=== PATIENT | male | born 1970 | race Caucasian/White ===

== ENCOUNTER 2021-05-12 12:21 | Inpatient (IN) | payer OTHER ==
[2021-05-12] MEDS ORDERED: ALBUTEROL HFA INHALER INHALATION STA (13:08)
[2021-05-12] MEDS ORDERED: ACETAMINOPHEN TAB 500 MG TAB PO STA (13:08)
[2021-05-12] MEDS ORDERED: ACETAMINOPHEN TAB 500 MG TAB PO PRN (13:08)
[2021-05-12] MEDS ORDERED: SODIUM CHLORIDE 0.9% 500 ML 500 ML IV STA (13:09)
[2021-05-12] MEDS ORDERED: DEXAMETHASONE SOD PHOSPHATE 10 MG/ML 1 ML VIAL IVP STA (13:09)
--- NOTE | 2021-05-12 13:34 | ED ---
General Adult HPI - General Chief complaint: Upper Respiratory Infection Stated complaint: Covid+, SOB Time Seen by Provider: 05/12/21 12:56 Source: patient, family, RN notes reviewed Mode of arrival: ambulatory Limitations: no limitations - History of Present Illness Initial comments: 51-year-old male presents to the emergency room for a chief complaint of shortness of breath. Patient developed symptoms of COVID-19 about a week and a half ago. 8 he tested positive and then received antibodies 3 days ago. However he has continued to be short of breath. He has some nausea and diarrhea as well. He is not vaccinated for COVID-19.Patient has no other complaints at this time including chest pain, abdominal pain, vomiting, headache, or visual changes. - Related Data Home Medications Medication Instructions Recorded Confirmed Albuterol Inhaler [Ventolin Hfa 1 puff INHALATION RT-Q4H PRN 05/12/21 05/12/21 Inhaler] Benzonatate [Tessalon Perles] 100 mg PO Q8H PRN 05/12/21 05/12/21 dexAMETHasone 6 mg PO DAILY 05/12/21 05/12/21 Allergies Allergy/AdvReac Type Severity Reaction Status Date / Time No Known Allergies Allergy Verified 05/12/21 13:17 Review of Systems ROS Statement: Those systems with pertinent positive or pertinent negative responses have been documented in the HPI. ROS Other: All systems not noted in ROS Statement are negative. Past Medical History Past Medical History: No Reported History History of Any Multi-Drug Resistant Organisms: None Reported Past Surgical History: No Surgical Hx Reported Past Psychological History: No Psychological Hx Reported Smoking Status: Never smoker Past Alcohol Use History: None Reported Past Drug Use History: None Reported General Exam Limitations: no limitations General appearance: alert, in no apparent distress Head exam: Present: atraumatic Eye exam: Present: normal appearance, PERRL, EOMI. Absent: scleral icterus, conjunctival injection ENT exam: Present: normal exam, mucous membranes moist Neck exam: Present: normal inspection, full ROM. Absent: tenderness Respiratory exam: Present: normal lung sounds bilaterally. Absent: respiratory distress, wheezes Cardiovascular Exam: Present: regular rate, normal rhythm, normal heart sounds Course Vital Signs 05/12/21 05/12/21 05/12/21 12:35 13:30 13:45 Temperature 98.5 F Pulse Rate 83 81 Respiratory 18 20 20 Rate Blood Pressure 114/71 O2 Sat by Pulse 80 L 95 Oximetry 05/12/21 16:33 Temperature 98.2 F Pulse Rate 70 Respiratory 18 Rate Blood Pressure 135/92 O2 Sat by Pulse 93 L Oximetry EKG Findings - EKG Comments: EKG Findings:: Normal sinus rhythm, ventricular rate 79, FL interval 150, QTC 433 Medical Decision Making - Medical Decision Making Patient presents with oxygenation 80% on room air. He is placed on 4 L. He is satting at 93% on 4 L.Chest x-ray and COVID-19 labs and markers obtained. At this time patient will be admitted for pulmonology consultation. We will start him on Decadron, vitamins, and keep him on oxygen at this time. - Lab Data Result diagrams: 05/12/21 13:32 05/12/21 13:32 Lab Results 05/12/21 05/12/21 05/12/21 Range/Units 13:32 13:32 13:32 WBC 5.1 (3.8-10.6) k/uL RBC 4.92 (4.30-5.90) m/uL Hgb 14.3 (13.0-17.5) gm/dL Hct 42.6 (39.0-53.0) % MCV 86.7 (80.0-100.0) fL MCH 29.1 (25.0-35.0) pg MCHC 33.6 (31.0-37.0) g/dL RDW 13.2 (11.5-15.5) % Plt Count 377 (150-450) k/uL MPV 7.4 Neutrophils % 77 % Lymphocytes % 13 % Monocytes % 8 % Eosinophils % 0 % Basophils % 0 % Neutrophils # 3.9 (1.3-7.7) k/uL Lymphocytes # 0.7 L (1.0-4.8) k/uL Monocytes # 0.4 (0-1.0) k/uL Eosinophils # 0.0 (0-0.7) k/uL Basophils # 0.0 (0-0.2) k/uL PT 10.1 (9.0-12.0) sec INR 0.9 (<1.2) APTT 21.8 L (22.0-30.0) sec Sodium 138 (137-145) mmol/L Potassium 5.0 (3.5-5.1) mmol/L Chloride 107 (98-107) mmol/L Carbon Dioxide 27 (22-30) mmol/L Anion Gap 4 mmol/L BUN 18 (9-20) mg/dL Creatinine 0.89 (0.66-1.25) mg/dL Est GFR (CKD-EPI)AfAm >90 (>60 ml/min/1.73 sqM) Est GFR (CKD-EPI)NonAf >90 (>60 ml/min/1.73 sqM) Glucose 115 H (74-99) mg/dL Calcium 8.2 L (8.4-10.2) mg/dL Magnesium 2.9 H (1.6-2.3) mg/dL Total Bilirubin 0.9 (0.2-1.3) mg/dL AST 154 H (17-59) U/L ALT 123 H (4-49) U/L Alkaline Phosphatase 164 H (38-126) U/L Lactate Dehydrogenase 2657 H (313-618) U/L C-Reactive Protein 4.9 H (<1.0) mg/dL Total Protein 6.4 (6.3-8.2) g/dL Albumin 3.3 L (3.5-5.0) g/dL Procalcitonin (0.02-0.09) ng/mL 05/12/21 Range/Units 13:32 WBC (3.8-10.6) k/uL RBC (4.30-5.90) m/uL Hgb (13.0-17.5) gm/dL Hct (39.0-53.0) % MCV (80.0-100.0) fL MCH (25.0-35.0) pg MCHC (31.0-37.0) g/dL RDW (11.5-15.5) % Plt Count (150-450) k/uL MPV Neutrophils % % Lymphocytes % % Monocytes % % Eosinophils % % Basophils % % Neutrophils # (1.3-7.7) k/uL Lymphocytes # (1.0-4.8) k/uL Monocytes # (0-1.0) k/uL Eosinophils # (0-0.7) k/uL Basophils # (0-0.2) k/uL PT (9.0-12.0) sec INR (<1.2) APTT (22.0-30.0) sec Sodium (137-145) mmol/L Potassium (3.5-5.1) mmol/L Chloride (98-107) mmol/L Carbon Dioxide (22-30) mmol/L Anion Gap mmol/L BUN (9-20) mg/dL Creatinine (0.66-1.25) mg/dL Est GFR (CKD-EPI)AfAm (>60 ml/min/1.73 sqM) Est GFR (CKD-EPI)NonAf (>60 ml/min/1.73 sqM) Glucose (74-99) mg/dL Calcium (8.4-10.2) mg/dL Magnesium (1.6-2.3) mg/dL Total Bilirubin (0.2-1.3) mg/dL AST (17-59) U/L ALT (4-49) U/L Alkaline Phosphatase (38-126) U/L Lactate Dehydrogenase (313-618) U/L C-Reactive Protein (<1.0) mg/dL Total Protein (6.3-8.2) g/dL Albumin (3.5-5.0) g/dL Procalcitonin 0.14 H (0.02-0.09) ng/mL Disposition Clinical Impression: COVID-19, Acute respiratory failure with hypoxia Disposition: ADMITTED IP TO THIS HOSP Is patient prescribed a controlled substance at d/c from ED?: No Time of Disposition: 13:34
--- NOTE | 2021-05-12 13:48 | XR ---
EXAMINATION TYPE: XR chest 1V portable DATE OF EXAM: 05/12/2021 COMPARISON: NONE HISTORY: Cough and shortness of breath TECHNIQUE: Single AP portable frontal upright view of the chest is obtained. FINDINGS: There are reticular increased markings in the peripheral left lung base. Increased right m id to basilar opacity. Somewhat low lung volumes. The cardiac silhouette size is within normal limits . The osseous structures are intact. IMPRESSION: Low lung volumes with right greater than left bilateral increased lower lung opacities c onsistent with covid-19 infection.
[2021-05-12 13:50] LABS: Basophils % (A) 0 %; Eosinophils % (A) 0 %; HCT 42.6 % (39.0-53.0); HGB 14.3 gm/dL (13.0-17.5); Lymphocytes # (A) 0.7 k/uL (1.0-4.8); Lymphocytes % (A) 13 %; MCH 29.1 pg (25.0-35.0); MCHC 33.6 g/dL (31.0-37.0); MCV 86.7 fL (80.0-100.0); Mean Platelet Volume 7.4; Monocytes # (A) 0.4 k/uL (0-1.0); Monocytes % (A) 8 %; Neutrophils # (A) 3.9 k/uL (1.3-7.7); Neutrophils % (A) 77 %; Platelet Count 377 k/uL (150-450); RBC 4.92 m/uL (4.30-5.90); RDW 13.2 % (11.5-15.5); WBC 5.1 k/uL (3.8-10.6)
[2021-05-12 14:01] LABS: ALT 123 U/L (4-49); AST 154 U/L (17-59); African American GFR (CKD) >90 (>60 ml/min/1.73 sqM); Albumin 3.3 g/dL (3.5-5.0); Alkaline Phosphatase 164 U/L (38-126); Anion Gap 4 mmol/L; Blood Urea Nitrogen 18 mg/dL (9-20); C Reactive Protein 4.9 mg/dL (<1.0); Calcium 8.2 mg/dL (8.4-10.2); Carbon Dioxide 27 mmol/L (22-30); Chloride 107 mmol/L (98-107); Glucose 115 mg/dL (74-99); Magnesium 2.9 mg/dL (1.6-2.3); Non-African American GFR(CKD) >90 (>60 ml/min/1.73 sqM); Sodium 138 mmol/L (137-145); Total Bilirubin 0.9 mg/dL (0.2-1.3); Total Protein 6.4 g/dL (6.3-8.2)
[2021-05-12] MEDS ORDERED: IBUPROFEN 400 MG TAB PO PRN (14:01)
[2021-05-12] MEDS ORDERED: NALOXONE 0.4 MG/ML 1 ML VIAL IV PRN (14:01)
[2021-05-12 14:10] LABS: LDH 2657 U/L (313-618)
[2021-05-12 14:21] LABS: INR 0.9 (<1.2); Prothrombin Time 10.1 sec (9.0-12.0)
[2021-05-12 14:23] LABS: Partial Thromboplastin Time 21.8 sec (22.0-30.0)
[2021-05-12] MEDS: ALBUTEROL HFA INHALER INHALATION SCH ×2 (14:49→21:00)
--- NOTE | 2021-05-12 14:56 | P.HPIM ---
History of Present Illness H&P Date: 05/12/21 Chief Complaint: Dyspnea 51-year-old man with no medical history, nonvaccinated individual, presented with worsening dyspnea. Patient developed symptoms approximately 10 days ago, was diagnosed with Covid 8 days ago, received monoclonal antibody 3 days ago, however, despite this intervention patient continued to develop worsening shortness of breath. In addition, patient feels generally fatigued, has a chills, cough, diarrhea, loss of appetite, mild abdominal discomfort. Otherwise, review of systems is negative for fevers, nausea, vomiting, chest pain, palpitations, syncope, constipation, dysuria, dyschezia, numbness/weakness of extremities. In the emergency room, patient was hypoxic to 80% on room air and was started on 4 L of nasal cannula which improved his saturation at 95%. CBC was unremarkable except for lymphopenia; chemistries demonstrate elevated liver enzymes, alkaline phosphatase, lactate dehydrogenase, CRP. Chest x-ray demonstrates right greater than left bilateral increased lower lung opacities consistent with Covid 19. Review of Systems All Systems reviewed and pertinent positives and negatives noted in HPI, all other symptoms are negative Past Medical History Past Medical History: No Reported History History of Any Multi-Drug Resistant Organisms: None Reported Past Surgical History: No Surgical Hx Reported Past Psychological History: No Psychological Hx Reported Smoking Status: Never smoker Past Alcohol Use History: None Reported Past Drug Use History: None Reported Medications and Allergies Home Medications Medication Instructions Recorded Confirmed Type Albuterol Inhaler [Ventolin Hfa 1 puff INHALATION RT-Q4H PRN 05/12/21 05/12/21 History Inhaler] Benzonatate [Tessalon Perles] 100 mg PO Q8H PRN 05/12/21 05/12/21 History dexAMETHasone 6 mg PO DAILY 05/12/21 05/12/21 History Allergies Allergy/AdvReac Type Severity Reaction Status Date / Time No Known Allergies Allergy Verified 05/12/21 13:17 Physical Exam Osteopathic Statement: *. No significant issues noted on an osteopathic structural exam other than those noted in the History and Physical/Consult. Vitals: Vital Signs Temp Pulse Resp BP Pulse Ox 05/12/21 13:45 81 20 95 05/12/21 12:35 98.5 F 83 18 114/71 80 L Intake and Output 05/11/21 05/12/21 05/12/21 22:59 06:59 14:59 Other: Weight 102.058 kg Gen: awake, alert HEENT: normocephalic, atraumatic, good hearing acuity, moist mucous membranes Resp: good air exchange, bilateral crackles in the posterior bases CVS: good distal perfusion x 4, regular rate and rhythm without murmurs GI: soft, NTTP, ND : no SPT, no CVAT, hanna catheter not present MSK: no pitting edema, no clubbing Neuro: non-focal, moving all extremities Psych: cooperative, euthymic mood Results CBC & Chem 7: 05/12/21 13:32 05/12/21 13:32 Labs: Abnormal Lab Results - Last 24 Hours (Table) 05/12/21 05/12/21 05/12/21 Range/Units 13:32 13:32 13:32 Lymphocytes # 0.7 L (1.0-4.8) k/uL APTT 21.8 L (22.0-30.0) sec Glucose 115 H (74-99) mg/dL Calcium 8.2 L (8.4-10.2) mg/dL Magnesium 2.9 H (1.6-2.3) mg/dL AST 154 H (17-59) U/L ALT 123 H (4-49) U/L Alkaline Phosphatase 164 H (38-126) U/L Lactate Dehydrogenase 2657 H (313-618) U/L C-Reactive Protein 4.9 H (<1.0) mg/dL Albumin 3.3 L (3.5-5.0) g/dL Assessment and Plan Assessment: Acute hypoxemic respiratory failure ARDS secondary to Covid 19 -Admit inpatient, telemetry -Pulmonary consult -Dexamethasone day 1 -Outside of window for remdesivir -Vitamin C, D, zinc -Oxygen when necessary -Daily inflammatory markers -Not a candidate for IL-6 inhibitor due to monoclonal antibody administration -inhaler PRN Patient is a full code DVT prophylaxis with Lovenox
[2021-05-12] MEDS: ZINC SULFATE 220 MG CAP PO SCH (16:33)
[2021-05-12] MEDS: SODIUM CHLORIDE 0.9% 1,000 ML IV SCH (16:33)
[2021-05-12] MEDS: ASCORBIC ACID 500 MG TAB PO SCH (16:33)
--- NOTE | 2021-05-12 18:28 | P.CNPUL ---
History of Present Illness Consult date: 05/12/21 Requesting physician: Dunia Botello Reason for consult: dyspnea, cough, chest pain, hypoxemia, pneumonia, abnormal CXR/CT Chief complaint: Shortness of breath. History of present illness: Pulmonary consult dated 05/12/2021. 51-year-old male who presents to the emergency department on May 12, with complaints of shortness of breath. The patient has been sick for at least 10-11 days. It started off with cough and shortness of breath, and loss of taste. He's also had fever. He has not been vaccinated. He was tested for coronavirus on May 07, and tested positive. The patient does not have a primary care physician. He has no past medical history. He takes no medications at home. The patient did receive monoclonal antibodies on May 09. Currently, the patient's on 5 L nasal cannula. He's got saline running at 75 mL an hour. He looks relatively stable. His chest x-ray does show diffuse bilateral infiltrates. The home medications that he is on include an albuterol inhaler, Tessalon Perles, and Decadron, given to him by the hospital. White count 5.1, hemoglobin 14.3, hematocrit 42.6, and platelet count 377,000. Sodium, potassium, chloride, CO2, anion gap, BUN, and creatinine are all normal. AST was 154, ALT 123, alkaline phosphatase 164. LDH was 2657. C-reactive protein is 14.9. Pro-calcitonin level is 0.14. Chest x-ray shows low lung volumes, with right greater than left bilateral opacities. Review of Systems REVIEW OF SYSTEMS: CONSTITUTIONAL: Fever, weakness. NEUROLOGIC: [ Negative.] HEENT: Loss of taste. CARDIAC: [Negative.] PULMONARY: Shortness of breath, cough, chest congestion. GI: [Negative.] : [Negative.] RHEUMATOLOGIC: [ Negative.] IMMUNOLOGIC: [ Negative.] ENDOCRINE: [Negative. ] DERMATOLOGIC: [Negative.] Past Medical History Past Medical History: No Reported History History of Any Multi-Drug Resistant Organisms: None Reported Past Surgical History: No Surgical Hx Reported Past Anesthesia/Blood Transfusion Reactions: No Reported Reaction Past Psychological History: No Psychological Hx Reported Smoking Status: Never smoker Past Alcohol Use History: None Reported Past Drug Use History: None Reported Medications and Allergies Home Medications Medication Instructions Recorded Confirmed Type Albuterol Inhaler [Ventolin Hfa 1 puff INHALATION RT-Q4H PRN 05/12/21 05/12/21 History Inhaler] Benzonatate [Tessalon Perles] 100 mg PO Q8H PRN 05/12/21 05/12/21 History dexAMETHasone 6 mg PO DAILY 05/12/21 05/12/21 History Allergies Allergy/AdvReac Type Severity Reaction Status Date / Time No Known Allergies Allergy Verified 05/12/21 13:17 Physical Exam Osteopathic Statement: *. No significant issues noted on an osteopathic struc tural exam other than those noted in the History and Physical/Consult. Vitals: Vital Signs Temp Pulse Resp BP Pulse Ox 05/12/21 16:33 98.2 F 70 18 135/92 93 L 05/12/21 13:45 81 20 95 05/12/21 13:30 20 05/12/21 12:35 98.5 F 83 18 114/71 80 L Intake and Output 05/12/21 05/12/21 05/12/21 06:59 14:59 22:59 Intake Total 125 Balance 125 Intake: Intake, IV Titration 75 Amount Sodium Chloride 0.9% 1, 75 000 ml @ 75 mls/hr IV . [id number] DAMIR Rx#:[id number] Oral 50 Other: # Voids 0 Weight 102.058 kg No acute distress, oriented 3. Currently on 5 L nasal cannula. No respiratory distress, or use of accessory muscles. HEENT examination is grossly unremarkable. Neck supple. Full range of motion. No adenopathy thyromegaly or neck vein distention. Cardiovascular examination reveals regular rhythm rate. S1-S2 normal. No S3 or S4. No discernible murmur noted. Heart rate is 70 bpm. Lungs reveal coarse bilateral rhonchi. Bibasilar crackles are appreciated. No wheezes noted. Breath sounds are equal bilaterally. Abdomen soft bowel sounds are heard. No masses or tenderness. Extremities are intact. No cyanosis clubbing or edema. Skin is without rash or lesion. Neurologic examination is brief but nonfocal. Results - Laboratory Findings CBC and BMP: 05/12/21 13:32 05/12/21 13:32 PT/INR, D-dimer PT 10.1 sec (9.0-12.0) 05/12/21 13:32 INR 0.9 (<1.2) 05/12/21 13:32 Abnormal lab findings: Abnormal Labs 05/12/21 05/12/21 05/12/21 13:32 13:32 13:32 Lymphocytes # 0.7 L APTT 21.8 L Glucose 115 H Calcium 8.2 L Magnesium 2.9 H AST 154 H ALT 123 H Alkaline Phosphatase 164 H Lactate Dehydrogenase 2657 H C-Reactive Protein 4.9 H Albumin 3.3 L - Diagnostic Findings Chest x-ray: image reviewed Assessment and Plan Assessment: Acute hypoxemic respiratory failure secondary to coronavirus associated pneumonia. Elevated inflammatory marker secondary to coronavirus infection. Mild liver function test abnormalities, secondary to coronavirus infection. Plan: Plan dated 05/12/2021. Currently, the patient is resting comfortably in room 44. He's on 5 L nasal cannula. He appears not to be in any respiratory distress. Chest x-ray does show diffuse bilateral right greater than left pulmonary infiltrates. The patient tested positive on May 07, and received monoclonal antibody on May 09. The patient has not been vaccinated. The patient is a candidate only for Lovenox, Decadron, and vitamins. He is not a candidate for REM. He is not sick enough to receive LINH. We will continue to follow and make recommendations where appropriate. Prognosis is guarded. Time with Patient: Greater than 30
[2021-05-12] MEDS: ENOXAPARIN 40 MG/0.4 ML SYRINGE SQ SCH (20:44)
[2021-05-12] MEDS: CHOLECALCIFEROL 125 MCG (5000 IU) TABLET PO SCH (21:11)
[2021-05-13] MEDS: ALBUTEROL HFA INHALER INHALATION SCH ×4 (03:29→19:43)
[2021-05-13] MEDS: SODIUM CHLORIDE 0.9% 1,000 ML IV SCH ×2 (03:44→17:48)
[2021-05-13] MEDS: ASCORBIC ACID 500 MG TAB PO SCH (07:45)
[2021-05-13] MEDS: DEXAMETHASONE SOD PHOSPHATE 10 MG/ML 1 ML VIAL IVP SCH (07:46)
[2021-05-13] MEDS: ZINC SULFATE 220 MG CAP PO SCH (07:46)
[2021-05-13] MEDS: ENOXAPARIN 40 MG/0.4 ML SYRINGE SQ SCH (07:46)
[2021-05-13] MEDS: CHOLECALCIFEROL 125 MCG (5000 IU) TABLET PO SCH (07:46)
[2021-05-13] MEDS ORDERED: guaiFENesin 600 MG TABLET.ER PO PRN (09:56)
[2021-05-13 11:56] LABS: Basophils # (A) 0.01 X 10*3/uL (0.00-0.10); Basophils % (A) 0.1 %; Eosinophils # (A) 0 X 10*3/uL (0.04-0.35); Eosinophils % (A) 0 %; HCT 43.8 % (39.6-50.0); HGB 13.5 g/dL (13.0-17.0); Lymphocytes # (A) 0.85 X 10*3/uL (0.90-5.00); Lymphocytes % (A) 12.4 %; MCH 28.1 pg (27.0-32.0); MCHC 30.8 g/dL (32.0-37.0); MCV 91.1 fL (80.0-97.0); Monocytes # (A) 0.58 X 10*3/uL (0.20-1.00); Monocytes % (A) 8.5 %; Neutrophils # (A) 5.19 X 10*3/uL (1.80-7.70); Neutrophils % (A) 75.8 %; Platelet Count 272 X 10*3/uL (140-440); RBC 4.81 X 10*6/uL (4.40-5.60); RDW 13.5 % (11.5-14.5); WBC 6.85 X 10*3/uL (4.50-10.00)
[2021-05-13 12:02] LABS: C Reactive Protein 3.4 mg/dL (0.00-0.80); Magnesium 2.9 mg/dL (1.5-2.4)
[2021-05-13 12:06] LABS: Albumin 3.5 g/dL (3.8-4.9); Albumin/Globulin Ratio 1.37 (1.60-3.17); Anion Gap 14.8 mmol/L (10.00-18.00); BUN/Creat Ratio 16.6 Ratio (12.00-20.00); Bilirubin, Conjugated 0.37 mg/dL (0.20-0.40); Bilirubin,Unconjugated 0.34 mg/dL (0.20-1.00); Blood Urea Nitrogen 16.6 mg/dL (9.0-27.0); Calcium 8.1 mg/dL (8.7-10.3); Carbon Dioxide 19.1 mmol/L (20.0-27.5); Globulin 2.5 g/dL (1.6-3.3); Potassium 5.4 mmol/L (3.5-5.5); Total Bilirubin 0.7 mg/dL (0.30-1.20)
--- NOTE | 2021-05-13 13:43 | P.PN ---
Subjective Progress Note Date: 05/13/21 Pt has rapidly worsening oxygen requirement. Now on 15L HFNC + NRB, was on 7L this morning. Objective - Vital Signs Vital signs: Vital Signs Temp 97.8 F 05/13/21 10:04 Pulse 76 05/13/21 10:04 Resp 17 05/13/21 10:04 BP 133/87 05/13/21 10:04 Pulse Ox 89 L 05/13/21 10:04 Intake & Output 05/12/21 05/13/21 05/13/21 18:59 06:59 18:59 Intake Total 125 Balance 125 Weight 102.058 kg Intake: Intake, IV Titration 75 Amount Sodium Chloride 0.9% 1, 75 000 ml @ 75 mls/hr IV . [id number] DAMIR Rx#:[id number] Oral 50 Other: # Voids 0 2 # Bowel Movements 1 - Exam Gen: awake, alert HEENT: normocephalic, atraumatic, good hearing acuity, moist mucous membranes Resp: good air exchange, bilateral crackles in the posterior bases CVS: good distal perfusion x 4, regular rate and rhythm without murmurs GI: soft, NTTP, ND : no SPT, no CVAT, hanna catheter not present MSK: no pitting edema, no clubbing Neuro: non-focal, moving all extremities Psych: cooperative, euthymic mood - Labs CBC & Chem 7: 05/13/21 07:13 05/13/21 07:13 Labs: Abnormal Lab Results - Last 24 Hours (Table) 05/12/21 05/12/21 05/12/21 Range/Units 13:32 13:32 13:32 MCHC (32.0-37.0) g/dL Immature Gran # (0.00-0.04) X 10*3/uL Lymphocytes # 0.7 L (1.0-4.8) k/uL Eosinophils # (0.04-0.35) X 10*3/uL APTT 21.8 L (22.0-30.0) sec D-Dimer (<0.60) mg/L FEU Carbon Dioxide (20.0-27.5) mmol/L Glucose 115 H (74-99) mg/dL Calcium 8.2 L (8.4-10.2) mg/dL Magnesium 2.9 H (1.6-2.3) mg/dL Ferritin 2608.0 H (22.0-322.0) ng/mL AST 154 H (17-59) U/L ALT 123 H (4-49) U/L Alkaline Phosphatase 164 H (38-126) U/L Lactate Dehydrogenase 2657 H (313-618) U/L C-Reactive Protein 4.9 H (<1.0) mg/dL Total Protein (6.2-8.2) g/dL Albumin 3.3 L (3.5-5.0) g/dL Albumin/Globulin Ratio (1.60-3.17) g/dL Procalcitonin (0.02-0.09) ng/mL 05/12/21 05/13/21 05/13/21 Range/Units 13:32 07:13 07:13 MCHC 30.8 L (32.0-37.0) g/dL Immature Gran # 0.22 H (0.00-0.04) X 10*3/uL Lymphocytes # 0.85 L (1.0-4.8) k/uL Eosinophils # 0 L (0.04-0.35) X 10*3/uL APTT (22.0-30.0) sec D-Dimer 15.80 H (<0.60) mg/L FEU Carbon Dioxide (20.0-27.5) mmol/L Glucose (74-99) mg/dL Calcium (8.4-10.2) mg/dL Magnesium (1.6-2.3) mg/dL Ferritin (22.0-322.0) ng/mL AST (17-59) U/L ALT (4-49) U/L Alkaline Phosphatase (38-126) U/L Lactate Dehydrogenase (313-618) U/L C-Reactive Protein (<1.0) mg/dL Total Protein (6.2-8.2) g/dL Albumin (3.5-5.0) g/dL Albumin/Globulin Ratio (1.60-3.17) g/dL Procalcitonin 0.14 H (0.02-0.09) ng/mL 05/13/21 Range/Units 07:13 MCHC (32.0-37.0) g/dL Immature Gran # (0.00-0.04) X 10*3/uL Lymphocytes # (1.0-4.8) k/uL Eosinophils # (0.04-0.35) X 10*3/uL APTT (22.0-30.0) sec D-Dimer (<0.60) mg/L FEU Carbon Dioxide 19.1 L (20.0-27.5) mmol/L Glucose 123 H (74-99) mg/dL Calcium 8.1 L (8.4-10.2) mg/dL Magnesium 2.9 H (1.6-2.3) mg/dL Ferritin (22.0-322.0) ng/mL AST 120 H (17-59) U/L ALT 146 H (4-49) U/L Alkaline Phosphatase 187 H (38-126) U/L Lactate Dehydrogenase 971 H (313-618) U/L C-Reactive Protein 3.40 H (<1.0) mg/dL Total Protein 6.0 L (6.2-8.2) g/dL Albumin 3.5 L (3.5-5.0) g/dL Albumin/Globulin Ratio 1.37 L (1.60-3.17) g/dL Procalcitonin (0.02-0.09) ng/mL Assessment and Plan Assessment: Acute hypoxemic respiratory failure ARDS secondary to Covid 19 -Admit inpatient, telemetry -Pulmonary consult -Dexamethasone day 2 -Outside of window for remdesivir -Vitamin C, D, zinc -Oxygen when necessary -Daily inflammatory markers -Would recommend IL-6 inhibitor at this point, I will defer this to pulmonary medicine -inhaler PRN Patient is a full code DVT prophylaxis with Lovenox
[2021-05-13] MEDS ORDERED: HEPARIN SODIUM 1,000 UN/ML (10ML VL) IV ONE (16:42)
--- NOTE | 2021-05-13 16:42 | CT ---
EXAMINATION TYPE: CT angio chest DATE OF EXAM: 05/13/2021 COMPARISON: None HISTORY: SOB, cough, +covid CT DLP: 636.1 mGycm Automated exposure control for dose reduction was used. CONTRAST: Performed with IV Contrast, patient injected with 80cc mL of Isovue 370. There are 3-D post processed images. There is extensive interstitial and airspace infiltrate in both lungs and relative sparing of the lef t upper lobe. Thoracic aorta is intact. There is no aneurysm or dissection. There are multiple filling defects in t he lower lobe pulmonary arteries bilaterally. Heart size is normal. There is no pericardial effusion. There is no pleural effusion. Bony thorax is intact. Sternum is intact. The upper abdominal soft tissues appear intact. New graft impression There is bilateral lower lobe large multiple pulmonary emboli. No sign of right heart strain. Normal heart size. Extensive bilateral pneumonia. This exam was discussed with the patient's nurse on the floor at 4:45 PM.
--- NOTE | 2021-05-13 17:01 | P.PN ---
Subjective Progress Note Date: 05/13/21 Principal diagnosis: COVID-19 pneumonia 51-year-old male who presents to the emergency department on May 12, with complaints of shortness of breath. The patient has been sick for at least 10-11 days. It started off with cough and shortness of breath, and loss of taste. H e's also had fever. He has not been vaccinated. He was tested for coronavirus on May 07, and tested positive. The patient does not have a primary care physician. He has no past medical history. He takes no medications at home. The patient did receive monoclonal antibodies on May 09. Currently, the patient's on 5 L nasal cannula. He's got saline running at 75 mL an hour. He looks relatively stable. His chest x-ray does show diffuse bilateral infiltrates. The home medications that he is on include an albuterol inhaler, Tessalon Perles, and Decadron, given to him by the hospital. White count 5.1, hemoglobin 14.3, hematocrit 42.6, and platelet count 377,000. Sodium, potass ium, chloride, CO2, anion gap, BUN, and creatinine are all normal. AST was 154, ALT 123, alkaline phosphatase 164. LDH was 2657. C-reactive protein is 14.9. Pro-calcitonin level is 0.14. Chest x-ray shows low lung volumes, with right greater than left bilateral opacities. The patient is seen today 05/13/2021 in follow-up on the regular medical floor. He is currently resting in bed. He is somewhat more dyspneic andtachypneic. His oxygen requirements have gone up to knees on 15 L high flow nasal cannula plus a nonrebreather mask. white count 6.8. Hemoglobin 13.5. Leukocytes 0.85. D-dimer up to 15.8. Sodium 143. Potassium 5.4. Creatinine 1.0. Glucose 123. AST 120. ALT 146. LDH 971. C-reactive protein 3.4. CT angiogram was requested after seeing the patient. There is evidence of bilateral lower lobe large multiple pulmonary emboli. No sign of right heart strain. Lovenox will be discontinued and he'll be initiated on a heparin drip. Objective - Vital Signs Vital signs: Vital Signs Temp 97.9 F 05/13/21 14:28 Pulse 81 05/13/21 14:28 Resp 18 05/13/21 14:28 BP 142/66 05/13/21 14:28 Pulse Ox 89 L 05/13/21 14:28 Intake & Output 05/12/21 05/13/21 05/13/21 18:59 06:59 18:59 Intake Total 125 Balance 125 Weight 102.058 kg Intake: Intake, IV Titration 75 Amount Sodium Chloride 0.9% 1, 75 000 ml @ 75 mls/hr IV . [id number] DAMIR Rx#:[id number] Oral 50 Other: # Voids 0 2 # Bowel Movements 1 - Exam GENERAL EXAM: Alert,pleasant 51-year-old gentleman, on 15 L high flow nasal cannula plus a nonrebreather mask, in mild respiratory distress. HEAD: Normocephalic. EYES: Normal reaction of pupils, equal size. NOSE: Clear with pink turbinates. THROAT: No erythema or exudates. NECK: No masses, no JVD. CHEST: No chest wall deformity. LUNGS: Equal air entry with coarse crackles in the bilateral bases. CVS: S1 and S2 normal with no audible murmur, regular rhythm. ABDOMEN: No hepatosplenomegaly, normal bowel sounds, no guarding or rigidity. SPINE: No scoliosis or deformity SKIN: No rashes CENTRAL NERVOUS SYSTEM: No focal deficits, tone is normal in all 4 extremities. EXTREMITIES: There is no peripheral edema. No clubbing, no cyanosis. Peripheral pulses are intact. - Labs CBC & Chem 7: 05/13/21 07:13 05/13/21 07:13 Labs: Abnormal Lab Results - Last 24 Hours (Table) 05/12/21 05/12/21 05/13/21 Range/Units 13:32 13:32 07:13 MCHC 30.8 L (32.0-37.0) g/dL Immature Gran # 0.22 H (0.00-0.04) X 10*3/uL Lymphocytes # 0.85 L (0.90-5.00) X 10*3/uL Eosinophils # 0 L (0.04-0.35) X 10*3/uL D-Dimer (<0.60) mg/L FEU Carbon Dioxide (20.0-27.5) mmol/L Glucose (70-110) mg/dL Calcium (8.7-10.3) mg/dL Magnesium (1.5-2.4) mg/dL Ferritin 2608.0 H (22.0-322.0) ng/mL AST (14-35) U/L ALT (10-49) U/L Alkaline Phosphatase (41-126) U/L Lactate Dehydrogenase (120-246) U/L C-Reactive Protein (0.00-0.80) mg/dL Total Protein (6.2-8.2) g/dL Albumin (3.8-4.9) g/dL Albumin/Globulin Ratio (1.60-3.17) g/dL Procalcitonin 0.14 H (0.02-0.09) ng/mL 05/13/21 05/13/21 Range/Units 07:13 07:13 MCHC (32.0-37.0) g/dL Immature Gran # (0.00-0.04) X 10*3/uL Lymphocytes # (0.90-5.00) X 10*3/uL Eosinophils # (0.04-0.35) X 10*3/uL D-Dimer 15.80 H (<0.60) mg/L FEU Carbon Dioxide 19.1 L (20.0-27.5) mmol/L Glucose 123 H (70-110) mg/dL Calcium 8.1 L (8.7-10.3) mg/dL Magnesium 2.9 H (1.5-2.4) mg/dL Ferritin (22.0-322.0) ng/mL AST 120 H (14-35) U/L ALT 146 H (10-49) U/L Alkaline Phosphatase 187 H (41-126) U/L Lactate Dehydrogenase 971 H (120-246) U/L C-Reactive Protein 3.40 H (0.00-0.80) mg/dL Total Protein 6.0 L (6.2-8.2) g/dL Albumin 3.5 L (3.8-4.9) g/dL Albumin/Globulin Ratio 1.37 L (1.60-3.17) g/dL Procalcitonin (0.02-0.09) ng/mL Assessment and Plan Assessment: 1 Acute hypoxemic respiratory failure secondary to COVID-19 pneumonia. Worsening oxygen requirements today up to 15 L high flow nasal cannula plus a nonrebreather mask. He will be initiated on Baricitinib. CT angiogram was ordered and he does have bilateral large pulmonary emboli in the lower lobes. No evidence of heart strain. Extensive bilateral pneumonia. Heparin drip will be initiated. Discontinue Lovenox. 2 Acute bilateral pulmonary emboli secondary to COVID-19 infection 3 Elevated inflammatory markers secondary to above 4 Elevated LFTs secondary to above Plan: The patient was seen and evaluated by Dr. Chaves CAT scan and labs reviewed Initiate Baricitinib Discontinue Lovenox, initiate heparin drip Obtain echocardiogram Continue Decadron, vitamin supplements May require transfer to the ICU Continue to monitor oxygen saturations closely Prognosis is guarded We will continue to follow and make further recommendations based on his clinical status I, the cosigning physician, performed a history & physical examination of the patient. Lungs sounds coarse crackles in the bilateral bases. Maintaining good O2 saturations in the 90s on 15 L high flow nasal cannula plus a nonrebreather mask. I discussed the assessment and plan of care with my nurse practitioner, Alice Raya. I attest to the above note as dictated by her.
[2021-05-13] MEDS: HEPARIN SOD,PORK IN 0.45% NACL 25,000 UNIT in 0.45% NACL 1 250ML.BAG IV SCH (17:40)
[2021-05-13] MEDS: BARICITINIB 2 MG TABLET PO SCH (17:47)
[2021-05-13] MEDS ORDERED: ALPRAZolam 0.5 MG TAB PO PRN (22:21)
[2021-05-14] MEDS: ALBUTEROL HFA INHALER INHALATION SCH ×4 (03:36→21:47)
[2021-05-14] MEDS: HEPARIN SOD,PORK IN 0.45% NACL 25,000 UNIT in 0.45% NACL 1 250ML.BAG IV SCH ×2 (05:41→20:29)
[2021-05-14] MEDS: SODIUM CHLORIDE 0.9% 1,000 ML IV SCH ×2 (05:46→11:35)
[2021-05-14 06:14] LABS: Basophils # (A) 0.1 k/uL (0-0.2); Basophils % (A) 0 %; Eosinophils % (A) 0 %; HGB 14.5 gm/dL (13.0-17.5); Lymphocytes # (A) 1.4 k/uL (1.0-4.8); Lymphocytes % (A) 12 %; MCH 28.6 pg (25.0-35.0); MCHC 32.3 g/dL (31.0-37.0); MCV 88.5 fL (80.0-100.0); Mean Platelet Volume 7.9; Monocytes # (A) 0.7 k/uL (0-1.0); Monocytes % (A) 6 %; Neutrophils # (A) 9.6 k/uL (1.3-7.7); Neutrophils % (A) 80 %; Platelet Count 290 k/uL (150-450); RBC 5.08 m/uL (4.30-5.90); RDW 13.3 % (11.5-15.5); WBC 11.9 k/uL (3.8-10.6)
[2021-05-14 06:39] LABS: Partial Thromboplastin Time 56.1 sec (22.0-30.0)
[2021-05-14] MEDS ORDERED: LORazepam 2 MG/ML INJ IV STA ×2 (07:12→07:55)
[2021-05-14 07:20] LABS: ALT 150 U/L (4-49); AST 125 U/L (17-59); African American GFR (CKD) >90 (>60 ml/min/1.73 sqM); Albumin 3.2 g/dL (3.5-5.0); Alkaline Phosphatase 226 U/L (38-126); Anion Gap 7 mmol/L; Bilirubin,Unconjugated 0.5 mg/dL (0.0-1.1); Blood Urea Nitrogen 20 mg/dL (9-20); C Reactive Protein 3.4 mg/dL (<1.0); Calcium 8.2 mg/dL (8.4-10.2); Carbon Dioxide 23 mmol/L (22-30); Chloride 111 mmol/L (98-107); Globulin 3.1 g/dL; Glucose 122 mg/dL (74-99); Magnesium 2.7 mg/dL (1.6-2.3); Non-African American GFR(CKD) >90 (>60 ml/min/1.73 sqM); Potassium 5.2 mmol/L (3.5-5.1); Sodium 141 mmol/L (137-145); Total Bilirubin 0.8 mg/dL (0.2-1.3); Total Protein 6.3 g/dL (6.3-8.2)
[2021-05-14 07:31] LABS: LDH 3109 U/L (313-618)
[2021-05-14] MEDS ORDERED: propofoL 100 ML IV ONE (07:47)
[2021-05-14 07:51] LABS: Glucose,Whole Blood 185 mg/dL (75-99)
[2021-05-14] MEDS ORDERED: DEXMEDETOMIDINE/0.9% NACL(PMX) 400 MCG in EMPTY BAG 1 BAG IV SCH (08:00)
[2021-05-14] MEDS ORDERED: CISATRACURIUM 2 MG/ML 5 ML VIAL IV ONE (08:05)
[2021-05-14] MEDS ORDERED: SODIUM BICARB 8.4% 50 ML SYR (1 MEQ/ML) IV STA (08:17)
--- NOTE | 2021-05-14 08:47 | P.PN ---
Subjective Progress Note Date: 05/14/21 Principal diagnosis: COVID-19 ARDS 51-year-old male who presents to the emergency department on May 12, with complaints of shortness of breath. The patient has been sick for at least 10-11 days. It started off with cough and shortness of breath, and loss of taste. He's also had fever. He has not been vaccinated. He was tested for coronavirus on May 07, and tested positive. The patient does not have a primary care physician. He has no past medical history. He takes no medications at home. The patient did receive monoclonal antibodies on May 09. Currently, the patient's on 5 L nasal cannula. He's got saline running at 75 mL an hour. He looks relatively stable. His chest x-ray does show diffuse bilateral infiltrates. The home medications that he is on include an albuterol inhaler, Tessalon Perles, and Decadron, given to him by the hospital. White count 5.1, hemoglobin 14.3, hematocrit 42.6, and platelet count 377,000. Sodium, potassium, chloride, CO2, anion gap, BUN, and creatinine are all normal. AST was 154, ALT 123, alkaline phosphatase 164. LDH was 2657. C-reactive protein is 14.9. Pro-calcitonin level is 0.14. Chest x-ray shows low lung volumes, with right greater than left bilateral opacities. The patient is seen today 05/13/2021 in follow-up on the regular medical floor. He is currently resting in bed. He is somewhat more dyspneic andtachypneic. His oxygen requirements have gone up to knees on 15 L high flow nasal cannula plus a nonrebreather mask. white count 6.8. Hemoglobin 13.5. Leukocytes 0.85. D-dimer up to 15.8. Sodium 143. Potassium 5.4. Creatinine 1.0. Glucose 123. AST 120. ALT 146. LDH 971. C-reactive protein 3.4. CT angiogram was requested after seeing the patient. There is evidence of bilateral lower lobe large multiple pulmonary emboli. No sign of right heart strain. Lovenox will be discontinued and he'll be initiated on a heparin drip On 05/14/2021 patient was emergently transferred to the intensive care unit for a concern of worsening hypoxia and dyspnea. Earlier in the shift he was on 15 L per high flow nasal cannula and 100% nonrebreather mask however his work of reginaldo thing had significantly increased his respiratory rate was ranging between 40-50 breaths per minute. His pulse ox was 87% and subsequently dropped down to 73%%. He was placed on BiPAP support with no improvement in his work of breathing or hypoxia, was intubated per CINDY, currently on assist-control mode of ventilation with a rate of 36 tidal volume is 350, FiO2 100% and PEEP of 24. he was given Nimbex IV pushes and propofol for sedation during intubation, he will be placed on Diprivan drip and Nimbex. Currently his pulse ox is 81% on the above- mentioned vent settings. His blood pressure 121/71, he is in sinus mechanism tachycardic with a rate of 110-120 BPM. Patient was found to have bilateral pulmonary emboli on yesterday's CT angiogram of the chest, he was started on heparin infusion on which she remains per weight-based protocol, his maintenance IV fluids are 0.9 normal saline at a rate of 75 ML per hour, CT angiogram lung windows showed extensive bilateral pneumonia. Chest x-ray post intubation and left subclavian central line placement is pending. This morning's labs have been reviewed, white blood cell count is 11.9, hemoglobin is 14.5, today's d- dimer is 18.26 slightly increased from yesterday's value, sodium is 141, potassium is 5.2, chloride is 111, CO2 is 23, BUN was 20 creatinine 0.96, his LDH today has significantly increased and is up to 3109, from 971 on yesterday's labs, and CRP is stable at 3.4. His pro calcitonin level on 05/12/2021 was at 0.14. Patient was started on Baricitinib yesterday on 05/13/2021, in addition to Decadron 6 mg daily. Patient is on vitamin C, zinc, and vitamin D will be added. Objective - Vital Signs Vital signs: Vital Signs Temp 97.5 F L 05/14/21 06:00 Pulse 82 05/14/21 06:00 Resp 25 H 05/14/21 02:00 BP 144/96 05/14/21 06:00 Pulse Ox 87 L 05/14/21 06:00 Intake & Output 05/13/21 05/14/2105/14/21 18:59 06:59 18:59 Intake Total 1440 210.439 Balance 1440 210.439 Intake: Intake, IV Titration 900 210.439 Amount Heparin Sod,Pork in 0.45% 210.439 NaCl 25,000 unit In 0.45 % NaCl 1 250ml.bag @ 18 UNITS/KG/HR 18.37 mls/hr IV .[id number] DAMIR Rx#: [id number] Sodium Chloride 0.9% 1, 900 000 ml @ 75 mls/hr IV . [id number] [facility]IR Rx#:[id number] Oral 540 Other: # Voids 2 1 - Exam GENERAL EXAM: Today, intubated and paralyzed 51-year-old white male, on assist- control mode of ventilation, with FiO2 of 100% and PEEP of 24, comfortable in no apparent distress. HEAD: Normocephalic/atraumatic. EYES: Normal reaction of pupils, equal size. Conjunctiva pink, sclera white. NOSE: Clear with pink turbinates. THROAT: No erythema or exudates. NECK: No masses, no JVD, no thyroid enlargement, no adenopathy. CHEST: No chest wall deformity. Symmetrical expansion. Left subclavian central line in place covered with a sterile dressing LUNGS: Equal air entry with no crackles, wheeze, rhonchi or dullness. CVS: Regular rate and rhythm, normal S1 and S2, no gallops, no murmurs, no rubs ABDOMEN: Soft, nontender. No hepatosplenomegaly, normal bowel sounds, no guarding or rigidity. EXTREMITIES: No clubbing, no edema, no cyanosis, 2+ pulses and upper and lower extremities. MUSCULOSKELETAL: Muscle strength and tone normal. SPINE: No scoliosis or deformity SKIN: No rashes CENTRAL NERVOUS SYSTEM: Sedated and paralyzed No focal deficits, tone is normal in all 4 extremities. - Labs CBC & Chem 7: 05/14/21 05:42 05/14/21 05:42 Labs: Abnormal Lab Results - Last 24 Hours (Table) 05/12/21 05/13/21 05/13/21 Range/Units 13:32 07:13 07:13 WBC (3.8-10.6) k/uL MCHC 30.8 L (32.0-37.0) g/dL Immature Gran # 0.22 H (0.00-0.04) X 10*3/uL Neutrophils # (1.3-7.7) k/uL Lymphocytes # 0.85 L (0.90-5.00) X 10*3/uL Eosinophils # 0 L (0.04-0.35) X 10*3/uL APTT (22.0-30.0) sec D-Dimer 15.80 H (<0.60) mg/L FEU Potassium (3.5-5.1) mmol/L Chloride (98-107) mmol/L Carbon Dioxide (20.0-27.5) mmol/L Glucose (70-110) mg/dL POC Glucose (mg/dL) (75-99) mg/dL Calcium (8.7-10.3) mg/dL Magnesium (1.5-2.4) mg/dL Ferritin 2608.0 H (22.0-322.0) ng/mL AST (14-35) U/L ALT (10-49) U/L Alkaline Phosphatase (41-126) U/L Lactate Dehydrogenase (120-246) U/L C-Reactive Protein (0.00-0.80) mg/dL Total Protein (6.2-8.2) g/dL Albumin (3.8-4.9) g/dL Albumin/Globulin Ratio (1.60-3.17) g/dL 05/13/21 05/13/21 05/14/21 Range/Units 07:13 23:17 05:42 WBC 11.9 H (3.8-10.6) k/uL MCHC (32.0-37.0) g/dL Immature Gran # (0.00-0.04) X 10*3/uL Neutrophils # 9.6 H (1.3-7.7) k/uL Lymphocytes # (0.90-5.00) X 10*3/uL Eosinophils # (0.04-0.35) X 10*3/uL APTT 79.5 H (22.0-30.0) sec D-Dimer (<0.60) mg/L FEU Potassium (3.5-5.1) mmol/L Chloride (98-107) mmol/L Carbon Dioxide 19.1 L (20.0-27.5) mmol/L Glucose 123 H (70-110) mg/dL POC Glucose (mg/dL) (75-99) mg/dL Calcium 8.1 L (8.7-10.3) mg/dL Magnesium 2.9 H (1.5-2.4) mg/dL Ferritin (22.0-322.0) ng/mL AST 120 H (14-35) U/L ALT 146 H (10-49) U/L Alkaline Phosphatase 187 H (41-126) U/L Lactate Dehydrogenase 971 H (120-246) U/L C-Reactive Protein 3.40 H (0.00-0.80) mg/dL Total Protein 6.0 L (6.2-8.2) g/dL Albumin 3.5 L (3.8-4.9) g/dL Albumin/Globulin Ratio 1.37 L (1.60-3.17) g/dL 05/14/21 05/14/21 05/14/21 Range/Units 05:42 05:42 07:49 WBC (3.8-10.6) k/uL MCHC (32.0-37.0) g/dL Immature Gran # (0.00-0.04) X 10*3/uL Neutrophils # (1.3-7.7) k/uL Lymphocytes # (0.90-5.00) X 10*3/uL Eosinophils # (0.04-0.35) X 10*3/uL APTT 56.1 H (22.0-30.0) sec D-Dimer 18.26 H (<0.60) mg/L FEU Potassium 5.2 H (3.5-5.1) mmol/L Chloride 111 H (98-107) mmol/L Carbon Dioxide (20.0-27.5) mmol/L Glucose 122 H (70-110) mg/dL POC Glucose (mg/dL) 185 H (75-99) mg/dL Calcium 8.2 L (8.7-10.3) mg/dL Magnesium 2.7 H (1.5-2.4) mg/dL Ferritin (22.0-322.0) ng/mL AST 125 H (14-35) U/L ALT 150 H (10-49) U/L Alkaline Phosphatase 226 H (41-126) U/L Lactate Dehydrogenase 3109 H (120-246) U/L C-Reactive Protein 3.4 H (0.00-0.80) mg/dL Total Protein (6.2-8.2) g/dL Albumin 3.2 L (3.8-4.9) g/dL Albumin/Globulin Ratio (1.60-3.17) g/dL Assessment and Plan Plan: Assessment: #1. Severe hypoxic respiratory failure related to COVID-19 pneumonia, admitted to the hospital on 05/12/2021 with 10-11 day history of COVID-19 symptoms. Patient is a non-vaccinated individual, he was outside the window for Remdesivir, was started on Baricitinib on 05/13/2021. Transfer to the intensive care unit on 05/14/2021 and intubated currently on FiO2 of 100% and PEEP of 24, sedated and paralyzed on mechanical ventilator #2. Acute bilateral pulmonary emboli likely related to COVID-19 pneumonia, seen on a CT angiogram of the chest on 05/13/2021, started on heparin infusion. No CT evidence of heart strain, will obtain echocardiogram #3. Elevated inflammatory markers, significantly increased on today's labs on 05/14/2021 #4. Elevated d-dimer related to acute pulmonary emboli #5. Elevated LFTs related to viral pneumonia Plan: Patient has been intubated and placed on mechanical ventilator Current vent settings are assist-control with a rate of 36, tidal volume is 350, FiO2 100% and PEEP of 24 Blood gas postintubation is pending Chest x-ray postintubation and left subclavian line placement was reviewed, and ET tube and left subclavian central line are in appropriate positions Arterial line has been placed, and hemodynamically patient is stable, not requiring any vasopressor support We will use propofol for sedation, and Nimbex for paralysis Continue heparin infusion, and 0.9 at 75 ML per hour Continue Baricitinib Continue Decadron Continue multivitamins Obtain echocardiogram Prone patient for 16 hours if able to tolerate Will update family Prognosis guarded I performed a history & physical examination of the patient and discussed their management with my nurse practitioner, January Drew. I reviewed the nurse practitioner's note and agree with the documented findings and plan of care. Lung sounds are positive for diminished breaths bilaterally throughout the lung [place]. The findings and the impression was discussed with the patient. I attest to the documentation by the nurse practitioner. Time with Patient: Greater than 30
--- NOTE | 2021-05-14 08:57 | P.PCN ---
Date of Procedure: 05/14/21 Preoperative Diagnosis: Acute hypoxic respiratory failure, COVID 19 pneumonia Postoperative Diagnosis: same Procedure(s) Performed: central line, arterial line Anesthesia: local Surgeon: Leticia Swanson Estimated Blood Loss (ml): 0 Pathology: other Condition: critical Disposition: ICU Operative Findings: Indication: Hemodynamic monitoring/Intravenous access. A time-out was completed verifying correct patient, procedure, site, positioning, and implant(s) or special equipment if applicable. The patient was placed in a dependent position appropriate for central line placement based on the vein to be cannulated. The patients left shoulder was prepped and draped in sterile fashion. 1% Lidocaine was used to anesthetize the surrounding skin area. A triple lumen 9F Cordis catheter was introduced into the subclavian vein using Seldinger technique. The catheter was threaded smoothly over the guide wire and appropriate blood return was obtained. Each lumen of the catheter was evacuated of air and flushed with sterile saline. The catheter was then sutured in place to the skin and a sterile dressing applied. Perfusion to the extremity distal to the point of catheter insertion was checked and found to be adequate. The patient tolerated the procedure well and there were no complications. Indication: Hemodynamic monitoring. A time-out was completed verifying correct patient, procedure, site, positioning, and implant(s) or special equipment if applicable. Allens test was performed to ensure adequate perfusion. The patients right wrist was prepped and draped in sterile fashion. 1% Lidocaine was used to anesthetize the area. An 18G Arrow arterial line was introduced into the radial artery. The catheter was threaded over the guide wire and the needle was removed with appropriate pulsatile blood return. Blood loss was minimal. T he catheter was then sutured in place to the skin and a sterile dressing applied. Perfusion to the extremity distal to the point of catheter insertion was checked and found to be adequate. The patient tolerated the procedure well and there were no complications.
--- NOTE | 2021-05-14 08:58 | XR ---
EXAMINATION TYPE: XR chest 1V portable DATE OF EXAM: 05/14/2021 COMPARISON: 05/12/2021 INDICATION: Line placement TECHNIQUE: Single frontal view of the chest is obtained. FINDINGS: The heart size is normal. The pulmonary vasculature is normal. There is diffuse infiltrate through the right lung. Endotracheal tube tip is above the merrill previous gastric tube transverses the thorax. Left central venous catheter is in place tip superior vena cava region. No pneumothorax is evident. IMPRESSION: 1. Worsening diffuse right lung infiltrate. 2. Placement of multiple lines and catheters discussed above.
[2021-05-14] MEDS: CISATRACURIUM 200 MG in SODIUM CHLORIDE 0.9% 180 ML IV SCH (09:05)
[2021-05-14 09:32] LABS: ABG Base Excess -1.1 mmol/L; ABG HCO3 28 mmol/L (21-25); ABG Oxygen Saturation 94.6 % (94-97); ABG PO2 99 mmHg (83-108); ABG TCO2 30 mmol/L (19-24); Allen Test Performed? Yes
[2021-05-14 09:39] LABS: ABG PH 7.15 (7.35-7.45)
[2021-05-14 09:40] LABS: ABG PCO2 79 mmHg (35-45)
[2021-05-14] MEDS: DEXAMETHASONE SOD PHOSPHATE 10 MG/ML 1 ML VIAL IVP SCH (09:54)
[2021-05-14] MEDS: ZINC SULFATE 220 MG CAP PO SCH (09:55)
[2021-05-14] MEDS: CHOLECALCIFEROL 25 MCG (1000 IU) TABLET PO SCH (09:55)
[2021-05-14] MEDS: CHLORHEXIDINE GLUCONATE 15 ML CUP MUCOUS MEM SCH ×2 (09:55→21:21)
[2021-05-14] MEDS: ASCORBIC ACID 500 MG TAB PO SCH (09:55)
--- NOTE | 2021-05-14 10:37 | ECHOF ---
Referral Reason:CoVID, bilateral PE MEASUREMENTS -------- HEIGHT: 180.3 cm WEIGHT: 102.1 kg BP: RVIDd: 3.6 cm (< 3.3) IVSd: 1.4 cm (0.6 - 1.1) LVIDd: 2.6 cm (3.9 - 5.3) LVPWd: 1.5 cm (0.6 - 1.1) IVSs: 1.7 cm LVIDs: 1.2 cm LVPWs: 1.3 cm Ao Diam: 3.3 cm (2.0 - 3.7) AV Cusp: 1.8 cm (1.5 - 2.6) LA Diam: 2.7 cm (2.7 - 3.8) RAP: 15.00 mmHg RVSP: 30.86 mmHg FINDINGS -------- Resting tachycardia (HR>100bpm). The left ventricular size is normal. There is moderate concentric left ventricular hypertrophy. O verall left ventricular systolic function is normal with, an EF between 55 - 60 %. There is paradox ical/dysynergic septal motion consistent with right ventricular volume overload and/or elevated right ventricular end-diastolic pressure. The right ventricle is mild to moderately enlarged. The left atrial size is normal. The right atrial size is normal. The aortic valve is trileaflet and appears structurally normal. The mitral valve is normal. There is trace mitral regurgitation. The tricuspid valve appears structurally normal. Trace tricuspid regurgitation present. Right baldo tricular systolic pressure is normal at < 35 mmHg. There is no pulmonic regurgitation present. The aortic root size is normal. The inferior vena cava is mildly dilated. There is no pericardial effusion. CONCLUSIONS -------- 1. The left ventricular size is normal. 2. There is moderate concentric left ventricular hypertrophy. 3. Overall left ventricular systolic function is normal with, an EF between 55 - 60 %. 4. There is paradoxical/dysynergic septal motion consistent with right ventricular volume overload an d/or elevated right ventricular end-diastolic pressure. 5. The right ventricle is mild to moderately enlarged. 6. There is trace mitral regurgitation. 7. Trace tricuspid regurgitation present. 8. The inferior vena cava is mildly dilated. 9. There is no pericardial effusion. DIESEL ENGINE SPECIALIST: Latisha Gil RDCS
[2021-05-14 11:27] LABS: Glucose,Whole Blood 191 mg/dL (75-99)
--- NOTE | 2021-05-14 11:31 | P.PN ---
Subjective Progress Note Date: 05/14/21 Pt had acutely worsening respiratory status today despite trial of BIPAP. Patient was subsequently transferred to the ICU where he was intubated. Objective - Vital Signs Vital signs: Vital Signs Temp 100.4 F H 05/14/21 09:00 Pulse 123 H 05/14/21 11:00 Resp 39 H 05/14/21 11:00 BP 141/102 05/14/21 09:30 Pulse Ox 96 05/14/21 11:00 Intake & Output 05/13/21 05/14/21 05/14/21 18:59 06:59 18:59 Intake Total 1440 210.439 75 Output Total 350 Balance 1440 210.439 -275 Intake: IV 75 Sodium Chloride 0.9% 1, 75 000 ml @ 75 mls/hr IV . [id number] [facility] Rx#:[id number] Intake, IV Titration 900 210.439 Amount Heparin Sod,Pork in 0.45% 210.439 NaCl 25,000 unit In 0.45 % NaCl 1 250ml.bag @ 18 UNITS/KG/HR 18.37 mls/hr IV .[id number] [facility] Rx#: [id number] Sodium Chloride 0.9% 1, 900 000 ml @ 75 mls/hr IV . [id number] [facility] Rx#:[id number] Oral 540 Output: Urine 350 Other: # Voids 2 1 1 ABP, PAP, CO, CI - Last Documented Arterial Blood Pressure 79/57 - Exam Gen: intubated, sedated HEENT: normocephalic, atraumatic, good hearing acuity, moist mucous membranes Resp: vented: FiO2 100%, PEEP 24 CVS: good distal perfusion x 4, tachycardic GI: soft, NTTP, ND : no SPT, no CVAT, hanna catheter not present MSK: no pitting edema, no clubbing - Labs CBC & Chem 7: 05/14/21 05:42 05/14/21 05:42 Labs: Abnormal Lab Results - Last 24 Hours (Table) 05/13/21 05/13/21 05/13/21 Range/Units 07:13 07:13 23:17 WBC (3.8-10.6) k/uL MCHC 30.8 L (32.0-37.0) g/dL Immature Gran # 0.22 H (0.00-0.04) X 10*3/uL Neutrophils # (1.3-7.7) k/uL Lymphocytes # 0.85 L (0.90-5.00) X 10*3/uL Eosinophils # 0 L (0.04-0.35) X 10*3/uL APTT 79.5 H (22.0-30.0) sec D-Dimer (<0.60) mg/L FEU ABG pH (7.35-7.45) ABG pCO2 (35-45) mmHg ABG HCO3 (21-25) mmol/L ABG Total CO2 (19-24) mmol/L Potassium (3.5-5.1) mmol/L Chloride (98-107) mmol/L Carbon Dioxide 19.1 L (20.0-27.5) mmol/L Glucose 123 H (70-110) mg/dL POC Glucose (mg/dL) (75-99) mg/dL Calcium 8.1 L (8.7-10.3) mg/dL Magnesium 2.9 H (1.5-2.4) mg/dL AST 120 H (14-35) U/L ALT 146 H (10-49) U/L Alkaline Phosphatase 187 H (41-126) U/L Lactate Dehydrogenase 971 H (120-246) U/L C-Reactive Protein 3.40 H (0.00-0.80) mg/dL Total Protein 6.0 L (6.2-8.2) g/dL Albumin 3.5 L (3.8-4.9) g/dL Albumin/Globulin Ratio 1.37 L (1.60-3.17) g/dL Procalcitonin (0.02-0.09) ng/mL 05/14/21 05/14/21 05/14/21 Range/Units 05:42 05:42 05:42 WBC 11.9 H (3.8-10.6) k/uL MCHC (32.0-37.0) g/dL Immature Gran # (0.00-0.04) X 10*3/uL Neutrophils # 9.6 H (1.3-7.7) k/uL Lymphocytes # (0.90-5.00) X 10*3/uL Eosinophils # (0.04-0.35) X 10*3/uL APTT 56.1 H (22.0-30.0) sec D-Dimer 18.26 H (<0.60) mg/L FEU ABG pH (7.35-7.45) ABG pCO2 (35-45) mmHg ABG HCO3 (21-25) mmol/L ABG Total CO2 (19-24) mmol/L Potassium 5.2 H (3.5-5.1) mmol/L Chloride 111 H (98-107) mmol/L Carbon Dioxide (20.0-27.5) mmol/L Glucose 122 H (70-110) mg/dL POC Glucose (mg/dL) (75-99) mg/dL Calcium 8.2 L (8.7-10.3) mg/dL Magnesium 2.7 H (1.5-2.4) mg/dL AST 125 H (14-35) U/L ALT 150 H (10-49) U/L Alkaline Phosphatase 226 H (41-126) U/L Lactate Dehydrogenase 3109 H (120-246) U/L C-Reactive Protein 3.4 H (0.00-0.80) mg/dL Total Protein (6.2-8.2) g/dL Albumin 3.2 L (3.8-4.9) g/dL Albumin/Globulin Ratio (1.60-3.17) g/dL Procalcitonin (0.02-0.09) ng/mL 05/14/21 05/14/21 05/14/21 Range/Units 05:42 07:49 07:53 WBC (3.8-10.6) k/uL MCHC (32.0-37.0) g/dL Immature Gran # (0.00-0.04) X 10*3/uL Neutrophils # (1.3-7.7) k/uL Lymphocytes # (0.90-5.00) X 10*3/uL Eosinophils # (0.04-0.35) X 10*3/uL APTT (22.0-30.0) sec D-Dimer (<0.60) mg/L FEU ABG pH 7.15 L* (7.35-7.45) ABG pCO2 79 H* (35-45) mmHg ABG HCO3 28 H (21-25) mmol/L ABG Total CO2 30 H (19-24) mmol/L Potassium (3.5-5.1) mmol/L Chloride (98-107) mmol/L Carbon Dioxide (20.0-27.5) mmol/L Glucose (70-110) mg/dL POC Glucose (mg/dL) 185 H (75-99) mg/dL Calcium (8.7-10.3) mg/dL Magnesium (1.5-2.4) mg/dL AST (14-35) U/L ALT (10-49) U/L Alkaline Phosphatase (41-126) U/L Lactate Dehydrogenase (120-246) U/L C-Reactive Protein (0.00-0.80) mg/dL Total Protein (6.2-8.2) g/dL Albumin (3.8-4.9) g/dL Albumin/Globulin Ratio (1.60-3.17) g/dL Procalcitonin 0.17 H (0.02-0.09) ng/mL 05/14/21 Range/Units 11:26 WBC (3.8-10.6) k/uL MCHC (32.0-37.0) g/dL Immature Gran # (0.00-0.04) X 10*3/uL Neutrophils # (1.3-7.7) k/uL Lymphocytes # (0.90-5.00) X 10*3/uL Eosinophils # (0.04-0.35) X 10*3/uL APTT (22.0-30.0) sec D-Dimer (<0.60) mg/L FEU ABG pH (7.35-7.45) ABG pCO2 (35-45) mmHg ABG HCO3 (21-25) mmol/L ABG Total CO2 (19-24) mmol/L Potassium (3.5-5.1) mmol/L Chloride (98-107) mmol/L Carbon Dioxide (20.0-27.5) mmol/L Glucose (70-110) mg/dL POC Glucose (mg/dL) 191 H (75-99) mg/dL Calcium (8.7-10.3) mg/dL Magnesium (1.5-2.4) mg/dL AST (14-35) U/L ALT (10-49) U/L Alkaline Phosphatase (41-126) U/L Lactate Dehydrogenase (120-246) U/L C-Reactive Protein (0.00-0.80) mg/dL Total Protein (6.2-8.2) g/dL Albumin (3.8-4.9) g/dL Albumin/Globulin Ratio (1.60-3.17) g/dL Procalcitonin (0.02-0.09) ng/mL Assessment and Plan Assessment: Acute hypoxemic respiratory failure ARDS secondary to Covid 19 Acute Pulmonary Embolism -Admit inpatient, telemetry -Pulmonary consult -Intubated on 05/14 -levophed -propofol -nimbex -Dexamethasone day 3 -Outside of window for remdesivir -Vitamin C, D, zinc -Oxygen when necessary -Daily inflammatory markers -Baricitinib day 2 -inhaler PRN -heparin gtt Patient is a full code
[2021-05-14] MEDS ORDERED: SODIUM CHLORIDE 0.9% 2,000 ML IV ONE (12:34)
[2021-05-14] MEDS: NOREPINEPHRINE 8 MG in SODIUM CHLORIDE 0.9% 250 ML IV SCH ×2 (13:22→22:14)
[2021-05-14] MEDS: INSULIN ASPART (NovoLOG) 100 UNIT/ML VIAL SQ SCH ×3 (13:23→23:41)
[2021-05-14] MEDS ORDERED: FUROSEMIDE 10 MG/ML 4 ML VIAL IV STA (17:11)
[2021-05-14] MEDS: BARICITINIB 2 MG TABLET PO SCH (17:39)
[2021-05-14 18:33] LABS: Glucose,Whole Blood 217 mg/dL (75-99)
[2021-05-14 23:26] LABS: Glucose,Whole Blood 179 mg/dL (75-99)
[2021-05-14] MEDS ORDERED: INSULIN ASPART (NovoLOG) 100 UNIT/ML VIAL SQ SCH (23:30)
[2021-05-15] MEDS ORDERED: INSULIN ASPART (NovoLOG) 100 UNIT/ML VIAL SQ SCH
[2021-05-15] MEDS: ALBUTEROL HFA INHALER INHALATION SCH ×5 (03:18→20:28)
[2021-05-15 04:42] LABS: Basophils # (A) 0.2 k/uL (0-0.2); Basophils % (A) 1 %; Eosinophils % (A) 0 %; HCT 48.2 % (39.0-53.0); HGB 14.8 gm/dL (13.0-17.5); Hypochromasia Marked; Lymphocytes # (A) 1.1 k/uL (1.0-4.8); Lymphocytes % (A) 7 %; MCH 29.6 pg (25.0-35.0); MCHC 30.8 g/dL (31.0-37.0); Mean Platelet Volume 7.8; Monocytes # (A) 1.1 k/uL (0-1.0); Monocytes % (A) 7 %; Neutrophils # (A) 13.6 k/uL (1.3-7.7); Neutrophils % (A) 83 %; Platelet Count 339 k/uL (150-450); RBC 5.01 m/uL (4.30-5.90); RDW 14.1 % (11.5-15.5); WBC 16.3 k/uL (3.8-10.6)
[2021-05-15 04:50] LABS: MCV 96.3 fL (80.0-100.0)
[2021-05-15 05:10] LABS: ABG HCO3 22 mmol/L (21-25); ABG Oxygen Saturation 99.1 % (94-97); ABG PO2 172 mmHg (83-108); ABG TCO2 25 mmol/L (19-24)
[2021-05-15 05:20] LABS: Glucose,Whole Blood 164 mg/dL (75-99)
[2021-05-15 05:27] LABS: ABG PCO2 77 mmHg (35-45); ABG PH 7.07 (7.35-7.45); Allen Test Performed? no
[2021-05-15] MEDS: INSULIN ASPART (NovoLOG) 100 UNIT/ML VIAL SQ SCH ×3 (05:32→18:13)
[2021-05-15] MEDS: ACETAMINOPHEN IV (For NPO) 1,000 MG in EMPTY BAG 1 BAG IVPB PRN ×2 (05:59→13:14)
[2021-05-15 07:36] LABS: C Reactive Protein 8.9 mg/dL (<1.0); Calcium 7.1 mg/dL (8.4-10.2); Magnesium 3.1 mg/dL (1.6-2.3); Total Bilirubin 0.9 mg/dL (0.2-1.3); Total Protein 6.4 g/dL (6.3-8.2)
--- NOTE | 2021-05-15 07:50 | XR ---
"EXAMINATION TYPE: XR chest 1V portable DATE OF EXAM: 05/15/2021 CLINICAL HISTORY: Difficulty breathing progress study. TECHNIQUE: Single AP portable upright view of the chest is obtained. COMPARISON: Chest x-ray from one day earlier and older studies. CTA chest 2 days ago. FINDINGS: Stable endotracheal and orogastric tubes. Stable left-sided subclavian central venous cath eter. Persistent left basilar opacity. New extensive overlying subcutaneous emphysema. No visualized pneumo thorax. Persistent diffuse right lung opacity. Cardiac silhouette size stable and within normal limit s. Pneumomediastinum noted. Osseous structures are intact. IMPRESSION: 1. New pneumomediastinum. New extensive overlying subcutaneous emphysema. Etiology uncertain. No pneu mothorax seen. 2. Multifocal confluent right lung opacities and left basilar opacity redemonstrated. No significant change from one day earlier. A Yellow level critical message alert has been initiated for Zia Chaves DO via the [employer] 36 0 | Critical Results System on 05/15/2021 7:48 AM. This message alert has been sent to Zia Chaves DO via the preferences provided by the clinician for the receipt of Radiology Critical Findings. [id number]."
[2021-05-15 08:15] LABS: Potassium 7.5 mmol/L (3.5-5.1)
[2021-05-15] MEDS ORDERED: DEXTROSE 50% SYRINGE 50 ML IVP STA (08:20)
[2021-05-15] MEDS ORDERED: INSULIN REGULAR 100 UNIT/ML VIAL (IV) IV ONE (08:20)
[2021-05-15] MEDS ORDERED: CALCIUM GLUCONATE 1 GM in SODIUM CHLORIDE 0.9% 100 ML IVPB ONE (08:21)
[2021-05-15] MEDS ORDERED: SODIUM POLYSTYRENE SULFONATE 15 GM/60 ML BOTTLE PO ONE (08:21)
[2021-05-15] MEDS: CHLORHEXIDINE GLUCONATE 15 ML CUP MUCOUS MEM SCH ×2 (08:28→20:25)
[2021-05-15] MEDS: DEXAMETHASONE SOD PHOSPHATE 10 MG/ML 1 ML VIAL IVP SCH (08:29)
[2021-05-15] MEDS: CHOLECALCIFEROL 25 MCG (1000 IU) TABLET PO SCH (08:29)
[2021-05-15] MEDS: ZINC SULFATE 220 MG CAP PO SCH (08:29)
[2021-05-15] MEDS: ASCORBIC ACID 500 MG TAB PO SCH (08:29)
[2021-05-15] MEDS ORDERED: FUROSEMIDE 10 MG/ML 10 ML VIAL IV STA (08:34)
[2021-05-15] MEDS ORDERED: SODIUM BICARB 8.4% 50 ML SYR (1 MEQ/ML) IV STA (08:42)
--- NOTE | 2021-05-15 09:05 | P.PN ---
Subjective Progress Note Date: 05/15/21 (Unable that is available in the) 51-year-old male who presents to the emergency department on May 12, with complaints of shortness of breath. The patient has been sick for at least 10-11 days. It started off with cough and shortness of breath, and loss of taste. He's also had fever. He has not been vaccinated. He was tested for coronavirus on May 07, and tested positive. The patient does not have a primary care physician. He has no past medical history. He takes no medications at home. The patient did receive monoclonal antibodies on May 09. Currently, the patient's on 5 L nasal cannula. He's got saline running at 75 mL an hour. He looks relatively stable. His chest x-ray does show diffuse bilateral infiltrates. The home medications that he is on include an albuterol inhaler, Tessalon Perles, and Decadron, given to him by the hospital. White count 5.1, hemoglobin 14.3, hematocrit 42.6, and platelet count 377,000. Sodium, potassium, chloride, CO2, anion gap, BUN, and creatinine are all normal. AST was 154, ALT 123, alkaline phosphatase 164. LDH was 2657. C-reactive protein is 14.9. Pro-calcitonin level is 0.14. Chest x-ray shows low lung volumes, wit h right greater than left bilateral opacities. The patient is seen today 05/13/2021 in follow-up on the regular medical floor. He is currently resting in bed. He is somewhat more dyspneic andtachypneic. His oxygen requirements have gone up to knees on 15 L high flow nasal cannula plus a nonrebreather mask. white count 6.8. Hemoglobin 13.5. Leukocytes 0.85. D-dimer up to 15.8. Sodium 143. Potassium 5.4. Creatinine 1.0. Glucose 123. AST 120. ALT 146. LDH 971. C-reactive protein 3.4. CT angiogram was requested after seeing the patient. There is evidence of bilateral lower lobe large multiple pulmonary emboli. No sign of right heart strain. Lovenox will be discontinued and he'll be initiated on a heparin drip On 05/14/2021 patient was emergently transferred to the intensive care unit for a concern of worsening hypoxia and dyspnea. Earlier in the shift he was on 15 L per high flow nasal cannula and 100% nonrebreather mask however his work of breathing had significantly increased his respiratory rate was ranging between 40-50 breaths per minute. His pulse ox was 87% and subsequently dropped down to 73%%. He was placed on BiPAP support with no improvement in his work of breathing or hypoxia, was intubated per CINDY, currently on assist-control mode of ventilation with a rate of 36 tidal volume is 350, FiO2 100% and PEEP of 24. he was given Nimbex IV pushes and propofol for sedation during intubation, he will be placed on Diprivan drip and Nimbex. Currently his pulse ox is 81% on the above-mentioned vent settings. His blood pressure 121/71, he is in sinus mechanism tachycardic with a rate of 110-120 BPM. Patient was found to have bilateral pulmonary emboli on yesterday's CT angiogram of the chest, he was started on heparin infusion on which she remains per weight-based protocol, his maintenance IV fluids are 0.9 normal saline at a rate of 75 ML per hour, CT angiogram lung windows showed extensive bilateral pneumonia. Chest x-ray post intubation and left subclavian central line placement is pending. This morning's labs have been reviewed, white blood cell count is 11.9, hemoglobin is 14.5, today's d-dimer is 18.26 slightly increased from yesterday's value, sodium is 141, potassium is 5.2, chloride is 111, CO2 is 23, BUN was 20 creatinine 0.96, his LDH today has significantly increased and is up to 3109, from 971 on yesterday's labs, and CRP is stable at 3.4. His pro calcitonin level on 05/12/2021 was at 0.14. Patient was started on Baricitinib yesterday on 05/13/2021, in addition to Decadron 6 mg daily. Patient is on vitamin C, zinc, and vitamin D will be added. 05/15/2021, the patient is being seen in a follow-up visit intensive care unit. This is a very critically ill male patient status post definitive pneumonia with secondary respiratory failure/ARDS. The patient also had developed pulmonary embolism on 05/13/2021 which confirmed the pulmonary embolism on a CT angiogram. Note that the patient had extensive interstitial and airspace disease and infiltrates bilaterally in addition to that the patient had bilateral lower lobe large pulmonary emboli. Subsequently, echocardiogram was done yesterday post intubation the patient also showed evidence of significant pulmonary hypertension, paradoxic motion of the right ventricle and obvious signs of right ventricular overload with elevation of the right ventricular end- diastolic pressure. The RV was moderately enlarged. The left ventricular ejection fraction has been within normal limits. Based on all this and based on ongoing respiratory failure, the patient had to be intubated and placed on a mechanical ventilator. Post intubation, the patient was placed on accommodation of sedation and paralysis. Currently, the patient is on propofol which is running at 30 mcg/kg per minute. The patient is also on Nimbex running at 1 mcg/kg per minute. The patient is on a mechanical ventilator and currently is on a assist-control mode at the rate of 36 with a tidal volume of 350 and FiO2 of 70% with a PEEP of 24. Peak airway pressure is 38. Static pressures 36. Blood gases from today showed a pH of 7.07 with a pCO2 of 77 and pO2 of 172. This was done and FiO2 of 70%. The chest x-ray from today has shown evidence of pneumomediastinum and the patient has also developed subcutaneous emphysema bilaterally mainly in the supraclavicular area and upper chest area. On clinical examination, this is also confirmed. Meanwhile, the patient also has dropped his blood pressure and currently is on norepinephrine infusion for blood pressure support currently running at 0.14 mcg/kg per minute. At the same time, the patient has also dropped his urine output and recently/over the past few hours, his urine output is dropped down to 10-20 mL an hour. His potassium is currently high in the morning blood labs and his potassium is up to 7.5 and the patient has a developed an acute kidney injury with a BUN of 38 and a creatinine of 3.3. No acute EKG changes based on his underlying hypokalemia and this will be treated as soon as possible. In terms of his COVID 19 related pneumonia, the patient is on a combination of Baricitinib and Decadron. The d-dimer is down to 2.7. The patient has a LDH which is up to 4428 and a CRP level is at 8.9. His liver enzymes are also on the rise. AST is up to 417, ALT is up to 417, Objective - Vital Signs Vital signs: Vital Signs Temp 101.7 F H 05/15/21 05:30 Pulse 103 H 05/15/21 07:00 Resp 36 H 05/15/21 07:00 BP 82/59 05/14/21 13:00 Pulse Ox 100 05/15/21 07:00 Intake & Output 05/14/21 05/15/21 05/15/21 18:59 06:59 18:59 Intake Total 2892.801 1740.927 204.381 Output Total 515 415 20 Balance 2377.801 1325.927 184.381 Weight 102.058 kg 108.2 kg Intake: IV 717 891 81 Sodium Chloride 0.9% 1, 675 825 75 000 ml @ 75 mls/hr IV . [id number] [facility] Rx#:[id number] pressure bag 42 66 6 Intake, IV Titration 2175.801 669.927 93.381 Amount Heparin Sod,Pork in 0.45% 388.630 NaCl 25,000 unit In 0.45 % NaCl 1 250ml.bag @ 18 UNITS/KG/HR 18.37 mls/hr IV .[id number] [facility] Rx#: [id number] Norepinephrine 8 mg In 75.801 201.694 Sodium Chloride 0.9% 250 ml @ 0.05 MCG/KG/MIN 9. 874 mls/hr IV .Q24H [facility] Rx#:[id number] Sodium Chloride 0.9% 2, 2000 000 ml @ 999 mls/hr IV . Q2H1M [facility] Rx#:[id number] propofoL 1,000 mg In 100 79.603 93.381 Empty Bag 1 bag @ Titrate IV .Q0M [facility] Rx#: [id number] Tube Feeding 120 30 Other 60 Output: Urine 515 415 20 Other: Voiding Method Indwelling Catheter Indwelling Catheter # Voids 1 ABP, PAP, CO, CI - Last Documented Arterial Blood Pressure 93/62 - Exam GENERAL EXAM: Today, intubated and paralyzed 51-year-old white male, on assist-control mode of ventilation, with FiO2 of 70% and PEEP of 24, comfortable in no apparent distress. HEAD: Normocephalic/atraumatic. EYES: Normal reaction of pupils, equal size. Conjunctiva pink, sclera white. NOSE: Clear with pink turbinates. THROAT: No erythema or exudates. NECK: No masses, no JVD, no thyroid enlargement, no adenopathy. CHEST: No chest wall deformity. Symmetrical expansion. Left subclavian central line in place covered with a sterile dressing and the patient has evidence of subcutaneous emphysema in the upper chest area. LUNGS: Equal air entry with no crackles, wheeze, rhonchi or dullness. CVS: Regular rate and rhythm, normal S1 and S2, no gallops, no murmurs, no rubs ABDOMEN: Soft, nontender. No hepatosplenomegaly, normal bowel sounds, no guarding or rigidity. EXTREMITIES: No clubbing, no edema, no cyanosis, 2+ pulses and upper and lower extremities. MUSCULOSKELETAL: Muscle strength and tone normal. SPINE: No scoliosis or deformity SKIN: No rashes CENTRAL NERVOUS SYSTEM: Sedated and paralyzed No focal deficits, tone is normal in all 4 extremities. - Labs CBC & Chem 7: 05/15/21 03:56 05/15/21 06:31 Labs: Abnormal Lab Results - Last 24 Hours (Table) 05/14/21 05/14/21 05/14/21 Range/Units 05:42 07:53 11:26 WBC (3.8-10.6) k/uL MCHC (31.0-37.0) g/dL Neutrophils # (1.3-7.7) k/uL Monocytes # (0-1.0) k/uL APTT (22.0-30.0) sec D-Dimer (<0.60) mg/L FEU ABG pH 7.15 L* (7.35-7.45) ABG pCO2 79 H* (35-45) mmHg ABG pO2 (83-108) mmHg ABG HCO3 28 H (21-25) mmol/L ABG Total CO2 30 H (19-24) mmol/L ABG O2 Saturation (94-97) % Potassium (3.5-5.1) mmol/L Chloride (98-107) mmol/L BUN (9-20) mg/dL Creatinine (0.66-1.25) mg/dL Glucose (74-99) mg/dL POC Glucose (mg/dL) 191 H (75-99) mg/dL Calcium (8.4-10.2) mg/dL Magnesium (1.6-2.3) mg/dL AST (17-59) U/L ALT (4-49) U/L Alkaline Phosphatase (38-126) U/L Lactate Dehydrogenase (313-618) U/L C-Reactive Protein (<1.0) mg/dL Albumin (3.5-5.0) g/dL Procalcitonin 0.17 H (0.02-0.09) ng/mL 05/14/21 05/14/21 05/15/21 Range/Units 18:32 23:25 03:56 WBC (3.8-10.6) k/uL MCHC (31.0-37.0) g/dL Neutrophils # (1.3-7.7) k/uL Monocytes # (0-1.0) k/uL APTT 142.0 H* (22.0-30.0) sec D-Dimer 2.79 H (<0.60) mg/L FEU ABG pH (7.35-7.45) ABG pCO2 (35-45) mmHg ABG pO2 (83-108) mmHg ABG HCO3 (21-25) mmol/L ABG Total CO2 (19-24) mmol/L ABG O2 Saturation (94-97) % Potassium (3.5-5.1) mmol/L Chloride (98-107) mmol/L BUN (9-20) mg/dL Creatinine (0.66-1.25) mg/dL Glucose (74-99) mg/dL POC Glucose (mg/dL) 217 H 179 H (75-99) mg/dL Calcium (8.4-10.2) mg/dL Magnesium (1.6-2.3) mg/dL AST (17-59) U/L ALT (4-49) U/L Alkaline Phosphatase (38-126) U/L Lactate Dehydrogenase (313-618) U/L C-Reactive Protein (<1.0) mg/dL Albumin (3.5-5.0) g/dL Procalcitonin (0.02-0.09) ng/mL 05/15/21 05/15/21 05/15/21 Range/Units 03:56 05:07 05:19 WBC 16.3 H (3.8-10.6) k/uL MCHC 30.8 L (31.0-37.0) g/dL Neutrophils # 13.6 H (1.3-7.7) k/uL Monocytes # 1.1 H (0-1.0) k/uL APTT (22.0-30.0) sec D-Dimer (<0.60) mg/L FEU ABG pH 7.07 L* (7.35-7.45) ABG pCO2 77 H* (35-45) mmHg ABG pO2 172 H (83-108) mmHg ABG HCO3 (21-25) mmol/L ABG Total CO2 25 H (19-24) mmol/L ABG O2 Saturation 99.1 H (94-97) % Potassium (3.5-5.1) mmol/L Chloride (98-107) mmol/L BUN (9-20) mg/dL Creatinine (0.66-1.25) mg/dL Glucose (74-99) mg/dL POC Glucose (mg/dL) 164 H (75-99) mg/dL Calcium (8.4-10.2) mg/dL Magnesium (1.6-2.3) mg/dL AST (17-59) U/L ALT (4-49) U/L Alkaline Phosphatase (38-126) U/L Lactate Dehydrogenase (313-618) U/L C-Reactive Protein (<1.0) mg/dL Albumin (3.5-5.0) g/dL Procalcitonin (0.02-0.09) ng/mL 05/15/21 Range/Units 06:31 WBC (3.8-10.6) k/uL MCHC (31.0-37.0) g/dL Neutrophils # (1.3-7.7) k/uL Monocytes # (0-1.0) k/uL APTT (22.0-30.0) sec D-Dimer (<0.60) mg/L FEU ABG pH (7.35-7.45) ABG pCO2 (35-45) mmHg ABG pO2 (83-108) mmHg ABG HCO3 (21-25) mmol/L ABG Total CO2 (19-24) mmol/L ABG O2 Saturation (94-97) % Potassium 7.5 H* (3.5-5.1) mmol/L Chloride 114 H (98-107) mmol/L BUN 38 H (9-20) mg/dL Creatinine 3.31 H (0.66-1.25) mg/dL Glucose 176 H (74-99) mg/dL POC Glucose (mg/dL) (75-99) mg/dL Calcium 7.1 L (8.4-10.2) mg/dL Magnesium 3.1 H (1.6-2.3) mg/dL AST 526 H (17-59) U/L ALT 417 H (4-49) U/L Alkaline Phosphatase 208 H (38-126) U/L Lactate Dehydrogenase 4428 H (313-618) U/L C-Reactive Protein 8.9 H (<1.0) mg/dL Albumin 3.0 L (3.5-5.0) g/dL Procalcitonin (0.02-0.09) ng/mL Assessment and Plan Plan: #1. acute hypoxic respiratory failure related to COVID-19 pneumonia, admitted to the hospital on 05/12/2021 with 10-11 day history of COVID-19 symptoms. Patient is a non-vaccinated individual, he was outside the window for Remdesivir, was started on Baricitinib on 05/13/2021. Transfer to the intensive care unit on 05/14/2021 and intubated . The patient's course was Again by worsening of hypoxemia, ARDS, bilateral pulmonary embolism involving lower lobe pulmonary artery branches and all of those of complication of COVID 19 related pneumonia. COVID 19 related pneumonia. The patient is currently intubated on a mechanical ventilator. The patient sedated and paralyzed. The patient is also on a combination of Remdesivir and Baricitinib. His course was further combination by development of acute kidney injury, oliguria and acute hyperkalemia. He is hemodynamically stable on pressors. #2. Acute bilateral pulmonary emboli likely related to COVID-19 pneumonia, seen on a CT angiogram of the chest on 05/13/2021, started on heparin infusion. No CT evidence of heart strain, will obtain echocardiogram #3. Elevated inflammatory markers, significantly increased on today's labs on 05/14/2021 #4. Elevated d-dimer related to acute pulmonary emboli #5. Elevated LFTs related to viral pneumonia #6 acute kidney injury, likely COVID 19-induced ATN #7 acute hyperkalemia #8 permissive hypercapnia with secondary respiratory acidosis #9 Pneumediastinum and bilateral subcutaneous emphysema, complication of COVID 19 related pneumonia and mechanical ventilation, and expected outcome #10 Hypotension , secondary to above, currently on pressors Plan: Patient has been intubated and placed on mechanical ventilator Current vent settings are assist-control with a rate of 36, tidal volume is 350, FiO2 70% We'll suggested that The PEEP to 22 we'll discuss the case vascular surgery regarding the possibility of a course in regards to his bilateral pulmonary embolism and RV dysfunction in addition to ongoing hypoxemia and for that reason, I currently vascular surgery. At the same time the patient developed an acute kidney injury and its very much likely the patient will need a dialysis access for future hemodialysis. acute hyperkalemia with a combination of bicarb, start the patient on bicarb drip, give calcium gluconate and give insulin D50 and repeat the potassium level Lasix 60 mg IV x1 Continued IV heparin for now Continue Decadron Doppler of the lower extremities pending Echocardiogram was noted Stop the Baricitinib for now Pressors to maintain a mean arterial pressure above 65 feeding for nutritional support Condition is extremely critical and the patient carries a very high mortality. We'll continue to follow. We'll keep the patient sedated and paralyzed for now. critically care evaluation that was done and more than 30 minutes Time with Patient: Greater than 30
[2021-05-15] MEDS: DEXTROSE 5% IN WATER 1,000 ML with SODIUM BICARB (1 MEQ/ML) 150 ML IV SCH ×2 (09:30→20:58)
--- NOTE | 2021-05-15 10:09 | US ---
EXAMINATION TYPE: US venous doppler duplex LE DATE OF EXAM: 05/15/2021 9:52 AM COMPARISON: NONE CLINICAL HISTORY: elevated d-dimer. COVID. Pain. SIDE PERFORMED: Bilateral TECHNIQUE: The lower extremity deep venous system is examined utilizing real time linear array sonog ian with graded compression, doppler sonography and color-flow sonography. VESSELS IMAGED: Common Femoral Vein Deep Femoral Vein Greater Saphenous Vein * Femoral Vein Popliteal Vein Small Saphenous Vein * Proximal Calf Veins (* superficial vessels) Right Leg: Thrombus seen in the POP V Left Leg: Negative for DVT Grayscale, color doppler, spectral doppler imaging performed of the deep veins of the bilateral lower extremities. Expansile acute thrombus in the distal right popliteal vein which is noncompressible w ith reconstitution at level of proximal calf veins. Satisfactory color flow and compressibility in th e left lower extremity. IMPRESSION: Focal acute DVT distal right popliteal vein.
[2021-05-15] MEDS: NOREPINEPHRINE 8 MG in SODIUM CHLORIDE 0.9% 250 ML IV SCH ×2 (11:26→16:36)
[2021-05-15] MEDS: CISATRACURIUM 200 MG in SODIUM CHLORIDE 0.9% 180 ML IV SCH (11:27)
[2021-05-15 11:39] LABS: Glucose,Whole Blood 202 mg/dL (75-99)
--- NOTE | 2021-05-15 12:30 | P.OP ---
Description of Procedure: DATE OF SERVICE: 05/15/2021 SURGEON: Jacques Alves DO PREOPERATIVE DIAGNOSIS: Acute renal failure, COVID pneumonia, shock. POSTOPERATIVE DIAGNOSIS: Same. OPERATION: Ultrasound guided right common femoral vein temporary dialysis catheter placement. ANESTHESIA: Local ESTIMATED BLOOD LOSS: 10 mL COMPLICATIONS: None After written informed consent was obtained and all risks, benefits, competitions were described the procedure was performed at bedside. Utilizing ultrasound the right common femoral vein was visualized and shown to be patent without any thrombus. Utilizing a multipurpose needle the right common femoral vein was accessed. Dark nonpulsatile blood flow was visualized. Guidewire was placed and needle was removed. Serial dilation was then performed and a 20 cm curved Mahurkar dialysis catheter was then guided over the guidewire. Guidewire was then removed and ports were assessed for patency. All ports were easily flushed and hep-locked. The catheter was then sutured in place with nylon suture. The area was then cleansed and dressings were placed. Patient tolerated procedure well.
--- NOTE | 2021-05-15 12:50 | P.GSCN ---
History of Present Illness Consult date: 05/15/21 Reason for Consult: Normal pulmonary embolism, acute renal failure, need for hemodialysis catheter Requesting physician: Leticia Swanson History of present illness: This is a 51-year-old male is admitted to the hospital 2 days ago. He presented to the emergency department on 1126 with complaints of shortness of breath and had been sick for the last 10-12 days. Patient was diagnosed with COVID-19 on 05/07/2021 and received monoclonal antibodies on May 09. Yesterday the patient was transferred to the intensive care unit for concern of worsening hypoxia and dyspnea. He was placed on BiPAP support and ultimately intubated on mechanical ventilation. He had a CT angiogram of the chest that showed bilatera l lower lobe large multiple pulmonary emboli. No sign of right heart strain. Extensive bilateral pneumonia. The patient was started on a IV heparin drip. Had an echocardiogram showed evidence of significant pulmonary hypertension, paradoxic motion of the right ventricle and obvious signs of right ventricular overload with elevation of the right ventricular end-diastolic pressure. The RV was moderately enlarged. The left ventricular ejection fraction has been within normal limits. Based on all this and based on ongoing respiratory failure, the patient had to be intubated and placed on a mechanical ventilator. Post intubation, the patient was placed on accommodation of sedation and paralysis. Currently, the patient is on propofol which is running at 30 mcg/kg per minute. The patient is also on Nimbex running at 1 mcg/kg per minute. The patient is on a mechanical ventilator and currently is on a assist-control mode at the rate of 36 with a tidal volume of 350 and FiO2 of 70% with a PEEP of 24. Peak airway pressure is 38. Static pressures 36. Blood gases from today showed a pH of 7.07 with a pCO2 of 77 and pO2 of 172. This was done and FiO2 of 70%. The chest x-ray from today has shown evidence of pneumomediastinum and the patient has also developed subcutaneous emphysema bilaterally mainly in the supraclavicular area and upper chest area. The patient also has dropped his blood pressure and currently is on norepinephrine infusion for blood pressure support currently running at 0.14 mcg/kg per minute. The patient has had a decrease in his urinary output, with his potassium being elevated at 7.5 and the patient has a developed an acute kidney injury with a BUN of 38 and a creatinine of 3.3. Vascular surgery has been consulted regarding placement of tempoary hemodialysis catheter as well as management of bilateral pulmonary embolism. The patient also underwent lower extremity venous Doppler showing thrombus in the right lower extremity popliteal vein. Review of Systems ROS unobtainable: due to endotracheal tube Past Medical History Past Medical History: No Reported History History of Any Multi-Drug Resistant Organisms: None Reported Past Surgical History: No Surgical Hx Reported Past Anesthesia/Blood Transfusion Reactions: No Reported Reaction Past Psychological History: No Psychological Hx Reported Smoking Status: Never smoker Past Alcohol Use History: None Reported Past Drug Use History: None Reported Medications and Allergies Home Medications Medication Instructions Recorded Confirmed Type Albuterol Inhaler [Ventolin Hfa 1 puff INHALATION RT-Q4H PRN 05/12/21 05/12/21 History Inhaler] Benzonatate [Tessalon Perles] 100 mg PO Q8H PRN 05/12/21 05/12/21 History dexAMETHasone 6 mg PO DAILY 05/12/21 05/12/21 History Allergies Allergy/AdvReac Type Severity Reaction Status Date / Time No Known Allergies Allergy Verified 05/12/21 13:17 Surgical - Exam Vital Signs Temp Pulse Resp BP Pulse Ox 98.5 F 83 18 114/71 80 L 05/12/21 12:35 05/12/21 12:35 05/12/21 12:35 05/12/21 12:35 05/12/21 12:35 General appearance: The patient is sedated, intubated on mechanical ventilation. HET: Head is normocephalic and atraumatic. Neck: Supple without lymphadenopathy. Trachea midline. Heart: S1 S2. Regular rate and rhythm. Lungs: Equal air entry, no crackles wheezes or rhonchi. Abdomen: Soft, nondistended. Extremities: Normal skin color and turgor. No cyanosis, rash, ulceration, clubbing, or edema. Neurological: Sedated on mechanical ventilation. Results - Labs 05/15/21 03:56 05/15/21 06:31 Abnormal Lab Results - Last 24 Hours (Table) 05/14/21 05/14/21 05/14/21 Range/Units 05:42 07:53 11:26 WBC (3.8-10.6) k/uL MCHC (31.0-37.0) g/dL Neutrophils # (1.3-7.7) k/uL Monocytes # (0-1.0) k/uL APTT (22.0-30.0) sec D-Dimer (<0.60) mg/L FEU ABG pH 7.15 L* (7.35-7.45) ABG pCO2 79 H* (35-45) mmHg ABG pO2 (83-108) mmHg ABG HCO3 28 H (21-25) mmol/L ABG Total CO2 30 H (19-24) mmol/L ABG O2 Saturation (94-97) % Potassium (3.5-5.1) mmol/L Chloride (98-107) mmol/L BUN (9-20) mg/dL Creatinine (0.66-1.25) mg/dL Glucose (74-99) mg/dL POC Glucose (mg/dL) 191 H (75-99) mg/dL Calcium (8.4-10.2) mg/dL Magnesium (1.6-2.3) mg/dL AST (17-59) U/L ALT (4-49) U/L Alkaline Phosphatase (38-126) U/L Lactate Dehydrogenase (313-618) U/L C-Reactive Protein (<1.0) mg/dL Albumin (3.5-5.0) g/dL Procalcitonin 0.17 H (0.02-0.09) ng/mL 05/14/21 05/14/21 05/15/21 Range/Units 18:32 23:25 03:56 WBC (3.8-10.6) k/uL MCHC (31.0-37.0) g/dL Neutrophils # (1.3-7.7) k/uL Monocytes # (0-1.0) k/uL APTT 142.0 H* (22.0-30.0) sec D-Dimer 2.79 H (<0.60) mg/L FEU ABG pH (7.35-7.45) ABG pCO2 (35-45) mmHg ABG pO2 (83-108) mmHg ABG HCO3 (21-25) mmol/L ABG Total CO2 (19-24) mmol/L ABG O2 Saturation (94-97) % Potassium (3.5-5.1) mmol/L Chloride (98-107) mmol/L BUN (9-20) mg/dL Creatinine (0.66-1.25) mg/dL Glucose (74-99) mg/dL POC Glucose (mg/dL) 217 H 179 H (75-99) mg/dL Calcium (8.4-10.2) mg/dL Magnesium (1.6-2.3) mg/dL AST (17-59) U/L ALT (4-49) U/L Alkaline Phosphatase (38-126) U/L Lactate Dehydrogenase (313-618) U/L C-Reactive Protein (<1.0) mg/dL Albumin (3.5-5.0) g/dL Procalcitonin (0.02-0.09) ng/mL 05/15/21 05/15/21 05/15/21 Range/Units 03:56 05:07 05:19 WBC 16.3 H (3.8-10.6) k/uL MCHC 30.8 L (31.0-37.0) g/dL Neutrophils # 13.6 H (1.3-7.7) k/uL Monocytes # 1.1 H (0-1.0) k/uL APTT (22.0-30.0) sec D-Dimer (<0.60) mg/L FEU ABG pH 7.07 L* (7.35-7.45) ABG pCO2 77 H* (35-45) mmHg ABG pO2 172 H (83-108) mmHg ABG HCO3 (21-25) mmol/L ABG Total CO2 25 H (19-24) mmol/L ABG O2 Saturation 99.1 H (94-97) % Potassium (3.5-5.1) mmol/L Chloride (98-107) mmol/L BUN (9-20) mg/dL Creatinine (0.66-1.25) mg/dL Glucose (74-99) mg/dL POC Glucose (mg/dL) 164 H (75-99) mg/dL Calcium (8.4-10.2) mg/dL Magnesium (1.6-2.3) mg/dL AST (17-59) U/L ALT (4-49) U/L Alkaline Phosphatase (38-126) U/L Lactate Dehydrogenase (313-618) U/L C-Reactive Protein (<1.0) mg/dL Albumin (3.5-5.0) g/dL Procalcitonin (0.02-0.09) ng/mL 05/15/21 Range/Units 06:31 WBC (3.8-10.6) k/uL MCHC (31.0-37.0) g/dL Neutrophils # (1.3-7.7) k/uL Monocytes # (0-1.0) k/uL APTT (22.0-30.0) sec D-Dimer (<0.60) mg/L FEU ABG pH (7.35-7.45) ABG pCO2 (35-45) mmHg ABG pO2 (83-108) mmHg ABG HCO3 (21-25) mmol/L ABG Total CO2 (19-24) mmol/L ABG O2 Saturation (94-97) % Potassium 7.5 H* (3.5-5.1) mmol/L Chloride 114 H (98-107) mmol/L BUN 38 H (9-20) mg/dL Creatinine 3.31 H (0.66-1.25) mg/dL Glucose 176 H (74-99) mg/dL POC Glucose (mg/dL) (75-99) mg/dL Calcium 7.1 L (8.4-10.2) mg/dL Magnesium 3.1 H (1.6-2.3) mg/dL AST 526 H (17-59) U/L ALT 417 H (4-49) U/L Alkaline Phosphatase 208 H (38-126) U/L Lactate Dehydrogenase 4428 H (313-618) U/L C-Reactive Protein 8.9 H (<1.0) mg/dL Albumin 3.0 L (3.5-5.0) g/dL Procalcitonin (0.02-0.09) ng/mL Diabetes panel 05/15/21 Range/Units 06:31 Sodium 144 (137-145) mmol/L Potassium 7.5 H* (3.5-5.1) mmol/L Chloride 114 H (98-107) mmol/L Carbon Dioxide 22 (22-30) mmol/L BUN 38 H (9-20) mg/dL Creatinine 3.31 H (0.66-1.25) mg/dL Glucose 176 H (74-99) mg/dL Calcium 7.1 L (8.4-10.2) mg/dL AST 526 H (17-59) U/L ALT 417 H (4-49) U/L Alkaline Phosphatase 208 H (38-126) U/L Total Protein 6.4 (6.3-8.2) g/dL Albumin 3.0 L (3.5-5.0) g/dL Calcium panel 05/15/21 Range/Units 06:31 Calcium 7.1 L (8.4-10.2) mg/dL Albumin 3.0 L (3.5-5.0) g/dL Pituitary panel 05/15/21 Range/Units 06:31 Sodium 144 (137-145) mmol/L Potassium 7.5 H* (3.5-5.1) mmol/L Chloride 114 H (98-107) mmol/L Carbon Dioxide 22 (22-30) mmol/L BUN 38 H (9-20) mg/dL Creatinine 3.31 H (0.66-1.25) mg/dL Glucose 176 H (74-99) mg/dL Calcium 7.1 L (8.4-10.2) mg/dL Adrenal panel 05/15/21 Range/Units 06:31 Sodium 144 (137-145) mmol/L Potassium 7.5 H* (3.5-5.1) mmol/L Chloride 114 H (98-107) mmol/L Carbon Dioxide 22 (22-30) mmol/L BUN 38 H (9-20) mg/dL Creatinine 3.31 H (0.66-1.25) mg/dL Glucose 176 H (74-99) mg/dL Calcium 7.1 L (8.4-10.2) mg/dL Total Bilirubin 0.9 (0.2-1.3) mg/dL AST 526 H (17-59) U/L ALT 417 H (4-49) U/L Alkaline Phosphatase 208 H (38-126) U/L Total Protein 6.4 (6.3-8.2) g/dL Albumin 3.0 L (3.5-5.0) g/dL - Imaging Comments: CT angiogram of chest and venous duplex reviewed CT scan - chest: report reviewed Assessment and Plan Assessment: 1. Acute kidney injury requiring hemodialysis 2. Bilateral pulmonary emboli 3. Right lower extremity popliteal DVT 4. Acute hypoxic respiratory failure related to COVID-19 pneumonia 5. Hyperkalemia 6. Hypotension Plan: 1. Continue ICU management 2. Plan for bedside temporary hemodialysis catheter placement 3. Continue IV heparin for pulmonary emboli 4. Further recommendations forthcoming per surgeon Thank you for this kind referral and the opportunity to participate in the care of your patient. This consultation was discussed with Dr. Alves. The impression and plan of care have been directed as dictated. The impression and plan of care has been dictated as directed. I agree with the dictator's note ,documented as a scribe. Any additional findings or plans will be noted.
[2021-05-15] MEDS: HEPARIN SOD,PORK IN 0.45% NACL 25,000 UNIT in 0.45% NACL 1 250ML.BAG IV SCH ×2 (13:14→23:56)
[2021-05-15 13:29] LABS: Potassium 6.1 mmol/L (3.5-5.1)
--- NOTE | 2021-05-15 14:24 | P.PN ---
Subjective Progress Note Date: 05/15/21 Pt developed DENIA and hyperkalemia today; also with pressor requirement; on nimbex and propofol. Saturating well on current vent settings AC, rate 36, FiO2 70%, PEEP 22; ABG with pO2 172. Echo shows mod RVE with evidence of RV overload. Vascular consulted for consideration of EKOS as well as for placement of dialysis catheter. Nephrology consulted for DENIA with need for dialysis. Objective - Vital Signs Vital signs: Vital Signs Temp 101.7 F H 05/15/21 12:00 Pulse 99 05/15/21 14:00 Resp 36 H 05/15/21 14:00 BP 82/59 05/14/21 13:00 Pulse Ox 100 05/15/21 14:00 Intake & Output 05/14/21 05/15/21 05/15/21 18:59 06:59 18:59 Intake Total 2892.801 2380.344 4681.039 Output Total 515 415 355 Balance 2377.801 2707.724 2862.039 Weight 102.058 kg 108.2 kg Intake: IV 717 891 807 0.9 carrier 40 ACETAMINOPHEN IV (For NPO 100 ) 1,000 mg In Empty Bag 1 bag @ 400 mls/hr IVPB Q6HR PRN Rx#:[id number] Dextrose 5% in Water 1, 400 000 ml @ 100 mls/hr IV . [id number] DAMIR with Sodium Bicarb (1 Meq/ml) 150 ml Rx#:[id number] Sodium Chloride 0.9% 1, 675 825 225 000 ml @ 75 mls/hr IV . [id number] [facility] Rx#:[id number] pressure bag 42 66 42 Intake, IV Titration 2175.801 669.927 675.039 Amount Cisatracurium 200 mg In 161.443 Sodium Chloride 0.9% 180 ml @ 1 MCG/KG/MIN 6.123 mls/hr IV .Q24H [facility] Rx#: [id number] Heparin Sod,Pork in 0.45% 388.630 87.790 NaCl 25,000 unit In 0.45 % NaCl 1 250ml.bag @ 18 UNITS/KG/HR 18.37 mls/hr IV .[id number] [facility] Rx#: [id number] Norepinephrine 8 mg In 75.801 201.694 259.251 Sodium Chloride 0.9% 250 ml @ 0.05 MCG/KG/MIN 9. 874 mls/hr IV .Q24H [facility] Rx#:[id number] Sodium Chloride 0.9% 2, 2000 000 ml @ 999 mls/hr IV . Q2H1M [facility] Rx#:[id number] propofoL 1,000 mg In 100 79.603 166.555 Empty Bag 1 bag @ Titrate IV .Q0M [facility] Rx#: [id number] Tube Feeding 120 210 Other 60 60 Output: Urine 515 415 355 Other: Voiding Method Indwelling Catheter Indwelling Catheter # Voids 1 ABP, PAP, CO, CI - Last Documented Arterial Blood Pressure 100/63 - Exam Gen: intubated, sedated HEENT: normocephalic, atraumatic, good hearing acuity, moist mucous membranes Resp: vented: AC, RR 36, FiO2 70% PEEP 22 CVS: good distal perfusion x 4, tachycardic GI: soft, NTTP, ND : no SPT, no CVAT, hanna catheter not present MSK: no pitting edema, no clubbing - Labs CBC & Chem 7: 05/15/21 03:56 05/15/21 12:35 Labs: Abnormal Lab Results - Last 24 Hours (Table) 05/14/21 05/14/21 05/15/21 Range/Units 18:32 23:25 03:56 WBC (3.8-10.6) k/uL MCHC (31.0-37.0) g/dL Neutrophils # (1.3-7.7) k/uL Monocytes # (0-1.0) k/uL APTT 142.0 H* (22.0-30.0) sec D-Dimer 2.79 H (<0.60) mg/L FEU ABG pH (7.35-7.45) ABG pCO2 (35-45) mmHg ABG pO2 (83-108) mmHg ABG Total CO2 (19-24) mmol/L ABG O2 Saturation (94-97) % Potassium (3.5-5.1) mmol/L Chloride (98-107) mmol/L BUN (9-20) mg/dL Creatinine (0.66-1.25) mg/dL Glucose (74-99) mg/dL POC Glucose (mg/dL) 217 H 179 H (75-99) mg/dL Calcium (8.4-10.2) mg/dL Magnesium (1.6-2.3) mg/dL AST (17-59) U/L ALT (4-49) U/L Alkaline Phosphatase (38-126) U/L Lactate Dehydrogenase (313-618) U/L C-Reactive Protein (<1.0) mg/dL Albumin (3.5-5.0) g/dL 05/15/21 05/15/21 05/15/21 Range/Units 03:56 05:07 05:19 WBC 16.3 H (3.8-10.6) k/uL MCHC 30.8 L (31.0-37.0) g/dL Neutrophils # 13.6 H (1.3-7.7) k/uL Monocytes # 1.1 H (0-1.0) k/uL APTT (22.0-30.0) sec D-Dimer (<0.60) mg/L FEU ABG pH 7.07 L* (7.35-7.45) ABG pCO2 77 H* (35-45) mmHg ABG pO2 172 H (83-108) mmHg ABG Total CO2 25 H (19-24) mmol/L ABG O2 Saturation 99.1 H (94-97) % Potassium (3.5-5.1) mmol/L Chloride (98-107) mmol/L BUN (9-20) mg/dL Creatinine (0.66-1.25) mg/dL Glucose (74-99) mg/dL POC Glucose (mg/dL) 164 H (75-99) mg/dL Calcium (8.4-10.2) mg/dL Magnesium (1.6-2.3) mg/dL AST (17-59) U/L ALT (4-49) U/L Alkaline Phosphatase (38-126) U/L Lactate Dehydrogenase (313-618) U/L C-Reactive Protein (<1.0) mg/dL Albumin (3.5-5.0) g/dL 05/15/21 05/15/21 05/15/21 Range/Units 06:31 11:38 12:35 WBC (3.8-10.6) k/uL MCHC (31.0-37.0) g/dL Neutrophils # (1.3-7.7) k/uL Monocytes # (0-1.0) k/uL APTT 120.8 H* (22.0-30.0) sec D-Dimer (<0.60) mg/L FEU ABG pH (7.35-7.45) ABG pCO2 (35-45) mmHg ABG pO2 (83-108) mmHg ABG Total CO2 (19-24) mmol/L ABG O2 Saturation (94-97) % Potassium 7.5 H* (3.5-5.1) mmol/L Chloride 114 H (98-107) mmol/L BUN 38 H (9-20) mg/dL Creatinine 3.31 H (0.66-1.25) mg/dL Glucose 176 H (74-99) mg/dL POC Glucose (mg/dL) 202 H (75-99) mg/dL Calcium 7.1 L (8.4-10.2) mg/dL Magnesium 3.1 H (1.6-2.3) mg/dL AST 526 H (17-59) U/L ALT 417 H (4-49) U/L Alkaline Phosphatase 208 H (38-126) U/L Lactate Dehydrogenase 4428 H (313-618) U/L C-Reactive Protein 8.9 H (<1.0) mg/dL Albumin 3.0 L (3.5-5.0) g/dL 05/15/21 Range/Units 12:35 WBC (3.8-10.6) k/uL MCHC (31.0-37.0) g/dL Neutrophils # (1.3-7.7) k/uL Monocytes # (0-1.0) k/uL APTT (22.0-30.0) sec D-Dimer (<0.60) mg/L FEU ABG pH (7.35-7.45) ABG pCO2 (35-45) mmHg ABG pO2 (83-108) mmHg ABG Total CO2 (19-24) mmol/L ABG O2 Saturation (94-97) % Potassium 6.1 H* (3.5-5.1) mmol/L Chloride (98-107) mmol/L BUN (9-20) mg/dL Creatinine (0.66-1.25) mg/dL Glucose (74-99) mg/dL POC Glucose (mg/dL) (75-99) mg/dL Calcium (8.4-10.2) mg/dL Magnesium (1.6-2.3) mg/dL AST (17-59) U/L ALT (4-49) U/L Alkaline Phosphatase (38-126) U/L Lactate Dehydrogenase (313-618) U/L C-Reactive Protein (<1.0) mg/dL Albumin (3.5-5.0) g/dL Assessment and Plan Assessment: Acute hypoxemic respiratory failure ARDS secondary to Covid 19 Acute Pulmonary Embolism DENIA with hyperkalemia secondary to ATN -Admit inpatient, telemetry -Pulmonary consult -Intubated on 05/14 -levophed, propofol, nimbex -Dexamethasone day 4 -Outside of window for remdesivir -Vitamin C, D, zinc -Oxygen when necessary -Daily inflammatory markers -Baricitinib discontinued after 2 doses -inhaler PRN -heparin gtt -vascular surgery consult for consideration of EKOS and dialysis catheter placement -nephrology consult for ATN secondary to septic shock and COVID -plan for iHD starting 05/15 Patient is a full code I spent 31 minutes this morning coordinating critical care in regard to patient's DENIA and hyperkalemia with potential for decompensation and need for urgent iHD.
--- NOTE | 2021-05-15 15:20 | CONS ---
CONSULTATION REASON FOR CONSULT: Hyperkalemia, acute kidney injury. HISTORY OF PRESENT ILLNESS: Patient is a 51-year-old male who was admitted to the hospital on 05/12 with complaints of shortness of breath. He tested positive for COVID pneumonia. He continued to have significant worsening of his respiratory status and was transferred to the ICU yesterday and was intubated. Patient has been started on Levophed. His blood pressure was low. His urine output is low and his potassium came back at 7.2 mEq/L this morning. He is also acidotic with a pH of 7.0. Patient had a CTA done on 05/13/2021 which showed extensive bilateral pneumonia and PE. Patient remains on the vent. PAST MEDICAL HISTORY: None. PAST SURGICAL HISTORY: None. SOCIAL HISTORY: Negative for smoking, drug abuse or alcohol abuse. MEDICATIONS: Medications prior to admission included albuterol, and dexamethasone was started as patient tested positive prior to admission. ALLERGIES: NONE. PHYSICAL EXAMINATION: Patient is currently sedated. He is on the vent. Blood pressure is 90/60, heart rate 109 per minute. He is afebrile. Examination shows no significant edema in bilateral lower extremities. Abdomen is soft, nontender. Lungs and heart are not examined. Patient is on the vent. FiO2 is at 70%. LABS: Reviewed. Sodium of 144, potassium 7.5, chloride 114, BUN 38, creatinine 3.3, hemoglobin 14.8 g/dL. ASSESSMENT: 1. Acute kidney injury secondary to hypotension, sepsis and COVID infection, currently oliguric. Will start dialysis, given the significant hyperkalemia. 2. Acute hyperkalemia associated with acute kidney injury and oliguria. No active bleeding noted at this time. Patient was on Motrin. This is now discontinued. Expect improvement post dialysis today. 3. Acute hypoxic respiratory failure secondary to COVID pneumonia, bilateral PE. 4. Respiratory acidosis, currently maintained on the vent. PLAN: Hemodialysis today. Will repeat in a.m. Continue off of NSAIDs. Avoid Kayexalate and control blood sugars. Thank you for this consultation. Will continue to follow the patient with you during his hospitalization. MMODL / IJN: [id number] /
[2021-05-15 18:07] LABS: Glucose,Whole Blood 205 mg/dL (75-99)
[2021-05-15 18:52] LABS: ABG Base Excess 0.5 mmol/L; ABG HCO3 28 mmol/L (21-25); ABG PCO2 65 mmHg (35-45); ABG PH 7.24 (7.35-7.45); ABG PO2 256 mmHg (83-108); ABG TCO2 30 mmol/L (19-24)
[2021-05-15 21:08] LABS: Allen Test Performed? no
[2021-05-15 23:19] LABS: Hepatitis B Surface AB- Quant 3.5 mIU/mL; Hepatitis B Surface Antibody Nonreactive (Nonreactive); Hepatitis B Surface Antigen Nonreactive (Nonreactive)
[2021-05-16 00:11] LABS: Glucose,Whole Blood 168 mg/dL (75-99)
[2021-05-16] MEDS: INSULIN ASPART (NovoLOG) 100 UNIT/ML VIAL SQ SCH ×4 (00:17→18:01)
[2021-05-16] MEDS ORDERED: ARTIFICIAL TEARS-HYPROMELLOSE DROPS 15 ML BTL BOTH EYES PRN (03:15)
[2021-05-16 05:26] LABS: Glucose,Whole Blood 165 mg/dL (75-99)
[2021-05-16 05:26] LABS: Basophils % (A) 0 %; Eosinophils % (A) 0 %; Lymphocytes # (A) 0.9 k/uL (1.0-4.8); Lymphocytes % (A) 9 %; MCH 29.7 pg (25.0-35.0); MCHC 32.1 g/dL (31.0-37.0); MCV 92.4 fL (80.0-100.0); Mean Platelet Volume 8.2; Monocytes # (A) 0.5 k/uL (0-1.0); Monocytes % (A) 5 %; Neutrophils # (A) 8.6 k/uL (1.3-7.7); Neutrophils % (A) 85 %; Platelet Count 196 k/uL (150-450); RBC 3.57 m/uL (4.30-5.90); RDW 14.2 % (11.5-15.5); WBC 10.1 k/uL (3.8-10.6)
[2021-05-16 05:29] LABS: HGB 10.6 gm/dL (13.0-17.5)
[2021-05-16 06:03] LABS: Albumin 2.4 g/dL (3.5-5.0); Calcium 6.9 mg/dL (8.4-10.2); Potassium 4.7 mmol/L (3.5-5.1); Total Bilirubin 0.6 mg/dL (0.2-1.3)
[2021-05-16 06:08] LABS: ABG Base Excess 4.8 mmol/L; ABG HCO3 31 mmol/L (21-25); ABG Oxygen Saturation 91.6 % (94-97); ABG PCO2 59 mmHg (35-45); ABG PH 7.33 (7.35-7.45); ABG TCO2 33 mmol/L (19-24)
[2021-05-16 06:17] LABS: ABG PO2 59 mmHg (83-108); Allen Test Performed? no
[2021-05-16] MEDS: HEPARIN SODIUM 1,000 UN/ML (10ML VL) IV PRN (07:08)
[2021-05-16] MEDS ORDERED: IPRATROPIUM-ALBUTEROL 3 ML NEB INHALATION SCH (08:00)
--- NOTE | 2021-05-16 08:01 | XR ---
EXAMINATION TYPE: XR chest 1V portable DATE OF EXAM: 05/16/2021 COMPARISON: 05/15/2021 HISTORY: SOB, Follow Up FINDINGS: Indwelling tubes and catheters are unchanged. No change in bibasilar infiltrates. Subcutaneous emphysema persists. No sizable pneumothorax. Stable appearance of the cardio-mediastinal structures at this time. Pleural effusion unchanged. IMPRESSION: 1. Stable portable chest. Clinical correlation and follow up until resolution is recommended.
[2021-05-16] MEDS: DEXTROSE 5% IN WATER 1,000 ML with SODIUM BICARB (1 MEQ/ML) 150 ML IV SCH (09:05)
[2021-05-16] MEDS: ZINC SULFATE 220 MG CAP PO SCH (09:06)
[2021-05-16] MEDS: CHOLECALCIFEROL 25 MCG (1000 IU) TABLET PO SCH (09:06)
[2021-05-16] MEDS: ASCORBIC ACID 500 MG TAB PO SCH (09:06)
[2021-05-16] MEDS: DEXAMETHASONE SOD PHOSPHATE 10 MG/ML 1 ML VIAL IVP SCH (09:06)
[2021-05-16] MEDS: CHLORHEXIDINE GLUCONATE 15 ML CUP MUCOUS MEM SCH ×2 (09:06→20:34)
--- NOTE | 2021-05-16 09:45 | P.PN ---
Subjective Progress Note Date: 05/16/21 51-year-old male who presents to the emergency department on May 12, with complaints of shortness of breath. The patient has been sick for at least 10-11 days. It started off with cough and shortness of breath, and loss of taste. He's also had fever. He has not been vaccinated. He was tested for coronavirus on May 07, and tested positive. The patient does not have a primary care physician. He has no past medical history. He takes no medications at home. The patient did receive monoclonal antibodies on May 09. Currently, the patient's on 5 L nasal cannula. He's got saline running at 75 mL an hour. He looks relatively stable. His chest x-ray does show diffuse bilateral infiltrates. The home medications that he is on include an albuterol inhaler, Tessalon Perles, and Decadron, given to him by the hospital. White count 5.1, hemoglobin 14.3, hematocrit 42.6, and platelet count 377,000. Sodium, potassium, chloride, CO2, anion gap, BUN, and creatinine are all normal. AST was 154, ALT 123, alkaline phosphatase 164. LDH was 2657. C-reactive protein is 14.9. Pro-calcitonin level is 0.14. Chest x-ray shows low lung volumes, with right greater than left bilateral opacities. The patient is seen today 05/13/2021 in follow-up on the regular medical floor. He is currently resting in bed. He is somewhat more dyspneic andtachypneic. His oxygen requirements have gone up to knees on 15 L high flow nasal cannula plus a nonrebreather mask. white count 6.8. Hemoglobin 13.5. Leukocytes 0.85. D-dimer up to 15.8. Sodium 143. Potassium 5.4. Creatinine 1.0. Glucose 123. AST 120. ALT 146. LDH 971. C-reactive protein 3.4. CT angiogram was requested after seeing the patient. There is evidence of bilateral lower lobe large multiple pulmonary emboli. No sign of right heart strain. Lovenox will be discontinued and he'll be initiated on a heparin drip On 05/14/2021 patient was emergently transferred to the intensive care unit for a concern of worsening hypoxia and dyspnea. Earlier in the shift he was on 15 L per high flow nasal cannula and 100% nonrebreather mask however his work of breathing had significantly increased his respiratory rate was ranging between 40-50 breaths per minute. His pulse ox was 87% and subsequently dropped down to 73%%. He was placed on BiPAP support with no improvement in his work of breathing or hypoxia, was intubated per [employer], currently on assist-control mode of ventilation with a rate of 36 tidal volume is 350, FiO2 100% and PEEP of 24. he was given Nimbex IV pushes and propofol for sedation during intubation, he will be placed on Diprivan drip and Nimbex. Currently his pulse ox is 81% on the above-mentioned vent settings. His blood pressure 121/71, he is in sinus mechanism tachycardic with a rate of 110-120 BPM. Patient was found to have bilateral pulmonary emboli on yesterday's CT angiogram of the chest, he was started on heparin infusion on which she remains per weight-based protocol, his maintenance IV fluids are 0.9 normal saline at a rate of 75 ML per hour, CT angiogram lung windows showed extensive bilateral pneumonia. Chest x-ray post intubation and left subclavian central line placement is pending. This morning's labs have been reviewed, white blood cell count is 11.9, hemoglobin is 14.5, today's d-dimer is 18.26 slightly increased from yesterday's value, sodium is 141, potassium is 5.2, chloride is 111, CO2 is 23, BUN was 20 creatinine 0.96, his LDH today has significantly increased and is up to 3109, from 971 on yesterday's labs, and CRP is stable at 3.4. His pro calcitonin level on 05/12/2021 was at 0.14. Patient was started on Baricitinib yesterday on 05/13/2021, in addition to Decadron 6 mg daily. Patient is on vitamin C, zinc, and vitamin D will be added. 05/15/2021, the patient is being seen in a follow-up visit intensive care unit. This is a very critically ill male patient status post definitive pneumonia with secondary respiratory failure/ARDS. The patient also had developed pulmonary embolism on 05/13/2021 which confirmed the pulmonary embolism on a CT angiogram. Note that the patient had extensive interstitial and airspace disease and infiltrates bilaterally in addition to that the patient had bilateral lower lobe large pulmonary emboli. Subsequently, echocardiogram was done yesterday post intubation the patient also showed evidence of significant pulmonary hypertension, paradoxic motion of the right ventricle and obvious signs of right ventricular overload with elevation of the right ventricular end- diastolic pressure. The RV was moderately enlarged. The left ventricular ejection fraction has been within normal limits. Based on all this and based on ongoing respiratory failure, the patient had to be intubated and placed on a mechanical ventilator. Post intubation, the patient was placed on accommodation of sedation and paralysis. Currently, the patient is on propofol which is running at 30 mcg/kg per minute. The patient is also on Nimbex running at 1 mcg/kg per minute. The patient is on a mechanical ventilator and currently is on a assist-control mode at the rate of 36 with a tidal volume of 350 and FiO2 of 70% with a PEEP of 24. Peak airway pressure is 38. Static pressures 36. Blood gases from today showed a pH of 7.07 with a pCO2 of 77 and pO2 of 172. This was done and FiO2 of 70%. The chest x-ray from today has shown evidence of pneumomediastinum and the patient has also developed subcutaneous emphysema bilaterally mainly in the supraclavicular area and upper chest area. On clinical examination, this is also confirmed. Meanwhile, the patient also has dropped his blood pressure and currently is on norepinephrine infusion for blood pressure support currently running at 0.14 mcg/kg per minute. At the same time, the patient has also dropped his urine output and recently/over the past few hours, his urine output is dropped down to 10-20 mL an hour. His potassium is currently high in the morning blood labs and his potassium is up to 7.5 and the patient has a developed an acute kidney injury with a BUN of 38 and a creatinine of 3.3. No acute EKG changes based on his underlying hypokalemia and this will be treated as soon as possible. In terms of his COVID 19 related pneumonia, the patient is on a combination of Baricitinib and Decadron. The d-dimer is down to 2.7. The patient has a LDH which is up to 4428 and a CRP level is at 8.9. His liver enzymes are also on the rise. AST is up to 417, ALT is up to 417, 05/16/2021, the patient is being seen for a follow-up. The patient remains sedated and paralyzed. The patient is currently on propofol running at 30 mcg/kg per minute and index is running at 1 mcg/kg per minute. He is adequately sedated and paralyzed for now. He remains on a mechanical ventilator. There was considerable improvement in the blood gases yesterday and following that the appropriate ventilator changes was done. For now, the patient is an assist-co ntrol mode at the rate of 36 with a tidal volume of 350 and FiO2 is currently down to 50% and a PEEP was down to the 18. The blood gases from today showed a pH of 7.37 with a pCO2 of 58 and pO2 of 59. Peak airway pressure was 36. Noted as the patient was having hemodialysis this morning, I noted the saturation is up to 98%. I dropped the PEEP down further to 16. His current peak airway pressures around 31. The chest x-ray from today still showing diffuse bilateral pulmonary infiltrates, unchanged compared to yesterday and orotracheal tube is in a good location. The patient remains on Decadron. The patient's d-dimer is at 1.53 and the rest of the prevent markers in terms of his COVID 19 infection shows an elevation of was that was as high as 4428 and the CRP was 8.9. Follow- up levels need to be obtained in terms of his inflammatory markers. Another issue was development of an acute kidney injury. The patient developed severe metabolic acidosis and acute hyperkalemia. He required immediate and urgent dialysis. Dialysis cath was inserted yesterday. Postdialysis, his potassium level improved and her most recent level is currently down to 4.7 from this morning. He is having another session of hemodialysis today with a goal of ultrafiltration of 0 mL. The patient has a serum bicarb level of 30. He is on pressors. He is currently on norepinephrine running at 0.03 mcg/kg per minute. Urine output is adequate, more than 50 mL an hour. His white cell count is at 10.1, improved compared to yesterday with a hemoglobin of 10.6 compared to yesterday. Platelet counts are dropped also down to 196. The patient remains on IV heparin regarding his bilateral pulmonary embolism. Doppler of the lower extremity also showed a DVT in the right popliteal vein. Vascular surgeries on the case. Not found to be a good candidate for EKOS Objective - Vital Signs Vital signs: Vital Signs Temp 99.0 F 05/16/21 04:00 Pulse 92 05/16/21 07:15 Resp 36 H 05/16/21 07:15 BP 92/64 05/15/21 15:28 Pulse Ox 98 05/16/21 07:15 Intake & Output 05/15/21 05/16/21 05/16/21 18:59 06:59 18:59 Intake Total 2663.678 2253.200 225.403 Output Total 450 397 82 Balance 2213.678 1856.200 143.403 Intake: IV 1387 1392 116 0.9 carrier 90 120 10 ACETAMINOPHEN IV (For NPO 100 ) 1,000 mg In Empty Bag 1 bag @ 400 mls/hr IVPB Q6HR PRN Rx#:[id number] Dextrose 5% in Water 1, 900 1200 100 000 ml @ 100 mls/hr IV . [id number] [facility] with Sodium Bicarb (1 Meq/ml) 150 ml Rx#:[id number] Sodium Chloride 0.9% 1, 225 000 ml @ 75 mls/hr IV . [id number] [facility] Rx#:[id number] pressure bag 72 72 6 Intake, IV Titration 876.678 381.200 69.403 Amount Cisatracurium 200 mg In 161.443 Sodium Chloride 0.9% 180 ml @ 1 MCG/KG/MIN 6.123 mls/hr IV .Q24H [facility] Rx#: [id number] Heparin Sod,Pork in 0.45% 87.790 78.246 69.403 NaCl 25,000 unit In 0.45 % NaCl 1 250ml.bag @ 18 UNITS/KG/HR 18.37 mls/hr IV .[id number] [facility] Rx#: [id number] Norepinephrine 8 mg In 360.890 94.330 Sodium Chloride 0.9% 250 ml @ 0.05 MCG/KG/MIN 9. 874 mls/hr IV .Q24H [facility] Rx#:[id number] propofoL 1,000 mg In 266.555 208.624 Empty Bag 1 bag @ Titrate IV .Q0M [facility] Rx#: [id number] Tube Feeding 310 480 40 Other 90 Output: Gastric Drainage 0 Urine 450 397 32 Stool 50 Hemodialysis 0 Other: Voiding Method Indwelling Catheter Indwelling Catheter # Bowel Movements 1 ABP, PAP, CO, CI - Last Documented Arterial Blood Pressure 121/71 - Exam GENERAL EXAM: Today, intubated and paralyzed 51-year-old white male, on assist- control mode of ventilation, with FiO2 of 50% and PEEP of 18, comfortable in no apparent distress. HEAD: Normocephalic/atraumatic. EYES: Normal reaction of pupils, equal size. Conjunctiva pink, sclera white. NOSE: Clear with pink turbinates. THROAT: No erythema or exudates. NECK: No masses, no JVD, no thyroid enlargement, no adenopathy. CHEST: No chest wall deformity. Symmetrical expansion. Left subclavian central line in place covered with a sterile dressing and the patient has evidence of subcutaneous emphysema in the upper chest area. LUNGS: Equal air entry with no crackles, wheeze, rhonchi or dullness. CVS: Regular rate and rhythm, normal S1 and S2, no gallops, no murmurs, no rubs ABDOMEN: Soft, nontender. No hepatosplenomegaly, normal bowel sounds, no guarding or rigidity. EXTREMITIES: No clubbing, no edema, no cyanosis, 2+ pulses and upper and lower extremities. MUSCULOSKELETAL: Muscle strength and tone normal. SPINE: No scoliosis or deformity SKIN: No rashes CENTRAL NERVOUS SYSTEM: Sedated and paralyzed No focal deficits, tone is normal in all 4 extremities. - Labs CBC & Chem 7: 05/16/21 05:00 05/16/21 05:00 Labs: Abnormal Lab Results - Last 24 Hours (Table) 05/15/21 05/15/21 05/15/21 Range/Units 11:38 12:35 12:35 RBC (4.30-5.90) m/uL Hgb (13.0-17.5) gm/dL Hct (39.0-53.0) % Neutrophils # (1.3-7.7) k/uL Lymphocytes # (1.0-4.8) k/uL APTT 120.8 H* (22.0-30.0) sec D-Dimer (<0.60) mg/L FEU ABG pH (7.35-7.45) ABG pCO2 (35-45) mmHg ABG pO2 (83-108) mmHg ABG HCO3 (21-25) mmol/L ABG Total CO2 (19-24) mmol/L ABG O2 Saturation (94-97) % Potassium 6.1 H* (3.5-5.1) mmol/L Chloride (98-107) mmol/L BUN (9-20) mg/dL Creatinine (0.66-1.25) mg/dL Glucose (74-99) mg/dL POC Glucose (mg/dL) 202 H (75-99) mg/dL Calcium (8.4-10.2) mg/dL AST (17-59) U/L ALT (4-49) U/L Alkaline Phosphatase (38-126) U/L Total Protein (6.3-8.2) g/dL Albumin (3.5-5.0) g/dL 05/15/21 05/15/21 05/15/21 Range/Units 18:06 18:46 21:00 RBC (4.30-5.90) m/uL Hgb (13.0-17.5) gm/dL Hct (39.0-53.0) % Neutrophils # (1.3-7.7) k/uL Lymphocytes # (1.0-4.8) k/uL APTT 65.6 H (22.0-30.0) sec D-Dimer (<0.60) mg/L FEU ABG pH 7.24 L (7.35-7.45) ABG pCO2 65 H (35-45) mmHg ABG pO2 256 H (83-108) mmHg ABG HCO3 28 H (21-25) mmol/L ABG Total CO2 30 H (19-24) mmol/L ABG O2 Saturation 100.0 H (94-97) % Potassium (3.5-5.1) mmol/L Chloride (98-107) mmol/L BUN (9-20) mg/dL Creatinine (0.66-1.25) mg/dL Glucose (74-99) mg/dL POC Glucose (mg/dL) 205 H (75-99) mg/dL Calcium (8.4-10.2) mg/dL AST (17-59) U/L ALT (4-49) U/L Alkaline Phosphatase (38-126) U/L Total Protein (6.3-8.2) g/dL Albumin (3.5-5.0) g/dL 05/16/21 05/16/21 05/16/21 Range/Units 00:09 05:00 05:00 RBC 3.57 L (4.30-5.90) m/uL Hgb 10.6 L D (13.0-17.5) gm/dL Hct 33.0 L (39.0-53.0) % Neutrophils # 8.6 H (1.3-7.7) k/uL Lymphocytes # 0.9 L (1.0-4.8) k/uL APTT (22.0-30.0) sec D-Dimer 1.53 H (<0.60) mg/L FEU ABG pH (7.35-7.45) ABG pCO2 (35-45) mmHg ABG pO2 (83-108) mmHg ABG HCO3 (21-25) mmol/L ABG Total CO2 (19-24) mmol/L ABG O2 Saturation (94-97) % Potassium (3.5-5.1) mmol/L Chloride (98-107) mmol/L BUN (9-20) mg/dL Creatinine (0.66-1.25) mg/dL Glucose (74-99) mg/dL POC Glucose (mg/dL) 168 H (75-99) mg/dL Calcium (8.4-10.2) mg/dL AST (17-59) U/L ALT (4-49) U/L Alkaline Phosphatase (38-126) U/L Total Protein (6.3-8.2) g/dL Albumin (3.5-5.0) g/dL 05/16/21 05/16/21 05/16/21 Range/Units 05:00 05:00 05:24 RBC (4.30-5.90) m/uL Hgb (13.0-17.5) gm/dL Hct (39.0-53.0) % Neutrophils # (1.3-7.7) k/uL Lymphocytes # (1.0-4.8) k/uL APTT 40.9 H (22.0-30.0) sec D-Dimer (<0.60) mg/L FEU ABG pH (7.35-7.45) ABG pCO2 (35-45) mmHg ABG pO2 (83-108) mmHg ABG HCO3 (21-25) mmol/L ABG Total CO2 (19-24) mmol/L ABG O2 Saturation (94-97) % Potassium (3.5-5.1) mmol/L Chloride 110 H (98-107) mmol/L BUN 45 H (9-20) mg/dL Creatinine 4.09 H (0.66-1.25) mg/dL Glucose 177 H (74-99) mg/dL POC Glucose (mg/dL) 165 H (75-99) mg/dL Calcium 6.9 L (8.4-10.2) mg/dL AST 170 H (17-59) U/L ALT 284 H (4-49) U/L Alkaline Phosphatase 153 H (38-126) U/L Total Protein 5.0 L (6.3-8.2) g/dL Albumin 2.4 L (3.5-5.0) g/dL 05/16/21 Range/Units 06:06 RBC (4.30-5.90) m/uL Hgb (13.0-17.5) gm/dL Hct (39.0-53.0) % Neutrophils # (1.3-7.7) k/uL Lymphocytes # (1.0-4.8) k/uL APTT (22.0-30.0) sec D-Dimer (<0.60) mg/L FEU ABG pH 7.33 L (7.35-7.45) ABG pCO2 59 H (35-45) mmHg ABG pO2 59 L* (83-108) mmHg ABG HCO3 31 H (21-25) mmol/L ABG Total CO2 33 H (19-24) mmol/L ABG O2 Saturation 91.6 L (94-97) % Potassium (3.5-5.1) mmol/L Chloride (98-107) mmol/L BUN (9-20) mg/dL Creatinine (0.66-1.25) mg/dL Glucose (74-99) mg/dL POC Glucose (mg/dL) (75-99) mg/dL Calcium (8.4-10.2) mg/dL AST (17-59) U/L ALT (4-49) U/L Alkaline Phosphatase (38-126) U/L Total Protein (6.3-8.2) g/dL Albumin (3.5-5.0) g/dL Assessment and Plan Plan: #1. acute hypoxic respiratory failure related to COVID-19 pneumonia, admitted to the hospital on 05/12/2021 with 10-11 day history of COVID-19 symptoms. Patient is a non-vaccinated individual, he was outside the window for Remdesivir, was started on Baricitinib on 05/13/2021. Transfer to the intensive care unit on 05/14/2021 and intubated . The patient's course was Again by worsening of hypoxemia, ARDS, bilateral pulmonary embolism involving lower lobe pulmonary artery branches and all of those of complication of COVID 19 related pneumonia. COVID 19 related pneumonia. The patient is currently intubated on a mechanical ventilator. The patient sedated and paralyzed. The patient is on Decadron. His course was further combination by development of acute kidney injury, oliguria and acute hyperkalemia. For now, there has been some limited improvement in oxygenation. The patient's PEEP has been drop down to 16 and FiO2 is currently at 50%. His tidal volume is currently at 350. The patient is allowing permissive hypercapnia. Ever pressure improved. The patient's acute hypoxic respiratory failure essentially related to COVID 19 related pneumonia. At the same time there is superimposed bilateral pulmonary embolism contributing to his respiratory failure and for that reason the patient is on IV heparin. Inflammatory markers were quite elevated and follow-up levels are still pending for now. Chest x-ray from today shows stable bilateral pulmonary infiltrates, unchanged. #2. Acute bilateral pulmonary emboli likely related to COVID-19 pneumonia, seen on a CT angiogram of the chest on 05/13/2021, started on heparin infusion. No CT evidence of heart strain, will obtain echocardiogram, and the patient will be kept on IV heparin for now. The patient also has a popliteal DVT on the right. #3. Elevated inflammatory markers, significantly increased on today's labs on 05/14/2021 #4. Elevated d-dimer related to acute pulmonary emboli #5. Elevated LFTs related to viral pneumonia #6 acute kidney injury, likely COVID 19-induced ATN, currently dialysis dependent. First session of hemodialysis was yesterday and a second session is being done today without any ultrafiltration #7 acute hyperkalemia, potassium level is normalized #8 permissive hypercapnia with secondary respiratory acidosis #9 Pneumediastinum and bilateral subcutaneous emphysema, complication of COVID 19 related pneumonia and mechanical ventilation, and expected outcome #10 Hypotension , secondary to above, currently on pressors, currently on mini mal doses of pressors Plan: Patient has been intubated and placed on mechanical ventilator, reduce the FiO2 down to 50%, the PEEP down to 16 and obtain a follow-up blood gases postdialysis Continue hemodialysis for now Monitor electrolytes and potassium level Continued IV heparin for now Continue Decadron Doppler of the lower extremities showed a popliteal DVT on the right Echocardiogram was noted Stop the Baricitinib for now and continue with Decadron Pressors to maintain a mean arterial pressure above 65 feeding for nutritional support Condition is extremely critical and the patient carries a very high mortality. We'll continue to follow. We'll keep the patient sedated and paralyzed for now. critically care evaluation that was done and more than 30 minutes Time with Patient: Greater than 30
[2021-05-16 11:38] LABS: ABG Base Excess 4.6 mmol/L; ABG HCO3 30 mmol/L (21-25); ABG Oxygen Saturation 96.7 % (94-97); ABG PCO2 55 mmHg (35-45); ABG PH 7.35 (7.35-7.45); ABG PO2 81 mmHg (83-108); ABG TCO2 32 mmol/L (19-24)
[2021-05-16 11:39] LABS: Allen Test Performed? no
[2021-05-16 12:07] LABS: Glucose,Whole Blood 145 mg/dL (75-99)
[2021-05-16] MEDS: ALBUTEROL HFA INHALER INHALATION SCH ×4 (12:18→20:18)
[2021-05-16] MEDS: HEPARIN SOD,PORK IN 0.45% NACL 25,000 UNIT in 0.45% NACL 1 250ML.BAG IV SCH (13:33)
[2021-05-16] MEDS: PANTOPRAZOLE 40 MG/10 ML VIAL IVP SCH (13:35)
[2021-05-16] MEDS: SODIUM CHLORIDE 0.45% 1,000 ML IV SCH (13:36)
[2021-05-16] MEDS: CISATRACURIUM 200 MG in SODIUM CHLORIDE 0.9% 180 ML IV SCH (15:19)
[2021-05-16] MEDS: ARTIFICIAL TEARS-HYPROMELLOSE DROPS 15 ML BTL BOTH EYES SCH ×2 (15:21→20:35)
--- NOTE | 2021-05-16 15:21 | P.PN ---
Subjective Progress Note Date: 05/16/21 Patient is seen and examined in the ICU he remains sedated and intubated. He is status post temporary dialysis catheter per right femoral vein and underwent successful hemodialysis yesterday. He is scheduled for hemodialysis again today. Objective - Vital Signs Vital signs: Vital Signs Temp 99.0 F 05/16/21 04:00 Pulse 92 05/16/21 07:15 Resp 36 H 05/16/21 07:15 BP 92/64 05/15/21 15:28 Pulse Ox 98 05/16/21 07:15 Intake & Output 05/15/21 05/16/21 05/16/21 18:59 06:59 18:59 Intake Total 2663.678 2253.200 225.403 Output Total 450 397 82 Balance 2213.678 1856.200 143.403 Intake: IV 1387 1392 116 0.9 carrier 90 120 10 ACETAMINOPHEN IV (For NPO 100 ) 1,000 mg In Empty Bag 1 bag @ 400 mls/hr IVPB Q6HR PRN Rx#:[id number] Dextrose 5% in Water 1, 900 1200 100 000 ml @ 100 mls/hr IV . [id number] [facility] with Sodium Bicarb (1 Meq/ml) 150 ml Rx#:[id number] Sodium Chloride 0.9% 1, 225 000 ml @ 75 mls/hr IV . [id number] [facility] Rx#:[id number] pressure bag 72 72 6 Intake, IV Titration 876.678 381.200 69.403 Amount Cisatracurium 200 mg In 161.443 Sodium Chloride 0.9% 180 ml @ 1 MCG/KG/MIN 6.123 mls/hr IV .Q24H [facility] Rx#: [id number] Heparin Sod,Pork in 0.45% 87.790 78.246 69.403 NaCl 25,000 unit In 0.45 % NaCl 1 250ml.bag @ 18 UNITS/KG/HR 18.37 mls/hr IV .[id number] [facility] Rx#: [id number] Norepinephrine 8 mg In 360.890 94.330 Sodium Chloride 0.9% 250 ml @ 0.05 MCG/KG/MIN 9. 874 mls/hr IV .Q24H [facility] Rx#:[id number] propofoL 1,000 mg In 266.555 208.624 Empty Bag 1 bag @ Titrate IV .Q0M [facility] Rx#: [id number] Tube Feeding 310 480 40 Other 90 Output: Gastric Drainage 0 Urine 450 397 32 Stool 50 Hemodialysis 0 Other: Voiding Method Indwelling Catheter Indwelling Catheter # Bowel Movements 1 ABP, PAP, CO, CI - Last Documented Arterial Blood Pressure 121/71 - Exam General appearance: Sedated and intubated on mechanical ventilation. HET: Head is normocephalic and atraumatic. Neck: Supple without lymphadenopathy. Trachea midline. Abdomen: Soft, nontender, nondistended. Extremities: Normal skin color and turgor. Hemodialysis catheter intact and right groin. Neurological: Sedated and intubated on mechanical ventilation. - Labs CBC & Chem 7: 05/16/21 05:00 05/16/21 05:00 Labs: Abnormal Lab Results - Last 24 Hours (Table) 05/15/21 05/15/21 05/15/21 Range/Units 06:31 11:38 12:35 RBC (4.30-5.90) m/uL Hgb (13.0-17.5) gm/dL Hct (39.0-53.0) % Neutrophils # (1.3-7.7) k/uL Lymphocytes # (1.0-4.8) k/uL APTT 120.8 H* (22.0-30.0) sec D-Dimer (<0.60) mg/L FEU ABG pH (7.35-7.45) ABG pCO2 (35-45) mmHg ABG pO2 (83-108) mmHg ABG HCO3 (21-25) mmol/L ABG Total CO2 (19-24) mmol/L ABG O2 Saturation (94-97) % Potassium 7.5 H* (3.5-5.1) mmol/L Chloride 114 H (98-107) mmol/L BUN 38 H (9-20) mg/dL Creatinine 3.31 H (0.66-1.25) mg/dL Glucose 176 H (74-99) mg/dL POC Glucose (mg/dL) 202 H (75-99) mg/dL Calcium 7.1 L (8.4-10.2) mg/dL Magnesium 3.1 H (1.6-2.3) mg/dL AST 526 H (17-59) U/L ALT 417 H (4-49) U/L Alkaline Phosphatase 208 H (38-126) U/L Lactate Dehydrogenase 4428 H (313-618) U/L C-Reactive Protein 8.9 H (<1.0) mg/dL Total Protein (6.3-8.2) g/dL Albumin 3.0 L (3.5-5.0) g/dL 05/15/21 05/15/21 05/15/21 Range/Units 12:35 18:06 18:46 RBC (4.30-5.90) m/uL Hgb (13.0-17.5) gm/dL Hct (39.0-53.0) % Neutrophils # (1.3-7.7) k/uL Lymphocytes # (1.0-4.8) k/uL APTT (22.0-30.0) sec D-Dimer (<0.60) mg/L FEU ABG pH 7.24 L (7.35-7.45) ABG pCO2 65 H (35-45) mmHg ABG pO2 256 H (83-108) mmHg ABG HCO3 28 H (21-25) mmol/L ABG Total CO2 30 H (19-24) mmol/L ABG O2 Saturation 100.0 H (94-97) % Potassium 6.1 H* (3.5-5.1) mmol/L Chloride (98-107) mmol/L BUN (9-20) mg/dL Creatinine (0.66-1.25) mg/dL Glucose (74-99) mg/dL POC Glucose (mg/dL) 205 H (75-99) mg/dL Calcium (8.4-10.2) mg/dL Magnesium (1.6-2.3) mg/dL AST (17-59) U/L ALT (4-49) U/L Alkaline Phosphatase (38-126) U/L Lactate Dehydrogenase (313-618) U/L C-Reactive Protein (<1.0) mg/dL Total Protein (6.3-8.2) g/dL Albumin (3.5-5.0) g/dL 05/15/21 05/16/21 05/16/21 Range/Units 21:00 00:09 05:00 RBC 3.57 L (4.30-5.90) m/uL Hgb 10.6 L D (13.0-17.5) gm/dL Hct 33.0 L (39.0-53.0) % Neutrophils # 8.6 H (1.3-7.7) k/uL Lymphocytes # 0.9 L (1.0-4.8) k/uL APTT 65.6 H (22.0-30.0) sec D-Dimer (<0.60) mg/L FEU ABG pH (7.35-7.45) ABG pCO2 (35-45) mmHg ABG pO2 (83-108) mmHg ABG HCO3 (21-25) mmol/L ABG Total CO2 (19-24) mmol/L ABG O2 Saturation (94-97) % Potassium (3.5-5.1) mmol/L Chloride (98-107) mmol/L BUN (9-20) mg/dL Creatinine (0.66-1.25) mg/dL Glucose (74-99) mg/dL POC Glucose (mg/dL) 168 H (75-99) mg/dL Calcium (8.4-10.2) mg/dL Magnesium (1.6-2.3) mg/dL AST (17-59) U/L ALT (4-49) U/L Alkaline Phosphatase (38-126) U/L Lactate Dehydrogenase (313-618) U/L C-Reactive Protein (<1.0) mg/dL Total Protein (6.3-8.2) g/dL Albumin (3.5-5.0) g/dL 05/16/21 05/16/21 05/16/21 Range/Units 05:00 05:00 05:00 RBC (4.30-5.90) m/uL Hgb (13.0-17.5) gm/dL Hct (39.0-53.0) % Neutrophils # (1.3-7.7) k/uL Lymphocytes # (1.0-4.8) k/uL APTT 40.9 H (22.0-30.0) sec D-Dimer 1.53 H (<0.60) mg/L FEU ABG pH (7.35-7.45) ABG pCO2 (35-45) mmHg ABG pO2 (83-108) mmHg ABG HCO3 (21-25) mmol/L ABG Total CO2 (19-24) mmol/L ABG O2 Saturation (94-97) % Potassium (3.5-5.1) mmol/L Chloride 110 H (98-107) mmol/L BUN 45 H (9-20) mg/dL Creatinine 4.09 H (0.66-1.25) mg/dL Glucose 177 H (74-99) mg/dL POC Glucose (mg/dL) (75-99) mg/dL Calcium 6.9 L (8.4-10.2) mg/dL Magnesium (1.6-2.3) mg/dL AST 170 H (17-59) U/L ALT 284 H (4-49) U/L Alkaline Phosphatase 153 H (38-126) U/L Lactate Dehydrogenase (313-618) U/L C-Reactive Protein (<1.0) mg/dL Total Protein 5.0 L (6.3-8.2) g/dL Albumin 2.4 L (3.5-5.0) g/dL 05/16/21 05/16/21 Range/Units 05:24 06:06 RBC (4.30-5.90) m/uL Hgb (13.0-17.5) gm/dL Hct (39.0-53.0) % Neutrophils # (1.3-7.7) k/uL Lymphocytes # (1.0-4.8) k/uL APTT (22.0-30.0) sec D-Dimer (<0.60) mg/L FEU ABG pH 7.33 L (7.35-7.45) ABG pCO2 59 H (35-45) mmHg ABG pO2 59 L* (83-108) mmHg ABG HCO3 31 H (21-25) mmol/L ABG Total CO2 33 H (19-24) mmol/L ABG O2 Saturation 91.6 L (94-97) % Potassium (3.5-5.1) mmol/L Chloride (98-107) mmol/L BUN (9-20) mg/dL Creatinine (0.66-1.25) mg/dL Glucose (74-99) mg/dL POC Glucose (mg/dL) 165 H (75-99) mg/dL Calcium (8.4-10.2) mg/dL Magnesium (1.6-2.3) mg/dL AST (17-59) U/L ALT (4-49) U/L Alkaline Phosphatase (38-126) U/L Lactate Dehydrogenase (313-618) U/L C-Reactive Protein (<1.0) mg/dL Total Protein (6.3-8.2) g/dL Albumin (3.5-5.0) g/dL Assessment and Plan Assessment: 1. Acute kidney injury requiring hemodialysis is post right common femoral vein temporary dialysis catheter placement 2. Bilateral pulmonary emboli 3. Right lower extremity popliteal DVT 4. Acute hypoxic respiratory failure related to COVID-19 pneumonia 5. Hyperkalemia 6. Hypotension Plan: 1. Continue ICU management 2. Continue hemodialysis as ordered 3. Vascular surgical team will be on standby. Please do not hesitate to call us back with any further needs. The impression and plan of care has been dictated as directed. Dr. Rodriguez I performed a history and examination of this patient, discussed the same with the dictator. I agree with the dictator's note ,documented as a scribe. Any additional findings or plans will be noted.
--- NOTE | 2021-05-16 15:54 | PN ---
PROGRESS NOTE Patient is seen for followup for acute kidney injury. He was started on dialysis yesterday for severe hyperkalemia. Potassium has improved. Serum creatinine, however, remains elevated. It is further increased to 4.0. Patient has borderline urine output currently at about 30-32 cc/hour. He remains on bicarb drip. Levophed is at about 0.04 mics. Case is discussed with nursing staff. The patient is not examined. Blood pressure 127/78, heart rate 82 per minute, he is afebrile. LABS: Reviewed. Sodium of 144, potassium 4.7, BUN 45, creatinine 4.09, hemoglobin 10.6. ASSESSMENT: 1. Acute kidney injury, acute tubular necrosis, currently nonoliguric but with severe acute kidney injury with progressive renal failure and the patient is being dialyzed today, today is his second treatment. His urine output is about 30-50 cc an hour. I will hold off on dialysis tomorrow unless his potassium is further elevated. 2. Metabolic acidosis, currently improved. We will discontinue the bicarb drip. 3. Acute hypoxic respiratory failure secondary to COVID pneumonia. PLAN: Switch IV fluids to half-normal saline. Discontinue bicarb drip. Reassess tomorrow for need for dialysis since patient has fair urine output. Continue to avoid nephrotoxic agents. MMODL / IJN: [id number] /
[2021-05-16 17:52] LABS: Glucose,Whole Blood 171 mg/dL (75-99)
--- NOTE | 2021-05-16 17:54 | P.PN ---
Subjective Progress Note Date: 05/16/21 Patient remains intubated and sedated. Patient is scheduled for dialysis today. Objective - Vital Signs Vital signs: Vital Signs Temp 98.4 F 05/16/21 16:00 Pulse 92 05/16/21 17:15 Resp 36 H 05/16/21 17:15 BP 118/66 05/16/21 17:06 Pulse Ox 96 05/16/21 17:15 Intake & Output 05/15/21 05/16/21 05/16/21 18:59 06:59 18:59 Intake Total 2663.678 2253.200 2153.657 Output Total 450 397 657 Balance 2213.678 2982.511 9727.657 Weight 108.2 kg Intake: IV 1387 1392 1119 0.9 carrier 90 120 110 ACETAMINOPHEN IV (For NPO 100 ) 1,000 mg In Empty Bag 1 bag @ 400 mls/hr IVPB Q6HR PRN Rx#:[id number] Dextrose 5% in Water 1, 900 1200 700 000 ml @ 100 mls/hr IV . [id number] [facility] with Sodium Bicarb (1 Meq/ml) 150 ml Rx#:[id number] Sodium Chloride 0.45% 1, 300 000 ml @ 75 mls/hr IV . [id number] [facility] Rx#:[id number] Sodium Chloride 0.9% 1, 225 000 ml @ 75 mls/hr IV . [id number] [facility] Rx#:[id number] pressure bag 72 72 9 Intake, IV Titration 876.678 381.200 594.657 Amount Cisatracurium 200 mg In 161.443 172.771 Sodium Chloride 0.9% 180 ml @ 1 MCG/KG/MIN 6.123 mls/hr IV .Q24H [facility] Rx#: [id number] Heparin Sod,Pork in 0.45% 87.790 78.246 134.892 NaCl 25,000 unit In 0.45 % NaCl 1 250ml.bag @ 18 UNITS/KG/HR 18.37 mls/hr IV .[id number] [facility] Rx#: [id number] Norepinephrine 8 mg In 360.890 94.330 105.519 Sodium Chloride 0.9% 250 ml @ 0.05 MCG/KG/MIN 9. 874 mls/hr IV .Q24H [facility] Rx#:[id number] propofoL 1,000 mg In 266.555 208.624 181.475 Empty Bag 1 bag @ Titrate IV .Q0M [facility] Rx#: [id number] Tube Feeding 310 480 440 Other 90 Output: Gastric Drainage 0 Urine 450 397 557 Stool 100 Hemodialysis 0 0 Other: Voiding Method Indwelling Catheter Indwelling Catheter Indwelling Catheter # Bowel Movements 1 ABP, PAP, CO, CI - Last Documented Arterial Blood Pressure 142/76 - Exam General examination - intubated and sedated Heart - + S1S2 no murmurs Lungs - diminished breath sounds Abdomen soft NT ND +ve BS Extremities - +2 pitting edema in bilateral lower extremities PT SKILLED - unable to assess Psych - unable to assess - Labs CBC & Chem 7: 05/16/21 05:00 05/16/21 05:00 Labs: Abnormal Lab Results - Last 24 Hours (Table) 05/15/21 05/15/21 05/15/21 Range/Units 12:35 18:06 18:46 RBC (4.30-5.90) m/uL Hgb (13.0-17.5) gm/dL Hct (39.0-53.0) % Neutrophils # (1.3-7.7) k/uL Lymphocytes # (1.0-4.8) k/uL APTT (22.0-30.0) sec D-Dimer (<0.60) mg/L FEU ABG pH 7.24 L (7.35-7.45) ABG pCO2 65 H (35-45) mmHg ABG pO2 256 H (83-108) mmHg ABG HCO3 28 H (21-25) mmol/L ABG Total CO2 30 H (19-24) mmol/L ABG O2 Saturation 100.0 H (94-97) % Potassium 6.1 H* (3.5-5.1) mmol/L Chloride (98-107) mmol/L BUN (9-20) mg/dL Creatinine (0.66-1.25) mg/dL Glucose (74-99) mg/dL POC Glucose (mg/dL) 205 H (75-99) mg/dL Calcium (8.4-10.2) mg/dL AST (17-59) U/L ALT (4-49) U/L Alkaline Phosphatase (38-126) U/L Total Protein (6.3-8.2) g/dL Albumin (3.5-5.0) g/dL 05/15/21 05/16/21 05/16/21 Range/Units 21:00 00:09 05:00 RBC 3.57 L (4.30-5.90) m/uL Hgb 10.6 L D (13.0-17.5) gm/dL Hct 33.0 L (39.0-53.0) % Neutrophils # 8.6 H (1.3-7.7) k/uL Lymphocytes # 0.9 L (1.0-4.8) k/uL APTT 65.6 H (22.0-30.0) sec D-Dimer (<0.60) mg/L FEU ABG pH (7.35-7.45) ABG pCO2 (35-45) mmHg ABG pO2 (83-108) mmHg ABG HCO3 (21-25) mmol/L ABG Total CO2 (19-24) mmol/L ABG O2 Saturation (94-97) % Potassium (3.5-5.1) mmol/L Chloride (98-107) mmol/L BUN (9-20) mg/dL Creatinine (0.66-1.25) mg/dL Glucose (74-99) mg/dL POC Glucose (mg/dL) 168 H (75-99) mg/dL Calcium (8.4-10.2) mg/dL AST (17-59) U/L ALT (4-49) U/L Alkaline Phosphatase (38-126) U/L Total Protein (6.3-8.2) g/dL Albumin (3.5-5.0) g/dL 05/16/21 05/16/21 05/16/21 Range/Units 05:00 05:00 05:00 RBC (4.30-5.90) m/uL Hgb (13.0-17.5) gm/dL Hct (39.0-53.0) % Neutrophils # (1.3-7.7) k/uL Lymphocytes # (1.0-4.8) k/uL APTT 40.9 H (22.0-30.0) sec D-Dimer 1.53 H (<0.60) mg/L FEU ABG pH (7.35-7.45) ABG pCO2 (35-45) mmHg ABG pO2 (83-108) mmHg ABG HCO3 (21-25) mmol/L ABG Total CO2 (19-24) mmol/L ABG O2 Saturation (94-97) % Potassium (3.5-5.1) mmol/L Chloride 110 H (98-107) mmol/L BUN 45 H (9-20) mg/dL Creatinine 4.09 H (0.66-1.25) mg/dL Glucose 177 H (74-99) mg/dL POC Glucose (mg/dL) (75-99) mg/dL Calcium 6.9 L (8.4-10.2) mg/dL AST 170 H (17-59) U/L ALT 284 H (4-49) U/L Alkaline Phosphatase 153 H (38-126) U/L Total Protein 5.0 L (6.3-8.2) g/dL Albumin 2.4 L (3.5-5.0) g/dL 05/16/21 05/16/21 05/16/21 Range/Units 05:24 06:06 11:36 RBC (4.30-5.90) m/uL Hgb (13.0-17.5) gm/dL Hct (39.0-53.0) % Neutrophils # (1.3-7.7) k/uL Lymphocytes # (1.0-4.8) k/uL APTT (22.0-30.0) sec D-Dimer (<0.60) mg/L FEU ABG pH 7.33 L (7.35-7.45) ABG pCO2 59 H 55 H (35-45) mmHg ABG pO2 59 L* 81 L (83-108) mmHg ABG HCO3 31 H 30 H (21-25) mmol/L ABG Total CO2 33 H 32 H (19-24) mmol/L ABG O2 Saturation 91.6 L (94-97) % Potassium (3.5-5.1) mmol/L Chloride (98-107) mmol/L BUN (9-20) mg/dL Creatinine (0.66-1.25) mg/dL Glucose (74-99) mg/dL POC Glucose (mg/dL) 165 H (75-99) mg/dL Calcium (8.4-10.2) mg/dL AST (17-59) U/L ALT (4-49) U/L Alkaline Phosphatase (38-126) U/L Total Protein (6.3-8.2) g/dL Albumin (3.5-5.0) g/dL 05/16/21 05/16/21 05/16/21 Range/Units 12:06 13:10 17:51 RBC (4.30-5.90) m/uL Hgb (13.0-17.5) gm/dL Hct (39.0-53.0) % Neutrophils # (1.3-7.7) k/uL Lymphocytes # (1.0-4.8) k/uL APTT 49.2 H (22.0-30.0) sec D-Dimer (<0.60) mg/L FEU ABG pH (7.35-7.45) ABG pCO2 (35-45) mmHg ABG pO2 (83-108) mmHg ABG HCO3 (21-25) mmol/L ABG Total CO2 (19-24) mmol/L ABG O2 Saturation (94-97) % Potassium (3.5-5.1) mmol/L Chloride (98-107) mmol/L BUN (9-20) mg/dL Creatinine (0.66-1.25) mg/dL Glucose (74-99) mg/dL POC Glucose (mg/dL) 145 H 171 H (75-99) mg/dL Calcium (8.4-10.2) mg/dL AST (17-59) U/L ALT (4-49) U/L Alkaline Phosphatase (38-126) U/L Total Protein (6.3-8.2) g/dL Albumin (3.5-5.0) g/dL Assessment and Plan Assessment: Acute hypoxemic respiratory failure ARDS secondary to Covid 19 Acute Pulmonary Embolism Right lower extremity DVT DENIA with hyperkalemia secondary to ATN -Admit inpatient, telemetry -Pulmonary consult -Intubated on 05/14 -levophed, propofol, nimbex -Dexamethasone day 4 -Outside of window for remdesivir -Vitamin C, D, zinc -Oxygen when necessary -Daily inflammatory markers -Baricitinib discontinued after 2 doses -inhaler PRN -heparin gtt -vascular surgery consult for consideration of EKOS and dialysis catheter placement -nephrology consult for ATN secondary to septic shock and COVID -plan for iHD starting 05/15 Full Code
[2021-05-16 23:35] LABS: HCT 35.7 % (39.0-53.0); HGB 11.5 gm/dL (13.0-17.5); MCH 29.3 pg (25.0-35.0); MCHC 32.3 g/dL (31.0-37.0); MCV 90.6 fL (80.0-100.0); Mean Platelet Volume 9.3; Platelet Count 194 k/uL (150-450); RBC 3.93 m/uL (4.30-5.90)
[2021-05-17 01:27] LABS: Glucose,Whole Blood 148 mg/dL (75-99)
[2021-05-17] MEDS: INSULIN ASPART (NovoLOG) 100 UNIT/ML VIAL SQ SCH ×4 (01:28→17:33)
[2021-05-17] MEDS: ARTIFICIAL TEARS-HYPROMELLOSE DROPS 15 ML BTL BOTH EYES SCH ×6 (01:28→19:55)
[2021-05-17 05:28] LABS: Basophils # (A) 0.1 k/uL (0-0.2); Basophils % (A) 1 %; Eosinophils % (A) 0 %; HGB 11.8 gm/dL (13.0-17.5); Lymphocytes # (A) 0.9 k/uL (1.0-4.8); Lymphocytes % (A) 6 %; MCH 28.7 pg (25.0-35.0); MCV 89.8 fL (80.0-100.0); Mean Platelet Volume 8.8; Monocytes # (A) 0.7 k/uL (0-1.0); Monocytes % (A) 5 %; Neutrophils # (A) 12.7 k/uL (1.3-7.7); Neutrophils % (A) 87 %; Platelet Count 193 k/uL (150-450); RBC 4.12 m/uL (4.30-5.90); RDW 13.6 % (11.5-15.5); WBC 14.6 k/uL (3.8-10.6)
[2021-05-17 05:41] LABS: ABG Base Excess 3.4 mmol/L; ABG HCO3 30 mmol/L (21-25); ABG Oxygen Saturation 97.3 % (94-97); ABG PCO2 60 mmHg (35-45); ABG PH 7.31 (7.35-7.45); ABG PO2 96 mmHg (83-108); ABG TCO2 32 mmol/L (19-24); Allen Test Performed? Yes
[2021-05-17 05:51] LABS: Albumin 2.6 g/dL (3.5-5.0); Potassium 4.7 mmol/L (3.5-5.1); Total Bilirubin 0.6 mg/dL (0.2-1.3); Total Protein 5.3 g/dL (6.3-8.2)
[2021-05-17] MEDS: SODIUM CHLORIDE 0.45% 1,000 ML IV SCH ×2 (06:07→14:46)
[2021-05-17] MEDS: HEPARIN SOD,PORK IN 0.45% NACL 25,000 UNIT in 0.45% NACL 1 250ML.BAG IV SCH ×2 (06:17→12:24)
--- NOTE | 2021-05-17 06:47 | XR ---
EXAMINATION TYPE: XR chest 1V portable DATE OF EXAM: 05/17/2021 CLINICAL HISTORY: Difficulty breathing progress study. TECHNIQUE: Single AP portable semiupright view of the chest is obtained. COMPARISON: Chest x-ray from one day earlier and older studies FINDINGS: Stable endotracheal and orogastric tubes. Stable left-sided subclavian central venous cath eter. Persistent diffuse right lung and left basilar opacities. Persistent overlying subcutaneous emphysema . No visualized pneumothorax. Cardiac silhouette size stable and within normal limits. Pneumomediast inum less well seen but present. Osseous structures are intact. IMPRESSION: 1. Pneumomediastinum and overlying subcutaneous emphysema redemonstrated. No pneumothorax seen. Multi focal confluent right lung opacities and left basilar opacity redemonstrated. No significant change f rom one day earlier.
[2021-05-17] MEDS: ASCORBIC ACID 500 MG TAB PO SCH (08:38)
[2021-05-17] MEDS: ZINC SULFATE 220 MG CAP PO SCH (08:38)
[2021-05-17] MEDS: CHOLECALCIFEROL 25 MCG (1000 IU) TABLET PO SCH (08:38)
[2021-05-17] MEDS: CHLORHEXIDINE GLUCONATE 15 ML CUP MUCOUS MEM SCH ×2 (08:38→19:55)
[2021-05-17] MEDS: PANTOPRAZOLE 40 MG/10 ML VIAL IVP SCH (08:39)
[2021-05-17] MEDS: DEXAMETHASONE SOD PHOSPHATE 10 MG/ML 1 ML VIAL IVP SCH (08:39)
[2021-05-17] MEDS: HEPARIN SODIUM 1,000 UN/ML (10ML VL) IV PRN (08:45)
[2021-05-17] MEDS: CISATRACURIUM 200 MG in SODIUM CHLORIDE 0.9% 180 ML IV SCH (08:50)
[2021-05-17] MEDS: ALBUTEROL HFA INHALER INHALATION SCH ×4 (09:17→19:46)
[2021-05-17 09:25] LABS: C Reactive Protein 5.2 mg/dL (<1.0)
--- NOTE | 2021-05-17 10:11 | P.PN ---
Subjective Progress Note Date: 05/17/21 51-year-old male who presents to the emergency department on May 12, with complaints of shortness of breath. The patient has been sick for at least 10-11 days. It started off with cough and shortness of breath, and loss of taste. He's also had fever. He has not been vaccinated. He was tested for coronavirus on May 07, and tested positive. The patient does not have a primary care physician. He has no past medical history. He takes no medications at home. The patient did receive monoclonal antibodies on May 09. Currently, the patient's on 5 L nasal cannula. He's got saline running at 75 mL an hour. He looks relatively stable. His chest x-ray does show diffuse bilateral infiltrates. The home medications that he is on include an albuterol inhaler, Tessalon Perles, and Decadron, given to him by the hospital. White count 5.1, hemoglobin 14.3, hematocrit 42.6, and platelet count 377,000. Sodium, potassium, chloride, CO2, anion gap, BUN, and creatinine are all normal. AST was 154, ALT 123, alkaline phosphatase 164. LDH was 2657. C-reactive protein is 14.9. Pro-calcitonin level is 0.14. Chest x-ray shows low lung volumes, with right greater than left bilateral opacities. The patient is seen today 05/13/2021 in follow-up on the regular medical floor. He is currently resting in bed. He is somewhat more dyspneic andtachypneic. His oxygen requirements have gone up to knees on 15 L high flow nasal cannula plus a nonrebreather mask. white count 6.8. Hemoglobin 13.5. Leukocytes 0.85. D-dimer up to 15.8. Sodium 143. Potassium 5.4. Creatinine 1.0. Glucose 123. AST 120. ALT 146. LDH 971. C-reactive protein 3.4. CT angiogram was requested after seeing the patient. There is evidence of bilateral lower lobe large multiple pulmonary emboli. No sign of right heart strain. Lovenox will be discontinued and he'll be initiated on a heparin drip On 05/14/2021 patient was emergently transferred to the intensive care unit for a concern of worsening hypoxia and dyspnea. Earlier in the shift he was on 15 L per high flow nasal cannula and 100% nonrebreather mask however his work of breathing had significantly increased his respiratory rate was ranging between 40-50 breaths per minute. His pulse ox was 87% and subsequently dropped down to 73%%. He was placed on BiPAP support with no improvement in his work of breathing or hypoxia, was intubated per [employer], currently on assist-control mode of ventilation with a rate of 36 tidal volume is 350, FiO2 100% and PEEP of 24. he was given Nimbex IV pushes and propofol for sedation during intubation, he will be placed on Diprivan drip and Nimbex. Currently his pulse ox is 81% on the above-mentioned vent settings. His blood pressure 121/71, he is in sinus mechanism tachycardic with a rate of 110-120 BPM. Patient was found to have bilateral pulmonary emboli on yesterday's CT angiogram of the chest, he was started on heparin infusion on which she remains per weight-based protocol, his maintenance IV fluids are 0.9 normal saline at a rate of 75 ML per hour, CT angiogram lung windows showed extensive bilateral pneumonia. Chest x-ray post intubation and left subclavian central line placement is pending. This morning's labs have been reviewed, white blood cell count is 11.9, hemoglobin is 14.5, today's d-dimer is 18.26 slightly increased from yesterday's value, sodium is 141, potassium is 5.2, chloride is 111, CO2 is 23, BUN was 20 creatinine 0.96, his LDH today has significantly increased and is up to 3109, from 971 on yesterday's labs, and CRP is stable at 3.4. His pro calcitonin level on 05/12/2021 was at 0.14. Patient was started on Baricitinib yesterday on 05/13/2021, in addition to Decadron 6 mg daily. Patient is on vitamin C, zinc, and vitamin D will be added. 05/15/2021, the patient is being seen in a follow-up visit intensive care unit. This is a very critically ill male patient status post definitive pneumonia with secondary respiratory failure/ARDS. The patient also had developed pulmonary embolism on 05/13/2021 which confirmed the pulmonary embolism on a CT angiogram. Note that the patient had extensive interstitial and airspace disease and infiltrates bilaterally in addition to that the patient had bilateral lower lobe large pulmonary emboli. Subsequently, echocardiogram was done yesterday post intubation the patient also showed evidence of significant pulmonary hypertension, paradoxic motion of the right ventricle and obvious signs of right ventricular overload with elevation of the right ventricular end- diastolic pressure. The RV was moderately enlarged. The left ventricular ejection fraction has been within normal limits. Based on all this and based on ongoing respiratory failure, the patient had to be intubated and placed on a mechanical ventilator. Post intubation, the patient was placed on accommodation of sedation and paralysis. Currently, the patient is on propofol which is running at 30 mcg/kg per minute. The patient is also on Nimbex running at 1 mcg/kg per minute. The patient is on a mechanical ventilator and currently is on a assist-control mode at the rate of 36 with a tidal volume of 350 and FiO2 of 70% with a PEEP of 24. Peak airway pressure is 38. Static pressures 36. Blood gases from today showed a pH of 7.07 with a pCO2 of 77 and pO2 of 172. This was done and FiO2 of 70%. The chest x-ray from today has shown evidence of pneumomediastinum and the patient has also developed subcutaneous emphysema bilaterally mainly in the supraclavicular area and upper chest area. On clinical examination, this is also confirmed. Meanwhile, the patient also has dropped his blood pressure and currently is on norepinephrine infusion for blood pressure support currently running at 0.14 mcg/kg per minute. At the same time, the patient has also dropped his urine output and recently/over the past few hours, his urine output is dropped down to 10-20 mL an hour. His potassium is currently high in the morning blood labs and his potassium is up to 7.5 and the patient has a developed an acute kidney injury with a BUN of 38 and a creatinine of 3.3. No acute EKG changes based on his underlying hypokalemia and this will be treated as soon as possible. In terms of his COVID 19 related pneumonia, the patient is on a combination of Baricitinib and Decadron. The d-dimer is down to 2.7. The patient has a LDH which is up to 4428 and a CRP level is at 8.9. His liver enzymes are also on the rise. AST is up to 417, ALT is up to 417, 05/16/2021, the patient is being seen for a follow-up. The patient remains sedated and paralyzed. The patient is currently on propofol running at 30 mcg/kg per minute and index is running at 1 mcg/kg per minute. He is adequately sedated and paralyzed for now. He remains on a mechanical ventilator. There was considerable improvement in the blood gases yesterday and following that the appropriate ventilator changes was done. For now, the patient is an assist-co ntrol mode at the rate of 36 with a tidal volume of 350 and FiO2 is currently down to 50% and a PEEP was down to the 18. The blood gases from today showed a pH of 7.37 with a pCO2 of 58 and pO2 of 59. Peak airway pressure was 36. Noted as the patient was having hemodialysis this morning, I noted the saturation is up to 98%. I dropped the PEEP down further to 16. His current peak airway pressures around 31. The chest x-ray from today still showing diffuse bilateral pulmonary infiltrates, unchanged compared to yesterday and orotracheal tube is in a good location. The patient remains on Decadron. The patient's d-dimer is at 1.53 and the rest of the prevent markers in terms of his COVID 19 infection shows an elevation of was that was as high as 4428 and the CRP was 8.9. Follow- up levels need to be obtained in terms of his inflammatory markers. Another issue was development of an acute kidney injury. The patient developed severe metabolic acidosis and acute hyperkalemia. He required immediate and urgent dialysis. Dialysis cath was inserted yesterday. Postdialysis, his potassium level improved and her most recent level is currently down to 4.7 from this morning. He is having another session of hemodialysis today with a goal of ultrafiltration of 0 mL. The patient has a serum bicarb level of 30. He is on pressors. He is currently on norepinephrine running at 0.03 mcg/kg per minute. Urine output is adequate, more than 50 mL an hour. His white cell count is at 10.1, improved compared to yesterday with a hemoglobin of 10.6 compared to yesterday. Platelet counts are dropped also down to 196. The patient remains on IV heparin regarding his bilateral pulmonary embolism. Doppler of the lower extremity also showed a DVT in the right popliteal vein. Vascular surgeries on the case. Not found to be a good candidate for EKOS 2020, patient is being seen for a follow-up. This morning, sedated on propofol at 30 mcg/kg per minute and he is also paralyzed with Nimbex at 1 mcg/kg per minute. While on a mechanical ventilator, he remains an assist-control mode at the rate of 36 with a tidal volume of 350, FiO2 is down to 50% and the PEEP is currently at 16 The pH is at 7.31 with a pCO2 of 60 and pO2 of 96. The chest x-ray from today shows adequate positioning of the ET tube. Patient has lower lobe pulmonary infiltrates more so on the right and is also involving the right upper lobe and right middle lobe. Continues to have evidence of subcutaneous emphysema in the neck area. ET tube is in a good location. His peak airway pressure currently is at 30. Based on all this, I dropped the PEEP down to 14 and his saturations remained around 98%. He is on no pressors for now. He underwent hemodialysis yesterday successfully and his electrolytes have improved. Crohn's creatinine is at 3.9 with a mean of 50 to. Potassium level is at 4.7. The patient is producing urine output in the order of 50 mL an hour. He remains on IV heparin. No plans to undergo dialysis today. Terms of his COVID 19 related pneumonia, the patient remains on Decadron. LDH level is currently down to 1966 and the CRP level is currently at 5.2. LFTs were also elevated and there also improving for now. The patient is receiving enteral feeding for nutritional support. He is afebrile. He continues to be on IV heparin regarding bilateral pulmonary embolism and a right lower extremity popliteal DVT. Nephrology is on the case. Condition remains critical although the patient is doing good progress. He continues to be on enteral feeding for nutritional support. He is currently on vital AF at the rate of 40 mL an hour. He is also on IV fluids with 0.45 normal saline at the rate of 75 mL an hour. Objective - Vital Signs Vital signs: Vital Signs Temp 98.6 F 05/17/21 04:00 Pulse 94 05/17/21 07:00 Resp 36 H 05/17/21 07:00 BP 118/66 05/16/21 17:06 Pulse Ox 98 05/17/21 07:00 Intake & Output 05/16/21 05/17/21 05/17/21 18:59 06:59 18:59 Intake Total 2278.657 1830.869 494.827 Output Total 657 920 75 Balance 1621.657 910.869 419.827 Weight 108.2 kg Intake: IV 1204 1020 85 0.9 carrier 120 120 10 Dextrose 5% in Water 1, 700 000 ml @ 100 mls/hr IV . [id number] DAMIR with Sodium Bicarb (1 Meq/ml) 150 ml Rx#:[id number] Sodium Chloride 0.45% 1, 375 900 75 000 ml @ 75 mls/hr IV . [id number] [facility] Rx#:[id number] pressure bag 9 Intake, IV Titration 594.657 300.869 369.827 Amount Cisatracurium 200 mg In 172.771 197.857 Sodium Chloride 0.9% 180 ml @ 1 MCG/KG/MIN 6.123 mls/hr IV .Q24H [facility] Rx#: [id number] Heparin Sod,Pork in 0.45% 134.892 100.869 97.637 NaCl 25,000 unit In 0.45 % NaCl 1 250ml.bag @ 18 UNITS/KG/HR 18.37 mls/hr IV .[id number] [facility] Rx#: [id number] Norepinephrine 8 mg In 105.519 Sodium Chloride 0.9% 250 ml @ 0.05 MCG/KG/MIN 9. 874 mls/hr IV .Q24H [facility] Rx#:[id number] propofoL 1,000 mg In 181.475 200 74.333 Empty Bag 1 bag @ Titrate IV .Q0M [facility] Rx#: [id number] Tube Feeding 480 480 40 Other 30 Output: Gastric Drainage 0 Urine 557 920 75 Stool 100 Hemodialysis 0 Other: Voiding Method Indwelling Catheter Indwelling Catheter # Bowel Movements 1 ABP, PAP, CO, CI - Last Documented Arterial Blood Pressure 149/85 - Exam GENERAL EXAM: Today, intubated and paralyzed 51-year-old white male, on assist- control mode of ventilation, with FiO2 of 50% and PEEP of 16, comfortable in no apparent distress. HEAD: Normocephalic/atraumatic. EYES: Normal reaction of pupils, equal size. Conjunctiva pink, sclera white. NOSE: Clear with pink turbinates. THROAT: No erythema or exudates. NECK: No masses, no JVD, no thyroid enlargement, no adenopathy. CHEST: No chest wall deformity. Symmetrical expansion. Left subclavian central line in place covered with a sterile dressing and the patient has evidence of subcutaneous emphysema in the upper chest area. LUNGS: Equal air entry with no crackles, wheeze, rhonchi or dullness. CVS: Regular rate and rhythm, normal S1 and S2, no gallops, no murmurs, no rubs ABDOMEN: Soft, nontender. No hepatosplenomegaly, normal bowel sounds, no guarding or rigidity. EXTREMITIES: No clubbing, no edema, no cyanosis, 2+ pulses and upper and lower extremities. MUSCULOSKELETAL: Muscle strength and tone normal. SPINE: No scoliosis or deformity SKIN: No rashes CENTRAL NERVOUS SYSTEM: Sedated and paralyzed No focal deficits, tone is normal in all 4 extremities. - Labs CBC & Chem 7: 05/17/21 05:05 05/17/21 05:05 Labs: Abnormal Lab Results - Last 24 Hours (Table) 05/16/21 05/16/21 05/16/21 Range/Units 11:36 12:06 13:10 WBC (3.8-10.6) k/uL RBC (4.30-5.90) m/uL Hgb (13.0-17.5) gm/dL Hct (39.0-53.0) % Neutrophils # (1.3-7.7) k/uL Lymphocytes # (1.0-4.8) k/uL APTT 49.2 H (22.0-30.0) sec D-Dimer (<0.60) mg/L FEU ABG pH (7.35-7.45) ABG pCO2 55 H (35-45) mmHg ABG pO2 81 L (83-108) mmHg ABG HCO3 30 H (21-25) mmol/L ABG Total CO2 32 H (19-24) mmol/L ABG O2 Saturation (94-97) % BUN (9-20) mg/dL Creatinine (0.66-1.25) mg/dL Glucose (74-99) mg/dL POC Glucose (mg/dL) 145 H (75-99) mg/dL Calcium (8.4-10.2) mg/dL AST (17-59) U/L ALT (4-49) U/L Alkaline Phosphatase (38-126) U/L Lactate Dehydrogenase (313-618) U/L C-Reactive Protein (<1.0) mg/dL Total Protein (6.3-8.2) g/dL Albumin (3.5-5.0) g/dL 05/16/21 05/16/21 05/17/21 Range/Units 17:51 23:15 01:26 WBC 12.0 H (3.8-10.6) k/uL RBC 3.93 L (4.30-5.90) m/uL Hgb 11.5 L (13.0-17.5) gm/dL Hct 35.7 L (39.0-53.0) % Neutrophils # (1.3-7.7) k/uL Lymphocytes # (1.0-4.8) k/uL APTT (22.0-30.0) sec D-Dimer (<0.60) mg/L FEU ABG pH (7.35-7.45) ABG pCO2 (35-45) mmHg ABG pO2 (83-108) mmHg ABG HCO3 (21-25) mmol/L ABG Total CO2 (19-24) mmol/L ABG O2 Saturation (94-97) % BUN (9-20) mg/dL Creatinine (0.66-1.25) mg/dL Glucose (74-99) mg/dL POC Glucose (mg/dL) 171 H 148 H (75-99) mg/dL Calcium (8.4-10.2) mg/dL AST (17-59) U/L ALT (4-49) U/L Alkaline Phosphatase (38-126) U/L Lactate Dehydrogenase (313-618) U/L C-Reactive Protein (<1.0) mg/dL Total Protein (6.3-8.2) g/dL Albumin (3.5-5.0) g/dL 05/17/21 05/17/21 05/17/21 Range/Units 05:05 05:05 05:05 WBC 14.6 H (3.8-10.6) k/uL RBC 4.12 L (4.30-5.90) m/uL Hgb 11.8 L (13.0-17.5) gm/dL Hct 37.0 L (39.0-53.0) % Neutrophils # 12.7 H (1.3-7.7) k/uL Lymphocytes # 0.9 L (1.0-4.8) k/uL APTT 33.2 H (22.0-30.0) sec D-Dimer (<0.60) mg/L FEU ABG pH (7.35-7.45) ABG pCO2 (35-45) mmHg ABG pO2 (83-108) mmHg ABG HCO3 (21-25) mmol/L ABG Total CO2 (19-24) mmol/L ABG O2 Saturation (94-97) % BUN 52 H (9-20) mg/dL Creatinine 3.99 H (0.66-1.25) mg/dL Glucose 156 H (74-99) mg/dL POC Glucose (mg/dL) (75-99) mg/dL Calcium 7.0 L (8.4-10.2) mg/dL AST 68 H (17-59) U/L ALT 224 H (4-49) U/L Alkaline Phosphatase 152 H (38-126) U/L Lactate Dehydrogenase 1966 H (313-618) U/L C-Reactive Protein 5.2 H (<1.0) mg/dL Total Protein 5.3 L (6.3-8.2) g/dL Albumin 2.6 L (3.5-5.0) g/dL 05/17/21 05/17/21 Range/Units 05:05 05:30 WBC (3.8-10.6) k/uL RBC (4.30-5.90) m/uL Hgb (13.0-17.5) gm/dL Hct (39.0-53.0) % Neutrophils # (1.3-7.7) k/uL Lymphocytes # (1.0-4.8) k/uL APTT (22.0-30.0) sec D-Dimer 1.22 H (<0.60) mg/L FEU ABG pH 7.31 L (7.35-7.45) ABG pCO2 60 H (35-45) mmHg ABG pO2 (83-108) mmHg ABG HCO3 30 H (21-25) mmol/L ABG Total CO2 32 H (19-24) mmol/L ABG O2 Saturation 97.3 H (94-97) % BUN (9-20) mg/dL Creatinine (0.66-1.25) mg/dL Glucose (74-99) mg/dL POC Glucose (mg/dL) (75-99) mg/dL Calcium (8.4-10.2) mg/dL AST (17-59) U/L ALT (4-49) U/L Alkaline Phosphatase (38-126) U/L Lactate Dehydrogenase (313-618) U/L C-Reactive Protein (<1.0) mg/dL Total Protein (6.3-8.2) g/dL Albumin (3.5-5.0) g/dL Microbiology - Last 24 Hours (Table) 05/16/21 23:15 Sputum Culture - Preliminary Sputum Assessment and Plan Plan: #1. acute hypoxic respiratory failure related to COVID-19 pneumonia, admitted to the hospital on 05/12/2021 with 10-11 day history of COVID-19 symptoms. Patient is a non-vaccinated individual, he was outside the window for Remdesivir, was started on Baricitinib on 05/13/2021. Transfer to the intensive care unit on 05/14/2021 and intubated . The patient's course was Again by worsening of hypoxemia, ARDS, bilateral pulmonary embolism involving lower lobe pulmonary artery branches and all of those of complication of COVID 19 related pneumonia. COVID 19 related pneumonia. The patient is currently intubated on a mechanical ventilator. The patient sedated and paralyzed. The patient is on Decadron. His course was further combination by development of acute kidney injury, oliguria and acute hyperkalemia. For now, there has been some limited improvement in oxygenation. The patient's PEEP has been drop down to 16 and FiO2 is currently at 50%. His tidal volume is currently at 350. The patient is allowing permissive hypercapnia. Inflammatory markers continue to improve. Oxygenation is also stable. Chest x-ray findings are stable and the patient has bilateral subcutaneous emphysema in the neck area. Nevertheless, hemodynamically stable and the patient is gradually improving remains on IV hep filomena. Remains on Decadron. #2. Acute bilateral pulmonary emboli likely related to COVID-19 pneumonia, seen on a CT angiogram of the chest on 05/13/2021, started on heparin infusion. No CT evidence of heart strain, will obtain echocardiogram, and the patient will be kept on IV heparin for now. The patient also has a popliteal DVT on the right. #3. Elevated inflammatory markers, significantly increased on today's labs on 05/14/2021 #4. Elevated d-dimer related to acute pulmonary emboli #5. Elevated LFTs related to viral pneumonia #6 acute kidney injury, likely COVID 19-induced ATN, currently dialysis dependent. First session of hemodialysis was yesterday and a second session is being done today without any ultrafiltration, no plans for hemodialysis today #7 acute hyperkalemia, potassium level is normalized #8 permissive hypercapnia with secondary respiratory acidosis #9 Pneumediastinum and bilateral subcutaneous emphysema, complication of COVID 19 related pneumonia and mechanical ventilation, and expected outcome #10 Hypotension , secondary to above, currently on pressors, currently on minimal doses of pressors, currently off pressors. Plan: Patient has been intubated and placed on mechanical ventilator, reduce the FiO2 down to 50%, the PEEP down to 14 Hold hemodialysis for now IVF to KVO Monitor electrolytes and potassium level Continued IV heparin for now Continue Decadron Doppler of the lower extremities showed a popliteal DVT on the right Echocardiogram was noted Stop the Baricitinib for now and continue with Decadron off Pressors Enteral feeding for nutritional support Condition is extremely critical and the patient carries a very high mortality. We'll continue to follow. We'll keep the patient sedated and the patient and paralytic holiday critically care evaluation that was done and more than 30 minutes Time with Patient: Greater than 30
--- NOTE | 2021-05-17 11:04 | P.PN ---
Subjective Progress Note Date: 05/17/21 Patient is having good urine output. There is no plan for dialysis today. Patient remains intubated sedated and paralyzed. He is not on any pressors. Objective - Vital Signs Vital signs: Vital Signs Temp 98.6 F 05/17/21 04:00 Pulse 90 05/17/21 10:00 Resp 21 05/17/21 10:00 BP 118/66 05/16/21 17:06 Pulse Ox 98 05/17/21 10:00 Intake & Output 05/16/21 05/17/21 05/17/21 18:59 06:59 18:59 Intake Total 2278.657 1830.869 939.827 Output Total 657 920 215 Balance 1621.657 910.869 724.827 Weight 108.2 kg Intake: IV 1204 1020 340 0.9 carrier 120 120 40 Dextrose 5% in Water 1, 700 000 ml @ 100 mls/hr IV . [id number] [facility] with Sodium Bicarb (1 Meq/ml) 150 ml Rx#:[id number] Sodium Chloride 0.45% 1, 375 900 300 000 ml @ 10 mls/hr IV . Q24H [facility] Rx#:[id number] pressure bag 9 Intake, IV Titration 594.657 300.869 369.827 Amount Cisatracurium 200 mg In 172.771 197.857 Sodium Chloride 0.9% 180 ml @ 1 MCG/KG/MIN 6.123 mls/hr IV .Q24H [facility] Rx#: [id number] Heparin Sod,Pork in 0.45% 134.892 100.869 97.637 NaCl 25,000 unit In 0.45 % NaCl 1 250ml.bag @ 18 UNITS/KG/HR 18.37 mls/hr IV .[id number] [facility] Rx#: [id number] Norepinephrine 8 mg In 105.519 Sodium Chloride 0.9% 250 ml @ 0.05 MCG/KG/MIN 9. 874 mls/hr IV .Q24H [facility] Rx#:[id number] propofoL 1,000 mg In 181.475 200 74.333 Empty Bag 1 bag @ Titrate IV .Q0M [facility] Rx#: [id number] Tube Feeding 480 480 200 Other 30 30 Output: Gastric Drainage 0 Urine 557 920 215 Stool 100 Hemodialysis 0 Other: Voiding Method Indwelling Catheter Indwelling Catheter Indwelling Catheter # Bowel Movements 1 ABP, PAP, CO, CI - Last Documented Arterial Blood Pressure 134/79 - Exam General examination - intubated and sedated Heart - + S1S2 no murmurs Lungs - diminished breath sounds Abdomen soft NT ND +ve BS Extremities - +2 pitting edema in bilateral lower extremities 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 Psych - unable to assess - Labs CBC & Chem 7: 05/17/21 05:05 05/17/21 05:05 Labs: Abnormal Lab Results - Last 24 Hours (Table) 05/16/21 05/16/21 05/16/21 Range/Units 11:36 12:06 13:10 WBC (3.8-10.6) k/uL RBC (4.30-5.90) m/uL Hgb (13.0-17.5) gm/dL Hct (39.0-53.0) % Neutrophils # (1.3-7.7) k/uL Lymphocytes # (1.0-4.8) k/uL APTT 49.2 H (22.0-30.0) sec D-Dimer (<0.60) mg/L FEU ABG pH (7.35-7.45) ABG pCO2 55 H (35-45) mmHg ABG pO2 81 L (83-108) mmHg ABG HCO3 30 H (21-25) mmol/L ABG Total CO2 32 H (19-24) mmol/L ABG O2 Saturation (94-97) % BUN (9-20) mg/dL Creatinine (0.66-1.25) mg/dL Glucose (74-99) mg/dL POC Glucose (mg/dL) 145 H (75-99) mg/dL Calcium (8.4-10.2) mg/dL AST (17-59) U/L ALT (4-49) U/L Alkaline Phosphatase (38-126) U/L Lactate Dehydrogenase (313-618) U/L C-Reactive Protein (<1.0) mg/dL Total Protein (6.3-8.2) g/dL Albumin (3.5-5.0) g/dL 05/16/21 05/16/21 05/17/21 Range/Units 17:51 23:15 01:26 WBC 12.0 H (3.8-10.6) k/uL RBC 3.93 L (4.30-5.90) m/uL Hgb 11.5 L (13.0-17.5) gm/dL Hct 35.7 L (39.0-53.0) % Neutrophils # (1.3-7.7) k/uL Lymphocytes # (1.0-4.8) k/uL APTT (22.0-30.0) sec D-Dimer (<0.60) mg/L FEU ABG pH (7.35-7.45) ABG pCO2 (35-45) mmHg ABG pO2 (83-108) mmHg ABG HCO3 (21-25) mmol/L ABG Total CO2 (19-24) mmol/L ABG O2 Saturation (94-97) % BUN (9-20) mg/dL Creatinine (0.66-1.25) mg/dL Glucose (74-99) mg/dL POC Glucose (mg/dL) 171 H 148 H (75-99) mg/dL Calcium (8.4-10.2) mg/dL AST (17-59) U/L ALT (4-49) U/L Alkaline Phosphatase (38-126) U/L Lactate Dehydrogenase (313-618) U/L C-Reactive Protein (<1.0) mg/dL Total Protein (6.3-8.2) g/dL Albumin (3.5-5.0) g/dL 05/17/21 05/17/21 05/17/21 Range/Units 05:05 05:05 05:05 WBC 14.6 H (3.8-10.6) k/uL RBC 4.12 L (4.30-5.90) m/uL Hgb 11.8 L (13.0-17.5) gm/dL Hct 37.0 L (39.0-53.0) % Neutrophils # 12.7 H (1.3-7.7) k/uL Lymphocytes # 0.9 L (1.0-4.8) k/uL APTT 33.2 H (22.0-30.0) sec D-Dimer (<0.60) mg/L FEU ABG pH (7.35-7.45) ABG pCO2 (35-45) mmHg ABG pO2 (83-108) mmHg ABG HCO3 (21-25) mmol/L ABG Total CO2 (19-24) mmol/L ABG O2 Saturation (94-97) % BUN 52 H (9-20) mg/dL Creatinine 3.99 H (0.66-1.25) mg/dL Glucose 156 H (74-99) mg/dL POC Glucose (mg/dL) (75-99) mg/dL Calcium 7.0 L (8.4-10.2) mg/dL AST 68 H (17-59) U/L ALT 224 H (4-49) U/L Alkaline Phosphatase 152 H (38-126) U/L Lactate Dehydrogenase 1966 H (313-618) U/L C-Reactive Protein 5.2 H (<1.0) mg/dL Total Protein 5.3 L (6.3-8.2) g/dL Albumin 2.6 L (3.5-5.0) g/dL 05/17/21 05/17/21 Range/Units 05:05 05:30 WBC (3.8-10.6) k/uL RBC (4.30-5.90) m/uL Hgb (13.0-17.5) gm/dL Hct (39.0-53.0) % Neutrophils # (1.3-7.7) k/uL Lymphocytes # (1.0-4.8) k/uL APTT (22.0-30.0) sec D-Dimer 1.22 H (<0.60) mg/L FEU ABG pH 7.31 L (7.35-7.45) ABG pCO2 60 H (35-45) mmHg ABG pO2 (83-108) mmHg ABG HCO3 30 H (21-25) mmol/L ABG Total CO2 32 H (19-24) mmol/L ABG O2 Saturation 97.3 H (94-97) % BUN (9-20) mg/dL Creatinine (0.66-1.25) mg/dL Glucose (74-99) mg/dL POC Glucose (mg/dL) (75-99) mg/dL Calcium (8.4-10.2) mg/dL AST (17-59) U/L ALT (4-49) U/L Alkaline Phosphatase (38-126) U/L Lactate Dehydrogenase (313-618) U/L C-Reactive Protein (<1.0) mg/dL Total Protein (6.3-8.2) g/dL Albumin (3.5-5.0) g/dL Microbiology - Last 24 Hours (Table) 05/16/21 23:15 Sputum Culture - Preliminary Sputum Assessment and Plan Assessment: Acute hypoxemic respiratory failure ARDS secondary to Covid 19 Acute Pulmonary Embolism Right lower extremity DVT DENIA with hyperkalemia secondary to ATN -Admit inpatient, telemetry -Pulmonary consult -Intubated on 05/14 -levophed, propofol, nimbex -resume dexamethasone -Outside of window for remdesivir -Vitamin C, D, zinc -Oxygen when necessary -Daily inflammatory markers -Baricitinib discontinued after 2 doses -inhaler PRN -heparin gtt -Nephrology on board for dialysis. -nephrology consult for ATN secondary to septic shock and COVID Full Code
[2021-05-17 12:37] LABS: Glucose,Whole Blood 161 mg/dL (75-99)
--- NOTE | 2021-05-17 14:42 | PN ---
PROGRESS NOTE Patient is seen for followup for acute kidney injury. The patient has been dialyzed for severe hyperkalemia when potassium was at 7.5. He has had some urine output currently at 50-70 cc an hour and potassium today it is at 4.7. Therefore dialysis is on hold. On exam, the patient is discussed with nursing staff. Blood pressure is 134/79, heart rate 90 per minute, he is afebrile. Patient is not examined. LAB: Show sodium 137, potassium 4.7, chloride 104, BUN 52, creatinine 3.9, hemoglobin 11.8 gm/dL. ASSESSMENT: 1. Acute kidney injury, acute tubular necrosis, currently nonoliguric, status post two treatments of hemodialysis. We will hold off on dialysis today and continue to monitor for possible recovery of kidney function. Avoid any further nephrotoxic agents. The patient also received IV contrast on May 13 for chest CTA. 2. COVID pneumonia. 3. Acute hypoxic respiratory failure. PLAN: Hold dialysis today. Repeat labs in a.m. and we will continue to assess on a daily basis for need for renal replacement therapy. Avoid nephrotoxic agents. MMODL / IJN: [id number] /
[2021-05-17 15:36] LABS: HCT 30.4 % (39.0-53.0); HGB 10.2 gm/dL (13.0-17.5); MCH 29.7 pg (25.0-35.0); MCHC 33.4 g/dL (31.0-37.0); Mean Platelet Volume 9.3; Platelet Count 187 k/uL (150-450); RBC 3.42 m/uL (4.30-5.90); RDW 13.7 % (11.5-15.5); WBC 11.9 k/uL (3.8-10.6)
[2021-05-17 17:35] LABS: Glucose,Whole Blood 186 mg/dL (75-99)
[2021-05-17 21:02] LABS: HCT 29.3 % (39.0-53.0); HGB 9.9 gm/dL (13.0-17.5); MCHC 33.8 g/dL (31.0-37.0); MCV 88.9 fL (80.0-100.0); Mean Platelet Volume 10.1; Platelet Count 178 k/uL (150-450); RDW 13.8 % (11.5-15.5); WBC 12.2 k/uL (3.8-10.6)
[2021-05-17 23:40] LABS: Glucose,Whole Blood 122 mg/dL (75-99)
[2021-05-18] MEDS: ARTIFICIAL TEARS-HYPROMELLOSE DROPS 15 ML BTL BOTH EYES SCH ×2 (00:07→03:35)
[2021-05-18] MEDS: INSULIN ASPART (NovoLOG) 100 UNIT/ML VIAL SQ SCH ×4 (00:07→18:32)
[2021-05-18 04:11] LABS: Albumin 2.4 g/dL (3.5-5.0); C Reactive Protein 6.7 mg/dL (<1.0); Calcium 7.4 mg/dL (8.4-10.2); Potassium 4.6 mmol/L (3.5-5.1); Total Bilirubin 0.5 mg/dL (0.2-1.3); Total Protein 4.9 g/dL (6.3-8.2)
[2021-05-18 04:28] LABS: Basophils % (A) 0 %; Eosinophils # (A) 0.1 k/uL (0-0.7); Eosinophils % (A) 1 %; HCT 30.7 % (39.0-53.0); HGB 10.4 gm/dL (13.0-17.5); Lymphocytes # (A) 0.9 k/uL (1.0-4.8); Lymphocytes % (A) 6 %; MCH 30.2 pg (25.0-35.0); MCV 88.8 fL (80.0-100.0); Mean Platelet Volume 9.2; Monocytes # (A) 0.5 k/uL (0-1.0); Monocytes % (A) 4 %; Neutrophils # (A) 12.7 k/uL (1.3-7.7); Neutrophils % (A) 89 %; Platelet Count 221 k/uL (150-450); RBC 3.45 m/uL (4.30-5.90); RDW 14.2 % (11.5-15.5); WBC 14.3 k/uL (3.8-10.6)
[2021-05-18] MEDS: HEPARIN SOD,PORK IN 0.45% NACL 25,000 UNIT in 0.45% NACL 1 250ML.BAG IV SCH ×2 (04:58→19:59)
[2021-05-18] MEDS: NOREPINEPHRINE 8 MG in SODIUM CHLORIDE 0.9% 250 ML IV SCH (05:00)
[2021-05-18 05:24] LABS: Glucose,Whole Blood 131 mg/dL (75-99)
[2021-05-18 05:45] LABS: ABG Base Excess 3.3 mmol/L; ABG HCO3 28 mmol/L (21-25); ABG Oxygen Saturation 98.7 % (94-97); ABG PCO2 43 mmHg (35-45); ABG PH 7.42 (7.35-7.45); ABG PO2 113 mmHg (83-108); ABG TCO2 29 mmol/L (19-24); Allen Test Performed? Yes
--- NOTE | 2021-05-18 07:49 | XR ---
EXAMINATION TYPE: XR chest 1V portable DATE OF EXAM: 05/18/2021 COMPARISON: 05/17/2021 INDICATION: Tube placement TECHNIQUE: Single frontal view of the chest is obtained. FINDINGS: The heart size is normal. The pulmonary vasculature is normal. Patchy infiltrates are present greater in the right lower lobe. Findings appear stable. Subcutaneous emphysema is present, similar to prior exam. No pneumothorax is evident. Endotracheal tube tip is above the merrill. A central venous catheter tip is in superior vena cava reg ion. Nasogastric tube transverses the thorax. IMPRESSION: 1. Stable patchy infiltrates can be compatible with atypical pneumonia. 2. Lines and catheters discussed above.
[2021-05-18] MEDS: ALBUTEROL HFA INHALER INHALATION SCH ×4 (08:29→19:51)
--- NOTE | 2021-05-18 09:39 | P.PN ---
Subjective Progress Note Date: 05/18/21 Patient is having good urine output. Patient remains intubated sedated and paralyzed. He is not on any pressors. Objective - Vital Signs Vital signs: Vital Signs Temp 97.7 F 05/18/21 04:00 Pulse 72 05/18/21 08:00 Resp 28 H 05/18/21 08:00 BP 93/64 05/18/21 04:00 Pulse Ox 99 05/18/21 08:00 Intake & Output 05/17/21 05/18/21 05/18/21 18:59 06:59 18:59 Intake Total 0938.587 4854.300 56 Output Total 665 635 70 Balance 1272.185 911.300 -14 Weight 118.932 kg Intake: IV 556 226 16 0.9 carrier 130 50 Sodium Chloride 0.45% 1, 390 110 10 000 ml @ 10 mls/hr IV . Q24H [facility] Rx#:[id number] pressure bag 36 66 6 Intake, IV Titration 691.185 790.300 Amount Cisatracurium 200 mg In 215.207 Sodium Chloride 0.9% 180 ml @ 1 MCG/KG/MIN 6.123 mls/hr IV .Q24H [facility] Rx#: [id number] Heparin Sod,Pork in 0.45% 141.454 236.705 NaCl 25,000 unit In 0.45 % NaCl 1 250ml.bag @ 18 UNITS/KG/HR 18.37 mls/hr IV .[id number] [facility] Rx#: [id number] Norepinephrine 8 mg In 19.125 Sodium Chloride 0.9% 250 ml @ 0.05 MCG/KG/MIN 9. 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 Psych - unable to assess - Labs CBC & Chem 7: 05/18/21 03:15 05/18/21 03:15 Labs: Abnormal Lab Results - Last 24 Hours (Table) 05/16/21 05/17/21 05/17/21 Range/Units 05:00 12:36 15:30 WBC (3.8-10.6) k/uL RBC (4.30-5.90) m/uL Hgb (13.0-17.5) gm/dL Hct (39.0-53.0) % Neutrophils # (1.3-7.7) k/uL Lymphocytes # (1.0-4.8) k/uL APTT 60.6 H (22.0-30.0) sec D-Dimer (<0.60) mg/L FEU ABG pO2 (83-108) mmHg ABG HCO3 (21-25) mmol/L ABG Total CO2 (19-24) mmol/L ABG O2 Saturation (94-97) % BUN (9-20) mg/dL Creatinine (0.66-1.25) mg/dL Glucose (74-99) mg/dL POC Glucose (mg/dL) 161 H (75-99) mg/dL Calcium (8.4-10.2) mg/dL ALT (4-49) U/L Alkaline Phosphatase (38-126) U/L Lactate Dehydrogenase 2171 H (313-618) U/L C-Reactive Protein 6.0 H (<1.0) mg/dL Total Protein (6.3-8.2) g/dL Albumin (3.5-5.0) g/dL 05/17/21 05/17/21 05/17/21 Range/Units 15:30 17:33 20:53 WBC 11.9 H 12.2 H (3.8-10.6) k/uL RBC 3.42 L 3.30 L (4.30-5.90) m/uL Hgb 10.2 L 9.9 L (13.0-17.5) gm/dL Hct 30.4 L 29.3 L (39.0-53.0) % Neutrophils # (1.3-7.7) k/uL Lymphocytes # (1.0-4.8) k/uL APTT (22.0-30.0) sec D-Dimer (<0.60) mg/L FEU ABG pO2 (83-108) mmHg ABG HCO3 (21-25) mmol/L ABG Total CO2 (19-24) mmol/L ABG O2 Saturation (94-97) % BUN (9-20) mg/dL Creatinine (0.66-1.25) mg/dL Glucose (74-99) mg/dL POC Glucose (mg/dL) 186 H (75-99) mg/dL Calcium (8.4-10.2) mg/dL ALT (4-49) U/L Alkaline Phosphatase (38-126) U/L Lactate Dehydrogenase (313-618) U/L C-Reactive Protein (<1.0) mg/dL Total Protein (6.3-8.2) g/dL Albumin (3.5-5.0) g/dL 05/17/21 05/18/21 05/18/21 Range/Units 23:39 03:05 03:15 WBC 14.3 H (3.8-10.6) k/uL RBC 3.45 L (4.30-5.90) m/uL Hgb 10.4 L (13.0-17.5) gm/dL Hct 30.7 L (39.0-53.0) % Neutrophils # 12.7 H (1.3-7.7) k/uL Lymphocytes # 0.9 L (1.0-4.8) k/uL APTT 51.8 H (22.0-30.0) sec D-Dimer (<0.60) mg/L FEU ABG pO2 (83-108) mmHg ABG HCO3 (21-25) mmol/L ABG Total CO2 (19-24) mmol/L ABG O2 Saturation (94-97) % BUN (9-20) mg/dL Creatinine (0.66-1.25) mg/dL Glucose (74-99) mg/dL POC Glucose (mg/dL) 122 H (75-99) mg/dL Calcium (8.4-10.2) mg/dL ALT (4-49) U/L Alkaline Phosphatase (38-126) U/L Lactate Dehydrogenase (313-618) U/L C-Reactive Protein (<1.0) mg/dL Total Protein (6.3-8.2) g/dL Albumin (3.5-5.0) g/dL 05/18/21 05/18/21 05/18/21 Range/Units 03:15 03:15 05:23 WBC (3.8-10.6) k/uL RBC (4.30-5.90) m/uL Hgb (13.0-17.5) gm/dL Hct (39.0-53.0) % Neutrophils # (1.3-7.7) k/uL Lymphocytes # (1.0-4.8) k/uL APTT (22.0-30.0) sec D-Dimer 0.97 H (<0.60) mg/L FEU ABG pO2 (83-108) mmHg ABG HCO3 (21-25) mmol/L ABG Total CO2 (19-24) mmol/L ABG O2 Saturation (94-97) % BUN 75 H (9-20) mg/dL Creatinine 4.73 H (0.66-1.25) mg/dL Glucose 150 H (74-99) mg/dL POC Glucose (mg/dL) 131 H (75-99) mg/dL Calcium 7.4 L (8.4-10.2) mg/dL ALT 141 H (4-49) U/L Alkaline Phosphatase 129 H (38-126) U/L Lactate Dehydrogenase 1449 H (313-618) U/L C-Reactive Protein 6.7 H (<1.0) mg/dL Total Protein 4.9 L (6.3-8.2) g/dL Albumin 2.4 L (3.5-5.0) g/dL 05/18/21 Range/Units 05:40 WBC (3.8-10.6) k/uL RBC (4.30-5.90) m/uL Hgb (13.0-17.5) gm/dL Hct (39.0-53.0) % Neutrophils # (1.3-7.7) k/uL Lymphocytes # (1.0-4.8) k/uL APTT (22.0-30.0) sec D-Dimer (<0.60) mg/L FEU ABG pO2 113 H (83-108) mmHg ABG HCO3 28 H (21-25) mmol/L ABG Total CO2 29 H (19-24) mmol/L ABG O2 Saturation 98.7 H (94-97) % BUN (9-20) mg/dL Creatinine (0.66-1.25) mg/dL Glucose (74-99) mg/dL POC Glucose (mg/dL) (75-99) mg/dL Calcium (8.4-10.2) mg/dL ALT (4-49) U/L Alkaline Phosphatase (38-126) U/L Lactate Dehydrogenase (313-618) U/L C-Reactive Protein (<1.0) mg/dL Total Protein (6.3-8.2) g/dL Albumin (3.5-5.0) g/dL Microbiology - Last 24 Hours (Table) 05/16/21 23:15 Gram Stain - Preliminary Sputum Sputum Culture - Preliminary Assessment and Plan Assessment: Acute hypoxemic respiratory failure ARDS secondary to Covid 19 Acute Pulmonary Embolism Right lower extremity DVT DENIA with hyperkalemia secondary to ATN -Admit inpatient, telemetry -Customer Support Representative following -Intubated on 05/14 -levophed, propofol, nimbex -resume dexamethasone -Outside of window for remdesivir -Vitamin C, D, zinc -Oxygen when necessary -Daily inflammatory markers -Baricitinib discontinued after 2 doses -inhaler PRN -heparin gtt -Deferred dialysis to nephrology Hematuria Hemoglobin is stable Resume anticoagulation Full Code
--- NOTE | 2021-05-18 09:44 | P.PN ---
Subjective Progress Note Date: 05/18/21 51-year-old male who presents to the emergency department on May 12, with complaints of shortness of breath. The patient has been sick for at least 10-11 days. It started off with cough and shortness of breath, and loss of taste. He's also had fever. He has not been vaccinated. He was tested for coronavirus on May 07, and tested positive. The patient does not have a primary care physician. He has no past medical history. He takes no medications at home. The patient did receive monoclonal antibodies on May 09. Currently, the patient's on 5 L nasal cannula. He's got saline running at 75 mL an hour. He looks relatively stable. His chest x-ray does show diffuse bilateral infiltrates. The home medications that he is on include an albuterol inhaler, Tessalon Perles, and Decadron, given to him by the hospital. White count 5.1, hemoglobin 14.3, hematocrit 42.6, and platelet count 377,000. Sodium, potassium, chloride, CO2, anion gap, BUN, and creatinine are all normal. AST was 154, ALT 123, alkaline phosphatase 164. LDH was 2657. C-reactive protein is 14.9. Pro-calcitonin level is 0.14. Chest x-ray shows low lung volumes, with right greater than left bilateral opacities. The patient is seen today 05/13/2021 in follow-up on the regular medical floor. He is currently resting in bed. He is somewhat more dyspneic andtachypneic. His oxygen requirements have gone up to knees on 15 L high flow nasal cannula plus a nonrebreather mask. white count 6.8. Hemoglobin 13.5. Leukocytes 0.85. D-dimer up to 15.8. Sodium 143. Potassium 5.4. Creatinine 1.0. Glucose 123. AST 120. ALT 146. LDH 971. C-reactive protein 3.4. CT angiogram was requested after seeing the patient. There is evidence of bilateral lower lobe large multiple pulmonary emboli. No sign of right heart strain. Lovenox will be discontinued and he'll be initiated on a heparin drip On 05/14/2021 patient was emergently transferred to the intensive care unit for a concern of worsening hypoxia and dyspnea. Earlier in the shift he was on 15 L per high flow nasal cannula and 100% nonrebreather mask however his work of breathing had significantly increased his respiratory rate was ranging between 40-50 breaths per minute. His pulse ox was 87% and subsequently dropped down to 73%%. He was placed on BiPAP support with no improvement in his work of breathing or hypoxia, was intubated per [facility], currently on assist-control mode of ventilation with a rate of 36 tidal volume is 350, FiO2 100% and PEEP of 24. he was given Nimbex IV pushes and propofol for sedation during intubation, he will be placed on Diprivan drip and Nimbex. Currently his pulse ox is 81% on the above-mentioned vent settings. His blood pressure 121/71, he is in sinus mechanism tachycardic with a rate of 110-120 BPM. Patient was found to have bilateral pulmonary emboli on yesterday's CT angiogram of the chest, he was started on heparin infusion on which she remains per weight-based protocol, his maintenance IV fluids are 0.9 normal saline at a rate of 75 ML per hour, CT angiogram lung windows showed extensive bilateral pneumonia. Chest x-ray post intubation and left subclavian central line placement is pending. This morning's labs have been reviewed, white blood cell count is 11.9, hemoglobin is 14.5, today's d-dimer is 18.26 slightly increased from yesterday's value, sodium is 141, potassium is 5.2, chloride is 111, CO2 is 23, BUN was 20 creatinine 0.96, his LDH today has significantly increased and is up to 3109, from 971 on yesterday's labs, and CRP is stable at 3.4. His pro calcitonin level on 05/12/2021 was at 0.14. Patient was started on Baricitinib yesterday on 05/13/2021, in addition to Decadron 6 mg daily. Patient is on vitamin C, zinc, and vitamin D will be added. 05/15/2021, the patient is being seen in a follow-up visit intensive care unit. This is a very critically ill male patient status post definitive pneumonia with secondary respiratory failure/ARDS. The patient also had developed pulmonary embolism on 05/13/2021 which confirmed the pulmonary embolism on a CT angiogram. Note that the patient had extensive interstitial and airspace disease and infiltrates bilaterally in addition to that the patient had bilateral lower lobe large pulmonary emboli. Subsequently, echocardiogram was done yesterday post intubation the patient also showed evidence of significant pulmonary hypertension, paradoxic motion of the right ventricle and obvious signs of right ventricular overload with elevation of the right ventricular end- diastolic pressure. The RV was moderately enlarged. The left ventricular ejection fraction has been within normal limits. Based on all this and based on ongoing respiratory failure, the patient had to be intubated and placed on a mechanical ventilator. Post intubation, the patient was placed on accommodation of sedation and paralysis. Currently, the patient is on propofol which is running at 30 mcg/kg per minute. The patient is also on Nimbex running at 1 mcg/kg per minute. The patient is on a mechanical ventilator and currently is on a assist-control mode at the rate of 36 with a tidal volume of 350 and FiO2 of 70% with a PEEP of 24. Peak airway pressure is 38. Static pressures 36. Blood gases from today showed a pH of 7.07 with a pCO2 of 77 and pO2 of 172. This was done and FiO2 of 70%. The chest x-ray from today has shown evidence of pneumomediastinum and the patient has also developed subcutaneous emphysema bilaterally mainly in the supraclavicular area and upper chest area. On clinical examination, this is also confirmed. Meanwhile, the patient also has dropped his blood pressure and currently is on norepinephrine infusion for blood pressure support currently running at 0.14 mcg/kg per minute. At the same time, the patient has also dropped his urine output and recently/over the past few hours, his urine output is dropped down to 10-20 mL an hour. His potassium is currently high in the morning blood labs and his potassium is up to 7.5 and the patient has a developed an acute kidney injury with a BUN of 38 and a creatinine of 3.3. No acute EKG changes based on his underlying hypokalemia and this will be treated as soon as possible. In terms of his COVID 19 related pneumonia, the patient is on a combination of Baricitinib and Decadron. The d-dimer is down to 2.7. The patient has a LDH which is up to 4428 and a CRP level is at 8.9. His liver enzymes are also on the rise. AST is up to 417, ALT is up to 417, 05/16/2021, the patient is being seen for a follow-up. The patient remains sedated and paralyzed. The patient is currently on propofol running at 30 mcg/kg per minute and index is running at 1 mcg/kg per minute. He is adequately sedated and paralyzed for now. He remains on a mechanical ventilator. There was considerable improvement in the blood gases yesterday and following that the appropriate ventilator changes was done. For now, the patient is an assist-co ntrol mode at the rate of 36 with a tidal volume of 350 and FiO2 is currently down to 50% and a PEEP was down to the 18. The blood gases from today showed a pH of 7.37 with a pCO2 of 58 and pO2 of 59. Peak airway pressure was 36. Noted as the patient was having hemodialysis this morning, I noted the saturation is up to 98%. I dropped the PEEP down further to 16. His current peak airway pressures around 31. The chest x-ray from today still showing diffuse bilateral pulmonary infiltrates, unchanged compared to yesterday and orotracheal tube is in a good location. The patient remains on Decadron. The patient's d-dimer is at 1.53 and the rest of the prevent markers in terms of his COVID 19 infection shows an elevation of was that was as high as 4428 and the CRP was 8.9. Follow- up levels need to be obtained in terms of his inflammatory markers. Another issue was development of an acute kidney injury. The patient developed severe metabolic acidosis and acute hyperkalemia. He required immediate and urgent dialysis. Dialysis cath was inserted yesterday. Postdialysis, his potassium level improved and her most recent level is currently down to 4.7 from this morning. He is having another session of hemodialysis today with a goal of ultrafiltration of 0 mL. The patient has a serum bicarb level of 30. He is on pressors. He is currently on norepinephrine running at 0.03 mcg/kg per minute. Urine output is adequate, more than 50 mL an hour. His white cell count is at 10.1, improved compared to yesterday with a hemoglobin of 10.6 compared to yesterday. Platelet counts are dropped also down to 196. The patient remains on IV heparin regarding his bilateral pulmonary embolism. Doppler of the lower extremity also showed a DVT in the right popliteal vein. Vascular surgeries on the case. Not found to be a good candidate for EKOS 2020, patient is being seen for a follow-up. This morning, sedated on propofol at 30 mcg/kg per minute and he is also paralyzed with Nimbex at 1 mcg/kg per minute. While on a mechanical ventilator, he remains an assist-control mode at the rate of 36 with a tidal volume of 350, FiO2 is down to 50% and the PEEP is currently at 16 The pH is at 7.31 with a pCO2 of 60 and pO2 of 96. The chest x-ray from today shows adequate positioning of the ET tube. Patient has lower lobe pulmonary infiltrates more so on the right and is also involving the right upper lobe and right middle lobe. Continues to have evidence of subcutaneous emphysema in the neck area. ET tube is in a good location. His peak airway pressure currently is at 30. Based on all this, I dropped the PEEP down to 14 and his saturations remained around 98%. He is on no pressors for now. He underwent hemodialysis yesterday successfully and his electrolytes have improved. Crohn's creatinine is at 3.9 with a mean of 50 to. Potassium level is at 4.7. The patient is producing urine output in the order of 50 mL an hour. He remains on IV heparin. No plans to undergo dialysis today. Terms of his COVID 19 related pneumonia, the patient remains on Decadron. LDH level is currently down to 1966 and the CRP level is currently at 5.2. LFTs were also elevated and there also improving for now. The patient is receiving enteral feeding for nutritional support. He is afebrile. He continues to be on IV heparin regarding bilateral pulmonary embolism and a right lower extremity popliteal DVT. Nephrology is on the case. Condition remains critical although the patient is doing good progress. He continues to be on enteral feeding for nutritional support. He is currently on vital AF at the rate of 40 mL an hour. He is also on IV fluids with 0.45 normal saline at the rate of 75 mL an hour. 05/18/2021, the patient is being seen for a follow-up. He remains on a mechanical ventilator. Is a young 51-year-old male patient with COVID 19 related pneumonia bilateral pulmonary embolism went up on a mechanical ventilator. The patient currently is on propofol which is running at 75 g and the patient is currently off Nimbex. The paralytic was discontinued yesterday successfully. He is on a low tidal volume ventilation. The patient is double stacking and the blood gases from today showed improvement in her oxygenation. Earlier this morning, the patient was an assist-control mode at the rate of 36 with a tidal volume of 350 and FiO2 of 50% with a PEEP of 10. The blood pressure with a pH of 7.42 with a pCO2 of 43 and pO2 of 113. Based on this, drop the FiO2 down to 40%, I dropped down the PEEP down to 8. I also dropped a respiratory rate down to 28. His current peak airway pressure is around 19 PA chest x-ray still showing diffuse bilateral pulmonary infiltrates most on the right. The patient has subcutaneous emphysema. The patient has adequate positioning of the ET tube. Hemodynamically stable on no pressors. White cell cause of 14.3. He remains on IV heparin. He has developed some limited hematuria that's being monitored. Hemoglobin is stable at 10.4. The patient is undergoing hemodialysis today less session of hemodialysis was 2 days ago. He did not receive hemodialysis yesterday. His urine output is in order of 50. An hour and the creatinine today is at 4.7 which is higher compared to yesterday and the potassium level is at 4.6. I am considering another session of hemodialysis that this will be further discussed with nephrology. Meanwhile, his LDH continues to improve and it's down to 1449 and the CRP level is down to 6.7. He does have mild transaminitis was also improving. His d-dimer is at 0.9. He is on IV fluids and the patient is currently on KVO half-normal saline. The patient is receiving enteral feeding for nutritional support and the patient is on vital AF at the rate of 40 mL an hour. He is able to tolerate his enteral feeding for nutritional support. Patient is afebrile. A sedation holiday will be given to him today. Objective - Vital Signs Vital signs: Vital Signs Temp 97.7 F 05/18/21 04:00 Pulse 72 05/18/21 08:00 Resp 28 H 05/18/21 08:00 BP 93/64 05/18/21 04:00 Pulse Ox 99 05/18/21 08:00 Intake & Output 05/17/21 05/18/21 05/18/21 18:59 06:59 18:59 Intake Total 7463.562 6456.300 56 Output Total 665 635 70 Balance 1272.185 911.300 -14 Weight 118.932 kg Intake: IV 556 226 16 0.9 carrier 130 50 Sodium Chloride 0.45% 1, 390 110 10 000 ml @ 10 mls/hr IV . Q24H [facility] Rx#:[id number] pressure bag 36 66 6 Intake, IV Titration 691.185 790.300 Amount Cisatracurium 200 mg In 215.207 Sodium Chloride 0.9% 180 ml @ 1 MCG/KG/MIN 6.123 mls/hr IV .Q24H DAMIR Rx#: [id number] Heparin Sod,Pork in 0.45% 141.454 236.705 NaCl 25,000 unit In 0.45 % NaCl 1 250ml.bag @ 18 UNITS/KG/HR 18.37 mls/hr IV .[id number] [facility] Rx#: [id number] Norepinephrine 8 mg In 19.125 Sodium Chloride 0.9% 250 ml @ 0.05 MCG/KG/MIN 9. 874 mls/hr IV .Q24H [facility]IR Rx#:[id number] propofoL 1,000 mg In 334.524 534.470 Empty Bag 1 bag @ Titrate IV .Q0M [facility]IR Rx#: [id number] Tube Feeding 600 440 40 Other 90 90 Output: Urine 665 635 70 Other: Voiding Method Indwelling Catheter Indwelling Catheter ABP, PAP, CO, CI - Last Documented Arterial Blood Pressure 117/68 - Exam GENERAL EXAM: Today, intubated and paralyzed 51-year-old white male, on assist- control mode of ventilation, with FiO2 of 50% and PEEP of 10, comfortable in no apparent distress. HEAD: Normocephalic/atraumatic. EYES: Normal reaction of pupils, equal size. Conjunctiva pink, sclera white. NOSE: Clear with pink turbinates. THROAT: No erythema or exudates. NECK: No masses, no JVD, no thyroid enlargement, no adenopathy. CHEST: No chest wall deformity. Symmetrical expansion. Left subclavian central line in place covered with a sterile dressing and the patient has evidence of subcutaneous emphysema in the upper chest area. LUNGS: Equal air entry with no crackles, wheeze, rhonchi or dullness. CVS: Regular rate and rhythm, normal S1 and S2, no gallops, no murmurs, no rubs ABDOMEN: Soft, nontender. No hepatosplenomegaly, normal bowel sounds, no guarding or rigidity. EXTREMITIES: No clubbing, no edema, no cyanosis, 2+ pulses and upper and lower extremities. MUSCULOSKELETAL: Muscle strength and tone normal. SPINE: No scoliosis or deformity SKIN: No rashes CENTRAL NERVOUS SYSTEM: Sedated and paralyzed No focal deficits, tone is normal in all 4 extremities. - Labs CBC & Chem 7: 05/18/21 03:15 05/18/21 03:15 Labs: Abnormal Lab Results - Last 24 Hours (Table) 05/16/21 05/17/21 05/17/21 Range/Units 05:00 12:36 15:30 WBC (3.8-10.6) k/uL RBC (4.30-5.90) m/uL Hgb (13.0-17.5) gm/dL Hct (39.0-53.0) % Neutrophils # (1.3-7.7) k/uL Lymphocytes # (1.0-4.8) k/uL APTT 60.6 H (22.0-30.0) sec D-Dimer (<0.60) mg/L FEU ABG pO2 (83-108) mmHg ABG HCO3 (21-25) mmol/L ABG Total CO2 (19-24) mmol/L ABG O2 Saturation (94-97) % BUN (9-20) mg/dL Creatinine (0.66-1.25) mg/dL Glucose (74-99) mg/dL POC Glucose (mg/dL) 161 H (75-99) mg/dL Calcium (8.4-10.2) mg/dL ALT (4-49) U/L Alkaline Phosphatase (38-126) U/L Lactate Dehydrogenase 2171 H (313-618) U/L C-Reactive Protein 6.0 H (<1.0) mg/dL Total Protein (6.3-8.2) g/dL Albumin (3.5-5.0) g/dL 05/17/21 05/17/21 05/17/21 Range/Units 15:30 17:33 20:53 WBC 11.9 H 12.2 H (3.8-10.6) k/uL RBC 3.42 L 3.30 L (4.30-5.90) m/uL Hgb 10.2 L 9.9 L (13.0-17.5) gm/dL Hct 30.4 L 29.3 L (39.0-53.0) % Neutrophils # (1.3-7.7) k/uL Lymphocytes # (1.0-4.8) k/uL APTT (22.0-30.0) sec D-Dimer (<0.60) mg/L FEU ABG pO2 (83-108) mmHg ABG HCO3 (21-25) mmol/L ABG Total CO2 (19-24) mmol/L ABG O2 Saturation (94-97) % BUN (9-20) mg/dL Creatinine (0.66-1.25) mg/dL Glucose (74-99) mg/dL POC Glucose (mg/dL) 186 H (75-99) mg/dL Calcium (8.4-10.2) mg/dL ALT (4-49) U/L Alkaline Phosphatase (38-126) U/L Lactate Dehydrogenase (313-618) U/L C-Reactive Protein (<1.0) mg/dL Total Protein (6.3-8.2) g/dL Albumin (3.5-5.0) g/dL 05/17/21 05/18/21 05/18/21 Range/Units 23:39 03:05 03:15 WBC 14.3 H (3.8-10.6) k/uL RBC 3.45 L (4.30-5.90) m/uL Hgb 10.4 L (13.0-17.5) gm/dL Hct 30.7 L (39.0-53.0) % Neutrophils # 12.7 H (1.3-7.7) k/uL Lymphocytes # 0.9 L (1.0-4.8) k/uL APTT 51.8 H (22.0-30.0) sec D-Dimer (<0.60) mg/L FEU ABG pO2 (83-108) mmHg ABG HCO3 (21-25) mmol/L ABG Total CO2 (19-24) mmol/L ABG O2 Saturation (94-97) % BUN (9-20) mg/dL Creatinine (0.66-1.25) mg/dL Glucose (74-99) mg/dL POC Glucose (mg/dL) 122 H (75-99) mg/dL Calcium (8.4-10.2) mg/dL ALT (4-49) U/L Alkaline Phosphatase (38-126) U/L Lactate Dehydrogenase (313-618) U/L C-Reactive Protein (<1.0) mg/dL Total Protein (6.3-8.2) g/dL Albumin (3.5-5.0) g/dL 05/18/21 05/18/21 05/18/21 Range/Units 03:15 03:15 05:23 WBC (3.8-10.6) k/uL RBC (4.30-5.90) m/uL Hgb (13.0-17.5) gm/dL Hct (39.0-53.0) % Neutrophils # (1.3-7.7) k/uL Lymphocytes # (1.0-4.8) k/uL APTT (22.0-30.0) sec D-Dimer 0.97 H (<0.60) mg/L FEU ABG pO2 (83-108) mmHg ABG HCO3 (21-25) mmol/L ABG Total CO2 (19-24) mmol/L ABG O2 Saturation (94-97) % BUN 75 H (9-20) mg/dL Creatinine 4.73 H (0.66-1.25) mg/dL Glucose 150 H (74-99) mg/dL POC Glucose (mg/dL) 131 H (75-99) mg/dL Calcium 7.4 L (8.4-10.2) mg/dL ALT 141 H (4-49) U/L Alkaline Phosphatase 129 H (38-126) U/L Lactate Dehydrogenase 1449 H (313-618) U/L C-Reactive Protein 6.7 H (<1.0) mg/dL Total Protein 4.9 L (6.3-8.2) g/dL Albumin 2.4 L (3.5-5.0) g/dL 05/18/21 Range/Units 05:40 WBC (3.8-10.6) k/uL RBC (4.30-5.90) m/uL Hgb (13.0-17.5) gm/dL Hct (39.0-53.0) % Neutrophils # (1.3-7.7) k/uL Lymphocytes # (1.0-4.8) k/uL APTT (22.0-30.0) sec D-Dimer (<0.60) mg/L FEU ABG pO2 113 H (83-108) mmHg ABG HCO3 28 H (21-25) mmol/L ABG Total CO2 29 H (19-24) mmol/L ABG O2 Saturation 98.7 H (94-97) % BUN (9-20) mg/dL Creatinine (0.66-1.25) mg/dL Glucose (74-99) mg/dL POC Glucose (mg/dL) (75-99) mg/dL Calcium (8.4-10.2) mg/dL ALT (4-49) U/L Alkaline Phosphatase (38-126) U/L Lactate Dehydrogenase (313-618) U/L C-Reactive Protein (<1.0) mg/dL Total Protein (6.3-8.2) g/dL Albumin (3.5-5.0) g/dL Microbiology - Last 24 Hours (Table) 05/16/21 23:15 Gram Stain - Preliminary Sputum Sputum Culture - Preliminary Assessment and Plan Plan: #1. acute hypoxic respiratory failure related to COVID-19 pneumonia, admitted to the hospital on 05/12/2021 with 10-11 day history of COVID-19 symptoms. Patient is a non-vaccinated individual, he was outside the window for Remdesivir, was started on Baricitinib on 05/13/2021. Transfered to the intensive care unit on 05/14/2021 and intubated . The patient's course was Again by worsening of hypoxemia, ARDS, bilateral pulmonary embolism involving lower lobe pulmonary artery branches and all of those of complication of COVID 19 related pneumonia. COVID 19 related pneumonia. The patient is currently intubated on a mechanical ventilator. The patient is doing adequate progress here in the intensive care unit. Initially, he was quite stiff and the lungs are extremely noncompliant due to COVID 19 related pneumonia and the patient also had pulmonary embolism. He was treated accordingly. He remains on Decadron. He remains on IV heparin. There is improvement in his blood gases. There is improvement also in his oxygenation. Airway pressures are on the decline. Chest x-ray showing subcutaneous emphysema the patient has a lateral pulmonary infiltrates most on the right. No evidence of any pneumothorax. Inflammatory markers are also improving. #2. Acute bilateral pulmonary emboli likely related to COVID-19 pneumonia, seen on a CT angiogram of the chest on 05/13/2021, started on heparin infusion. No CT evidence of heart strain, will obtain echocardiogram, and the patient will be kept on IV heparin for now. The patient also has a popliteal DVT on the right. #3. Elevated inflammatory markers, levels are improving for now #4. Elevated d-dimer related to acute pulmonary emboli, level is improving #5. Elevated LFTs related to viral pneumonia #6 acute kidney injury, likely COVID 19-induced ATN, nephrology on the case and last dialysis was on 05/16/2021, did not have dialysis yesterday, making urine output in the creatinine is higher. #7 acute hyperkalemia, potassium level is normalized #8 permissive hypercapnia with secondary respiratory acidosis, improved #9 Pneumediastinum and bilateral subcutaneous emphysema, complication of COVID 19 related pneumonia and mechanical ventilation, and expected outcome, stable #10 Hypotension , secondary to above, currently on pressors, currently on minimal doses of pressors, currently off pressors. Plan: Patient has been intubated and placed on mechanical ventilator, reduce the FiO2 down to 40% and a PEEP down to 8 Off paralytics Sedation holiday today to assess his mental status Contemplated dialysis and this will be discussed with nephrology IVF to KVO Monitor electrolytes and potassium level Continued IV heparin for now, monitor the hematuria which is limited this point in time in hemoglobin is stable Continue Decadron Doppler of the lower extremities showed a popliteal DVT on the right Echocardiogram was noted Stop the Baricitinib for now and continue with Decadron off Pressors Enteral feeding for nutritional support Condition is extremely critical and the patient carries a very high mortality. We'll continue to follow. We'll keep the patient sedated and the patient and paralytic holiday critically care evaluation that was done and more than 30 minutes Time with Patient: Greater than 30
[2021-05-18 11:51] LABS: Glucose,Whole Blood 110 mg/dL (75-99)
[2021-05-18] MEDS: CISATRACURIUM 200 MG in SODIUM CHLORIDE 0.9% 180 ML IV SCH (12:07)
[2021-05-18] MEDS: CHOLECALCIFEROL 25 MCG (1000 IU) TABLET PO SCH (12:39)
[2021-05-18] MEDS: CHLORHEXIDINE GLUCONATE 15 ML CUP MUCOUS MEM SCH ×2 (12:39→19:38)
[2021-05-18] MEDS: ZINC SULFATE 220 MG CAP PO SCH (12:40)
[2021-05-18] MEDS: DEXAMETHASONE SOD PHOSPHATE 10 MG/ML 1 ML VIAL IVP SCH (12:40)
[2021-05-18] MEDS: PANTOPRAZOLE 40 MG/10 ML VIAL IVP SCH (12:40)
[2021-05-18] MEDS: ASCORBIC ACID 500 MG TAB PO SCH (12:40)
--- NOTE | 2021-05-18 14:12 | XR ---
EXAMINATION TYPE: XR chest 1V portable DATE OF EXAM: 05/18/2021 COMPARISON: 05/18/2021 earlier exam INDICATION: Increasing shortness of breath TECHNIQUE: Single frontal view of the chest is obtained. FINDINGS: The heart size is upper limits of normal. The pulmonary vasculature is normal. There is patchy infiltrate in the right lung left lung base. Subcutaneous emphysema is present. No pn eumothorax is identified Endotracheal tube tip is above the merrill. Nasogastric tube tip has been pulled back and could be adv anced approximately 23 cm back into the stomach . A central venous catheter tips in the superior vena cava region. IMPRESSION: 1. Diffuse infiltrate right lung and left lung base, stable. 2. Nasogastric pullback and should be readvanced 3. Pneumothorax not identified.
[2021-05-18 16:13] LABS: Calcium 7.6 mg/dL (8.4-10.2); Potassium 4.3 mmol/L (3.5-5.1)
[2021-05-18 16:20] LABS: Basophils # (A) 0.1 k/uL (0-0.2); Basophils % (A) 0 %; Eosinophils # (A) 0.1 k/uL (0-0.7); Eosinophils % (A) 1 %; HCT 32.1 % (39.0-53.0); HGB 10.5 gm/dL (13.0-17.5); Lymphocytes # (A) 1.2 k/uL (1.0-4.8); Lymphocytes % (A) 8 %; MCHC 32.8 g/dL (31.0-37.0); MCV 88.4 fL (80.0-100.0); Mean Platelet Volume 8.9; Monocytes # (A) 0.5 k/uL (0-1.0); Monocytes % (A) 3 %; Neutrophils # (A) 13.3 k/uL (1.3-7.7); Neutrophils % (A) 86 %; Platelet Count 238 k/uL (150-450); RBC 3.64 m/uL (4.30-5.90); RDW 14.1 % (11.5-15.5); WBC 15.4 k/uL (3.8-10.6)
[2021-05-18 17:34] LABS: Glucose,Whole Blood 96 mg/dL (75-99)
--- NOTE | 2021-05-18 18:15 | PN ---
PROGRESS NOTE Patient is seen for followup for acute kidney injury and hyperkalemia. Potassium is within range, however, serum creatinine has increased today to 4.7 from 3.9. Patient did not get dialyzed yesterday. He has had fair urine output, roughly about 60 to 50 mL/hour an hour. PHYSICAL EXAMINATION: On examination today, the patient is not examined. Case is discussed with nursing staff. Blood pressure 101/57, heart rate 78 per minute. He is afebrile. LABS: Reviewed. Sodium 138, potassium 4.3, chloride 104, BUN 87, creatinine 4.7, hemoglobin 10.5 g/dL. ASSESSMENT: 1. Acute kidney injury, ATN, associated with hypotension, underlying COVID pneumonia, currently nonoliguric, maintained on dialysis. We will plan for a treatment today and then again in a.m. and continue to monitor without dialysis on Friday. No significant ultrafiltration. 2. Acute hyperkalemia associated with acute kidney injury, oliguria, currently improved. Had two treatments of hemodialysis thus far. 3. Acute hypoxic respiratory failure secondary to COVID pneumonia and bilateral PE. 4. Respiratory acidosis, currently maintained on the vent. PLAN: Hemodialysis in a.m. and today no significant ultrafiltration. Continue to avoid nephrotoxic agents. Discontinue IV fluids. MMODL / IJN: [id number] /
[2021-05-18] MEDS: SODIUM CHLORIDE 0.45% 1,000 ML IV SCH (18:32)
[2021-05-18] MEDS: PIPERACILLIN-TAZOBACTAM 3.375 GM in SODIUM CHLORIDE 0.9% 100 ML IVPB SCH (19:38)
[2021-05-19 00:04] LABS: Glucose,Whole Blood 102 mg/dL (75-99)
[2021-05-19] MEDS: INSULIN ASPART (NovoLOG) 100 UNIT/ML VIAL SQ SCH ×4 (00:04→18:25)
[2021-05-19 04:29] LABS: Basophils % (A) 0 %; Eosinophils # (A) 0.2 k/uL (0-0.7); Eosinophils % (A) 1 %; HCT 31.2 % (39.0-53.0); HGB 10.4 gm/dL (13.0-17.5); Lymphocytes # (A) 1.3 k/uL (1.0-4.8); Lymphocytes % (A) 9 %; MCH 29.1 pg (25.0-35.0); MCHC 33.2 g/dL (31.0-37.0); MCV 87.6 fL (80.0-100.0); Mean Platelet Volume 9.2; Monocytes # (A) 0.5 k/uL (0-1.0); Monocytes % (A) 3 %; Neutrophils # (A) 13.1 k/uL (1.3-7.7); Neutrophils % (A) 86 %; Platelet Count 204 k/uL (150-450); RBC 3.56 m/uL (4.30-5.90); RDW 14.2 % (11.5-15.5); WBC 15.2 k/uL (3.8-10.6)
[2021-05-19 04:50] LABS: Albumin 2.3 g/dL (3.5-5.0); Calcium 7.3 mg/dL (8.4-10.2); Total Bilirubin 0.7 mg/dL (0.2-1.3); Total Protein 4.9 g/dL (6.3-8.2)
[2021-05-19 05:01] LABS: C Reactive Protein 20.8 mg/dL (<1.0)
[2021-05-19 05:23] LABS: ABG Base Excess 3.1 mmol/L; ABG HCO3 26 mmol/L (21-25); ABG Oxygen Saturation 90.7 % (94-97); ABG PCO2 31 mmHg (35-45); ABG PH 7.53 (7.35-7.45); ABG TCO2 27 mmol/L (19-24); Allen Test Performed? Yes
[2021-05-19 05:28] LABS: ABG PO2 54 mmHg (83-108)
[2021-05-19] MEDS: HEPARIN SODIUM 1,000 UN/ML (10ML VL) IV PRN (05:36)
[2021-05-19] MEDS: ALBUTEROL HFA INHALER INHALATION SCH ×4 (07:24→19:50)
--- NOTE | 2021-05-19 07:27 | XR ---
EXAMINATION TYPE: XR chest 1V portable DATE OF EXAM: 05/19/2021 COMPARISON: 05/18/2021 tube placement there is an ET tube 2.9 cm above the merrill. There is an NG tube within the stomach. There is a left arm PICC line terminating in the SVC/R junction. There are scattered bilateral partially consolidative airspace opacities unchanged compared to previo us. There is no pneumothorax or large pleural effusion. Heart size is normal the osseous structures a re intact HISTORY: ET tube 2.9 cm of the merrill and an NG tube within the stomach. No change in the bilateral i nfiltrates. TECHNIQUE: Single frontal view of the chest is obtained. FINDINGS: There is no focal air space opacity, pleural effusion, or pneumothorax seen. The cardiac silhouette size is within normal limits. The osseous structures are intact. IMPRESSION: No acute process.
--- NOTE | 2021-05-19 10:04 | P.PN ---
Subjective Progress Note Date: 05/19/21 51-year-old male who presents to the emergency department on May 12, with complaints of shortness of breath. The patient has been sick for at least 10-11 days. It started off with cough and shortness of breath, and loss of taste. He's also had fever. He has not been vaccinated. He was tested for coronavirus on May 07, and tested positive. The patient does not have a primary care physician. He has no past medical history. He takes no medications at home. The patient did receive monoclonal antibodies on May 09. Currently, the patient's on 5 L nasal cannula. He's got saline running at 75 mL an hour. He looks relatively stable. His chest x-ray does show diffuse bilateral infiltrates. The home medications that he is on include an albuterol inhaler, Tessalon Perles, and Decadron, given to him by the hospital. White count 5.1, hemoglobin 14.3, hematocrit 42.6, and platelet count 377,000. Sodium, potassium, chloride, CO2, anion gap, BUN, and creatinine are all normal. AST was 154, ALT 123, alkaline phosphatase 164. LDH was 2657. C-reactive protein is 14.9. Pro-calcitonin level is 0.14. Chest x-ray shows low lung volumes, with right greater than left bilateral opacities. The patient is seen today 05/13/2021 in follow-up on the regular medical floor. He is currently resting in bed. He is somewhat more dyspneic andtachypneic. His oxygen requirements have gone up to knees on 15 L high flow nasal cannula plus a nonrebreather mask. white count 6.8. Hemoglobin 13.5. Leukocytes 0.85. D-dimer up to 15.8. Sodium 143. Potassium 5.4. Creatinine 1.0. Glucose 123. AST 120. ALT 146. LDH 971. C-reactive protein 3.4. CT angiogram was requested after seeing the patient. There is evidence of bilateral lower lobe large multiple pulmonary emboli. No sign of right heart strain. Lovenox will be discontinued and he'll be initiated on a heparin drip On 05/14/2021 patient was emergently transferred to the intensive care unit for a concern of worsening hypoxia and dyspnea. Earlier in the shift he was on 15 L per high flow nasal cannula and 100% nonrebreather mask however his work of breathing had significantly increased his respiratory rate was ranging between 40-50 breaths per minute. His pulse ox was 87% and subsequently dropped down to 73%%. He was placed on BiPAP support with no improvement in his work of breathing or hypoxia, was intubated per [employer], currently on assist-control mode of ventilation with a rate of 36 tidal volume is 350, FiO2 100% and PEEP of 24. he was given Nimbex IV pushes and propofol for sedation during intubation, he will be placed on Diprivan drip and Nimbex. Currently his pulse ox is 81% on the above-mentioned vent settings. His blood pressure 121/71, he is in sinus mechanism tachycardic with a rate of 110-120 BPM. Patient was found to have bilateral pulmonary emboli on yesterday's CT angiogram of the chest, he was started on heparin infusion on which she remains per weight-based protocol, his maintenance IV fluids are 0.9 normal saline at a rate of 75 ML per hour, CT angiogram lung windows showed extensive bilateral pneumonia. Chest x-ray post intubation and left subclavian central line placement is pending. This morning's labs have been reviewed, white blood cell count is 11.9, hemoglobin is 14.5, today's d-dimer is 18.26 slightly increased from yesterday's value, sodium is 141, potassium is 5.2, chloride is 111, CO2 is 23, BUN was 20 creatinine 0.96, his LDH today has significantly increased and is up to 3109, from 971 on yesterday's labs, and CRP is stable at 3.4. His pro calcitonin level on 05/12/2021 was at 0.14. Patient was started on Baricitinib yesterday on 05/13/2021, in addition to Decadron 6 mg daily. Patient is on vitamin C, zinc, and vitamin D will be added. 05/15/2021, the patient is being seen in a follow-up visit intensive care unit. This is a very critically ill male patient status post definitive pneumonia with secondary respiratory failure/ARDS. The patient also had developed pulmonary embolism on 05/13/2021 which confirmed the pulmonary embolism on a CT angiogram. Note that the patient had extensive interstitial and airspace disease and infiltrates bilaterally in addition to that the patient had bilateral lower lobe large pulmonary emboli. Subsequently, echocardiogram was done yesterday post intubation the patient also showed evidence of significant pulmonary hypertension, paradoxic motion of the right ventricle and obvious signs of right ventricular overload with elevation of the right ventricular end- diastolic pressure. The RV was moderately enlarged. The left ventricular ejection fraction has been within normal limits. Based on all this and based on ongoing respiratory failure, the patient had to be intubated and placed on a mechanical ventilator. Post intubation, the patient was placed on accommodation of sedation and paralysis. Currently, the patient is on propofol which is running at 30 mcg/kg per minute. The patient is also on Nimbex running at 1 mcg/kg per minute. The patient is on a mechanical ventilator and currently is on a assist-control mode at the rate of 36 with a tidal volume of 350 and FiO2 of 70% with a PEEP of 24. Peak airway pressure is 38. Static pressures 36. Blood gases from today showed a pH of 7.07 with a pCO2 of 77 and pO2 of 172. This was done and FiO2 of 70%. The chest x-ray from today has shown evidence of pneumomediastinum and the patient has also developed subcutaneous emphysema bilaterally mainly in the supraclavicular area and upper chest area. On clinical examination, this is also confirmed. Meanwhile, the patient also has dropped his blood pressure and currently is on norepinephrine infusion for blood pressure support currently running at 0.14 mcg/kg per minute. At the same time, the patient has also dropped his urine output and recently/over the past few hours, his urine output is dropped down to 10-20 mL an hour. His potassium is currently high in the morning blood labs and his potassium is up to 7.5 and the patient has a developed an acute kidney injury with a BUN of 38 and a creatinine of 3.3. No acute EKG changes based on his underlying hypokalemia and this will be treated as soon as possible. In terms of his COVID 19 related pneumonia, the patient is on a combination of Baricitinib and Decadron. The d-dimer is down to 2.7. The patient has a LDH which is up to 4428 and a CRP level is at 8.9. His liver enzymes are also on the rise. AST is up to 417, ALT is up to 417, 05/16/2021, the patient is being seen for a follow-up. The patient remains sedated and paralyzed. The patient is currently on propofol running at 30 mcg/kg per minute and index is running at 1 mcg/kg per minute. He is adequately sedated and paralyzed for now. He remains on a mechanical ventilator. There was considerable improvement in the blood gases yesterday and following that the appropriate ventilator changes was done. For now, the patient is an assist-co ntrol mode at the rate of 36 with a tidal volume of 350 and FiO2 is currently down to 50% and a PEEP was down to the 18. The blood gases from today showed a pH of 7.37 with a pCO2 of 58 and pO2 of 59. Peak airway pressure was 36. Noted as the patient was having hemodialysis this morning, I noted the saturation is up to 98%. I dropped the PEEP down further to 16. His current peak airway pressures around 31. The chest x-ray from today still showing diffuse bilateral pulmonary infiltrates, unchanged compared to yesterday and orotracheal tube is in a good location. The patient remains on Decadron. The patient's d-dimer is at 1.53 and the rest of the prevent markers in terms of his COVID 19 infection shows an elevation of was that was as high as 4428 and the CRP was 8.9. Follow- up levels need to be obtained in terms of his inflammatory markers. Another issue was development of an acute kidney injury. The patient developed severe metabolic acidosis and acute hyperkalemia. He required immediate and urgent dialysis. Dialysis cath was inserted yesterday. Postdialysis, his potassium level improved and her most recent level is currently down to 4.7 from this morning. He is having another session of hemodialysis today with a goal of ultrafiltration of 0 mL. The patient has a serum bicarb level of 30. He is on pressors. He is currently on norepinephrine running at 0.03 mcg/kg per minute. Urine output is adequate, more than 50 mL an hour. His white cell count is at 10.1, improved compared to yesterday with a hemoglobin of 10.6 compared to yesterday. Platelet counts are dropped also down to 196. The patient remains on IV heparin regarding his bilateral pulmonary embolism. Doppler of the lower extremity also showed a DVT in the right popliteal vein. Vascular surgeries on the case. Not found to be a good candidate for EKOS 2020, patient is being seen for a follow-up. This morning, sedated on propofol at 30 mcg/kg per minute and he is also paralyzed with Nimbex at 1 mcg/kg per minute. While on a mechanical ventilator, he remains an assist-control mode at the rate of 36 with a tidal volume of 350, FiO2 is down to 50% and the PEEP is currently at 16 The pH is at 7.31 with a pCO2 of 60 and pO2 of 96. The chest x-ray from today shows adequate positioning of the ET tube. Patient has lower lobe pulmonary infiltrates more so on the right and is also involving the right upper lobe and right middle lobe. Continues to have evidence of subcutaneous emphysema in the neck area. ET tube is in a good location. His peak airway pressure currently is at 30. Based on all this, I dropped the PEEP down to 14 and his saturations remained around 98%. He is on no pressors for now. He underwent hemodialysis yesterday successfully and his electrolytes have improved. Crohn's creatinine is at 3.9 with a mean of 50 to. Potassium level is at 4.7. The patient is producing urine output in the order of 50 mL an hour. He remains on IV heparin. No plans to undergo dialysis today. Terms of his COVID 19 related pneumonia, the patient remains on Decadron. LDH level is currently down to 1966 and the CRP level is currently at 5.2. LFTs were also elevated and there also improving for now. The patient is receiving enteral feeding for nutritional support. He is afebrile. He continues to be on IV heparin regarding bilateral pulmonary embolism and a right lower extremity popliteal DVT. Nephrology is on the case. Condition remains critical although the patient is doing good progress. He continues to be on enteral feeding for nutritional support. He is currently on vital AF at the rate of 40 mL an hour. He is also on IV fluids with 0.45 normal saline at the rate of 75 mL an hour. 05/18/2021, the patient is being seen for a follow-up. He remains on a mechanical ventilator. Is a young 51-year-old male patient with COVID 19 related pneumonia bilateral pulmonary embolism went up on a mechanical ventilator. The patient currently is on propofol which is running at 75 g and the patient is currently off Nimbex. The paralytic was discontinued yesterday successfully. He is on a low tidal volume ventilation. The patient is double stacking and the blood gases from today showed improvement in her oxygenation. Earlier this morning, the patient was an assist-control mode at the rate of 36 with a tidal volume of 350 and FiO2 of 50% with a PEEP of 10. The blood pressure with a pH of 7.42 with a pCO2 of 43 and pO2 of 113. Based on this, drop the FiO2 down to 40%, I dropped down the PEEP down to 8. I also dropped a respiratory rate down to 28. His current peak airway pressure is around 19 PA chest x-ray still showing diffuse bilateral pulmonary infiltrates most on the right. The patient has subcutaneous emphysema. The patient has adequate positioning of the ET tube. Hemodynamically stable on no pressors. White cell cause of 14.3. He remains on IV heparin. He has developed some limited hematuria that's being monitored. Hemoglobin is stable at 10.4. The patient is undergoing hemodialysis today less session of hemodialysis was 2 days ago. He did not receive hemodialysis yesterday. His urine output is in order of 50. An hour and the creatinine today is at 4.7 which is higher compared to yesterday and the potassium level is at 4.6. I am considering another session of hemodialysis that this will be further discussed with nephrology. Meanwhile, his LDH continues to improve and it's down to 1449 and the CRP level is down to 6.7. He does have mild transaminitis was also improving. His d-dimer is at 0.9. He is on IV fluids and the patient is currently on KVO half-normal saline. The patient is receiving enteral feeding for nutritional support and the patient is on vital AF at the rate of 40 mL an hour. He is able to tolerate his enteral feeding for nutritional support. Patient is afebrile. A sedation holiday will be given to him today. 05/19/2021, the patient remains on a mechanical ventilator and today's being seen for a follow-up. He is currently on propofol running at 75 mg/kg per minute and the patient is currently off paralytics. Has been off paralytics for the past 48 hours. He remains on a mechanical ventilator. On today's evaluation, he is on assist-control pressure control mode of mechanical ventilation. I switched him to a pressure control yesterday as the patient was quite asynchronous a mechanical ventilator and he was double stacking. While a pressure control, he is on a pressure control of 15, PEEP of 8, FiO2 of 50% with a rate of 28. His blood gases from today showing a pH of 7.53 with a pCO2 of 31 and a pO2 of 54. The chest x-ray from today is showing no significant interval change in the patient's ET tube is in a good location. The patient is producing urine output in the order of 30 to 40s's an hour. His urine output is bloody and the patient remains on IV heparin. He is having some mild hematuria. Nevertheless, I have opted to continued IV heparin based on his history of DVT and pulmonary embolism related to COVID 19 infection. As such, the patient remains on IV heparin. He is PTT is subtherapeutic and PTT is being adjusted. He remains on norepinephrine infusion running at 0.02 mcg/kg per minute. He is on half-normal saline at KVO. His d-dimer today's is 1.36, LDH level is 2000 and CRP is 20.8. His white cell cause of 15.2 with a hemoglobin of 10.4 and platelet count of 204. His sodium is 134, BUN is at 64 with a creatinine of 3 .2. The patient is currently undergoing hemodialysis. His last hemodialysis session was yesterday. He is also receiving enteral feeding for nutritional support and the patient is on vital AF. Objective - Vital Signs Vital signs: Vital Signs Temp 98.6 F 05/19/21 04:00 Pulse 89 05/19/21 07:00 Resp 32 H 05/19/21 07:00 BP 93/64 05/18/21 21:00 Pulse Ox 97 05/19/21 07:00 Intake & Output 05/18/21 05/19/21 05/19/21 18:59 06:59 18:59 Intake Total 411.050 8389.863 Output Total 785 1885 Balance -13.898 -527.137 Weight 118.932 kg 118.1 kg Intake: IV 192 208 Sodium Chloride 0.45% 1, 120 130 000 ml @ 10 mls/hr IV . Q24H [facility] Rx#:[id number] pressure bag 72 78 Intake, IV Titration 105.102 851.863 Amount Heparin Sod,Pork in 0.45% 351.961 NaCl 25,000 unit In 0.45 % NaCl 1 250ml.bag @ 18 UNITS/KG/HR 18.37 mls/hr IV .[id number] [facility] Rx#: [id number] Norepinephrine 8 mg In 5.102 0 Sodium Chloride 0.9% 250 ml @ 0.05 MCG/KG/MIN 9. 874 mls/hr IV .Q24H [facility] Rx#:[id number] propofoL 1,000 mg In 100.000 499.902 Empty Bag 1 bag @ Titrate IV .Q0M [facility] Rx#: [id number] Tube Feeding 384 208 Other 90 90 Output: Urine 785 885 Hemodialysis 1000 Other: Voiding Method Indwelling Catheter Indwelling Catheter ABP, PAP, CO, CI - Last Documented Arterial Blood Pressure 100/59 - Exam GENERAL EXAM: Today, intubated and paralyzed 51-year-old white male, on assist- control mode of ventilation, with FiO2 of 50% and PEEP of 8, comfortable in no apparent distress. HEAD: Normocephalic/atraumatic. EYES: Normal reaction of pupils, equal size. Conjunctiva pink, sclera white. NOSE: Clear with pink turbinates. THROAT: No erythema or exudates. NECK: No masses, no JVD, no thyroid enlargement, no adenopathy. CHEST: No chest wall deformity. Symmetrical expansion. Left subclavian central line in place covered with a sterile dressing and the patient has evidence of subcutaneous emphysema in the upper chest area. LUNGS: Equal air entry with no crackles, wheeze, rhonchi or dullness. CVS: Regular rate and rhythm, normal S1 and S2, no gallops, no murmurs, no rubs ABDOMEN: Soft, nontender. No hepatosplenomegaly, normal bowel sounds, no guarding or rigidity. EXTREMITIES: No clubbing, no edema, no cyanosis, 2+ pulses and upper and lower extremities. MUSCULOSKELETAL: Muscle strength and tone normal. SPINE: No scoliosis or deformity SKIN: No rashes CENTRAL NERVOUS SYSTEM: Sedated and paralyzed No focal deficits, tone is normal in all 4 extremities. - Labs CBC & Chem 7: 05/19/21 03:57 05/19/21 03:57 Labs: Abnormal Lab Results - Last 24 Hours (Table) 05/18/21 05/18/21 05/18/21 Range/Units 11:49 16:05 16:05 WBC 15.4 H (3.8-10.6) k/uL RBC 3.64 L (4.30-5.90) m/uL Hgb 10.5 L (13.0-17.5) gm/dL Hct 32.1 L (39.0-53.0) % Neutrophils # 13.3 H (1.3-7.7) k/uL APTT 39.8 H (22.0-30.0) sec D-Dimer (<0.60) mg/L FEU ABG pH (7.35-7.45) ABG pCO2 (35-45) mmHg ABG pO2 (83-108) mmHg ABG HCO3 (21-25) mmol/L ABG Total CO2 (19-24) mmol/L ABG O2 Saturation (94-97) % Sodium (137-145) mmol/L BUN (9-20) mg/dL Creatinine (0.66-1.25) mg/dL Glucose (74-99) mg/dL POC Glucose (mg/dL) 110 H (75-99) mg/dL Calcium (8.4-10.2) mg/dL ALT (4-49) U/L Alkaline Phosphatase (38-126) U/L Lactate Dehydrogenase (313-618) U/L C-Reactive Protein (<1.0) mg/dL Total Protein (6.3-8.2) g/dL Albumin (3.5-5.0) g/dL 05/18/21 05/19/21 05/19/21 Range/Units 16:05 00:03 03:57 WBC 15.2 H (3.8-10.6) k/uL RBC 3.56 L (4.30-5.90) m/uL Hgb 10.4 L (13.0-17.5) gm/dL Hct 31.2 L (39.0-53.0) % Neutrophils # 13.1 H (1.3-7.7) k/uL APTT (22.0-30.0) sec D-Dimer (<0.60) mg/L FEU ABG pH (7.35-7.45) ABG pCO2 (35-45) mmHg ABG pO2 (83-108) mmHg ABG HCO3 (21-25) mmol/L ABG Total CO2 (19-24) mmol/L ABG O2 Saturation (94-97) % Sodium (137-145) mmol/L BUN 87 H (9-20) mg/dL Creatinine 4.77 H (0.66-1.25) mg/dL Glucose 122 H (74-99) mg/dL POC Glucose (mg/dL) 102 H (75-99) mg/dL Calcium 7.6 L (8.4-10.2) mg/dL ALT (4-49) U/L Alkaline Phosphatase (38-126) U/L Lactate Dehydrogenase (313-618) U/L C-Reactive Protein (<1.0) mg/dL Total Protein (6.3-8.2) g/dL Albumin (3.5-5.0) g/dL 05/19/21 05/19/21 05/19/21 Range/Units 03:57 03:57 05:17 WBC (3.8-10.6) k/uL RBC (4.30-5.90) m/uL Hgb (13.0-17.5) gm/dL Hct (39.0-53.0) % Neutrophils # (1.3-7.7) k/uL APTT 38.0 H (22.0-30.0) sec D-Dimer 1.36 H (<0.60) mg/L FEU ABG pH 7.53 H (7.35-7.45) ABG pCO2 31 L (35-45) mmHg ABG pO2 54 L* (83-108) mmHg ABG HCO3 26 H (21-25) mmol/L ABG Total CO2 27 H (19-24) mmol/L ABG O2 Saturation 90.7 L (94-97) % Sodium 134 L (137-145) mmol/L BUN 64 H (9-20) mg/dL Creatinine 3.25 H (0.66-1.25) mg/dL Glucose 112 H (74-99) mg/dL POC Glucose (mg/dL) (75-99) mg/dL Calcium 7.3 L (8.4-10.2) mg/dL ALT 94 H (4-49) U/L Alkaline Phosphatase 150 H (38-126) U/L Lactate Dehydrogenase 2005 H (313-618) U/L C-Reactive Protein 20.8 H (<1.0) mg/dL Total Protein 4.9 L (6.3-8.2) g/dL Albumin 2.3 L (3.5-5.0) g/dL Microbiology - Last 24 Hours (Table) 05/18/21 17:19 Sputum Culture - Preliminary Sputum 05/16/21 23:15 Gram Stain - Preliminary Sputum Sputum Culture - Preliminary Assessment and Plan Plan: #1. acute hypoxic respiratory failure related to COVID-19 pneumonia, admitted to the hospital on 05/12/2021 with 10-11 day history of COVID-19 symptoms. Jerome vogel is a non-vaccinated individual, he was outside the window for Remdesivir, was started on Baricitinib on 05/13/2021. Transfered to the intensive care unit on 05/14/2021 and intubated . The patient's course was Again by worsening of hypoxemia, ARDS, bilateral pulmonary embolism involving lower lobe pulmonary artery branches and all of those of complication of COVID 19 related pneumonia. COVID 19 related pneumonia. The patient is currently intubated on a mechanical ventilator. He remains on IV heparin. The patient's is currently on pressure control mode of mechanical ventilation is quite synchronous a mechanical ventilator. Chest x-ray still showing diffuse bilateral pulmonary infiltrates consistent with COVID 19 related pneumonia. The patient has developed some mild hematuria and we have elected to continue with the IV heparin. His PPD is subtherapeutic and these to be adjusted. Monitor the hematuria. Hemoglobin stable. Chest x-ray findings are stable. Oxidation is stable. #2. Acute bilateral pulmonary emboli likely related to COVID-19 pneumonia, seen on a CT angiogram of the chest on 05/13/2021, started on heparin infusion. No CT evidence of heart strain, will obtain echocardiogram, and the patient will be kept on IV heparin for now. The patient also has a popliteal DVT on the right. #3. Elevated inflammatory markers, levels are improving for now #4. Elevated d-dimer related to acute pulmonary emboli, level is improving #5. Elevated LFTs related to viral pneumonia #6 acute kidney injury, likely COVID 19-induced ATN, the patient is currently undergoing hemodialysis on a daily basis #7 acute hyperkalemia, potassium level is normalized #8 permissive hypercapnia with secondary respiratory acidosis, improved #9 Pneumediastinum and bilateral subcutaneous emphysema, complication of COVID 19 related pneumonia and mechanical ventilation, and expected outcome, stable #10 Hypotension , secondary to above, currently on pressors, currently on mi nimal doses of pressors, currently off pressors. Plan: Patient is currently on a pressure control mode of mechanical ventilation. Drop the PEEP down to 6 and the Doppler respiratory rate down to 22. Keep the FiO2 at 50%. Keep the pressure control at 15 cm of water Off paralytics Continue sedation with propofol Contemplated dialysis and this will be discussed with nephrology, the patient is currently undergoing hemodialysis Patient is currently off pressors IVF to KVO Monitor electrolytes and potassium level Continued IV heparin for now, monitor the hematuria which is limited this point in time in hemoglobin is stable Continue Decadron Doppler of the lower extremities showed a popliteal DVT on the right Echocardiogram was noted Stop the Baricitinib for now and continue with Decadron Enteral feeding for nutritional support Condition is extremely critical and the patient carries a very high mortality. We'll continue to follow. We'll keep the patient sedated and the patient and paralytic holiday critically care evaluation that was done and more than 30 minutes Time with Patient: Greater than 30
[2021-05-19] MEDS: PANTOPRAZOLE 40 MG/10 ML VIAL IVP SCH (10:12)
[2021-05-19] MEDS: CHLORHEXIDINE GLUCONATE 15 ML CUP MUCOUS MEM SCH ×2 (10:12→21:12)
[2021-05-19] MEDS: ZINC SULFATE 220 MG CAP PO SCH (10:13)
[2021-05-19] MEDS: ASCORBIC ACID 500 MG TAB PO SCH (10:13)
[2021-05-19] MEDS: CHOLECALCIFEROL 25 MCG (1000 IU) TABLET PO SCH (10:13)
[2021-05-19] MEDS: DEXAMETHASONE SOD PHOSPHATE 10 MG/ML 1 ML VIAL IVP SCH (10:13)
[2021-05-19] MEDS: CISATRACURIUM 200 MG in SODIUM CHLORIDE 0.9% 180 ML IV SCH (10:46)
[2021-05-19] MEDS: PIPERACILLIN-TAZOBACTAM 3.375 GM in SODIUM CHLORIDE 0.9% 100 ML IVPB SCH ×3 (10:47→20:08)
[2021-05-19 11:55] LABS: Glucose,Whole Blood 113 mg/dL (75-99)
--- NOTE | 2021-05-19 12:14 | P.PN ---
Subjective Progress Note Date: 05/19/21 Patient currently on FiO2 of 50% and PEEP of 6.0. He has some hematuria and is on heparin drip. His hemoglobin is stable. Patient is off pressors. He was started on IV Zosyn by pulmonology. Objective - Vital Signs Vital signs: Vital Signs Temp 99.1 F 05/19/21 12:00 Pulse 84 05/19/21 12:00 Resp 38 H 05/19/21 12:00 BP 93/64 05/18/21 21:00 Pulse Ox 88 L 05/19/21 12:00 Intake & Output 05/18/21 05/19/21 05/19/21 18:59 06:59 18:59 Intake Total 176.096 2245.863 444.424 Output Total 785 1885 400 Balance -13.898 -527.137 44.424 Weight 118.932 kg 118.1 kg Intake: IV 192 208 80 Sodium Chloride 0.45% 1, 120 130 50 000 ml @ 10 mls/hr IV . Q24H [facility]IR Rx#:[id number] pressure bag 72 78 30 Intake, IV Titration 105.102 851.863 224.424 Amount Heparin Sod,Pork in 0.45% 351.961 NaCl 25,000 unit In 0.45 % NaCl 1 250ml.bag @ 18 UNITS/KG/HR 18.37 mls/hr IV .[id number] [facility]IR Rx#: [id number] Norepinephrine 8 mg In 5.102 0 24.424 Sodium Chloride 0.9% 250 ml @ 0.05 MCG/KG/MIN 9. 874 mls/hr IV .Q24H [facility]IR Rx#:[id number] Piperacillin-Tazobactam 3 100 .375 gm In Sodium Chloride 0.9% 100 ml @ 25 mls/hr IVPB Q12HR [facility] Rx #:[id number] propofoL 1,000 mg In 100.000 499.902 100 Empty Bag 1 bag @ Titrate IV .Q0M DAMIR Rx#: [id number] Tube Feeding 384 208 80 Other 90 90 60 Output: Urine 785 885 400 Hemodialysis 1000 Other: Voiding Method Indwelling Catheter Indwelling Catheter ABP, PAP, CO, CI - Last Documented Arterial Blood Pressure 149/71 - Exam General examination - intubated and sedated Heart - + S1S2 no murmurs Lungs - diminished breath sounds Abdomen soft NT ND +ve BS Extremities - +2 pitting edema in bilateral lower extremities [employer] - unable to assess Psych - unable to assess - Labs CBC & Chem 7: 05/19/21 03:57 12 03:57 Labs: Abnormal Lab Results - Last 24 Hours (Table) 05/18/21 1205/18/21 Range/Units 16:05 16:05 16:05 WBC 15.4 H (3.8-10.6) k/uL RBC 3.64 L (4.30-5.90) m/uL Hgb 10.5 L (13.0-17.5) gm/dL Hct 32.1 L (39.0-53.0) % Neutrophils # 13.3 H (1.3-7.7) k/uL APTT 39.8 H (22.0-30.0) sec D-Dimer (<0.60) mg/L FEU ABG pH (7.35-7.45) ABG pCO2 (35-45) mmHg ABG pO2 (83-108) mmHg ABG HCO3 (21-25) mmol/L ABG Total CO2 (19-24) mmol/L ABG O2 Saturation (94-97) % Sodium (137-145) mmol/L BUN 87 H (9-20) mg/dL Creatinine 4.77 H (0.66-1.25) mg/dL Glucose 122 H (74-99) mg/dL POC Glucose (mg/dL) (75-99) mg/dL Calcium 7.6 L (8.4-10.2) mg/dL ALT (4-49) U/L Alkaline Phosphatase (38-126) U/L Lactate Dehydrogenase (313-618) U/L C-Reactive Protein (<1.0) mg/dL Total Protein (6.3-8.2) g/dL Albumin (3.5-5.0) g/dL 05/19/21 05/19/21 05/19/21 Range/Units 00:03 03:57 03:57 WBC 15.2 H (3.8-10.6) k/uL RBC 3.56 L (4.30-5.90) m/uL Hgb 10.4 L (13.0-17.5) gm/dL Hct 31.2 L (39.0-53.0) % Neutrophils # 13.1 H (1.3-7.7) k/uL APTT 38.0 H (22.0-30.0) sec D-Dimer 1.36 H (<0.60) mg/L FEU ABG pH (7.35-7.45) ABG pCO2 (35-45) mmHg ABG pO2 (83-108) mmHg ABG HCO3 (21-25) mmol/L ABG Total CO2 (19-24) mmol/L ABG O2 Saturation (94-97) % Sodium (137-145) mmol/L BUN (9-20) mg/dL Creatinine (0.66-1.25) mg/dL Glucose (74-99) mg/dL POC Glucose (mg/dL) 102 H (75-99) mg/dL Calcium (8.4-10.2) mg/dL ALT (4-49) U/L Alkaline Phosphatase (38-126) U/L Lactate Dehydrogenase (313-618) U/L C-Reactive Protein (<1.0) mg/dL Total Protein (6.3-8.2) g/dL Albumin (3.5-5.0) g/dL 05/19/21 05/19/21 05/19/21 Range/Units 03:57 05:17 11:54 WBC (3.8-10.6) k/uL RBC (4.30-5.90) m/uL Hgb (13.0-17.5) gm/dL Hct (39.0-53.0) % Neutrophils # (1.3-7.7) k/uL APTT (22.0-30.0) sec D-Dimer (<0.60) mg/L FEU ABG pH 7.53 H (7.35-7.45) ABG pCO2 31 L (35-45) mmHg ABG pO2 54 L* (83-108) mmHg ABG HCO3 26 H (21-25) mmol/L ABG Total CO2 27 H (19-24) mmol/L ABG O2 Saturation 90.7 L (94-97) % Sodium 134 L (137-145) mmol/L BUN 64 H (9-20) mg/dL Creatinine 3.25 H (0.66-1.25) mg/dL Glucose 112 H (74-99) mg/dL POC Glucose (mg/dL) 113 H (75-99) mg/dL Calcium 7.3 L (8.4-10.2) mg/dL ALT 94 H (4-49) U/L Alkaline Phosphatase 150 H (38-126) U/L Lactate Dehydrogenase 2005 H (313-618) U/L C-Reactive Protein 20.8 H (<1.0) mg/dL Total Protein 4.9 L (6.3-8.2) g/dL Albumin 2.3 L (3.5-5.0) g/dL Microbiology - Last 24 Hours (Table) 05/18/21 17:19 Sputum Culture - Preliminary Sputum 05/16/21 23:15 Gram Stain - Preliminary Sputum Sputum Culture - Preliminary Assessment and Plan Assessment: Acute hypoxemic respiratory failure ARDS secondary to Covid 19 Acute Pulmonary Embolism Right lower extremity DVT DENIA with hyperkalemia secondary to ATN -Admit inpatient, telemetry -[employer] following -Intubated on 05/14 -levophed, propofol, nimbex -resume dexamethasone -Outside of window for remdesivir -Vitamin C, D, zinc -Oxygen when necessary -Daily inflammatory markers -Baricitinib discontinued after 2 doses -inhaler PRN -heparin gtt -Deferred dialysis to nephrology -Patient empirically started on IV Zosyn by pulmonology Hematuria Hemoglobin is stable Resume anticoagulation Full Code
--- NOTE | 2021-05-19 12:20 | PN ---
PROGRESS NOTE Patient is seen for followup for acute kidney injury and hyperkalemia. He is currently on the vent. FiO2 is at 50%. Blood pressure 105/61, heart rate 90 per minute. Patient is maintained on small dose of pressors, which is actually currently off now. Case is discussed with nursing staff. The patient is not examined. LABS: Reviewed sodium 134, potassium 4.0, BUN 64, serum creatinine 3.25, hemoglobin 10.4 g/dL. ASSESSMENT: 1. Acute kidney injury, acute tubular necrosis, currently nonoliguric with fair urine output, currently maintained on dialysis. We will run him for a shorter period of time today and give him a break tomorrow since patient has had fair urine output. Repeat labs in a.m. and we will evaluate on a daily basis for need for renal replacement therapy. 2. Covid pneumonia, currently on the vent. 3. Acute hypoxic respiratory failure. FiO2 is at 50% on the vent. Patient is sedated. 4. Acute bilateral pulmonary embolism related to Covid pneumonia. 5. Pneumomediastinum and subcutaneous emphysema. PLAN: Decrease time on dialysis today. Repeat labs in a.m. We will monitor on a daily basis for need for renal replacement therapy. Continue to avoid nephrotoxic agents and monitor for recovery of renal function. MMODL / IJN: [id number] /
[2021-05-19] MEDS: HEPARIN SOD,PORK IN 0.45% NACL 25,000 UNIT in 0.45% NACL 1 250ML.BAG IV SCH (13:35)
[2021-05-19] MEDS: SODIUM CHLORIDE 0.45% 1,000 ML IV SCH (17:40)
[2021-05-19 18:07] LABS: Glucose,Whole Blood 126 mg/dL (75-99)
[2021-05-19] MEDS: NOREPINEPHRINE 8 MG in SODIUM CHLORIDE 0.9% 250 ML IV SCH (19:50)
[2021-05-19 23:45] LABS: Glucose,Whole Blood 117 mg/dL (75-99)
[2021-05-20] MEDS: HEPARIN SOD,PORK IN 0.45% NACL 25,000 UNIT in 0.45% NACL 1 250ML.BAG IV SCH ×2 (00:56→15:11)
[2021-05-20] MEDS: INSULIN ASPART (NovoLOG) 100 UNIT/ML VIAL SQ SCH ×4 (01:48→18:41)
[2021-05-20 05:56] LABS: Basophils % (A) 0 %; Eosinophils # (A) 0.2 k/uL (0-0.7); Eosinophils % (A) 1 %; HCT 26.9 % (39.0-53.0); HGB 9.2 gm/dL (13.0-17.5); Lymphocytes # (A) 0.7 k/uL (1.0-4.8); Lymphocytes % (A) 5 %; MCH 29.8 pg (25.0-35.0); MCHC 34.2 g/dL (31.0-37.0); MCV 87.3 fL (80.0-100.0); Mean Platelet Volume 9.7; Monocytes # (A) 0.5 k/uL (0-1.0); Monocytes % (A) 4 %; Neutrophils # (A) 12.1 k/uL (1.3-7.7); Neutrophils % (A) 89 %; Platelet Count 166 k/uL (150-450); RBC 3.09 m/uL (4.30-5.90); WBC 13.6 k/uL (3.8-10.6)
[2021-05-20 05:59] LABS: ABG Base Excess 2.5 mmol/L; ABG HCO3 27 mmol/L (21-25); ABG Oxygen Saturation 91.2 % (94-97); ABG PCO2 45 mmHg (35-45); ABG PO2 63 mmHg (83-108); ABG TCO2 29 mmol/L (19-24); Allen Test Performed? Yes
[2021-05-20 06:19] LABS: Glucose,Whole Blood 117 mg/dL (75-99)
--- NOTE | 2021-05-20 06:43 | XR ---
EXAMINATION TYPE: XR chest 1V portable DATE OF EXAM: 05/20/2021 COMPARISON: 05/19/2021 HISTORY: Shortness of breath TECHNIQUE: Single frontal view of the chest is obtained. FINDINGS: ET tube is 2.2 cm above the merrill. The NG tube within the stomach. The left sided PICC li ne is at the SVC/RA junction. There is diffuse dense opacification of the lung parenchyma bilaterally. There has been worsening in the degree of opacification within the right lung. The left lung is essentially unchanged. There is subcutaneous emphysema in the base of the neck bilaterally. There is no pneumothorax. The heart size is normal. IMPRESSION: Interval worsening in the diffuse airspace opacification particularly on the right.
[2021-05-20] MEDS: CHOLECALCIFEROL 25 MCG (1000 IU) TABLET PO SCH (08:11)
[2021-05-20] MEDS: PANTOPRAZOLE 40 MG/10 ML VIAL IVP SCH (08:11)
[2021-05-20] MEDS: CHLORHEXIDINE GLUCONATE 15 ML CUP MUCOUS MEM SCH ×2 (08:11→19:53)
[2021-05-20] MEDS: ASCORBIC ACID 500 MG TAB PO SCH (08:11)
[2021-05-20] MEDS: ZINC SULFATE 220 MG CAP PO SCH (08:11)
[2021-05-20] MEDS: DEXAMETHASONE SOD PHOSPHATE 10 MG/ML 1 ML VIAL IVP SCH (08:12)
[2021-05-20 08:20] LABS: C Reactive Protein 40.3 mg/dL (<1.0)
[2021-05-20 08:28] LABS: Potassium 5.4 mmol/L (3.5-5.1)
[2021-05-20 08:29] LABS: Albumin 2.3 g/dL (3.5-5.0); Calcium 8.3 mg/dL (8.4-10.2); Total Protein 5.1 g/dL (6.3-8.2)
[2021-05-20] MEDS: ALBUTEROL HFA INHALER INHALATION SCH ×4 (08:45→19:47)
[2021-05-20] MEDS ORDERED: FUROSEMIDE 10 MG/ML 10 ML VIAL IV STA (08:49)
--- NOTE | 2021-05-20 10:10 | P.PN ---
Subjective Progress Note Date: 05/20/21 51-year-old male who presents to the emergency department on May 12, with complaints of shortness of breath. The patient has been sick for at least 10-11 days. It started off with cough and shortness of breath, and loss of taste. He's also had fever. He has not been vaccinated. He was tested for coronavirus on May 07, and tested positive. The patient does not have a primary care physician. He has no past medical history. He takes no medications at home. The patient did receive monoclonal antibodies on May 09. Currently, the patient's on 5 L nasal cannula. He's got saline running at 75 mL an hour. He looks relatively stable. His chest x-ray does show diffuse bilateral infiltrates. The home medications that he is on include an albuterol inhaler, Tessalon Perles, and Decadron, given to him by the hospital. White count 5.1, hemoglobin 14.3, hematocrit 42.6, and platelet count 377,000. Sodium, potassium, chloride, CO2, anion gap, BUN, and creatinine are all normal. AST was 154, ALT 123, alkaline phosphatase 164. LDH was 2657. C-reactive protein is 14.9. Pro-calcitonin level is 0.14. Chest x-ray shows low lung volumes, with right greater than left bilateral opacities. The patient is seen today 05/13/2021 in follow-up on the regular medical floor. He is currently resting in bed. He is somewhat more dyspneic andtachypneic. His oxygen requirements have gone up to knees on 15 L high flow nasal cannula plus a nonrebreather mask. white count 6.8. Hemoglobin 13.5. Leukocytes 0.85. D-dimer up to 15.8. Sodium 143. Potassium 5.4. Creatinine 1.0. Glucose 123. AST 120. ALT 146. LDH 971. C-reactive protein 3.4. CT angiogram was requested after seeing the patient. There is evidence of bilateral lower lobe large multiple pulmonary emboli. No sign of right heart strain. Lovenox will be discontinued and he'll be initiated on a heparin drip On 05/14/2021 patient was emergently transferred to the intensive care unit for a concern of worsening hypoxia and dyspnea. Earlier in the shift he was on 15 L per high flow nasal cannula and 100% nonrebreather mask however his work of breathing had significantly increased his respiratory rate was ranging between 40-50 breaths per minute. His pulse ox was 87% and subsequently dropped down to 73%%. He was placed on BiPAP support with no improvement in his work of breathing or hypoxia, was intubated per [employer], currently on assist-control mode of ventilation with a rate of 36 tidal volume is 350, FiO2 100% and PEEP of 24. he was given Nimbex IV pushes and propofol for sedation during intubation, he will be placed on Diprivan drip and Nimbex. Currently his pulse ox is 81% on the above-mentioned vent settings. His blood pressure 121/71, he is in sinus mechanism tachycardic with a rate of 110-120 BPM. Patient was found to have bilateral pulmonary emboli on yesterday's CT angiogram of the chest, he was started on heparin infusion on which she remains per weight-based protocol, his maintenance IV fluids are 0.9 normal saline at a rate of 75 ML per hour, CT angiogram lung windows showed extensive bilateral pneumonia. Chest x-ray post intubation and left subclavian central line placement is pending. This morning's labs have been reviewed, white blood cell count is 11.9, hemoglobin is 14.5, today's d-dimer is 18.26 slightly increased from yesterday's value, sodium is 141, potassium is 5.2, chloride is 111, CO2 is 23, BUN was 20 creatinine 0.96, his LDH today has significantly increased and is up to 3109, from 971 on yesterday's labs, and CRP is stable at 3.4. His pro calcitonin level on 05/12/2021 was at 0.14. Patient was started on Baricitinib yesterday on 05/13/2021, in addition to Decadron 6 mg daily. Patient is on vitamin C, zinc, and vitamin D will be added. 05/15/2021, the patient is being seen in a follow-up visit intensive care unit. This is a very critically ill male patient status post definitive pneumonia with secondary respiratory failure/ARDS. The patient also had developed pulmonary embolism on 05/13/2021 which confirmed the pulmonary embolism on a CT angiogram. Note that the patient had extensive interstitial and airspace disease and infiltrates bilaterally in addition to that the patient had bilateral lower lobe large pulmonary emboli. Subsequently, echocardiogram was done yesterday post intubation the patient also showed evidence of significant pulmonary hypertension, paradoxic motion of the right ventricle and obvious signs of right ventricular overload with elevation of the right ventricular end- diastolic pressure. The RV was moderately enlarged. The left ventricular ejection fraction has been within normal limits. Based on all this and based on ongoing respiratory failure, the patient had to be intubated and placed on a mechanical ventilator. Post intubation, the patient was placed on accommodation of sedation and paralysis. Currently, the patient is on propofol which is running at 30 mcg/kg per minute. The patient is also on Nimbex running at 1 mcg/kg per minute. The patient is on a mechanical ventilator and currently is on a assist-control mode at the rate of 36 with a tidal volume of 350 and FiO2 of 70% with a PEEP of 24. Peak airway pressure is 38. Static pressures 36. Blood gases from today showed a pH of 7.07 with a pCO2 of 77 and pO2 of 172. This was done and FiO2 of 70%. The chest x-ray from today has shown evidence of pneumomediastinum and the patient has also developed subcutaneous emphysema bilaterally mainly in the supraclavicular area and upper chest area. On clinical examination, this is also confirmed. Meanwhile, the patient also has dropped his blood pressure and currently is on norepinephrine infusion for blood pressure support currently running at 0.14 mcg/kg per minute. At the same time, the patient has also dropped his urine output and recently/over the past few hours, his urine output is dropped down to 10-20 mL an hour. His potassium is currently high in the morning blood labs and his potassium is up to 7.5 and the patient has a developed an acute kidney injury with a BUN of 38 and a creatinine of 3.3. No acute EKG changes based on his underlying hypokalemia and this will be treated as soon as possible. In terms of his COVID 19 related pneumonia, the patient is on a combination of Baricitinib and Decadron. The d-dimer is down to 2.7. The patient has a LDH which is up to 4428 and a CRP level is at 8.9. His liver enzymes are also on the rise. AST is up to 417, ALT is up to 417, 05/16/2021, the patient is being seen for a follow-up. The patient remains sedated and paralyzed. The patient is currently on propofol running at 30 mcg/kg per minute and index is running at 1 mcg/kg per minute. He is adequately sedated and paralyzed for now. He remains on a mechanical ventilator. There was considerable improvement in the blood gases yesterday and following that the appropriate ventilator changes was done. For now, the patient is an assist-co ntrol mode at the rate of 36 with a tidal volume of 350 and FiO2 is currently down to 50% and a PEEP was down to the 18. The blood gases from today showed a pH of 7.37 with a pCO2 of 58 and pO2 of 59. Peak airway pressure was 36. Noted as the patient was having hemodialysis this morning, I noted the saturation is up to 98%. I dropped the PEEP down further to 16. His current peak airway pressures around 31. The chest x-ray from today still showing diffuse bilateral pulmonary infiltrates, unchanged compared to yesterday and orotracheal tube is in a good location. The patient remains on Decadron. The patient's d-dimer is at 1.53 and the rest of the prevent markers in terms of his COVID 19 infection shows an elevation of was that was as high as 4428 and the CRP was 8.9. Follow- up levels need to be obtained in terms of his inflammatory markers. Another issue was development of an acute kidney injury. The patient developed severe metabolic acidosis and acute hyperkalemia. He required immediate and urgent dialysis. Dialysis cath was inserted yesterday. Postdialysis, his potassium level improved and her most recent level is currently down to 4.7 from this morning. He is having another session of hemodialysis today with a goal of ultrafiltration of 0 mL. The patient has a serum bicarb level of 30. He is on pressors. He is currently on norepinephrine running at 0.03 mcg/kg per minute. Urine output is adequate, more than 50 mL an hour. His white cell count is at 10.1, improved compared to yesterday with a hemoglobin of 10.6 compared to yesterday. Platelet counts are dropped also down to 196. The patient remains on IV heparin regarding his bilateral pulmonary embolism. Doppler of the lower extremity also showed a DVT in the right popliteal vein. Vascular surgeries on the case. Not found to be a good candidate for EKOS 2020, patient is being seen for a follow-up. This morning, sedated on propofol at 30 mcg/kg per minute and he is also paralyzed with Nimbex at 1 mcg/kg per minute. While on a mechanical ventilator, he remains an assist-control mode at the rate of 36 with a tidal volume of 350, FiO2 is down to 50% and the PEEP is currently at 16 The pH is at 7.31 with a pCO2 of 60 and pO2 of 96. The chest x-ray from today shows adequate positioning of the ET tube. Patient has lower lobe pulmonary infiltrates more so on the right and is also involving the right upper lobe and right middle lobe. Continues to have evidence of subcutaneous emphysema in the neck area. ET tube is in a good location. His peak airway pressure currently is at 30. Based on all this, I dropped the PEEP down to 14 and his saturations remained around 98%. He is on no pressors for now. He underwent hemodialysis yesterday successfully and his electrolytes have improved. Crohn's creatinine is at 3.9 with a mean of 50 to. Potassium level is at 4.7. The patient is producing urine output in the order of 50 mL an hour. He remains on IV heparin. No plans to undergo dialysis today. Terms of his COVID 19 related pneumonia, the patient remains on Decadron. LDH level is currently down to 1966 and the CRP level is currently at 5.2. LFTs were also elevated and there also improving for now. The patient is receiving enteral feeding for nutritional support. He is afebrile. He continues to be on IV heparin regarding bilateral pulmonary embolism and a right lower extremity popliteal DVT. Nephrology is on the case. Condition remains critical although the patient is doing good progress. He continues to be on enteral feeding for nutritional support. He is currently on vital AF at the rate of 40 mL an hour. He is also on IV fluids with 0.45 normal saline at the rate of 75 mL an hour. 05/18/2021, the patient is being seen for a follow-up. He remains on a mechanical ventilator. Is a young 51-year-old male patient with COVID 19 related pneumonia bilateral pulmonary embolism went up on a mechanical ventilator. The patient currently is on propofol which is running at 75 g and the patient is currently off Nimbex. The paralytic was discontinued yesterday successfully. He is on a low tidal volume ventilation. The patient is double stacking and the blood gases from today showed improvement in her oxygenation. Earlier this morning, the patient was an assist-control mode at the rate of 36 with a tidal volume of 350 and FiO2 of 50% with a PEEP of 10. The blood pressure with a pH of 7.42 with a pCO2 of 43 and pO2 of 113. Based on this, drop the FiO2 down to 40%, I dropped down the PEEP down to 8. I also dropped a respiratory rate down to 28. His current peak airway pressure is around 19 PA chest x-ray still showing diffuse bilateral pulmonary infiltrates most on the right. The patient has subcutaneous emphysema. The patient has adequate positioning of the ET tube. Hemodynamically stable on no pressors. White cell cause of 14.3. He remains on IV heparin. He has developed some limited hematuria that's being monitored. Hemoglobin is stable at 10.4. The patient is undergoing hemodialysis today less session of hemodialysis was 2 days ago. He did not receive hemodialysis yesterday. His urine output is in order of 50. An hour and the creatinine today is at 4.7 which is higher compared to yesterday and the potassium level is at 4.6. I am considering another session of hemodialysis that this will be further discussed with nephrology. Meanwhile, his LDH continues to improve and it's down to 1449 and the CRP level is down to 6.7. He does have mild transaminitis was also improving. His d-dimer is at 0.9. He is on IV fluids and the patient is currently on KVO half-normal saline. The patient is receiving enteral feeding for nutritional support and the patient is on vital AF at the rate of 40 mL an hour. He is able to tolerate his enteral feeding for nutritional support. Patient is afebrile. A sedation holiday will be given to him today. 05/19/2021, the patient remains on a mechanical ventilator and today's being seen for a follow-up. He is currently on propofol running at 75 mg/kg per minute and the patient is currently off paralytics. Has been off paralytics for the past 48 hours. He remains on a mechanical ventilator. On today's evaluation, he is on assist-control pressure control mode of mechanical ventilation. I switched him to a pressure control yesterday as the patient was quite asynchronous a mechanical ventilator and he was double stacking. While a pressure control, he is on a pressure control of 15, PEEP of 8, FiO2 of 50% with a rate of 28. His blood gases from today showing a pH of 7.53 with a pCO2 of 31 and a pO2 of 54. The chest x-ray from today is showing no significant interval change in the patient's ET tube is in a good location. The patient is producing urine output in the order of 30 to 40s's an hour. His urine output is bloody and the patient remains on IV heparin. He is having some mild hematuria. Nevertheless, I have opted to continued IV heparin based on his history of DVT and pulmonary embolism related to COVID 19 infection. As such, the patient remains on IV heparin. He is PTT is subtherapeutic and PTT is being adjusted. He remains on norepinephrine infusion running at 0.02 mcg/kg per minute. He is on half-normal saline at KVO. His d-dimer today's is 1.36, LDH level is 2000 and CRP is 20.8. His white cell cause of 15.2 with a hemoglobin of 10.4 and platelet count of 204. His sodium is 134, BUN is at 64 with a creatinine of 3 .2. The patient is currently undergoing hemodialysis. His last hemodialysis session was yesterday. He is also receiving enteral feeding for nutritional support and the patient is on vital AF. 05/20/2021, the patient continues to be intubated on a mechanical ventilator. The patient is off paralytics and the patient is still sedated with propofol at the rate of 75 mcg/kg per minute. Note that this patient did not require dialysis for the past 72 hours. He remains on a mechanical ventilator. Chest x-ray from today showing worsening in the bilateral pulmonary infiltrates most on the right. ET tube is about 2 cm above the merrill. Currently is on pressure control of 15 with a PEEP of 7, FiO2 is currently at 50% with a rate of 22. The blood gases showing a pH of 7.4 with a pCO2 of 45 and a pO2 of 63 and the respiratory secretions are scant. In terms of his COVID 19 pneumonia, infla mmatory markers continue to be quite elevated. His LDH level is currently at 2393 and a CRP level is at 40.3. The patient is known to have bilateral pulmonary embolism. D-dimer was elevated and was progressively improving. The patient remains on IV heparin and PTT is therapeutic at 51. No bleeding complications. His hemoglobin has remained stable at 9.2. The patient has been off pressors. He was requiring a low dose norepinephrine infusion yesterday during dialysis and this was discontinued. His last bout of dialysis was yesterday and the urine output is currently in the order of 50-60 mL an hour. In terms of his renal function, the patient's creatinine is at 67 with a creatinine of 4 and his sodium is at 140. Potassium level is at 5.4. The plan for today is no dialysis. The fundus on the case. He continues to receive enteral feeding for nutritional support. Currently is on vitamin AF running at the rate of 16 mL an hour. Otherwise, no other significant issues overnight. He is still maintained on Decadron 6 mg IV every 24 hours. He is also on multivitamins. He is covered empirically with IV Zosyn. Objective - Vital Signs Vital signs: Vital Signs Temp 98.3 F 05/20/21 08:00 Pulse 80 05/20/21 09:00 Resp 31 H 05/20/21 09:00 BP 93/64 05/20/21 07:00 Pulse Ox 94 L 05/20/21 09:00 Intake & Output 05/19/21 05/20/21 05/20/21 18:59 06:59 18:59 Intake Total 039.091 3688.334 362.63 Output Total 1750 510 275 Balance -770.979 785.334 87.63 Weight 118.569 kg Intake: IV 176 228 99 Sodium Chloride 0.45% 1, 110 180 90 000 ml @ 10 mls/hr IV . Q24H [facility] Rx#:[id number] pressure bag 66 48 9 Intake, IV Titration 537.021 785.334 185.63 Amount Heparin Sod,Pork in 0.45% 112.597 185.334 NaCl 25,000 unit In 0.45 % NaCl 1 250ml.bag @ 18 UNITS/KG/HR 18.37 mls/hr IV .[id number] [facility]IR Rx#: [id number] Norepinephrine 8 mg In 24.424 Sodium Chloride 0.9% 250 ml @ 0.05 MCG/KG/MIN 9. 874 mls/hr IV .Q24H [facility]IR Rx#:[id number] Piperacillin-Tazobactam 3 100 .375 gm In Sodium Chloride 0.9% 100 ml @ 25 mls/hr IVPB Q12HR [facility] Rx #:[id number] propofoL 1,000 mg In 300 600 185.63 Empty Bag 1 bag @ Titrate IV .Q0M [facility] Rx#: [id number] Tube Feeding 176 192 48 Other 90 90 30 Output: Urine 750 510 275 Hemodialysis 1000 Other: Voiding Method Indwelling Catheter Indwelling Catheter ABP, PAP, CO, CI - Last Documented Arterial Blood Pressure 115/73 - Exam GENERAL EXAM: Today, intubated and paralyzed 51-year-old white male, on assist- control mode of ventilation, PC mode with FiO2 of 50% and PEEP of 8, comfortable in no apparent distress. HEAD: Normocephalic/atraumatic. EYES: Normal reaction of pupils, equal size. Conjunctiva pink, sclera white. NOSE: Clear with pink turbinates. THROAT: No erythema or exudates. NECK: No masses, no JVD, no thyroid enlargement, no adenopathy. CHEST: No chest wall deformity. Symmetrical expansion. Left subclavian central line in place covered with a sterile dressing and the patient has evidence of subcutaneous emphysema in the upper chest area. LUNGS: Equal air entry with no crackles, wheeze, rhonchi or dullness. CVS: Regular rate and rhythm, normal S1 and S2, no gallops, no murmurs, no rubs ABDOMEN: Soft, nontender. No hepatosplenomegaly, normal bowel sounds, no guarding or rigidity. EXTREMITIES: No clubbing, no edema, no cyanosis, 2+ pulses and upper and lower extremities. MUSCULOSKELETAL: Muscle strength and tone normal. SPINE: No scoliosis or deformity SKIN: No rashes CENTRAL NERVOUS SYSTEM: Sedated and paralyzed No focal deficits, tone is normal in all 4 extremities. - Labs CBC & Chem 7: 05/20/21 05:25 05/20/21 05:25 Labs: Abnormal Lab Results - Last 24 Hours (Table) 05/19/21 05/19/21 05/19/21 Range/Units 11:54 12:07 18:06 WBC (3.8-10.6) k/uL RBC (4.30-5.90) m/uL Hgb (13.0-17.5) gm/dL Hct (39.0-53.0) % Neutrophils # (1.3-7.7) k/uL Lymphocytes # (1.0-4.8) k/uL APTT 46.4 H (22.0-30.0) sec D-Dimer (<0.60) mg/L FEU ABG pO2 (83-108) mmHg ABG HCO3 (21-25) mmol/L ABG Total CO2 (19-24) mmol/L ABG O2 Saturation (94-97) % Potassium (3.5-5.1) mmol/L BUN (9-20) mg/dL Creatinine (0.66-1.25) mg/dL Glucose (74-99) mg/dL POC Glucose (mg/dL) 113 H 126 H (75-99) mg/dL Calcium (8.4-10.2) mg/dL ALT (4-49) U/L Alkaline Phosphatase (38-126) U/L Lactate Dehydrogenase (313-618) U/L C-Reactive Protein (<1.0) mg/dL Total Protein (6.3-8.2) g/dL Albumin (3.5-5.0) g/dL 05/19/21 05/20/21 05/20/21 Range/Units 23:41 05:25 05:25 WBC 13.6 H (3.8-10.6) k/uL RBC 3.09 L (4.30-5.90) m/uL Hgb 9.2 L (13.0-17.5) gm/dL Hct 26.9 L (39.0-53.0) % Neutrophils # 12.1 H (1.3-7.7) k/uL Lymphocytes # 0.7 L (1.0-4.8) k/uL APTT (22.0-30.0) sec D-Dimer 1.73 H (<0.60) mg/L FEU ABG pO2 (83-108) mmHg ABG HCO3 (21-25) mmol/L ABG Total CO2 (19-24) mmol/L ABG O2 Saturation (94-97) % Potassium (3.5-5.1) mmol/L BUN (9-20) mg/dL Creatinine (0.66-1.25) mg/dL Glucose (74-99) mg/dL POC Glucose (mg/dL) 117 H (75-99) mg/dL Calcium (8.4-10.2) mg/dL ALT (4-49) U/L Alkaline Phosphatase (38-126) U/L Lactate Dehydrogenase (313-618) U/L C-Reactive Protein (<1.0) mg/dL Total Protein (6.3-8.2) g/dL Albumin (3.5-5.0) g/dL 05/20/21 05/20/21 05/20/21 Range/Units 05:25 05:25 05:55 WBC (3.8-10.6) k/uL RBC (4.30-5.90) m/uL Hgb (13.0-17.5) gm/dL Hct (39.0-53.0) % Neutrophils # (1.3-7.7) k/uL Lymphocytes # (1.0-4.8) k/uL APTT 51.2 H (22.0-30.0) sec D-Dimer (<0.60) mg/L FEU ABG pO2 63 L (83-108) mmHg ABG HCO3 27 H (21-25) mmol/L ABG Total CO2 29 H (19-24) mmol/L ABG O2 Saturation 91.2 L (94-97) % Potassium 5.4 H (3.5-5.1) mmol/L BUN 67 H (9-20) mg/dL Creatinine 4.00 H (0.66-1.25) mg/dL Glucose 130 H (74-99) mg/dL POC Glucose (mg/dL) (75-99) mg/dL Calcium 8.3 L (8.4-10.2) mg/dL ALT 81 H (4-49) U/L Alkaline Phosphatase 146 H (38-126) U/L Lactate Dehydrogenase 2393 H (313-618) U/L C-Reactive Protein 40.3 H (<1.0) mg/dL Total Protein 5.1 L (6.3-8.2) g/dL Albumin 2.3 L (3.5-5.0) g/dL 05/20/21 Range/Units 06:18 WBC (3.8-10.6) k/uL RBC (4.30-5.90) m/uL Hgb (13.0-17.5) gm/dL Hct (39.0-53.0) % Neutrophils # (1.3-7.7) k/uL Lymphocytes # (1.0-4.8) k/uL APTT (22.0-30.0) sec D-Dimer (<0.60) mg/L FEU ABG pO2 (83-108) mmHg ABG HCO3 (21-25) mmol/L ABG Total CO2 (19-24) mmol/L ABG O2 Saturation (94-97) % Potassium (3.5-5.1) mmol/L BUN (9-20) mg/dL Creatinine (0.66-1.25) mg/dL Glucose (74-99) mg/dL POC Glucose (mg/dL) 117 H (75-99) mg/dL Calcium (8.4-10.2) mg/dL ALT (4-49) U/L Alkaline Phosphatase (38-126) U/L Lactate Dehydrogenase (313-618) U/L C-Reactive Protein (<1.0) mg/dL Total Protein (6.3-8.2) g/dL Albumin (3.5-5.0) g/dL Microbiology - Last 24 Hours (Table) 05/18/21 17:19 Gram Stain - Preliminary Sputum Sputum Culture - Preliminary Assessment and Plan Plan: #1. acute hypoxic respiratory failure related to COVID-19 pneumonia, admitted to the hospital on 05/12/2021 with 10-11 day history of COVID-19 symptoms. Patient is a non-vaccinated individual, he was outside the window for Remdesivir, was started on Baricitinib on 05/13/2021. Transfered to the intensive care unit on 05/14/2021 and intubated . The patient's course was Again by worsening of hypoxemia, ARDS, bilateral pulmonary embolism involving lower lobe pulmonary artery branches and all of those of complication of COVID 19 related pneumonia. COVID 19 related pneumonia. The patient is currently intubated on a mechanical ventilator. He remains on IV heparin. The patient's is currently on pressure control mode of mechanical ventilation is quite synchronous a mechanical ventilator. Chest x-ray still showing diffuse bilateral pulmonary infiltrates consistent with COVID 19 related pneumonia. The patient has developed some mild hematuria and we have elected to continue with the IV heparin. Reviewed the chest x-ray and realized the patient's infiltrates of getting slightly worse. Nevertheless, this is not reflected on his oxygenation. For now, we are continuing the same ventilator setting with a pr essure control mode of mechanical ventilation. The patient is on sedation with propofol. No paralytics for now. #2. Acute bilateral pulmonary emboli likely related to COVID-19 pneumonia, seen on a CT angiogram of the chest on 05/13/2021, started on heparin infusion. No CT evidence of heart strain, will obtain echocardiogram, and the patient will be kept on IV heparin for now. The patient also has a popliteal DVT on the right. #3. Elevated inflammatory markers, levels are still elevated #4. Elevated d-dimer related to acute pulmonary emboli, level is improving #5. Elevated LFTs related to viral pneumonia #6 acute kidney injury, likely COVID 19-induced ATN, the patient is currently undergoing hemodialysis on a daily basis #7 acute hyperkalemia, potassium level is normalized #8 permissive hypercapnia with secondary respiratory acidosis, improved #9 Pneumediastinum and bilateral subcutaneous emphysema, complication of COVID 19 related pneumonia and mechanical ventilation, and expected outcome, stable #10 Hypotension , secondary to above, currently off pressors. Sepsis was contemplated. The patient was covered with IV Zosyn. Cultures are all negative for now. Plan: Patient is currently on a pressure control mode of mechanical ventilation. The PEEP down to 6 and the Doppler respiratory rate down to 22. Keep the FiO2 at 50%. Keep the pressure control at 15 cm of water Off paralytics Continue sedation with propofol NO dialysis today Patient is currently off pressors IVF to KVO Monitor electrolytes and potassium level Continued IV heparin for now, monitor the hematuria which is limited this point in time in hemoglobin is stable Continue Decadron Doppler of the lower extremities showed a popliteal DVT on the right Echocardiogram was noted Stop the Baricitinib for now and continue with Decadron Enteral feeding for nutritional support Give the patient is sedation holiday and sepsis his mentation and if possible check his weaning parameters. Note that his oxygenation is stable and the patient is only on a PEEP of 6 with an FiO2 of 50%. Condition is extremely critical and the patient carries a very high mortality. We'll continue to follow. We'll keep the patient sedated and the patient and paralytic holiday critically care evaluation that was done and more than 30 minutes Time with Patient: Greater than 30
--- NOTE | 2021-05-20 10:47 | P.PN ---
Subjective Progress Note Date: 05/20/21 Patient currently on FiO2 of 50% and PEEP of 6. He is on heparin drip. His WBC is trending down. I discussed with inspector crystal. Plan is for sedation holiday today. Objective - Vital Signs Vital signs: Vital Signs Temp 98.3 F 05/20/21 08:00 Pulse 81 05/20/21 10:00 Resp 27 H 05/20/21 10:00 BP 93/64 05/20/21 07:00 Pulse Ox 96 05/20/21 10:00 Intake & Output 05/19/21 05/20/21 05/20/21 18:59 06:59 18:59 Intake Total 397.008 7131.334 391.63 Output Total 1750 510 350 Balance -770.979 785.334 41.63 Weight 118.569 kg Intake: IV 176 228 112 Sodium Chloride 0.45% 1, 110 180 100 000 ml @ 10 mls/hr IV . Q24H [facility] Rx#:[id number] pressure bag 66 48 12 Intake, IV Titration 537.021 785.334 185.63 Amount Heparin Sod,Pork in 0.45% 112.597 185.334 NaCl 25,000 unit In 0.45 % NaCl 1 250ml.bag @ 18 UNITS/KG/HR 18.37 mls/hr IV .[id number] [facility] Rx#: [id number] Norepinephrine 8 mg In 24.424 Sodium Chloride 0.9% 250 ml @ 0.05 MCG/KG/MIN 9. 874 mls/hr IV .Q24H [facility] Rx#:[id number] Piperacillin-Tazobactam 3 100 .375 gm In Sodium Chloride 0.9% 100 ml @ 25 mls/hr IVPB Q12HR [facility] Rx #:[id number] propofoL 1,000 mg In 300 600 185.63 Empty Bag 1 bag @ Titrate IV .Q0M [facility] Rx#: [id number] Tube Feeding 176 192 64 Other 90 90 30 Output: Urine 750 510 350 Hemodialysis 1000 Other: Voiding Method Indwelling Catheter Indwelling Catheter ABP, PAP, CO, CI - Last Documented Arterial Blood Pressure 111/70 - Exam General examination - intubated and sedated Heart - + S1S2 no murmurs Lungs - diminished breath sounds Abdomen soft NT ND +ve BS Extremities - +2 pitting edema in bilateral lower extremities COOK PIE - unable to assess Psych - unable to assess - Labs CBC & Chem 7: 05/20/21 05:25 05/20/21 05:25 Labs: Abnormal Lab Results - Last 24 Hours (Table) 05/19/21 05/19/21 05/19/21 Range/Units 11:54 12:07 18:06 WBC (3.8-10.6) k/uL RBC (4.30-5.90) m/uL Hgb (13.0-17.5) gm/dL Hct (39.0-53.0) % Neutrophils # (1.3-7.7) k/uL Lymphocytes # (1.0-4.8) k/uL APTT 46.4 H (22.0-30.0) sec D-Dimer (<0.60) mg/L FEU ABG pO2 (83-108) mmHg ABG HCO3 (21-25) mmol/L ABG Total CO2 (19-24) mmol/L ABG O2 Saturation (94-97) % Potassium (3.5-5.1) mmol/L BUN (9-20) mg/dL Creatinine (0.66-1.25) mg/dL Glucose (74-99) mg/dL POC Glucose (mg/dL) 113 H 126 H (75-99) mg/dL Calcium (8.4-10.2) mg/dL ALT (4-49) U/L Alkaline Phosphatase (38-126) U/L Lactate Dehydrogenase (313-618) U/L C-Reactive Protein (<1.0) mg/dL Total Protein (6.3-8.2) g/dL Albumin (3.5-5.0) g/dL 05/19/21 05/20/21 05/20/21 Range/Units 23:41 05:25 05:25 WBC 13.6 H (3.8-10.6) k/uL RBC 3.09 L (4.30-5.90) m/uL Hgb 9.2 L (13.0-17.5) gm/dL Hct 26.9 L (39.0-53.0) % Neutrophils # 12.1 H (1.3-7.7) k/uL Lymphocytes # 0.7 L (1.0-4.8) k/uL APTT (22.0-30.0) sec D-Dimer 1.73 H (<0.60) mg/L FEU ABG pO2 (83-108) mmHg ABG HCO3 (21-25) mmol/L ABG Total CO2 (19-24) mmol/L ABG O2 Saturation (94-97) % Potassium (3.5-5.1) mmol/L BUN (9-20) mg/dL Creatinine (0.66-1.25) mg/dL Glucose (74-99) mg/dL POC Glucose (mg/dL) 117 H (75-99) mg/dL Calcium (8.4-10.2) mg/dL ALT (4-49) U/L Alkaline Phosphatase (38-126) U/L Lactate Dehydrogenase (313-618) U/L C-Reactive Protein (<1.0) mg/dL Total Protein (6.3-8.2) g/dL Albumin (3.5-5.0) g/dL 05/20/21 05/20/21 05/20/21 Range/Units 05:25 05:25 05:55 WBC (3.8-10.6) k/uL RBC (4.30-5.90) m/uL Hgb (13.0-17.5) gm/dL Hct (39.0-53.0) % Neutrophils # (1.3-7.7) k/uL Lymphocytes # (1.0-4.8) k/uL APTT 51.2 H (22.0-30.0) sec D-Dimer (<0.60) mg/L FEU ABG pO2 63 L (83-108) mmHg ABG HCO3 27 H (21-25) mmol/L ABG Total CO2 29 H (19-24) mmol/L ABG O2 Saturation 91.2 L (94-97) % Potassium 5.4 H (3.5-5.1) mmol/L BUN 67 H (9-20) mg/dL Creatinine 4.00 H (0.66-1.25) mg/dL Glucose 130 H (74-99) mg/dL POC Glucose (mg/dL) (75-99) mg/dL Calcium 8.3 L (8.4-10.2) mg/dL ALT 81 H (4-49) U/L Alkaline Phosphatase 146 H (38-126) U/L Lactate Dehydrogenase 2393 H (313-618) U/L C-Reactive Protein 40.3 H (<1.0) mg/dL Total Protein 5.1 L (6.3-8.2) g/dL Albumin 2.3 L (3.5-5.0) g/dL 05/20/21 Range/Units 06:18 WBC (3.8-10.6) k/uL RBC (4.30-5.90) m/uL Hgb (13.0-17.5) gm/dL Hct (39.0-53.0) % Neutrophils # (1.3-7.7) k/uL Lymphocytes # (1.0-4.8) k/uL APTT (22.0-30.0) sec D-Dimer (<0.60) mg/L FEU ABG pO2 (83-108) mmHg ABG HCO3 (21-25) mmol/L ABG Total CO2 (19-24) mmol/L ABG O2 Saturation (94-97) % Potassium (3.5-5.1) mmol/L BUN (9-20) mg/dL Creatinine (0.66-1.25) mg/dL Glucose (74-99) mg/dL POC Glucose (mg/dL) 117 H (75-99) mg/dL Calcium (8.4-10.2) mg/dL ALT (4-49) U/L Alkaline Phosphatase (38-126) U/L Lactate Dehydrogenase (313-618) U/L C-Reactive Protein (<1.0) mg/dL Total Protein (6.3-8.2) g/dL Albumin (3.5-5.0) g/dL Microbiology - Last 24 Hours (Table) 05/18/21 17:19 Gram Stain - Preliminary Sputum Sputum Culture - Preliminary Assessment and Plan Assessment: Acute hypoxemic respiratory failure ARDS secondary to Covid 19 Acute Pulmonary Embolism Right lower extremity DVT DENIA with hyperkalemia secondary to ATN -Admit inpatient, telemetry -Adult Educator following -Intubated on 05/14 -levophed, propofol, nimbex -resume dexamethasone -Outside of window for remdesivir -Vitamin C, D, zinc -Oxygen when necessary -Daily inflammatory markers -Baricitinib discontinued after 2 doses -inhaler PRN -heparin gtt -Deferred dialysis to nephrology -Patient empirically started on IV Zosyn by pulmonology Hematuria Hemoglobin is stable Resume anticoagulation Full Code
--- NOTE | 2021-05-20 11:41 | PN ---
PROGRESS NOTE Patient is seen for followup for acute kidney injury. He has underlying COVID pneumonia and acute kidney injury. Patient is actually nonoliguric. He had severe hyperkalemia. That was the main reason for initiation of dialysis, and the serum creatinine had rapidly increased from 0.9 to 3 and then 4.0 mg/dL. Patient was started on dialysis on 05/15, which was his first treatment. He did not have a treatment after that until 05/18, since his urine output had picked up. However, serum creatinine started to climb again along with potassium, and therefore patient had a treatment yesterday. So far he has had four treatments with UF of about one liter yesterday. Patient remains on the vent. FiO2 is at 50%. He has significant volume overload and has been in positive balance. He is currently off of Levophed and maintaining good blood pressures. IV fluids have been discontinued. On examination today, vital signs are reviewed. Blood pressure 115/73, heart rate 80 per minute. Patient is afebrile. Case is discussed with nursing staff. Patient has significant edema. He remains on the vent. FiO2 is at 50%. Labs are reviewed. Sodium 140, potassium 5.4, chloride 107, BUN 67, serum creatinine 4.0, hemoglobin 9. . ASSESSMENT: 1. Acute kidney injury, acute tubular necrosis, associated with hypotension, underlying COVID pneumonia, status post four treatments of dialysis, currently with volume overload as well. Patient will be dialyzed again tomorrow. In the meantime, I will add IV Lasix, since he has decent urine output and his potassium is mildly elevated at 5.4 today. 2. Volume overload. Start Lasix and increase UF as tolerated with hemodialysis tomorrow. 3. Acute hypoxic respiratory failure, currently on the vent. 4. COVID pneumonia, maintained on treatment. 5. Acute bilateral pulmonary embolism related to COVID pneumonia. 6. Pneumomediastinum and subcutaneous emphysema. PLAN: Hemodialysis in a.m. Start IV Lasix. MMODL / IJN: [id number] /
[2021-05-20 13:44] LABS: Glucose,Whole Blood 150 mg/dL (75-99)
[2021-05-20] MEDS: NOREPINEPHRINE 8 MG in SODIUM CHLORIDE 0.9% 250 ML IV SCH (13:45)
[2021-05-20] MEDS: SODIUM CHLORIDE 0.45% 1,000 ML IV SCH (16:53)
[2021-05-20 18:37] LABS: Glucose,Whole Blood 132 mg/dL (75-99)
[2021-05-20] MEDS: PIPERACILLIN-TAZOBACTAM 3.375 GM in SODIUM CHLORIDE 0.9% 100 ML IVPB SCH (19:54)
[2021-05-20] MEDS: FUROSEMIDE 10 MG/ML 10 ML VIAL IV SCH (19:54)
[2021-05-20 23:54] LABS: Glucose,Whole Blood 121 mg/dL (75-99)
[2021-05-21] MEDS: INSULIN ASPART (NovoLOG) 100 UNIT/ML VIAL SQ SCH ×5 (02:34→23:04)
[2021-05-21 04:15] LABS: Basophils % (A) 0 %; Eosinophils # (A) 0.2 k/uL (0-0.7); Eosinophils % (A) 1 %; HCT 27.1 % (39.0-53.0); HGB 9.3 gm/dL (13.0-17.5); Lymphocytes # (A) 0.6 k/uL (1.0-4.8); Lymphocytes % (A) 4 %; MCH 29.5 pg (25.0-35.0); MCHC 34.3 g/dL (31.0-37.0); MCV 86.1 fL (80.0-100.0); Mean Platelet Volume 10.6; Monocytes # (A) 0.8 k/uL (0-1.0); Monocytes % (A) 5 %; Neutrophils % (A) 89 %; Platelet Count 201 k/uL (150-450); RBC 3.15 m/uL (4.30-5.90); RDW 14.1 % (11.5-15.5); WBC 15.7 k/uL (3.8-10.6)
[2021-05-21 04:38] LABS: Partial Thromboplastin Time 31.8 sec (22.0-30.0)
[2021-05-21] MEDS: HEPARIN SOD,PORK IN 0.45% NACL 25,000 UNIT in 0.45% NACL 1 250ML.BAG IV SCH ×2 (04:52→16:21)
[2021-05-21] MEDS: HEPARIN SODIUM 1,000 UN/ML (10ML VL) IV PRN ×2 (04:54→17:51)
[2021-05-21 05:06] LABS: Albumin 2.5 g/dL (3.5-5.0); Calcium 7.5 mg/dL (8.4-10.2); Potassium 4.8 mmol/L (3.5-5.1); Total Bilirubin 0.8 mg/dL (0.2-1.3); Total Protein 5.4 g/dL (6.3-8.2)
[2021-05-21 05:28] LABS: ABG HCO3 25 mmol/L (21-25); ABG Oxygen Saturation 91.8 % (94-97); ABG PCO2 39 mmHg (35-45); ABG PH 7.43 (7.35-7.45); ABG PO2 64 mmHg (83-108); ABG TCO2 27 mmol/L (19-24)
[2021-05-21 05:32] LABS: Allen Test Performed? no
[2021-05-21 05:50] LABS: C Reactive Protein 40.1 mg/dL (<1.0)
--- NOTE | 2021-05-21 06:34 | XR ---
EXAMINATION TYPE: XR chest 1V portable DATE OF EXAM: 05/21/2021 CLINICAL HISTORY: Difficulty breathing and covid progress study. TECHNIQUE: Single AP portable semiupright view of the chest is obtained. COMPARISON: Chest x-ray from one day earlier and older studies. FINDINGS: Stable endotracheal and orogastric tubes. Stable left-sided subclavian central venous cath eter. Persistent multifocal and diffuse right greater than left opacities. Persistent fluid and improving o verlying subcutaneous emphysema. No visualized pneumothorax. Cardiac silhouette size stable and with in normal limits. Pneumomediastinum remains present. Osseous structures are intact. IMPRESSION: 1. Continued improving subcutaneous emphysema. Persistent pneumomediastinum. No pneumothorax seen. Mu ltifocal and confluent right greater than left opacities redemonstrated. Some overall improvement fro m one day earlier noted.
[2021-05-21] MEDS: ALBUTEROL HFA INHALER INHALATION SCH ×4 (07:57→20:08)
[2021-05-21] MEDS: FUROSEMIDE 10 MG/ML 10 ML VIAL IV SCH ×2 (08:33→20:14)
[2021-05-21] MEDS: PIPERACILLIN-TAZOBACTAM 3.375 GM in SODIUM CHLORIDE 0.9% 100 ML IVPB SCH ×2 (08:33→20:14)
[2021-05-21] MEDS: ZINC SULFATE 220 MG CAP PO SCH (08:33)
[2021-05-21] MEDS: DEXAMETHASONE SOD PHOSPHATE 10 MG/ML 1 ML VIAL IVP SCH (08:33)
[2021-05-21] MEDS: CHLORHEXIDINE GLUCONATE 15 ML CUP MUCOUS MEM SCH ×2 (08:33→20:14)
[2021-05-21] MEDS: CHOLECALCIFEROL 25 MCG (1000 IU) TABLET PO SCH (08:33)
[2021-05-21] MEDS: ASCORBIC ACID 500 MG TAB PO SCH (08:33)
[2021-05-21] MEDS: PANTOPRAZOLE 40 MG/10 ML VIAL IVP SCH (08:58)
--- NOTE | 2021-05-21 10:13 | P.PN ---
Subjective Progress Note Date: 05/21/21 Patient is currently intubated and sedated. He continues to have hematuria but hemoglobin is stable. Patient is on heparin drip for PE. I discussed the case with the ICU nurse who said that he failed sedation vacation yesterday where he became unstable when sedation was titrated down. Patient is not on any pressors or nimbex drip. He is on FiO2 of 50%. His PEEP is 6. Objective - Vital Signs Vital signs: Vital Signs Temp 99.1 F 05/21/21 08:00 Pulse 89 05/21/21 10:00 Resp 32 H 05/21/21 10:00 BP 93/64 05/21/21 04:00 Pulse Ox 95 05/21/21 10:00 Intake & Output 05/20/21 05/21/21 05/21/21 18:59 06:59 18:59 Intake Total 0206.954 9797.144 217 Output Total 1250 1075 350 Balance 72.241 -14.856 -133 Weight 115.575 kg Intake: IV 246 156 39 Normal Saline Pressure 66 36 9 Bag Sodium Chloride 0.45% 1, 180 120 30 000 ml @ 10 mls/hr IV . Q24H [facility] Rx#:[id number] Intake, IV Titration 794.241 622.144 100 Amount Heparin Sod,Pork in 0.45% 232.688 223.435 NaCl 25,000 unit In 0.45 % NaCl 1 250ml.bag @ 18 UNITS/KG/HR 18.37 mls/hr IV .[id number] [facility] Rx#: [id number] propofoL 1,000 mg In 561.553 398.709 100 Empty Bag 1 bag @ Titrate IV .Q0M [facility] Rx#: [id number] Tube Feeding 192 192 48 Other 90 90 30 Output: Urine 1250 1075 350 Other: Voiding Method Indwelling Catheter Indwelling Catheter ABP, PAP, CO, CI - Last Documented Arterial Blood Pressure 108/66 - Exam General examination - intubated and sedated Heart - + S1S2 no murmurs Lungs - diminished breath sounds Abdomen soft NT ND +ve BS Extremities - +2 pitting edema in bilateral lower extremities 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 - 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 to assess Psych - unable to assess - Labs CBC & Chem 7: 05/21/21 03:58 05/21/21 03:58 Labs: Abnormal Lab Results - Last 24 Hours (Table) 05/20/21 05/20/21 05/20/21 Range/Units 13:43 18:36 23:53 WBC (3.8-10.6) k/uL RBC (4.30-5.90) m/uL Hgb (13.0-17.5) gm/dL Hct (39.0-53.0) % Neutrophils # (1.3-7.7) k/uL Lymphocytes # (1.0-4.8) k/uL APTT (22.0-30.0) sec D-Dimer (<0.60) mg/L FEU ABG pO2 (83-108) mmHg ABG Total CO2 (19-24) mmol/L ABG O2 Saturation (94-97) % BUN (9-20) mg/dL Creatinine (0.66-1.25) mg/dL Glucose (74-99) mg/dL POC Glucose (mg/dL) 150 H 132 H 121 H (75-99) mg/dL Calcium (8.4-10.2) mg/dL ALT (4-49) U/L Alkaline Phosphatase (38-126) U/L Lactate Dehydrogenase (313-618) U/L C-Reactive Protein (<1.0) mg/dL Total Protein (6.3-8.2) g/dL Albumin (3.5-5.0) g/dL 05/21/21 05/21/21 05/21/21 Range/Units 03:58 03:58 03:58 WBC 15.7 H (3.8-10.6) k/uL RBC 3.15 L (4.30-5.90) m/uL Hgb 9.3 L (13.0-17.5) gm/dL Hct 27.1 L (39.0-53.0) % Neutrophils # 14.0 H (1.3-7.7) k/uL Lymphocytes # 0.6 L (1.0-4.8) k/uL APTT 31.8 H (22.0-30.0) sec D-Dimer 1.93 H (<0.60) mg/L FEU ABG pO2 (83-108) mmHg ABG Total CO2 (19-24) mmol/L ABG O2 Saturation (94-97) % BUN 88 H (9-20) mg/dL Creatinine 4.08 H (0.66-1.25) mg/dL Glucose 104 H (74-99) mg/dL POC Glucose (mg/dL) (75-99) mg/dL Calcium 7.5 L (8.4-10.2) mg/dL ALT 60 H (4-49) U/L Alkaline Phosphatase 198 H (38-126) U/L Lactate Dehydrogenase 2127 H (313-618) U/L C-Reactive Protein 40.1 H (<1.0) mg/dL Total Protein 5.4 L (6.3-8.2) g/dL Albumin 2.5 L (3.5-5.0) g/dL 05/21/21 Range/Units 05:25 WBC (3.8-10.6) k/uL RBC (4.30-5.90) m/uL Hgb (13.0-17.5) gm/dL Hct (39.0-53.0) % Neutrophils # (1.3-7.7) k/uL Lymphocytes # (1.0-4.8) k/uL APTT (22.0-30.0) sec D-Dimer (<0.60) mg/L FEU ABG pO2 64 L (83-108) mmHg ABG Total CO2 27 H (19-24) mmol/L ABG O2 Saturation 91.8 L (94-97) % BUN (9-20) mg/dL Creatinine (0.66-1.25) mg/dL Glucose (74-99) mg/dL POC Glucose (mg/dL) (75-99) mg/dL Calcium (8.4-10.2) mg/dL ALT (4-49) U/L Alkaline Phosphatase (38-126) U/L Lactate Dehydrogenase (313-618) U/L C-Reactive Protein (<1.0) mg/dL Total Protein (6.3-8.2) g/dL Albumin (3.5-5.0) g/dL Microbiology - Last 24 Hours (Table) 05/18/21 17:19 Gram Stain - Final Sputum Sputum Culture - Final Staphylococcus aureus 05/16/21 23:15 Gram Stain - Final Sputum Sputum Culture - Final Staphylococcus aureus Assessment and Plan Assessment: Acute hypoxemic respiratory failure ARDS secondary to Covid 19 Acute Pulmonary Embolism Right lower extremity DVT DENIA with hyperkalemia secondary to ATN -Admit inpatient, telemetry -Post Doctoral Fellow following -Intubated on 05/14 -Patient is off pressors. He is also off paralytics -resume dexamethasone -Outside of window for remdesivir -Vitamin C, D, zinc -Baricitinib discontinued after 2 doses -inhaler PRN -heparin gtt -Deferred dialysis to nephrology -Patient empirically started on IV Zosyn by pulmonology Hematuria Hemoglobin is stable Resume anticoagulation Full Code CODE STATUS:full code DVT prophylaxis: Heparin drip Anticipated length of stay : Pending clinical course Anticipated discharge place: Pending clinical course
--- NOTE | 2021-05-21 10:15 | P.PN ---
Subjective Patient is seen in follow-up for acute kidney injury. Currently hemodialysis dependent. Tolerating dialysis well. Maintain on IV Lasix. Nonoliguric. Intubated. Receiving tube feeds. Vital signs are stable. General: The patient appeared well nourished and normally developed. HEENT: Intubated. LUNGS: Breath sounds decreased. HEART: Rate and Rhythm are regular. ABDOMEN: Soft, no distention. EXTREMITITES: 1+ edema. Objective - Vital Signs Vital signs: Vital Signs Temp 99.1 F 05/21/21 08:00 Pulse 89 05/21/21 10:00 Resp 32 H 05/21/21 10:00 BP 93/64 05/21/21 04:00 Pulse Ox 95 05/21/21 10:00 Intake & Output 05/20/21 05/21/21 05/21/21 18:59 06:59 18:59 Intake Total 2809.047 0379.144 217 Output Total 1250 1075 350 Balance 72.241 -14.856 -133 Weight 115.575 kg Intake: IV 246 156 39 Normal Saline Pressure 66 36 9 Bag Sodium Chloride 0.45% 1, 180 120 30 000 ml @ 10 mls/hr IV . Q24H [facility] Rx#:[id number] Intake, IV Titration 794.241 622.144 100 Amount Heparin Sod,Pork in 0.45% 232.688 223.435 NaCl 25,000 unit In 0.45 % NaCl 1 250ml.bag @ 18 UNITS/KG/HR 18.37 mls/hr IV .[id number] [facility] Rx#: [id number] propofoL 1,000 mg In 561.553 398.709 100 Empty Bag 1 bag @ Titrate IV .Q0M [facility] Rx#: [id number] Tube Feeding 192 192 48 Other 90 90 30 Output: Urine 1250 1075 350 Other: Voiding Method Indwelling Catheter Indwelling Catheter ABP, PAP, CO, CI - Last Documented Arterial Blood Pressure 108/66 - Labs CBC & Chem 7: 05/21/21 03:58 05/21/21 03:58 Labs: Abnormal Lab Results - Last 24 Hours (Table) 05/20/21 05/20/21 05/20/21 Range/Units 13:43 18:36 23:53 WBC (3.8-10.6) k/uL RBC (4.30-5.90) m/uL Hgb (13.0-17.5) gm/dL Hct (39.0-53.0) % Neutrophils # (1.3-7.7) k/uL Lymphocytes # (1.0-4.8) k/uL APTT (22.0-30.0) sec D-Dimer (<0.60) mg/L FEU ABG pO2 (83-108) mmHg ABG Total CO2 (19-24) mmol/L ABG O2 Saturation (94-97) % BUN (9-20) mg/dL Creatinine (0.66-1.25) mg/dL Glucose (74-99) mg/dL POC Glucose (mg/dL) 150 H 132 H 121 H (75-99) mg/dL Calcium (8.4-10.2) mg/dL ALT (4-49) U/L Alkaline Phosphatase (38-126) U/L Lactate Dehydrogenase (313-618) U/L C-Reactive Protein (<1.0) mg/dL Total Protein (6.3-8.2) g/dL Albumin (3.5-5.0) g/dL 05/21/21 05/21/21 05/21/21 Range/Units 03:58 03:58 03:58 WBC 15.7 H (3.8-10.6) k/uL RBC 3.15 L (4.30-5.90) m/uL Hgb 9.3 L (13.0-17.5) gm/dL Hct 27.1 L (39.0-53.0) % Neutrophils # 14.0 H (1.3-7.7) k/uL Lymphocytes # 0.6 L (1.0-4.8) k/uL APTT 31.8 H (22.0-30.0) sec D-Dimer 1.93 H (<0.60) mg/L FEU ABG pO2 (83-108) mmHg ABG Total CO2 (19-24) mmol/L ABG O2 Saturation (94-97) % BUN 88 H (9-20) mg/dL Creatinine 4.08 H (0.66-1.25) mg/dL Glucose 104 H (74-99) mg/dL POC Glucose (mg/dL) (75-99) mg/dL Calcium 7.5 L (8.4-10.2) mg/dL ALT 60 H (4-49) U/L Alkaline Phosphatase 198 H (38-126) U/L Lactate Dehydrogenase 2127 H (313-618) U/L C-Reactive Protein 40.1 H (<1.0) mg/dL Total Protein 5.4 L (6.3-8.2) g/dL Albumin 2.5 L (3.5-5.0) g/dL 05/21/21 Range/Units 05:25 WBC (3.8-10.6) k/uL RBC (4.30-5.90) m/uL Hgb (13.0-17.5) gm/dL Hct (39.0-53.0) % Neutrophils # (1.3-7.7) k/uL Lymphocytes # (1.0-4.8) k/uL APTT (22.0-30.0) sec D-Dimer (<0.60) mg/L FEU ABG pO2 64 L (83-108) mmHg ABG Total CO2 27 H (19-24) mmol/L ABG O2 Saturation 91.8 L (94-97) % BUN (9-20) mg/dL Creatinine (0.66-1.25) mg/dL Glucose (74-99) mg/dL POC Glucose (mg/dL) (75-99) mg/dL Calcium (8.4-10.2) mg/dL ALT (4-49) U/L Alkaline Phosphatase (38-126) U/L Lactate Dehydrogenase (313-618) U/L C-Reactive Protein (<1.0) mg/dL Total Protein (6.3-8.2) g/dL Albumin (3.5-5.0) g/dL Microbiology - Last 24 Hours (Table) 05/18/21 17:19 Gram Stain - Final Sputum Sputum Culture - Final Staphylococcus aureus 05/16/21 23:15 Gram Stain - Final Sputum Sputum Culture - Final Staphylococcus aureus Assessment and Plan Plan: Assessment: 1. Acute kidney injury secondary to ATN secondary to sepsis/COVID-19 pneumonia. Currently hemodialysis dependent. Nonoliguric. 2. Volume overload. 3. Hyperkalemia secondary to acute kidney injury. Improved. 4. Bilateral PE maintained on heparin drip. 5. COVID-19 pneumonia. 6. Acute a possible restrictive failure. 7. Sputum culture positive for staph aureus. On antibiotics. Plan: Currently seen while undergoing hemodialysis. Maintain IV Lasix. Wean FiO2. Maintain tube feeds. Continue to assess daily for need for renal replacement therapy.
--- NOTE | 2021-05-21 13:04 | P.PN ---
Subjective Progress Note Date: 05/21/21 Principal diagnosis: COVID-19 ARDS 51-year-old male who presents to the emergency department on May 12, with complaints of shortness of breath. The patient has been sick for at least 10-11 days. It started off with cough and shortness of breath, and loss of taste. He's also had fever. He has not been vaccinated. He was tested for coronavirus on May 07, and tested positive. The patient does not have a primary care physician. He has no past medical history. He takes no medications at home. The patient did receive monoclonal antibodies on May 09. Currently, the patient's on 5 L nasal cannula. He's got saline running at 75 mL an hour. He looks relatively stable. His chest x-ray does show diffuse bilateral infiltrates. The home medications that he is on include an albuterol inhaler, Tessalon Perles, and Decadron, given to him by the hospital. White count 5.1, hemoglobin 14.3, hematocrit 42.6, and platelet count 377,000. Sodium, potassium, chloride, CO2, anion gap, BUN, and creatinine are all normal. AST was 154, ALT 123, alkaline phosphatase 164. LDH was 2657. C-reactive protein is 14.9. Pro-calcitonin level is 0.14. Chest x-ray shows low lung volumes, with right greater than left bilateral opacities. The patient is seen today 05/13/2021 in follow-up on the regular medical floor. He is currently resting in bed. He is somewhat more dyspneic andtachypneic. His oxygen requirements have gone up to knees on 15 L high flow nasal cannula plus a nonrebreather mask. white count 6.8. Hemoglobin 13.5. Leukocytes 0.85. D-dimer up to 15.8. Sodium 143. Potassium 5.4. Creatinine 1.0. Glucose 123. AST 120. ALT 146. LDH 971. C-reactive protein 3.4. CT angiogram was requested after seeing the patient. There is evidence of bilateral lower lobe large multiple pulmonary emboli. No sign of right heart strain. Lovenox will be discontinued and he'll be initiated on a heparin drip On 05/14/2021 patient was emergently transferred to the intensive care unit for a concern of worsening hypoxia and dyspnea. Earlier in the shift he was on 15 L per high flow nasal cannula and 100% nonrebreather mask however his work of reginaldo thing had significantly increased his respiratory rate was ranging between 40-50 breaths per minute. His pulse ox was 87% and subsequently dropped down to 73%%. He was placed on BiPAP support with no improvement in his work of breathing or hypoxia, was intubated per CINDY, currently on assist-control mode of ventilation with a rate of 36 tidal volume is 350, FiO2 100% and PEEP of 24. he was given Nimbex IV pushes and propofol for sedation during intubation, he will be placed on Diprivan drip and Nimbex. Currently his pulse ox is 81% on the above- mentioned vent settings. His blood pressure 121/71, he is in sinus mechanism tachycardic with a rate of 110-120 BPM. Patient was found to have bilateral pulmonary emboli on yesterday's CT angiogram of the chest, he was started on heparin infusion on which she remains per weight-based protocol, his maintenance IV fluids are 0.9 normal saline at a rate of 75 ML per hour, CT angiogram lung windows showed extensive bilateral pneumonia. Chest x-ray post intubation and left subclavian central line placement is pending. This morning's labs have been reviewed, white blood cell count is 11.9, hemoglobin is 14.5, today's d- dimer is 18.26 slightly increased from yesterday's value, sodium is 141, potassium is 5.2, chloride is 111, CO2 is 23, BUN was 20 creatinine 0.96, his LDH today has significantly increased and is up to 3109, from 971 on yesterday's labs, and CRP is stable at 3.4. His pro calcitonin level on 05/12/2021 was at 0.14. Patient was started on Baricitinib yesterday on 05/13/2021, in addition to Decadron 6 mg daily. Patient is on vitamin C, zinc, and vitamin D will be added. On 05/21/2021 patient seen in follow-up in intensive care unit, he remains intubated, and sedated, currently on pressure control mode of ventilation, with a pressure of 15, inspiratory time of 0.9, FiO2 of 50% and PEEP of 6. Respiratory rate is 22. His peak airway pressure is 24, this morning's blood gas shows pO2 of 64, pCO2 of 39, and pH is 7.43. He is on 0.9 normal saline at a rate of 20 ML per hour, heparin infusion at weight-based protocol, and improving and is at 75 mics per kilo per minute. He is on tube feedings with Vital AF 16 with standard water flushes, hemodynamically stable, not requiring any vasopressor support, today's chest x-ray has been reviewed, showing continued improving subcutaneous emphysema, persistent pneumomediastinum, no pneumothorax, multifocal and confluent right greater than left opacities redemonstrated, there is some overall improvement from one day earlier noted. Patient remains on Decadron 6 mg daily, he was started on Lasix 60 mg every 12 hours, she remains on heparin infusion per weight-based protocol, he remains on empiric antibiotics in the form of Zosyn. His sputum culture showed evidence of MSSA. Today's labs have been reviewed, white blood cell count is relatively stable at 15.7, hemoglobin is 9.3, his d-dimer today is 1.93, increased from 1.73 on yesterday's labs, blood gas was as mentioned above, electrolytes are unremarkable, BUN was 88, creatinine is 4.08, his liver enzymes are improving, his LDH is improved and is down to 2127, CRP is 40.1. Objective - Vital Signs Vital signs: Vital Signs Temp 99.1 F 05/21/21 08:00 Pulse 87 05/21/21 11:00 Resp 32 H 05/21/21 11:00 BP 93/64 05/21/21 04:00 Pulse Ox 95 05/21/21 11:00 Intake & Output 05/20/21 05/21/21 05/21/21 18:59 06:59 18:59 Intake Total 5638.017 1697.144 387 Output Total 1250 1075 780 Balance 72.241 -14.856 -393 Weight 115.575 kg 115.575 kg Intake: IV 246 156 77 Normal Saline Pressure 66 36 27 Bag Sodium Chloride 0.45% 1, 180 120 50 000 ml @ 10 mls/hr IV . Q24H [facility] Rx#:[id number] Intake, IV Titration 794.241 622.144 200 Amount Heparin Sod,Pork in 0.45% 232.688 223.435 NaCl 25,000 unit In 0.45 % NaCl 1 250ml.bag @ 18 UNITS/KG/HR 18.37 mls/hr IV .[id number] [facility] Rx#: [id number] propofoL 1,000 mg In 561.553 398.709 200 Empty Bag 1 bag @ Titrate IV .Q0M [facility] Rx#: [id number] Tube Feeding 192 192 80 Other 90 90 30 Output: Urine 1250 1075 780 Other: Voiding Method Indwelling Catheter Indwelling Catheter Indwelling Catheter ABP, PAP, CO, CI - Last Documented Arterial Blood Pressure 108/67 - Exam GENERAL EXAM: Today, intubated and paralyzed 51-year-old white male, on pressure-control mode of ventilation, with FiO2 of 50% and PEEP of 6, comfortable in no apparent distress. HEAD: Normocephalic/atraumatic. EYES: Normal reaction of pupils, equal size. Conjunctiva pink, sclera white. NOSE: Clear with pink turbinates. THROAT: No erythema or exudates. NECK: No masses, no JVD, no thyroid enlargement, no adenopathy. CHEST: No chest wall deformity. Symmetrical expansion. Left subclavian central line in place covered with a sterile dressing LUNGS: Equal air entry with no crackles, wheeze, rhonchi or dullness. CVS: Regular rate and rhythm, normal S1 and S2, no gallops, no murmurs, no rubs ABDOMEN: Soft, nontender. No hepatosplenomegaly, normal bowel sounds, no guarding or rigidity. EXTREMITIES: No clubbing, no edema, no cyanosis, 2+ pulses and upper and lower extremities. MUSCULOSKELETAL: Muscle strength and tone normal. SPINE: No scoliosis or deformity SKIN: No rashes CENTRAL NERVOUS SYSTEM: Sedated, withdraws from painful stimuli No focal deficits, tone is normal in all 4 extremities. - Labs CBC & Chem 7: 05/21/21 03:58 05/21/21 03:58 Labs: Abnormal Lab Results - Last 24 Hours (Table) 05/20/21 05/20/21 05/20/21 Range/Units 13:43 18:36 23:53 WBC (3.8-10.6) k/uL RBC (4.30-5.90) m/uL Hgb (13.0-17.5) gm/dL Hct (39.0-53.0) % Neutrophils # (1.3-7.7) k/uL Lymphocytes # (1.0-4.8) k/uL APTT (22.0-30.0) sec D-Dimer (<0.60) mg/L FEU ABG pO2 (83-108) mmHg ABG Total CO2 (19-24) mmol/L ABG O2 Saturation (94-97) % BUN (9-20) mg/dL Creatinine (0.66-1.25) mg/dL Glucose (74-99) mg/dL POC Glucose (mg/dL) 150 H 132 H 121 H (75-99) mg/dL Calcium (8.4-10.2) mg/dL ALT (4-49) U/L Alkaline Phosphatase (38-126) U/L Lactate Dehydrogenase (313-618) U/L C-Reactive Protein (<1.0) mg/dL Total Protein (6.3-8.2) g/dL Albumin (3.5-5.0) g/dL 05/21/21 05/21/21 05/21/21 Range/Units 03:58 03:58 03:58 WBC 15.7 H (3.8-10.6) k/uL RBC 3.15 L (4.30-5.90) m/uL Hgb 9.3 L (13.0-17.5) gm/dL Hct 27.1 L (39.0-53.0) % Neutrophils # 14.0 H (1.3-7.7) k/uL Lymphocytes # 0.6 L (1.0-4.8) k/uL APTT 31.8 H (22.0-30.0) sec D-Dimer 1.93 H (<0.60) mg/L FEU ABG pO2 (83-108) mmHg ABG Total CO2 (19-24) mmol/L ABG O2 Saturation (94-97) % BUN 88 H (9-20) mg/dL Creatinine 4.08 H (0.66-1.25) mg/dL Glucose 104 H (74-99) mg/dL POC Glucose (mg/dL) (75-99) mg/dL Calcium 7.5 L (8.4-10.2) mg/dL ALT 60 H (4-49) U/L Alkaline Phosphatase 198 H (38-126) U/L Lactate Dehydrogenase 2127 H (313-618) U/L C-Reactive Protein 40.1 H (<1.0) mg/dL Total Protein 5.4 L (6.3-8.2) g/dL Albumin 2.5 L (3.5-5.0) g/dL 05/21/21 Range/Units 05:25 WBC (3.8-10.6) k/uL RBC (4.30-5.90) m/uL Hgb (13.0-17.5) gm/dL Hct (39.0-53.0) % Neutrophils # (1.3-7.7) k/uL Lymphocytes # (1.0-4.8) k/uL APTT (22.0-30.0) sec D-Dimer (<0.60) mg/L FEU ABG pO2 64 L (83-108) mmHg ABG Total CO2 27 H (19-24) mmol/L ABG O2 Saturation 91.8 L (94-97) % BUN (9-20) mg/dL Creatinine (0.66-1.25) mg/dL Glucose (74-99) mg/dL POC Glucose (mg/dL) (75-99) mg/dL Calcium (8.4-10.2) mg/dL ALT (4-49) U/L Alkaline Phosphatase (38-126) U/L Lactate Dehydrogenase (313-618) U/L C-Reactive Protein (<1.0) mg/dL Total Protein (6.3-8.2) g/dL Albumin (3.5-5.0) g/dL Microbiology - Last 24 Hours (Table) 05/18/21 17:19 Gram Stain - Final Sputum Sputum Culture - Final Staphylococcus aureus 05/16/21 23:15 Gram Stain - Final Sputum Sputum Culture - Final Staphylococcus aureus Assessment and Plan Plan: Assessment: #1. Severe hypoxic respiratory failure related to COVID-19 pneumonia, admitted to the hospital on 05/12/2021 with 10-11 day history of COVID-19 symptoms. Patient is a non-vaccinated individual, he was outside the window for Remdesivir, was started on Baricitinib on 05/13/2021. Transfer to the intensive care unit on 05/14/2021 and intubated currently on FiO2 of 100% and PEEP of 24, sedated and paralyzed on mechanical ventilator. On 05/21/2021 patient remains intubated, patient is off the paralytics, currently on pressure-control mode of ventilation with a pressure of 15, inspiratory time of 0.9, FiO2 of 50% and PEEP of 6. Patient has improved in terms of oxygenation, and we were able to significantly cut back on FiO2 and PEEP requirement. #2. MSSA pneumonia, patient is currently covered with Zosyn, Baricitinib discontinued #3. Acute kidney injury, is on hemodialysis, patient is producing urine, and continues on IV Lasix as well #4. Acute bilateral pulmonary emboli likely related to COVID-19 pneumonia, seen on a CT angiogram of the chest on 05/13/2021, started on heparin infusion. No CT evidence of heart strain #5. Right popliteal DVT, remains on heparin infusion #6. Elevated LFTs related to viral pneumonia #7. Permissive hypercapnia with secondary respiratory acidosis, improved #8. Pneumomediastinum and bilateral subcutaneous emphysema, complication of COVID-19 related pneumonia and mechanical ventilation, expected outcome, stable #9. Hypotension, secondary to the above, recovered, a component of sepsis was also considered, patient is covered with Zosyn, sputum cultures showed MSSA, hemodynamically patient has recovered and is off norepinephrine infusion Plan: Continue current ventilator settings Chest chest x-ray has been reviewed Blood gases reviewed and patient has shown improvement in terms of oxygenation and ventilation Has not required paralytics He is off norepinephrine Vital signs are stable Cultures have been noted showing MSSA in the sputum Continue with current antibiotics Hemodialysis per nephrology Continue diuretics After hemodialysis will proceed with sedation holiday to assess mentation We will consider weaning trial Continue to closely monitor his condition I performed a history & physical examination of the patient and discussed their management with my nurse practitioner, January Drew. I reviewed the nurse practitioner's note and agree with the documented findings and plan of care. Lung sounds are positive for diminished breaths bilaterally throughout the lung [place]. The findings and the impression was discussed with the patient. I attest to the documentation by the nurse practitioner. Time with Patient: Greater than 30
[2021-05-21 13:12] LABS: Glucose,Whole Blood 118 mg/dL (75-99)
[2021-05-21] MEDS: NOREPINEPHRINE 8 MG in SODIUM CHLORIDE 0.9% 250 ML IV SCH (13:18)
--- NOTE | 2021-05-21 13:36 | P.PN ---
Subjective Progress Note Date: 05/21/21 Patient seen and examined as a follow-up chest checking into temporary dialysis placement. Patient still getting good access through the temporary femoral access site. He remains sedated and intubated in the ICU with Covid-19 pneumonia. Objective - Vital Signs Vital signs: Vital Signs Temp 98.6 F 05/21/21 12:00 Pulse 82 05/21/21 13:03 Resp 30 H 05/21/21 13:03 BP 105/65 05/21/21 13:03 Pulse Ox 97 05/21/21 13:00 Intake & Output 05/20/21 05/21/21 05/21/21 18:59 06:59 18:59 Intake Total 4727.553 9911.144 583.893 Output Total 1250 1075 3430 Balance 72.241 -14.856 -2846.107 Weight 115.575 kg 115.575 kg Intake: IV 246 156 109 Normal Saline Pressure 66 36 39 Bag Sodium Chloride 0.45% 1, 180 120 70 000 ml @ 10 mls/hr IV . Q24H [facility] Rx#:[id number] Intake, IV Titration 794.241 622.144 308.893 Amount Heparin Sod,Pork in 0.45% 232.688 223.435 NaCl 25,000 unit In 0.45 % NaCl 1 250ml.bag @ 18 UNITS/KG/HR 18.37 mls/hr IV .[id number] [facility] Rx#: [id number] propofoL 1,000 mg In 561.553 398.709 308.893 Empty Bag 1 bag @ Titrate IV .Q0M [facility] Rx#: [id number] Tube Feeding 192 192 106 Other 90 90 60 Output: Urine 1250 1075 930 Hemodialysis 2500 Other: Voiding Method Indwelling Catheter Indwelling Catheter Indwelling Catheter ABP, PAP, CO, CI - Last Documented Arterial Blood Pressure 91/61 - Exam General appearance: Sedated and intubated on mechanical ventilation. HET: Head is normocephalic and atraumatic. Neck: Supple without lymphadenopathy. Trachea midline. Abdomen: Soft, nontender, nondistended. Extremities: Normal skin color and turgor. Hemodialysis catheter intact in right groin. Neurological: Sedated and intubated on mechanical ventilation. - Labs CBC & Chem 7: 05/21/21 03:58 05/21/21 03:58 Labs: Abnormal Lab Results - Last 24 Hours (Table) 05/20/21 05/20/21 05/20/21 Range/Units 13:43 18:36 23:53 WBC (3.8-10.6) k/uL RBC (4.30-5.90) m/uL Hgb (13.0-17.5) gm/dL Hct (39.0-53.0) % Neutrophils # (1.3-7.7) k/uL Lymphocytes # (1.0-4.8) k/uL APTT (22.0-30.0) sec D-Dimer (<0.60) mg/L FEU ABG pO2 (83-108) mmHg ABG Total CO2 (19-24) mmol/L ABG O2 Saturation (94-97) % BUN (9-20) mg/dL Creatinine (0.66-1.25) mg/dL Glucose (74-99) mg/dL POC Glucose (mg/dL) 150 H 132 H 121 H (75-99) mg/dL Calcium (8.4-10.2) mg/dL ALT (4-49) U/L Alkaline Phosphatase (38-126) U/L Lactate Dehydrogenase (313-618) U/L C-Reactive Protein (<1.0) mg/dL Total Protein (6.3-8.2) g/dL Albumin (3.5-5.0) g/dL 05/21/21 05/21/21 05/21/21 Range/Units 03:58 03:58 03:58 WBC 15.7 H (3.8-10.6) k/uL RBC 3.15 L (4.30-5.90) m/uL Hgb 9.3 L (13.0-17.5) gm/dL Hct 27.1 L (39.0-53.0) % Neutrophils # 14.0 H (1.3-7.7) k/uL Lymphocytes # 0.6 L (1.0-4.8) k/uL APTT 31.8 H (22.0-30.0) sec D-Dimer 1.93 H (<0.60) mg/L FEU ABG pO2 (83-108) mmHg ABG Total CO2 (19-24) mmol/L ABG O2 Saturation (94-97) % BUN 88 H (9-20) mg/dL Creatinine 4.08 H (0.66-1.25) mg/dL Glucose 104 H (74-99) mg/dL POC Glucose (mg/dL) (75-99) mg/dL Calcium 7.5 L (8.4-10.2) mg/dL ALT 60 H (4-49) U/L Alkaline Phosphatase 198 H (38-126) U/L Lactate Dehydrogenase 2127 H (313-618) U/L C-Reactive Protein 40.1 H (<1.0) mg/dL Total Protein 5.4 L (6.3-8.2) g/dL Albumin 2.5 L (3.5-5.0) g/dL 05/21/21 05/21/21 Range/Units 05:25 13:11 WBC (3.8-10.6) k/uL RBC (4.30-5.90) m/uL Hgb (13.0-17.5) gm/dL Hct (39.0-53.0) % Neutrophils # (1.3-7.7) k/uL Lymphocytes # (1.0-4.8) k/uL APTT (22.0-30.0) sec D-Dimer (<0.60) mg/L FEU ABG pO2 64 L (83-108) mmHg ABG Total CO2 27 H (19-24) mmol/L ABG O2 Saturation 91.8 L (94-97) % BUN (9-20) mg/dL Creatinine (0.66-1.25) mg/dL Glucose (74-99) mg/dL POC Glucose (mg/dL) 118 H (75-99) mg/dL Calcium (8.4-10.2) mg/dL ALT (4-49) U/L Alkaline Phosphatase (38-126) U/L Lactate Dehydrogenase (313-618) U/L C-Reactive Protein (<1.0) mg/dL Total Protein (6.3-8.2) g/dL Albumin (3.5-5.0) g/dL Microbiology - Last 24 Hours (Table) 05/18/21 17:19 Gram Stain - Final Sputum Sputum Culture - Final Staphylococcus aureus 05/16/21 23:15 Gram Stain - Final Sputum Sputum Culture - Final Staphylococcus aureus Assessment and Plan Assessment: 1. Acute kidney injury requiring hemodialysis status post right common femoral vein temporary dialysis catheter placement 2. Bilateral pulmonary emboli 3. Right lower extremity popliteal DVT 4. Acute hypoxic respiratory failure related to COVID-19 pneumonia 5. Hyperkalemia 6. Hypotension Plan: 1. Continue ICU management 2. Continue hemodialysis as ordered 3. Vascular surgical team will be on standby. Please do not hesitate to call us back if patient will require tunneled catheter placement. The impression and plan of care has been dictated as directed. Dr. Alves I performed a history and examination of this patient, discussed the same with the dictator. I agree with the dictator's note ,documented as a scribe. Any additional findings or plans will be noted.
[2021-05-21] MEDS: SODIUM CHLORIDE 0.45% 1,000 ML IV SCH (16:28)
[2021-05-21 17:37] LABS: Glucose,Whole Blood 113 mg/dL (75-99)
[2021-05-21 22:55] LABS: Glucose,Whole Blood 100 mg/dL (75-99)
[2021-05-22] MEDS: HEPARIN SOD,PORK IN 0.45% NACL 25,000 UNIT in 0.45% NACL 1 250ML.BAG IV SCH ×2 (03:24→14:45)
[2021-05-22 05:09] LABS: Glucose,Whole Blood 102 mg/dL (75-99)
[2021-05-22] MEDS: INSULIN ASPART (NovoLOG) 100 UNIT/ML VIAL SQ SCH ×3 (05:19→18:01)
[2021-05-22 05:39] LABS: Basophils % (A) 0 %; Eosinophils # (A) 0.3 k/uL (0-0.7); Eosinophils % (A) 2 %; HCT 28.4 % (39.0-53.0); HGB 9.4 gm/dL (13.0-17.5); Lymphocytes % (A) 8 %; MCV 87.7 fL (80.0-100.0); Mean Platelet Volume 9.7; Monocytes # (A) 0.9 k/uL (0-1.0); Monocytes % (A) 7 %; Neutrophils # (A) 10.4 k/uL (1.3-7.7); Neutrophils % (A) 81 %; Platelet Count 254 k/uL (150-450); RBC 3.24 m/uL (4.30-5.90); RDW 14.2 % (11.5-15.5); WBC 12.9 k/uL (3.8-10.6)
[2021-05-22 06:05] LABS: ABG Base Excess -0.8 mmol/L; ABG HCO3 25 mmol/L (21-25); ABG Oxygen Saturation 99.3 % (94-97); ABG PCO2 42 mmHg (35-45); ABG PH 7.37 (7.35-7.45); ABG PO2 156 mmHg (83-108); ABG TCO2 26 mmol/L (19-24)
[2021-05-22 06:23] LABS: Allen Test Performed? No
--- NOTE | 2021-05-22 07:50 | XR ---
EXAMINATION TYPE: XR chest 1V portable DATE OF EXAM: 05/22/2021 COMPARISON: 05/21/2021 INDICATION: Pneumonia TECHNIQUE: Single frontal view of the chest is obtained. FINDINGS: The heart size is normal. The pulmonary vasculature is normal. Patchy diffuse infiltrate is present bilaterally. Endotracheal tube tip is above the merrill. Nasogastric tube transverses the thorax. Left central veno us catheter tip is in the superior vena cava region IMPRESSION: 1. Diffuse patchy infiltrates can't be compatible with atypical pneumonia
[2021-05-22 08:02] LABS: Anisocytosis (M) Present; Poikilocytosis (M) Present
[2021-05-22 08:11] LABS: C Reactive Protein 33.5 mg/dL (<1.0)
[2021-05-22 08:20] LABS: Albumin 2.7 g/dL (3.5-5.0); Calcium 9.1 mg/dL (8.4-10.2); Potassium 5.4 mmol/L (3.5-5.1); Total Protein 5.8 g/dL (6.3-8.2)
[2021-05-22 08:28] LABS: Phosphorus 9.6 mg/dL (2.5-4.5)
[2021-05-22] MEDS: CHLORHEXIDINE GLUCONATE 15 ML CUP MUCOUS MEM SCH ×2 (09:08→20:00)
[2021-05-22] MEDS: PIPERACILLIN-TAZOBACTAM 3.375 GM in SODIUM CHLORIDE 0.9% 100 ML IVPB SCH ×2 (09:08→20:00)
[2021-05-22] MEDS: ALBUTEROL HFA INHALER INHALATION SCH ×4 (09:08→20:29)
[2021-05-22] MEDS: PANTOPRAZOLE 40 MG/10 ML VIAL IVP SCH (09:09)
[2021-05-22] MEDS: FUROSEMIDE 10 MG/ML 10 ML VIAL IV SCH ×2 (09:09→20:00)
[2021-05-22] MEDS: DEXAMETHASONE SOD PHOSPHATE 10 MG/ML 1 ML VIAL IVP SCH (09:09)
[2021-05-22] MEDS: CHOLECALCIFEROL 25 MCG (1000 IU) TABLET PO SCH (09:10)
[2021-05-22] MEDS: ZINC SULFATE 220 MG CAP PO SCH (09:10)
[2021-05-22] MEDS: ASCORBIC ACID 500 MG TAB PO SCH (09:10)
--- NOTE | 2021-05-22 09:11 | P.PN ---
Subjective Patient is seen in follow-up for acute kidney injury. Currently hemodialysis dependent. Tolerated 2.5 L ultrafiltration yesterday. Maintained on IV Lasix. Nonoliguric. Intubated. Receiving tube feeds. Vital signs are stable. HEENT: Intubated. EXTREMITITES: 1+ edema. Exam discussed with the nurse. Objective - Vital Signs Vital signs: Vital Signs Temp 97.5 F L 05/22/21 04:00 Pulse 78 05/22/21 08:00 Resp 26 H 05/22/21 08:00 BP 93/64 05/21/21 17:30 Pulse Ox 91 L 05/22/21 08:00 Intake & Output 05/21/21 05/22/21 05/22/21 18:59 06:59 18:59 Intake Total 8643.874 7390.834 Output Total 3730 1265 Balance -2523.472 115.834 Weight 115.575 kg 114 kg Intake: IV 189 278 Normal Saline Pressure 69 78 Bag Piperacillin-Tazobactam 3 100 .375 gm In Sodium Chloride 0.9% 100 ml @ 25 mls/hr IVPB Q12HR [facility] Rx #:[id number] Sodium Chloride 0.45% 1, 120 100 000 ml @ 10 mls/hr IV . Q24H [facility] Rx#:[id number] Intake, IV Titration 771.528 792.834 Amount Heparin Sod,Pork in 0.45% 262.635 217.046 NaCl 25,000 unit In 0.45 % NaCl 1 250ml.bag @ 18 UNITS/KG/HR 18.37 mls/hr IV .[id number] [facility] Rx#: [id number] propofoL 1,000 mg In 508.893 575.788 Empty Bag 1 bag @ Titrate IV .Q0M [facility] Rx#: [id number] Tube Feeding 156 130 Other 90 180 Output: Urine 1230 1265 Hemodialysis 2500 Other: Voiding Method Indwelling Catheter Indwelling Catheter Indwelling Catheter # Bowel Movements 1 ABP, PAP, CO, CI - Last Documented Arterial Blood Pressure 95/63 - Labs CBC & Chem 7: 05/22/21 05:00 05/22/21 05:00 Labs: Abnormal Lab Results - Last 24 Hours (Table) 05/21/21 05/21/21 05/21/21 Range/Units 13:11 16:18 17:35 WBC (3.8-10.6) k/uL RBC (4.30-5.90) m/uL Hgb (13.0-17.5) gm/dL Hct (39.0-53.0) % Neutrophils # (1.3-7.7) k/uL APTT 42.7 H (22.0-30.0) sec D-Dimer (<0.60) mg/L FEU ABG pO2 (83-108) mmHg ABG Total CO2 (19-24) mmol/L ABG O2 Saturation (94-97) % Potassium (3.5-5.1) mmol/L Chloride (98-107) mmol/L Carbon Dioxide (22-30) mmol/L BUN (9-20) mg/dL Creatinine (0.66-1.25) mg/dL Glucose (74-99) mg/dL POC Glucose (mg/dL) 118 H 113 H (75-99) mg/dL Phosphorus (2.5-4.5) mg/dL ALT (4-49) U/L Alkaline Phosphatase (38-126) U/L Lactate Dehydrogenase (313-618) U/L C-Reactive Protein (<1.0) mg/dL Total Protein (6.3-8.2) g/dL Albumin (3.5-5.0) g/dL 05/21/21 05/21/21 05/22/21 Range/Units 22:54 23:50 05:00 WBC 12.9 H (3.8-10.6) k/uL RBC 3.24 L (4.30-5.90) m/uL Hgb 9.4 L (13.0-17.5) gm/dL Hct 28.4 L (39.0-53.0) % Neutrophils # 10.4 H (1.3-7.7) k/uL APTT 56.8 H (22.0-30.0) sec D-Dimer (<0.60) mg/L FEU ABG pO2 (83-108) mmHg ABG Total CO2 (19-24) mmol/L ABG O2 Saturation (94-97) % Potassium (3.5-5.1) mmol/L Chloride (98-107) mmol/L Carbon Dioxide (22-30) mmol/L BUN (9-20) mg/dL Creatinine (0.66-1.25) mg/dL Glucose (74-99) mg/dL POC Glucose (mg/dL) 100 H (75-99) mg/dL Phosphorus (2.5-4.5) mg/dL ALT (4-49) U/L Alkaline Phosphatase (38-126) U/L Lactate Dehydrogenase (313-618) U/L C-Reactive Protein (<1.0) mg/dL Total Protein (6.3-8.2) g/dL Albumin (3.5-5.0) g/dL 05/22/21 05/22/21 05/22/21 Range/Units 05:00 05:00 05:00 WBC (3.8-10.6) k/uL RBC (4.30-5.90) m/uL Hgb (13.0-17.5) gm/dL Hct (39.0-53.0) % Neutrophils # (1.3-7.7) k/uL APTT 49.3 H (22.0-30.0) sec D-Dimer 2.12 H (<0.60) mg/L FEU ABG pO2 (83-108) mmHg ABG Total CO2 (19-24) mmol/L ABG O2 Saturation (94-97) % Potassium 5.4 H (3.5-5.1) mmol/L Chloride 109 H (98-107) mmol/L Carbon Dioxide 16 L (22-30) mmol/L BUN 73 H (9-20) mg/dL Creatinine 4.26 H (0.66-1.25) mg/dL Glucose 113 H (74-99) mg/dL POC Glucose (mg/dL) (75-99) mg/dL Phosphorus 9.6 H* (2.5-4.5) mg/dL ALT 52 H (4-49) U/L Alkaline Phosphatase 193 H (38-126) U/L Lactate Dehydrogenase 1962 H (313-618) U/L C-Reactive Protein 33.5 H (<1.0) mg/dL Total Protein 5.8 L (6.3-8.2) g/dL Albumin 2.7 L (3.5-5.0) g/dL 05/22/21 05/22/21 Range/Units 05:08 05:23 WBC (3.8-10.6) k/uL RBC (4.30-5.90) m/uL Hgb (13.0-17.5) gm/dL Hct (39.0-53.0) % Neutrophils # (1.3-7.7) k/uL APTT (22.0-30.0) sec D-Dimer (<0.60) mg/L FEU ABG pO2 156 H (83-108) mmHg ABG Total CO2 26 H (19-24) mmol/L ABG O2 Saturation 99.3 H (94-97) % Potassium (3.5-5.1) mmol/L Chloride (98-107) mmol/L Carbon Dioxide (22-30) mmol/L BUN (9-20) mg/dL Creatinine (0.66-1.25) mg/dL Glucose (74-99) mg/dL POC Glucose (mg/dL) 102 H (75-99) mg/dL Phosphorus (2.5-4.5) mg/dL ALT (4-49) U/L Alkaline Phosphatase (38-126) U/L Lactate Dehydrogenase (313-618) U/L C-Reactive Protein (<1.0) mg/dL Total Protein (6.3-8.2) g/dL Albumin (3.5-5.0) g/dL Microbiology - Last 24 Hours (Table) 05/18/21 17:19 Gram Stain - Final Sputum Sputum Culture - Final Staphylococcus aureus Assessment and Plan Plan: Assessment: 1. Acute kidney injury secondary to ATN secondary to sepsis/COVID-19 pneumonia. Currently hemodialysis dependent. Nonoliguric. 2. Volume overload. 3. Hyperkalemia secondary to acute kidney injury and metabolic acidosis. 4. Bilateral PE maintained on heparin drip. 5. COVID-19 pneumonia. 6. Acute hypoxic respiratory failure. 7. Sputum culture positive for staph aureus. On antibiotics. 8. Hyperphosphatemia secondary to acute kidney injury. Plan: Hemodialysis today. Maintain IV Lasix. Wean FiO2. Maintain tube feeds. Add Renvela. Add oral bicarbonate. Continue to assess daily for need for renal replacement therapy.
--- NOTE | 2021-05-22 14:11 | P.PN ---
Subjective Principal diagnosis: COVID-19 pneumonitis, respiratory failure and later dependent, renal failure and hemodialysis Chart was reviewed patient was seen and examined. Patient is currently intubated sedated and receiving hemodialysis. Patient is 51-year-old male no significant past medical history who was admitted with COVID-19 pneumonitis on 05/12/21. Prior to this patient had symptoms for about 10 days. Tested positive for COVID-19 on 05/07/21. Patient did receive monoclonal antibodies on 05/09/21 prior to this admission however his respiratory status continued to worsen and he came to emergency department. Initially he was very hypoxic and was on 4 L nasal cannula. Chest x-ray showed diffuse bilateral pulmonary infiltrates. He was treated with steroids, bronchodilators. He was found to be out of the window for Remdesevir. On 05/13/21 he respiratory status was somewhat worsened his d-dimer was significantly elevated and he underwent CT angiogram of the chest showed bilateral pulmonary emboli and extensive bilateral pneumonia. Doppler lower extremities: Right lower extremity popliteal DVT. He was started on heparin drip. Diagnosed with normal mediastinotomy on 05/15/21. Transferred to intensive care unit. Subsequently intubated on 05/18/21. Started on hemodialysis 05/15/21 due to acute kidney failure, oliguria and hyperkalemia. Objective - Vital Signs Vital signs: Vital Signs Temp 97.5 F L 05/22/21 04:00 Pulse 77 05/22/21 13:00 Resp 31 H 05/22/21 13:00 BP 93/64 05/21/21 17:30 Pulse Ox 90 L 05/22/21 13:00 Intake & Output 05/21/21 05/22/21 05/22/21 18:59 06:59 18:59 Intake Total 7760.284 1367.834 376 Output Total 3730 1265 575 Balance -2523.472 115.834 -199 Weight 115.575 kg 114 kg Intake: IV 189 278 196 Normal Saline Pressure 69 78 36 Bag Piperacillin-Tazobactam 3 100 100 .375 gm In Sodium Chloride 0.9% 100 ml @ 25 mls/hr IVPB Q12HR [facility] Rx #:[id number] Sodium Chloride 0.45% 1, 120 100 60 000 ml @ 10 mls/hr IV . Q24H [facility] Rx#:[id number] Intake, IV Titration 771.528 792.834 Amount Heparin Sod,Pork in 0.45% 262.635 217.046 NaCl 25,000 unit In 0.45 % NaCl 1 250ml.bag @ 18 UNITS/KG/HR 18.37 mls/hr IV .[id number] [facility] Rx#: [id number] propofoL 1,000 mg In 508.893 575.788 Empty Bag 1 bag @ Titrate IV .Q0M [facility] Rx#: [id number] Tube Feeding 156 130 60 Other 90 180 120 Output: Urine 1230 1265 575 Hemodialysis 2500 Other: Voiding Method Indwelling Catheter Indwelling Catheter Indwelling Catheter # Bowel Movements 1 ABP, PAP, CO, CI - Last Documented Arterial Blood Pressure 119/74 - Exam Intubated sedated and receiving hemodialysis On the ventilator FiO2 50% PEEP of 6 Lungs coarse breath sounds no wheezing no rhonchi Cardiovascular regular rhythm and rate Abdomen bowel sounds present soft nontender nondistended Extremities pitting edema warm well perfused no cyanosis Pupils are round and reactive to light symmetrical eyes in the midline - Labs CBC & Chem 7: 05/22/21 05:00 05/22/21 05:00 Labs: Abnormal Lab Results - Last 24 Hours (Table) 05/21/21 05/21/21 05/21/21 Range/Units 16:18 17:35 22:54 WBC (3.8-10.6) k/uL RBC (4.30-5.90) m/uL Hgb (13.0-17.5) gm/dL Hct (39.0-53.0) % Neutrophils # (1.3-7.7) k/uL APTT 42.7 H (22.0-30.0) sec D-Dimer (<0.60) mg/L FEU ABG pO2 (83-108) mmHg ABG Total CO2 (19-24) mmol/L ABG O2 Saturation (94-97) % Potassium (3.5-5.1) mmol/L Chloride (98-107) mmol/L Carbon Dioxide (22-30) mmol/L BUN (9-20) mg/dL Creatinine (0.66-1.25) mg/dL Glucose (74-99) mg/dL POC Glucose (mg/dL) 113 H 100 H (75-99) mg/dL Phosphorus (2.5-4.5) mg/dL ALT (4-49) U/L Alkaline Phosphatase (38-126) U/L Lactate Dehydrogenase (313-618) U/L C-Reactive Protein (<1.0) mg/dL Total Protein (6.3-8.2) g/dL Albumin (3.5-5.0) g/dL 05/21/21 05/22/21 05/22/21 Range/Units 23:50 05:00 05:00 WBC 12.9 H (3.8-10.6) k/uL RBC 3.24 L (4.30-5.90) m/uL Hgb 9.4 L (13.0-17.5) gm/dL Hct 28.4 L (39.0-53.0) % Neutrophils # 10.4 H (1.3-7.7) k/uL APTT 56.8 H (22.0-30.0) sec D-Dimer 2.12 H (<0.60) mg/L FEU ABG pO2 (83-108) mmHg ABG Total CO2 (19-24) mmol/L ABG O2 Saturation (94-97) % Potassium (3.5-5.1) mmol/L Chloride (98-107) mmol/L Carbon Dioxide (22-30) mmol/L BUN (9-20) mg/dL Creatinine (0.66-1.25) mg/dL Glucose (74-99) mg/dL POC Glucose (mg/dL) (75-99) mg/dL Phosphorus (2.5-4.5) mg/dL ALT (4-49) U/L Alkaline Phosphatase (38-126) U/L Lactate Dehydrogenase (313-618) U/L C-Reactive Protein (<1.0) mg/dL Total Protein (6.3-8.2) g/dL Albumin (3.5-5.0) g/dL 05/22/21 05/22/21 05/22/21 Range/Units 05:00 05:00 05:08 WBC (3.8-10.6) k/uL RBC (4.30-5.90) m/uL Hgb (13.0-17.5) gm/dL Hct (39.0-53.0) % Neutrophils # (1.3-7.7) k/uL APTT 49.3 H (22.0-30.0) sec D-Dimer (<0.60) mg/L FEU ABG pO2 (83-108) mmHg ABG Total CO2 (19-24) mmol/L ABG O2 Saturation (94-97) % Potassium 5.4 H (3.5-5.1) mmol/L Chloride 109 H (98-107) mmol/L Carbon Dioxide 16 L (22-30) mmol/L BUN 73 H (9-20) mg/dL Creatinine 4.26 H (0.66-1.25) mg/dL Glucose 113 H (74-99) mg/dL POC Glucose (mg/dL) 102 H (75-99) mg/dL Phosphorus 9.6 H* (2.5-4.5) mg/dL ALT 52 H (4-49) U/L Alkaline Phosphatase 193 H (38-126) U/L Lactate Dehydrogenase 1962 H (313-618) U/L C-Reactive Protein 33.5 H (<1.0) mg/dL Total Protein 5.8 L (6.3-8.2) g/dL Albumin 2.7 L (3.5-5.0) g/dL 05/22/21 Range/Units 05:23 WBC (3.8-10.6) k/uL RBC (4.30-5.90) m/uL Hgb (13.0-17.5) gm/dL Hct (39.0-53.0) % Neutrophils # (1.3-7.7) k/uL APTT (22.0-30.0) sec D-Dimer (<0.60) mg/L FEU ABG pO2 156 H (83-108) mmHg ABG Total CO2 26 H (19-24) mmol/L ABG O2 Saturation 99.3 H (94-97) % Potassium (3.5-5.1) mmol/L Chloride (98-107) mmol/L Carbon Dioxide (22-30) mmol/L BUN (9-20) mg/dL Creatinine (0.66-1.25) mg/dL Glucose (74-99) mg/dL POC Glucose (mg/dL) (75-99) mg/dL Phosphorus (2.5-4.5) mg/dL ALT (4-49) U/L Alkaline Phosphatase (38-126) U/L Lactate Dehydrogenase (313-618) U/L C-Reactive Protein (<1.0) mg/dL Total Protein (6.3-8.2) g/dL Albumin (3.5-5.0) g/dL Microbiology - Last 24 Hours (Table) 05/18/21 17:19 Gram Stain - Final Sputum Sputum Culture - Final Staphylococcus aureus Assessment and Plan Plan: #COVID-19 pneumonitis with acute hypoxic respiratory failure requiring mechanical ventilation Onset of symptoms: About 10 days prior to admission Date of diagnosis 05/07/21 monoclonal antibodies 05/09/21 Date of admission 05/12/21 Imaging consistent with significant bilateral pneumonia CRP 33.5 on 05/22/21 Pulmonary service following Treatment: dexamethasone, bronchodilators, antibiotics Remdesevir was not used as it was felt the patient was out of window for treatment Baricitinb started but was eventually discontinued due to bacterial pneumonia Remains on ventilatory settings FiO2 50% PEEP 6 with permissive hypercarbia #Bilateral pulmonary embolism Remains on heparin drip D-dimer trending down #MSSA pneumonia Started on Zosyn #Acute kidney injury Due to ATN Nonoliguric Remains on hemodialysis and Lasix Nephrology following #Pneumomediastinum Due to extensive COVID-19 pneumonitis and mechanical exhalation Follow this serial imaging, improved #Shock [place] to be due to combination of sepsis and possibly pulmonary embolism Improved, off of pressors Tolerating hemodialysis #
[2021-05-22] MEDS: SEVELAMER 800 MG TAB PO SCH ×2 (14:19→18:01)
[2021-05-22] MEDS: NOREPINEPHRINE 8 MG in SODIUM CHLORIDE 0.9% 250 ML IV SCH (14:45)
[2021-05-22] MEDS: SODIUM BICARBONATE TAB 650 MG TAB PO SCH ×2 (14:46→19:58)
--- NOTE | 2021-05-22 14:56 | P.PN ---
Subjective Progress Note Date: 05/22/21 Principal diagnosis: Acute hypoxic respiratory failure secondary to COVID-19 pneumonia 51-year-old male who presents to the emergency department on May 12, with complaints of shortness of breath. The patient has been sick for at least 10-11 days. It started off with cough and shortness of breath, and loss of taste. He's also had fever. He has not been vaccinated. He was tested for coronavirus on May 07, and tested positive. The patient does not have a primary care physician. He has no past medical history. He takes no medications at home. The patient did receive monoclonal antibodies on May 09. Currently, the patient's on 5 L nasal cannula. He's got saline running at 75 mL an hour. He looks relatively stable. His chest x-ray does show diffuse bilateral infiltrates. The home medications that he is on include an albuterol inhaler, Tessalon Perles, and Decadron, given to him by the hospital. White count 5.1, hemoglobin 14.3, hematocrit 42.6, and platelet count 377,000. Sodium, potassium, chloride, CO2, anion gap, BUN, and creatinine are all normal. AST was 154, ALT 123, alkaline phosphatase 164. LDH was 2657. C-reactive protein is 14.9. Pro-calcitonin level is 0.14. Chest x-ray shows low lung volumes, with right greater than left bilateral opacities. The patient is seen today 05/13/2021 in follow-up on the regular medical floor. He is currently resting in bed. He is somewhat more dyspneic andtachypneic. His oxygen requirements have gone up to knees on 15 L high flow nasal cannula plus a nonrebreather mask. white count 6.8. Hemoglobin 13.5. Leukocytes 0.85. D-dimer up to 15.8. Sodium 143. Potassium 5.4. Creatinine 1.0. Glucose 123. AST 120. ALT 146. LDH 971. C-reactive protein 3.4. CT angiogram was requested after seeing the patient. There is evidence of bilateral lower lobe large multiple pulmonary emboli. No sign of right heart strain. Lovenox will be discontinued and he'll be initiated on a heparin drip On 05/14/2021 patient was emergently transferred to the intensive care unit for a concern of worsening hypoxia and dyspnea. Earlier in the shift he was on 15 L per high flow nasal cannula and 100% nonrebreather mask however his work of breathing had significantly increased his respiratory rate was ranging between 40-50 breaths per minute. His pulse ox was 87% and subsequently dropped down to 73%%. He was placed on BiPAP support with no improvement in his work of breathing or hypoxia, was intubated per CINDY, currently on assist-control mode of ventilation with a rate of 36 tidal volume is 350, FiO2 100% and PEEP of 24. he was given Nimbex IV pushes and propofol for sedation during intubation, he will be placed on Diprivan drip and Nimbex. Currently his pulse ox is 81% on the above-mentioned vent settings. His blood pressure 121/71, he is in sinus mechanism tachycardic with a rate of 110-120 BPM. Patient was found to have bilateral pulmonary emboli on yesterday's CT angiogram of the chest, he was started on heparin infusion on which she remains per weight-based protocol, his maintenance IV fluids are 0.9 normal saline at a rate of 75 ML per hour, CT angiogram lung windows showed extensive bilateral pneumonia. Chest x-ray post intubation and left subclavian central line placement is pending. This morning's labs have been reviewed, white blood cell count is 11.9, hemoglobin is 14.5, today's d-dimer is 18.26 slightly increased from yesterday's value, sodium is 141, potassium is 5.2, chloride is 111, CO2 is 23, BUN was 20 creatinine 0.96, his LDH today has significantly increased and is up to 3109, from 971 on yesterday's labs, and CRP is stable at 3.4. His pro calcitonin level on 05/12/2021 was at 0.14. Patient was started on Baricitinib yesterday on , in addition to Decadron 6 mg daily. Patient is on vitamin C, zinc, and vitamin D will be added. On 05/21/2021 patient seen in follow-up in intensive care unit, he remains intubated, and sedated, currently on pressure control mode of ventilation, with a pressure of 15, inspiratory time of 0.9, FiO2 of 50% and PEEP of 6. Respiratory rate is 22. His peak airway pressure is 24, this morning's blood gas shows pO2 of 64, pCO2 of 39, and pH is 7.43. He is on 0.9 normal saline at a rate of 20 ML per hour, heparin infusion at weight-based protocol, and improving and is at 75 mics per kilo per minute. He is on tube feedings with Vital AF 16 with standard water flushes, hemodynamically stable, not requiring any vasopressor support, today's chest x-ray has been reviewed, showing continu ed improving subcutaneous emphysema, persistent pneumomediastinum, no pneumothorax, multifocal and confluent right greater than left opacities redemonstrated, there is some overall improvement from one day earlier noted. Patient remains on Decadron 6 mg daily, he was started on Lasix 60 mg every 12 hours, she remains on heparin infusion per weight-based protocol, he remains on empiric antibiotics in the form of Zosyn. His sputum culture showed evidence of MSSA. Today's labs have been reviewed, white blood cell count is relatively stable at 15.7, hemoglobin is 9.3, Patient was reevaluated today on 05/22/2022, remains intubated and mechanically ventilated, patient is on a pressure control mode of mechanical ventilation. He is on FiO2 of 35%, pressure control of 15, rate 22, PEEP is 6. Remains on propofol and I went ahead and recommended that we change propofol to Precedex. I would like to assess the patient for potential weaning trials. X-ray continues to show bilateral infiltrates, right more so than left. Otherwise no major changes noted. WBC count is 12.9 hemoglobin is 9.4 d-dimer is 2.12, ABG is excellent with a pO2 of 156 pCO2 42 pH of 7.37. BUN is 73 creatinine 4.26, patient is on hemodialysis. Patient was being hemodialyzed during my evaluation LDH is 196 C-reactive protein is 33.5, both are improving Objective - Vital Signs Vital signs: Vital Signs Temp 97.9 F 05/22/21 14:35 Pulse 77 05/22/21 13:00 Resp 31 H 05/22/21 13:00 BP 114/68 05/22/21 14:35 Pulse Ox 90 L 05/22/21 13:00 Intake & Output 05/21/21 05/22/21 05/22/21 18:59 06:59 18:59 Intake Total 7243.603 4972.834 926 Output Total 3730 1265 2875 Balance -2523.472 115.834 -1949 Weight 115.575 kg 114 kg Intake: IV 189 278 196 Normal Saline Pressure 69 78 36 Bag Piperacillin-Tazobactam 3 100 100 .375 gm In Sodium Chloride 0.9% 100 ml @ 25 mls/hr IVPB Q12HR [facility] Rx #:[id number] Sodium Chloride 0.45% 1, 120 100 60 000 ml @ 10 mls/hr IV . Q24H [facility] Rx#:[id number] Intake, IV Titration 771.528 792.834 250 Amount Heparin Sod,Pork in 0.45% 262.635 217.046 250 NaCl 25,000 unit In 0.45 % NaCl 1 250ml.bag @ 18 UNITS/KG/HR 18.37 mls/hr IV .[id number] [facility] Rx#: [id number] propofoL 1,000 mg In 508.893 575.788 Empty Bag 1 bag @ Titrate IV .Q0M [facility] Rx#: [id number] Tube Feeding 156 130 60 Hemodialysis 300 Other 90 180 120 Output: Urine 1230 1265 575 Hemodialysis 2500 2300 Other: Voiding Method Indwelling Catheter Indwelling Catheter Indwelling Catheter # Bowel Movements 1 ABP, PAP, CO, CI - Last Documented Arterial Blood Pressure 119/74 - Exam GENERAL EXAM: Revealed 51-year-old white male, intubated, mechanically ventilated, sedated. or exudates. NECK: No masses, no JVD, no thyroid enlargement, no adenopathy. CHEST: No chest wall deformity. Symmetrical expansion. Left subclavian central line in place covered with a sterile dressing Lfine crackles at the bases. CVS: Regular rate and rhythm, normal S1 and S2, no gallops, no murmurs, no rubs ABDOMEN: Soft, nontender. No hepatosplenomegaly, normal bowel sounds, no guarding or rigidity. EXTREMITIES: No clubbing, no edema, no cyanosis, 2+ pulses and upper and lower extremities. MUSCULOSKELETAL: Muscle strength and tone normal. SKIN: No rashes CENTRAL NERVOUS SYSTEM: Sedated,not assessed. - Labs CBC & Chem 7: 05/22/21 05:00 05/22/21 05:00 Labs: Abnormal Lab Results - Last 24 Hours (Table) 05/21/21 05/21/21 05/21/21 Range/Units 16:18 17:35 22:54 WBC (3.8-10.6) k/uL RBC (4.30-5.90) m/uL Hgb (13.0-17.5) gm/dL Hct (39.0-53.0) % Neutrophils # (1.3-7.7) k/uL APTT 42.7 H (22.0-30.0) sec D-Dimer (<0.60) mg/L FEU ABG pO2 (83-108) mmHg ABG Total CO2 (19-24) mmol/L ABG O2 Saturation (94-97) % Potassium (3.5-5.1) mmol/L Chloride (98-107) mmol/L Carbon Dioxide (22-30) mmol/L BUN (9-20) mg/dL Creatinine (0.66-1.25) mg/dL Glucose (74-99) mg/dL POC Glucose (mg/dL) 113 H 100 H (75-99) mg/dL Phosphorus (2.5-4.5) mg/dL ALT (4-49) U/L Alkaline Phosphatase (38-126) U/L Lactate Dehydrogenase (313-618) U/L C-Reactive Protein (<1.0) mg/dL Total Protein (6.3-8.2) g/dL Albumin (3.5-5.0) g/dL 05/21/21 05/22/21 05/22/21 Range/Units 23:50 05:00 05:00 WBC 12.9 H (3.8-10.6) k/uL RBC 3.24 L (4.30-5.90) m/uL Hgb 9.4 L (13.0-17.5) gm/dL Hct 28.4 L (39.0-53.0) % Neutrophils # 10.4 H (1.3-7.7) k/uL APTT 56.8 H (22.0-30.0) sec D-Dimer 2.12 H (<0.60) mg/L FEU ABG pO2 (83-108) mmHg ABG Total CO2 (19-24) mmol/L ABG O2 Saturation (94-97) % Potassium (3.5-5.1) mmol/L Chloride (98-107) mmol/L Carbon Dioxide (22-30) mmol/L BUN (9-20) mg/dL Creatinine (0.66-1.25) mg/dL Glucose (74-99) mg/dL POC Glucose (mg/dL) (75-99) mg/dL Phosphorus (2.5-4.5) mg/dL ALT (4-49) U/L Alkaline Phosphatase (38-126) U/L Lactate Dehydrogenase (313-618) U/L C-Reactive Protein (<1.0) mg/dL Total Protein (6.3-8.2) g/dL Albumin (3.5-5.0) g/dL 05/22/21 05/22/21 05/22/21 Range/Units 05:00 05:00 05:08 WBC (3.8-10.6) k/uL RBC (4.30-5.90) m/uL Hgb (13.0-17.5) gm/dL Hct (39.0-53.0) % Neutrophils # (1.3-7.7) k/uL APTT 49.3 H (22.0-30.0) sec D-Dimer (<0.60) mg/L FEU ABG pO2 (83-108) mmHg ABG Total CO2 (19-24) mmol/L ABG O2 Saturation (94-97) % Potassium 5.4 H (3.5-5.1) mmol/L Chloride 109 H (98-107) mmol/L Carbon Dioxide 16 L (22-30) mmol/L BUN 73 H (9-20) mg/dL Creatinine 4.26 H (0.66-1.25) mg/dL Glucose 113 H (74-99) mg/dL POC Glucose (mg/dL) 102 H (75-99) mg/dL Phosphorus 9.6 H* (2.5-4.5) mg/dL ALT 52 H (4-49) U/L Alkaline Phosphatase 193 H (38-126) U/L Lactate Dehydrogenase 1962 H (313-618) U/L C-Reactive Protein 33.5 H (<1.0) mg/dL Total Protein 5.8 L (6.3-8.2) g/dL Albumin 2.7 L (3.5-5.0) g/dL 05/22/21 Range/Units 05:23 WBC (3.8-10.6) k/uL RBC (4.30-5.90) m/uL Hgb (13.0-17.5) gm/dL Hct (39.0-53.0) % Neutrophils # (1.3-7.7) k/uL APTT (22.0-30.0) sec D-Dimer (<0.60) mg/L FEU ABG pO2 156 H (83-108) mmHg ABG Total CO2 26 H (19-24) mmol/L ABG O2 Saturation 99.3 H (94-97) % Potassium (3.5-5.1) mmol/L Chloride (98-107) mmol/L Carbon Dioxide (22-30) mmol/L BUN (9-20) mg/dL Creatinine (0.66-1.25) mg/dL Glucose (74-99) mg/dL POC Glucose (mg/dL) (75-99) mg/dL Phosphorus (2.5-4.5) mg/dL ALT (4-49) U/L Alkaline Phosphatase (38-126) U/L Lactate Dehydrogenase (313-618) U/L C-Reactive Protein (<1.0) mg/dL Total Protein (6.3-8.2) g/dL Albumin (3.5-5.0) g/dL Assessment and Plan Assessment: Impression: Acute hypoxic respiratory failure secondary to COVID-19 pneumonia admitted on 05/12, had symptoms about 10 days prior, patient is not vaccinated, he was outside the window for rem , started on baricitinib on 05/13. Had to be transferred to the ICU on 05/14, remains intubated. And sedated. Clinically this seems to be some improvement in his oxygenation, hence I will try to give the patient sedation holidays, and possibly daily assessment for potential bleeding. Underlying MSSA pneumonia covered with antibiotics and his baricitinib is discontinued, patient is on Zosyn. Acute kidney injury requiring hemodialysis. Right popliteal deep vein thrombosis, on heparin Elevated liver enzymes. Pneumomediastinum with subcutaneous emphysema as a complication of COVID-19 infection/pneumonia Recommendation: Continue ventilatory support. Continue sedation but daily assessment off sedation and possibly weaning trials. Avoid paralytics if possible. Continue hemodialysis. Continue antibiotics for MSSA infection in the sputum Continue diuretics. Prognosis remains guarded and critically ill patient Critical care time is over 30 minutes. We will continue to follow Time with Patient: Greater than 30
[2021-05-22] MEDS: DEXMEDETOMIDINE/0.9% NACL(PMX) 400 MCG in EMPTY BAG 1 BAG IV SCH ×3 (16:09→22:56)
[2021-05-22] MEDS: SODIUM CHLORIDE 0.45% 1,000 ML IV SCH (16:12)
[2021-05-22] MEDS: CLEVIDIPINE BUTYRATE 25 MG in EMPTY BAG 1 BAG IV SCH (20:32)
[2021-05-23] MEDS: HEPARIN SOD,PORK IN 0.45% NACL 25,000 UNIT in 0.45% NACL 1 250ML.BAG IV SCH (01:30)
[2021-05-23] MEDS: INSULIN ASPART (NovoLOG) 100 UNIT/ML VIAL SQ SCH ×4 (02:54→18:56)
[2021-05-23] MEDS: DEXMEDETOMIDINE/0.9% NACL(PMX) 400 MCG in EMPTY BAG 1 BAG IV SCH ×2 (03:52→21:38)
[2021-05-23 05:40] LABS: ABG Base Excess -1.8 mmol/L; ABG HCO3 22 mmol/L (21-25); ABG Oxygen Saturation 92.6 % (94-97); ABG PCO2 32 mmHg (35-45); ABG PH 7.45 (7.35-7.45); ABG PO2 63 mmHg (83-108); ABG TCO2 23 mmol/L (19-24); Allen Test Performed? Yes
[2021-05-23 05:54] LABS: Basophils # (A) 0.1 k/uL (0-0.2); Basophils % (A) 1 %; Eosinophils # (A) 0.2 k/uL (0-0.7); Eosinophils % (A) 2 %; HCT 34.2 % (39.0-53.0); Lymphocytes # (A) 1.1 k/uL (1.0-4.8); Lymphocytes % (A) 8 %; MCH 29.1 pg (25.0-35.0); MCHC 32.2 g/dL (31.0-37.0); MCV 90.2 fL (80.0-100.0); Mean Platelet Volume 9.3; Monocytes # (A) 1.1 k/uL (0-1.0); Monocytes % (A) 8 %; Neutrophils # (A) 10.1 k/uL (1.3-7.7); Neutrophils % (A) 79 %; Platelet Count 341 k/uL (150-450); RBC 3.79 m/uL (4.30-5.90); RDW 14.2 % (11.5-15.5); WBC 12.9 k/uL (3.8-10.6)
[2021-05-23 06:19] LABS: Albumin 2.8 g/dL (3.5-5.0); Calcium 8.5 mg/dL (8.4-10.2); Potassium 4.7 mmol/L (3.5-5.1); Total Protein 6.3 g/dL (6.3-8.2)
[2021-05-23] MEDS: SEVELAMER 800 MG TAB PO SCH ×3 (07:03→17:35)
[2021-05-23] MEDS: ALBUTEROL HFA INHALER INHALATION SCH ×4 (08:11→19:31)
--- NOTE | 2021-05-23 08:13 | XR ---
EXAMINATION TYPE: XR chest 1V portable DATE OF EXAM: 05/23/2021 COMPARISON: Chest x-ray 05/22/2021 HISTORY: Covid pneumonia, intubated TECHNIQUE: Single frontal view of the chest is obtained. FINDINGS: Endotracheal tube and NG tube, left subclavian central venous catheter are overlying appro priate positions. Bilateral airspace disease is again seen, there are overlying artifacts. Exam is ex piratory and rotated. Cardiac mediastinal silhouette not significantly changed. No pneumothorax or pl eural effusion. Subcutaneous emphysema and pneumomediastinum changes are present. IMPRESSION: Consistent with patient's history of pneumonia, correlate for ARDS, congestive heart june lure. Pneumomediastinum and subcutaneous emphysema.
[2021-05-23] MEDS: ASCORBIC ACID 500 MG TAB PO SCH (08:48)
[2021-05-23] MEDS: PIPERACILLIN-TAZOBACTAM 3.375 GM in SODIUM CHLORIDE 0.9% 100 ML IVPB SCH ×2 (08:48→20:37)
[2021-05-23] MEDS: CHLORHEXIDINE GLUCONATE 15 ML CUP MUCOUS MEM SCH ×2 (08:49→20:41)
[2021-05-23] MEDS: ZINC SULFATE 220 MG CAP PO SCH (08:49)
[2021-05-23] MEDS: FUROSEMIDE 10 MG/ML 10 ML VIAL IV SCH ×2 (08:49→20:41)
[2021-05-23] MEDS: SODIUM BICARBONATE TAB 650 MG TAB PO SCH ×2 (08:49→20:41)
[2021-05-23] MEDS: DEXAMETHASONE SOD PHOSPHATE 10 MG/ML 1 ML VIAL IVP SCH (08:49)
[2021-05-23] MEDS: PANTOPRAZOLE 40 MG/10 ML VIAL IVP SCH (08:49)
[2021-05-23] MEDS: CHOLECALCIFEROL 25 MCG (1000 IU) TABLET PO SCH (08:50)
[2021-05-23 09:31] LABS: C Reactive Protein 31.5 mg/dL (<1.0)
--- NOTE | 2021-05-23 10:32 | P.PN ---
Subjective Principal diagnosis: COVID-19 pneumonitis, respiratory failure and later dependent, renal failure and hemodialysis Chart was reviewed patient was seen and examined. Patient is currently intubated sedated and receiving hemodialysis. Patient is 51-year-old male no significant past medical history who was admitted with COVID-19 pneumonitis on 05/12/21. Prior to this patient had symptoms for about 10 days. Tested positive for COVID-19 on 05/07/21. Patient did receive monoclonal antibodies on 05/09/21 prior to this admission however his respiratory status continued to worsen and he came to emergency department. Initially he was very hypoxic and was on 4 L nasal cannula. Chest x-ray showed diffuse bilateral pulmonary infiltrates. He was treated with steroids, bronchodilators. He was found to be out of the window for Remdesevir. On 05/13/21 he respiratory status was somewhat worsened his d-dimer was significantly elevated and he underwent CT angiogram of the chest showed bilateral pulmonary emboli and extensive bilateral pneumonia. Doppler lower extremities: Right lower extremity popliteal DVT. He was started on heparin drip. Diagnosed with normal mediastinotomy on 05/15/21. Transferred to intensive care unit. Subsequently intubated on 05/18/21. Started on hemodialysis 05/15/21 due to acute kidney failure, oliguria and hyperkalemia. Objective - Vital Signs Vital signs: Vital Signs Temp 100.0 F H 05/23/21 08:00 Pulse 72 05/23/21 10:00 Resp 22 05/23/21 10:00 BP 114/68 05/22/21 14:35 Pulse Ox 98 05/23/21 10:00 Intake & Output 05/22/21 05/23/21 05/23/21 18:59 06:59 18:59 Intake Total 1645.668 8956.545 354 Output Total 3285 1400 250 Balance -2049.905 -372.455 104 Weight 110.5 kg Intake: IV 276 252 154 Normal Saline Pressure 66 72 24 Bag Piperacillin-Tazobactam 3 100 100 100 .375 gm In Sodium Chloride 0.9% 100 ml @ 25 mls/hr IVPB Q12HR [facility] Rx #:[id number] Sodium Chloride 0.45% 1, 110 80 30 000 ml @ 10 mls/hr IV . Q24H [facility] Rx#:[id number] Intake, IV Titration 369.095 475.545 100 Amount Clevidipine Butyrate 25 0.7 mg In Empty Bag 1 bag @ 1 MG/HR 2 mls/hr IV .Q24H [facility] Rx#:[id number] Dexmedetomidine/0.9% NaCl 19.095 233.475 100 (Pmx) 400 mcg In Empty Bag 1 bag @ 0.2 MCG/KG/HR 5.7 mls/hr IV .[id number] [facility] Rx#:[id number] Heparin Sod,Pork in 0.45% 250 241.37 NaCl 25,000 unit In 0.45 % NaCl 1 250ml.bag @ 18 UNITS/KG/HR 18.37 mls/hr IV .[id number] [facility] Rx#: [id number] propofoL 1,000 mg In 100 Empty Bag 1 bag @ Titrate IV .Q0M [facility] Rx#: [id number] Tube Feeding 110 120 40 Hemodialysis 300 Other 180 180 60 Output: Urine 985 1400 250 Hemodialysis 2300 Other: Voiding Method Indwelling Catheter Indwelling Catheter Indwelling Catheter ABP, PAP, CO, CI - Last Documented Arterial Blood Pressure 95/64 - Exam Intubated sedated and receiving hemodialysis On the ventilator FiO2 50% PEEP of 6 Lungs coarse breath sounds no wheezing no rhonchi Cardiovascular regular rhythm and rate Abdomen bowel sounds present soft nontender nondistended Extremities pitting edema warm well perfused no cyanosis Pupils are round and reactive to light symmetrical eyes in the midline - Labs CBC & Chem 7: 05/23/21 05:00 05/23/21 05:00 Labs: Abnormal Lab Results - Last 24 Hours (Table) 05/22/21 05/23/21 05/23/21 Range/Units 05:00 05:00 05:00 WBC 12.9 H (3.8-10.6) k/uL RBC 3.79 L (4.30-5.90) m/uL Hgb 11.0 L (13.0-17.5) gm/dL Hct 34.2 L (39.0-53.0) % Neutrophils # 10.1 H (1.3-7.7) k/uL Monocytes # 1.1 H (0-1.0) k/uL APTT 49.3 H (22.0-30.0) sec ABG pCO2 (35-45) mmHg ABG pO2 (83-108) mmHg ABG O2 Saturation (94-97) % Carbon Dioxide 19 L (22-30) mmol/L BUN 67 H (9-20) mg/dL Creatinine 3.85 H (0.66-1.25) mg/dL Glucose 103 H (74-99) mg/dL ALT 51 H (4-49) U/L Alkaline Phosphatase 228 H (38-126) U/L Lactate Dehydrogenase 1910 H (313-618) U/L C-Reactive Protein 31.5 H (<1.0) mg/dL Albumin 2.8 L (3.5-5.0) g/dL 05/23/21 05/23/21 Range/Units 05:00 05:30 WBC (3.8-10.6) k/uL RBC (4.30-5.90) m/uL Hgb (13.0-17.5) gm/dL Hct (39.0-53.0) % Neutrophils # (1.3-7.7) k/uL Monocytes # (0-1.0) k/uL APTT 49.2 H (22.0-30.0) sec ABG pCO2 32 L (35-45) mmHg ABG pO2 63 L (83-108) mmHg ABG O2 Saturation 92.6 L (94-97) % Carbon Dioxide (22-30) mmol/L BUN (9-20) mg/dL Creatinine (0.66-1.25) mg/dL Glucose (74-99) mg/dL ALT (4-49) U/L Alkaline Phosphatase (38-126) U/L Lactate Dehydrogenase (313-618) U/L C-Reactive Protein (<1.0) mg/dL Albumin (3.5-5.0) g/dL Assessment and Plan Plan: #COVID-19 pneumonitis with acute hypoxic respiratory failure requiring mechan ical ventilation Onset of symptoms: About 10 days prior to admission Date of diagnosis 05/07/21 monoclonal antibodies 05/09/21 Date of admission 05/12/21 Imaging consistent with significant bilateral pneumonia CRP 33.5 on 05/22/21 Pulmonary service following Treatment: dexamethasone, bronchodilators, antibiotics Remdesevir was not used as it was felt the patient was out of window for treatment Baricitinb started but was eventually discontinued due to bacterial pneumonia Remains on ventilatory settings FiO2 50% PEEP 6 with permissive hypercarbia #Bilateral pulmonary embolism Remains on heparin drip D-dimer trending down #MSSA pneumonia Started on Zosyn #Acute kidney injury Due to ATN Nonoliguric Remains on hemodialysis and Lasix Nephrology following #Pneumomediastinum Due to extensive COVID-19 pneumonitis and mechanical exhalation Follow this serial imaging, improved #[place] to be due to combination of sepsis and possibly pulmonary embolism Improved, off of pressors Tolerating hemodialysis #
--- NOTE | 2021-05-23 11:16 | P.PN ---
Subjective Patient is seen in follow-up for acute kidney injury. Currently hemodialysis dependent. Tolerating dialysis well. Maintained on IV Lasix. Nonoliguric. Intubated. Receiving tube feeds. Vital signs are stable. HEENT: Intubated. EXTREMITITES: 1+ edema. Exam discussed with the nurse. Objective - Vital Signs Vital signs: Vital Signs Temp 100.0 F H 05/23/21 08:00 Pulse 79 05/23/21 11:00 Resp 27 H 05/23/21 11:00 BP 114/68 05/22/21 14:35 Pulse Ox 97 05/23/21 11:00 Intake & Output 05/22/21 05/23/21 05/23/21 18:59 06:59 18:59 Intake Total 9697.134 1239.545 354 Output Total 3285 1400 250 Balance -2049.905 -372.455 104 Weight 110.5 kg 110.5 kg Intake: IV 276 252 154 Normal Saline Pressure 66 72 24 Bag Piperacillin-Tazobactam 3 100 100 100 .375 gm In Sodium Chloride 0.9% 100 ml @ 25 mls/hr IVPB Q12HR [facility] Rx #:[id number] Sodium Chloride 0.45% 1, 110 80 30 000 ml @ 10 mls/hr IV . Q24H [facility] Rx#:[id number] Intake, IV Titration 369.095 475.545 100 Amount Clevidipine Butyrate 25 0.7 mg In Empty Bag 1 bag @ 1 MG/HR 2 mls/hr IV .Q24H [facility] Rx#:[id number] Dexmedetomidine/0.9% NaCl 19.095 233.475 100 (Pmx) 400 mcg In Empty Bag 1 bag @ 0.2 MCG/KG/HR 5.7 mls/hr IV .[id number] [facility] Rx#:[id number] Heparin Sod,Pork in 0.45% 250 241.37 NaCl 25,000 unit In 0.45 % NaCl 1 250ml.bag @ 18 UNITS/KG/HR 18.37 mls/hr IV .[id number] [facility] Rx#: [id number] propofoL 1,000 mg In 100 Empty Bag 1 bag @ Titrate IV .Q0M [facility] Rx#: [id number] Tube Feeding 110 120 40 Hemodialysis 300 Other 180 180 60 Output: Urine 985 1400 250 Hemodialysis 2300 Other: Voiding Method Indwelling Catheter Indwelling Catheter Indwelling Catheter ABP, PAP, CO, CI - Last Documented Arterial Blood Pressure 106/68 - Labs CBC & Chem 7: 05/23/21 05:00 05/23/21 05:00 Labs: Abnormal Lab Results - Last 24 Hours (Table) 05/22/21 05/23/21 05/23/21 Range/Units 05:00 05:00 05:00 WBC 12.9 H (3.8-10.6) k/uL RBC 3.79 L (4.30-5.90) m/uL Hgb 11.0 L (13.0-17.5) gm/dL Hct 34.2 L (39.0-53.0) % Neutrophils # 10.1 H (1.3-7.7) k/uL Monocytes # 1.1 H (0-1.0) k/uL APTT 49.3 H (22.0-30.0) sec ABG pCO2 (35-45) mmHg ABG pO2 (83-108) mmHg ABG O2 Saturation (94-97) % Carbon Dioxide 19 L (22-30) mmol/L BUN 67 H (9-20) mg/dL Creatinine 3.85 H (0.66-1.25) mg/dL Glucose 103 H (74-99) mg/dL ALT 51 H (4-49) U/L Alkaline Phosphatase 228 H (38-126) U/L Lactate Dehydrogenase 1910 H (313-618) U/L C-Reactive Protein 31.5 H (<1.0) mg/dL Albumin 2.8 L (3.5-5.0) g/dL 05/23/21 05/23/21 Range/Units 05:00 05:30 WBC (3.8-10.6) k/uL RBC (4.30-5.90) m/uL Hgb (13.0-17.5) gm/dL Hct (39.0-53.0) % Neutrophils # (1.3-7.7) k/uL Monocytes # (0-1.0) k/uL APTT 49.2 H (22.0-30.0) sec ABG pCO2 32 L (35-45) mmHg ABG pO2 63 L (83-108) mmHg ABG O2 Saturation 92.6 L (94-97) % Carbon Dioxide (22-30) mmol/L BUN (9-20) mg/dL Creatinine (0.66-1.25) mg/dL Glucose (74-99) mg/dL ALT (4-49) U/L Alkaline Phosphatase (38-126) U/L Lactate Dehydrogenase (313-618) U/L C-Reactive Protein (<1.0) mg/dL Albumin (3.5-5.0) g/dL Assessment and Plan Plan: Assessment: 1. Acute kidney injury secondary to ATN secondary to sepsis/COVID-19 pneumonia. Currently hemodialysis dependent. Nonoliguric. 2. Volume overload. Improving with diuresis and ultrafiltration. 3. Hyperkalemia secondary to acute kidney injury and metabolic acidosis. 4. Bilateral PE maintained on heparin drip. 5. COVID-19 pneumonia. 6. Acute hypoxic respiratory failure. 7. Sputum culture positive for staph aureus. On antibiotics. 8. Hyperphosphatemia secondary to acute kidney injury. On Renvela. Plan: Currently seen while undergoing hemodialysis. Maintain IV Lasix. Wean FiO2. Maintain tube feeds. Continue to assess daily for need for renal replacement therapy.
[2021-05-23] MEDS: NOREPINEPHRINE 8 MG in SODIUM CHLORIDE 0.9% 250 ML IV SCH (13:13)
--- NOTE | 2021-05-23 13:38 | P.PN ---
Subjective Progress Note Date: 05/23/21 Principal diagnosis: Acute hypoxic respiratory failure secondary to COVID-19 pneumonia 51-year-old male who presents to the emergency department on May 12, with complaints of shortness of breath. The patient has been sick for at least 10-11 days. It started off with cough and shortness of breath, and loss of taste. He's also had fever. He has not been vaccinated. He was tested for coronavirus on May 07, and tested positive. The patient does not have a primary care physician. He has no past medical history. He takes no medications at home. The patient did receive monoclonal antibodies on May 09. Currently, the patient's on 5 L nasal cannula. He's got saline running at 75 mL an hour. He looks relatively stable. His chest x-ray does show diffuse bilateral infiltrates. The home medications that he is on include an albuterol inhaler, Tessalon Perles, and Decadron, given to him by the hospital. White count 5.1, hemoglobin 14.3, hematocrit 42.6, and platelet count 377,000. Sodium, potassium, chloride, CO2, anion gap, BUN, and creatinine are all normal. AST was 154, ALT 123, alkaline phosphatase 164. LDH was 2657. C-reactive protein is 14.9. Pro-calcitonin level is 0.14. Chest x-ray shows low lung volumes, with right greater than left bilateral opacities. The patient is seen today 05/13/2021 in follow-up on the regular medical floor. He is currently resting in bed. He is somewhat more dyspneic andtachypneic. His oxygen requirements have gone up to knees on 15 L high flow nasal cannula plus a nonrebreather mask. white count 6.8. Hemoglobin 13.5. Leukocytes 0.85. D-dimer up to 15.8. Sodium 143. Potassium 5.4. Creatinine 1.0. Glucose 123. AST 120. ALT 146. LDH 971. C-reactive protein 3.4. CT angiogram was requested after seeing the patient. There is evidence of bilateral lower lobe large multiple pulmonary emboli. No sign of right heart strain. Lovenox will be discontinued and he'll be initiated on a heparin drip On 05/14/2021 patient was emergently transferred to the intensive care unit for a concern of worsening hypoxia and dyspnea. Earlier in the shift he was on 15 L per high flow nasal cannula and 100% nonrebreather mask however his work of breathing had significantly increased his respiratory rate was ranging between 40-50 breaths per minute. His pulse ox was 87% and subsequently dropped down to 73%%. He was placed on BiPAP support with no improvement in his work of breathing or hypoxia, was intubated per CINDY, currently on assist-control mode of ventilation with a rate of 36 tidal volume is 350, FiO2 100% and PEEP of 24. he was given Nimbex IV pushes and propofol for sedation during intubation, he will be placed on Diprivan drip and Nimbex. Currently his pulse ox is 81% on the above-mentioned vent settings. His blood pressure 121/71, he is in sinus mechanism tachycardic with a rate of 110-120 BPM. Patient was found to have bilateral pulmonary emboli on yesterday's CT angiogram of the chest, he was started on heparin infusion on which she remains per weight-based protocol, his maintenance IV fluids are 0.9 normal saline at a rate of 75 ML per hour, CT angiogram lung windows showed extensive bilateral pneumonia. Chest x-ray post intubation and left subclavian central line placement is pending. This morning's labs have been reviewed, white blood cell count is 11.9, hemoglobin is 14.5, today's d-dimer is 18.26 slightly increased from yesterday's value, sodium is 141, potassium is 5.2, chloride is 111, CO2 is 23, BUN was 20 creatinine 0.96, his LDH today has significantly increased and is up to 3109, from 971 on yesterday's labs, and CRP is stable at 3.4. His pro calcitonin level on 05/12/2021 was at 0.14. Patient was started on Baricitinib yesterday on , in addition to Decadron 6 mg daily. Patient is on vitamin C, zinc, and vitamin D will be added. On 05/21/2021 patient seen in follow-up in intensive care unit, he remains intubated, and sedated, currently on pressure control mode of ventilation, with a pressure of 15, inspiratory time of 0.9, FiO2 of 50% and PEEP of 6. Respiratory rate is 22. His peak airway pressure is 24, this morning's blood gas shows pO2 of 64, pCO2 of 39, and pH is 7.43. He is on 0.9 normal saline at a rate of 20 ML per hour, heparin infusion at weight-based protocol, and improving and is at 75 mics per kilo per minute. He is on tube feedings with Vital AF 16 with standard water flushes, hemodynamically stable, not requiring any vasopressor support, today's chest x-ray has been reviewed, showing continu ed improving subcutaneous emphysema, persistent pneumomediastinum, no pneumothorax, multifocal and confluent right greater than left opacities redemonstrated, there is some overall improvement from one day earlier noted. Patient remains on Decadron 6 mg daily, he was started on Lasix 60 mg every 12 hours, she remains on heparin infusion per weight-based protocol, he remains on empiric antibiotics in the form of Zosyn. His sputum culture showed evidence of MSSA. Today's labs have been reviewed, white blood cell count is relatively stable at 15.7, hemoglobin is 9.3, Patient was reevaluated today on 05/22/2021, remains intubated and mechanically ventilated, patient is on a pressure control mode of mechanical ventilation. He is on FiO2 of 35%, pressure control of 15, rate 22, PEEP is 6. Remains on propofol and I went ahead and recommended that we change propofol to Precedex. I would like to assess the patient for potential weaning trials. X-ray continues to show bilateral infiltrates, right more so than left. Otherwise no major changes noted. WBC count is 12.9 hemoglobin is 9.4 d-dimer is 2.12, ABG is excellent with a pO2 of 156 pCO2 42 pH of 7.37. BUN is 73 creatinine 4.26, patient is on hemodialysis. Patient was being hemodialyzed during my evaluation LDH is 1961 C-reactive protein is 33.5, both are improving Evaluated today on 05/23/2021, and remains in the ICU, intubated and mechanically ventilated. Patient is actually only on Precedex at this point, off sedation, off narcotics, he is awake but does not seem to follow any instructions and he doesn't comprehend. He is on pressure control mode of mechanical ventilation, rate is set at 22, pressure control at 15, PEEP at 6. He is on 40% FiO2. Seems to be arousable, but again does not follow any instructions. Chest x-ray continues show bilateral infiltrates, pneumomediastinum and subcutaneous emphysema. ABG today showed a pO2 of 63 pCO2 of 32 pH of 7.45. PTT is 49 WBC count 12.9 hemoglobin 11. Asymmetric metabolic profile is normal renal profile showed a BUN of 67 creatinine 3.85, patient is on hemodialysis. LDH continues to remain high at 1910 C-reactiveProtein remains high at 31.5 Objective - Vital Signs Vital signs: Vital Signs Temp 100.0 F H 05/23/21 08:00 Pulse 75 05/23/21 12:00 Resp 31 H 05/23/21 12:00 BP 114/68 05/22/21 14:35 Pulse Ox 97 05/23/21 12:00 Intake & Output 05/22/21 05/23/21 05/23/21 18:59 06:59 18:59 Intake Total 5661.512 7215.545 354 Output Total 3285 1400 250 Balance -2049.905 -372.455 104 Weight 110.5 kg 110.5 kg Intake: IV 276 252 154 Normal Saline Pressure 66 72 24 Bag Piperacillin-Tazobactam 3 100 100 100 .375 gm In Sodium Chloride 0.9% 100 ml @ 25 mls/hr IVPB Q12HR [facility] Rx #:[id number] Sodium Chloride 0.45% 1, 110 80 30 000 ml @ 10 mls/hr IV . Q24H [facility] Rx#:[id number] Intake, IV Titration 369.095 475.545 100 Amount Clevidipine Butyrate 25 0.7 mg In Empty Bag 1 bag @ 1 MG/HR 2 mls/hr IV .Q24H [facility] Rx#:[id number] Dexmedetomidine/0.9% NaCl 19.095 233.475 100 (Pmx) 400 mcg In Empty Bag 1 bag @ 0.2 MCG/KG/HR 5.7 mls/hr IV .[id number] [facility] Rx#:[id number] Heparin Sod,Pork in 0.45% 250 241.37 NaCl 25,000 unit In 0.45 % NaCl 1 250ml.bag @ 18 UNITS/KG/HR 18.37 mls/hr IV .[id number] [facility] Rx#: [id number] propofoL 1,000 mg In 100 Empty Bag 1 bag @ Titrate IV .Q0M [facility] Rx#: [id number] Tube Feeding 110 120 40 Hemodialysis 300 Other 180 180 60 Output: Urine 985 1400 250 Hemodialysis 2300 Other: Voiding Method Indwelling Catheter Indwelling Catheter Indwelling Catheter ABP, PAP, CO, CI - Last Documented Arterial Blood Pressure 99/66 - Exam GENERAL EXAM: Revealed 51-year-old white male, intubated, mechanically ventilated, arousable but does not follow instructions. On Precedex. NECK: No masses, no JVD, no thyroid enlargement, no adenopathy. CHEST: No chest wall deformity. Symmetrical expansion. Left subclavian central line in place covered with a sterile dressing Lfine crackles at the bases. CVS: Regular rate and rhythm, normal S1 and S2, no gallops, no murmurs, no rubs ABDOMEN: Soft, nontender. No hepatosplenomegaly, normal bowel sounds, no guarding or rigidity. EXTREMITIES: No clubbing, no edema, no cyanosis, 2+ pulses and upper and lower extremities. SKIN: No rashes CENTRAL NERVOUS SYSTEM: All normal, weak, does not follow instructions. - Labs CBC & Chem 7: 05/23/21 05:00 05/23/21 05:00 Labs: Abnormal Lab Results - Last 24 Hours (Table) 05/22/21 05/23/21 05/23/21 Range/Units 05:00 05:00 05:00 WBC 12.9 H (3.8-10.6) k/uL RBC 3.79 L (4.30-5.90) m/uL Hgb 11.0 L (13.0-17.5) gm/dL Hct 34.2 L (39.0-53.0) % Neutrophils # 10.1 H (1.3-7.7) k/uL Monocytes # 1.1 H (0-1.0) k/uL APTT 49.3 H (22.0-30.0) sec ABG pCO2 (35-45) mmHg ABG pO2 (83-108) mmHg ABG O2 Saturation (94-97) % Carbon Dioxide 19 L (22-30) mmol/L BUN 67 H (9-20) mg/dL Creatinine 3.85 H (0.66-1.25) mg/dL Glucose 103 H (74-99) mg/dL ALT 51 H (4-49) U/L Alkaline Phosphatase 228 H (38-126) U/L Lactate Dehydrogenase 1910 H (313-618) U/L C-Reactive Protein 31.5 H (<1.0) mg/dL Albumin 2.8 L (3.5-5.0) g/dL 05/23/21 05/23/21 Range/Units 05:00 05:30 WBC (3.8-10.6) k/uL RBC (4.30-5.90) m/uL Hgb (13.0-17.5) gm/dL Hct (39.0-53.0) % Neutrophils # (1.3-7.7) k/uL Monocytes # (0-1.0) k/uL APTT 49.2 H (22.0-30.0) sec ABG pCO2 32 L (35-45) mmHg ABG pO2 63 L (83-108) mmHg ABG O2 Saturation 92.6 L (94-97) % Carbon Dioxide (22-30) mmol/L BUN (9-20) mg/dL Creatinine (0.66-1.25) mg/dL Glucose (74-99) mg/dL ALT (4-49) U/L Alkaline Phosphatase (38-126) U/L Lactate Dehydrogenase (313-618) U/L C-Reactive Protein (<1.0) mg/dL Albumin (3.5-5.0) g/dL Assessment and Plan Assessment: Impression: Acute hypoxic respiratory failure secondary to COVID-19 pneumonia admitted on 05/12, had symptoms about 10 days prior, patient is not vaccinated, he was outside the window for rem , started on baricitinib on 05/13. Had to be transf erred to the ICU on 05/14, remains intubated. And sedated. Clinically this seems to be some improvement in his oxygenation, hence I will try to give the patient sedation holidays, and possibly daily assessment for potential bleeding. Underlying MSSA pneumonia covered with antibiotics and his baricitinib is discontinued, patient is on Zosyn. Acute kidney injury requiring hemodialysis. Right popliteal deep vein thrombosis, on heparin Elevated liver enzymes. Pneumomediastinum with subcutaneous emphysema as a complication of COVID-19 infection/pneumonia Recommendation: Continue ventilatory support. Not quite ready for weaning trials considering his mental status. Avoid narcotics and sedatives, use mostly Precedex for now. Avoid paralytics if possible. Continue hemodialysis. Continue antibiotics for MSSA infection in the sputum Continue diuretics. is critically ill. Not ready to be weaned or extubated. Critical care time is over 30 minutes. We will continue to follow Time with Patient: Greater than 30
[2021-05-23] MEDS: SODIUM CHLORIDE 0.45% 1,000 ML IV SCH (17:34)
[2021-05-23] MEDS: CLEVIDIPINE BUTYRATE 25 MG in EMPTY BAG 1 BAG IV SCH (20:33)
[2021-05-24] MEDS: HEPARIN SOD,PORK IN 0.45% NACL 25,000 UNIT in 0.45% NACL 1 250ML.BAG IV SCH ×2 (02:15→12:32)
[2021-05-24] MEDS: DEXMEDETOMIDINE/0.9% NACL(PMX) 400 MCG in EMPTY BAG 1 BAG IV SCH ×5 (02:16→21:44)
[2021-05-24] MEDS: INSULIN ASPART (NovoLOG) 100 UNIT/ML VIAL SQ SCH ×4 (02:56→17:49)
[2021-05-24 05:16] LABS: ABG HCO3 21 mmol/L (21-25); ABG PCO2 33 mmHg (35-45); ABG PH 7.43 (7.35-7.45); ABG PO2 70 mmHg (83-108); ABG TCO2 22 mmol/L (19-24)
[2021-05-24 05:35] LABS: Basophils % (A) 0 %; Eosinophils # (A) 0.2 k/uL (0-0.7); Eosinophils % (A) 2 %; HCT 32.4 % (39.0-53.0); HGB 10.6 gm/dL (13.0-17.5); Lymphocytes # (A) 1.3 k/uL (1.0-4.8); Lymphocytes % (A) 10 %; MCH 29.5 pg (25.0-35.0); MCHC 32.7 g/dL (31.0-37.0); MCV 90.2 fL (80.0-100.0); Mean Platelet Volume 9.5; Monocytes % (A) 8 %; Neutrophils # (A) 9.6 k/uL (1.3-7.7); Neutrophils % (A) 78 %; Platelet Count 341 k/uL (150-450); RBC 3.59 m/uL (4.30-5.90); RDW 14.3 % (11.5-15.5); WBC 12.4 k/uL (3.8-10.6)
[2021-05-24 05:54] LABS: Albumin 2.9 g/dL (3.5-5.0); Calcium 8.5 mg/dL (8.4-10.2); Potassium 4.3 mmol/L (3.5-5.1); Total Protein 6.2 g/dL (6.3-8.2)
[2021-05-24 05:56] LABS: Partial Thromboplastin Time 34.8 sec (22.0-30.0)
[2021-05-24 06:06] LABS: Allen Test Performed? no
[2021-05-24] MEDS: HEPARIN SODIUM 1,000 UN/ML (10ML VL) IV PRN (06:13)
[2021-05-24 06:19] LABS: C Reactive Protein 21.1 mg/dL (<1.0)
[2021-05-24] MEDS: SEVELAMER 800 MG TAB PO SCH ×3 (06:57→15:50)
[2021-05-24] MEDS: CHLORHEXIDINE GLUCONATE 15 ML CUP MUCOUS MEM SCH ×2 (08:02→21:01)
[2021-05-24] MEDS: PIPERACILLIN-TAZOBACTAM 3.375 GM in SODIUM CHLORIDE 0.9% 100 ML IVPB SCH ×2 (08:02→21:00)
[2021-05-24] MEDS: SODIUM BICARBONATE TAB 650 MG TAB PO SCH ×2 (08:03→21:01)
[2021-05-24] MEDS: CHOLECALCIFEROL 25 MCG (1000 IU) TABLET PO SCH (08:03)
[2021-05-24] MEDS: ZINC SULFATE 220 MG CAP PO SCH (08:03)
[2021-05-24] MEDS: ASCORBIC ACID 500 MG TAB PO SCH (08:03)
[2021-05-24] MEDS: DEXAMETHASONE SOD PHOSPHATE 10 MG/ML 1 ML VIAL IVP SCH (08:03)
[2021-05-24] MEDS: PANTOPRAZOLE 40 MG/10 ML VIAL IVP SCH (08:03)
[2021-05-24] MEDS: FUROSEMIDE 10 MG/ML 10 ML VIAL IV SCH ×2 (08:03→21:01)
[2021-05-24] MEDS: ALBUTEROL HFA INHALER INHALATION SCH ×4 (08:08→20:06)
--- NOTE | 2021-05-24 08:44 | XR ---
EXAMINATION TYPE: XR chest 1V portable DATE OF EXAM: 05/24/2021 COMPARISON: Chest x-ray 05/23/2021 HISTORY: Covid, intubated TECHNIQUE: Single frontal view of the chest is obtained. FINDINGS: Endotracheal tube, NG tube, left subclavian central venous catheter are overlying appropri ate positions. Bilateral airspace disease is present, lung volume may be slightly improved. There are overlying artifacts. No evident pneumothorax or pleural effusion. Cardiac mediastinal silhouette sta ble accounting for differences in technique. IMPRESSION: Correlate for pneumonia, there may be some slight improvement in aeration, there are dif ferences in lung volume.
--- NOTE | 2021-05-24 09:37 | P.PN ---
Subjective Patient is seen in follow-up for acute kidney injury. Currently hemodialysis dependent. Had a short treatment of dialysis yesterday. Creatinine higher today. Maintained on IV Lasix. Nonoliguric. Intubated. Receiving tube feeds. Vital signs are stable. HEENT: Intubated. EXTREMITITES: 1+ edema. Exam discussed with the nurse. Objective - Vital Signs Vital signs: Vital Signs Temp 100.3 F H 05/24/21 08:00 Pulse 65 05/24/21 08:00 Resp 22 05/24/21 08:00 BP 114/68 05/22/21 14:35 Pulse Ox 96 05/24/21 08:00 Intake & Output 05/23/21 05/24/21 05/24/21 18:59 06:59 18:59 Intake Total 896 794.438 186 Output Total 710 1110 125 Balance 186 -315.562 61 Weight 110.5 kg Intake: IV 282 236 116 Normal Saline Pressure 72 66 6 Bag Piperacillin-Tazobactam 3 100 100 100 .375 gm In Sodium Chloride 0.9% 100 ml @ 25 mls/hr IVPB Q12HR [facility] Rx #:[id number] Sodium Chloride 0.45% 1, 110 70 10 000 ml @ 10 mls/hr IV . Q24H [facility] Rx#:[id number] Intake, IV Titration 350 289.438 Amount Dexmedetomidine/0.9% NaCl 100 200.00 (Pmx) 400 mcg In Empty Bag 1 bag @ 0.2 MCG/KG/HR 5.7 mls/hr IV .[id number] [facility] Rx#:[id number] Heparin Sod,Pork in 0.45% 250 89.438 NaCl 25,000 unit In 0.45 % NaCl 1 250ml.bag @ 18 UNITS/KG/HR 18.37 mls/hr IV .[id number] [facility] Rx#: [id number] Tube Feeding 144 119 10 Other 120 150 60 Output: Urine 710 1110 125 Other: Voiding Method Indwelling Catheter Indwelling Catheter ABP, PAP, CO, CI - Last Documented Arterial Blood Pressure 95/57 - Labs CBC & Chem 7: 05/24/21 05:00 05/24/21 05:00 Labs: Abnormal Lab Results - Last 24 Hours (Table) 05/24/21 05/24/21 05/24/21 Range/Units 05:00 05:00 05:00 WBC 12.4 H (3.8-10.6) k/uL RBC 3.59 L (4.30-5.90) m/uL Hgb 10.6 L (13.0-17.5) gm/dL Hct 32.4 L (39.0-53.0) % Neutrophils # 9.6 H (1.3-7.7) k/uL APTT 34.8 H (22.0-30.0) sec D-Dimer 2.82 H (<0.60) mg/L FEU ABG pCO2 (35-45) mmHg ABG pO2 (83-108) mmHg Carbon Dioxide 19 L (22-30) mmol/L BUN 92 H (9-20) mg/dL Creatinine 4.58 H (0.66-1.25) mg/dL Glucose 117 H (74-99) mg/dL Alkaline Phosphatase 201 H (38-126) U/L Lactate Dehydrogenase 1784 H (313-618) U/L C-Reactive Protein 21.1 H (<1.0) mg/dL Total Protein 6.2 L (6.3-8.2) g/dL Albumin 2.9 L (3.5-5.0) g/dL 05/24/21 Range/Units 05:14 WBC (3.8-10.6) k/uL RBC (4.30-5.90) m/uL Hgb (13.0-17.5) gm/dL Hct (39.0-53.0) % Neutrophils # (1.3-7.7) k/uL APTT (22.0-30.0) sec D-Dimer (<0.60) mg/L FEU ABG pCO2 33 L (35-45) mmHg ABG pO2 70 L (83-108) mmHg Carbon Dioxide (22-30) mmol/L BUN (9-20) mg/dL Creatinine (0.66-1.25) mg/dL Glucose (74-99) mg/dL Alkaline Phosphatase (38-126) U/L Lactate Dehydrogenase (313-618) U/L C-Reactive Protein (<1.0) mg/dL Total Protein (6.3-8.2) g/dL Albumin (3.5-5.0) g/dL Assessment and Plan Plan: Assessment: 1. Acute kidney injury secondary to ATN secondary to sepsis/COVID-19 pneumonia. Currently hemodialysis dependent. Nonoliguric. 2. Volume overload. Improving with diuresis and ultrafiltration. 3. Hyperkalemia secondary to acute kidney injury and metabolic acidosis. 4. Bilateral PE maintained on heparin drip. 5. COVID-19 pneumonia. 6. Acute hypoxic respiratory failure. 7. Sputum culture positive for staph aureus. On antibiotics. 8. Hyperphosphatemia secondary to acute kidney injury. On Renvela. Plan: Short hemodialysis treatment today mostly for ultrafiltration. Maintain IV Lasix. Wean FiO2. Maintain tube feeds. Continue to assess daily for need for renal replacement therapy.
--- NOTE | 2021-05-24 09:44 | P.PN ---
Subjective Principal diagnosis: COVID-19 pneumonitis, respiratory failure and later dependent, renal failure and hemodialysis Chart was reviewed patient was seen and examined. Patient is currently intubated sedated and receiving hemodialysis. Patient is 51-year-old male no significant past medical history who was admitted with COVID-19 pneumonitis on 05/12/21. Prior to this patient had symptoms for about 10 days. Tested positive for COVID-19 on 05/07/21. Patient did receive monoclonal antibodies on 05/09/21 prior to this admission however his respiratory status continued to worsen and he came to emergency department. Initially he was very hypoxic and was on 4 L nasal cannula. Chest x-ray showed diffuse bilateral pulmonary infiltrates. He was treated with steroids, bronchodilators. He was found to be out of the window for Remdesevir. On 05/13/21 he respiratory status was somewhat worsened his d-dimer was significantly elevated and he underwent CT angiogram of the chest showed bilateral pulmonary emboli and extensive bilateral pneumonia. Doppler lower extremities: Right lower extremity popliteal DVT. He was started on heparin drip. Diagnosed with normal mediastinotomy on 05/15/21. Transferred to intensive care unit. Subsequently intubated on 05/18/21. Started on hemodialysis 05/15/21 due to acute kidney failure, oliguria and hyperkalemia. Objective - Vital Signs Vital signs: Vital Signs Temp 100.3 F H 05/24/21 08:00 Pulse 65 05/24/21 08:00 Resp 22 05/24/21 08:00 BP 114/68 05/22/21 14:35 Pulse Ox 96 05/24/21 08:00 Intake & Output 05/23/21 05/24/21 05/24/21 18:59 06:59 18:59 Intake Total 896 794.438 186 Output Total 710 1110 125 Balance 186 -315.562 61 Weight 110.5 kg Intake: IV 282 236 116 Normal Saline Pressure 72 66 6 Bag Piperacillin-Tazobactam 3 100 100 100 .375 gm In Sodium Chloride 0.9% 100 ml @ 25 mls/hr IVPB Q12HR [facility] Rx #:[id number] Sodium Chloride 0.45% 1, 110 70 10 000 ml @ 10 mls/hr IV . Q24H [facility] Rx#:[id number] Intake, IV Titration 350 289.438 Amount Dexmedetomidine/0.9% NaCl 100 200.00 (Pmx) 400 mcg In Empty Bag 1 bag @ 0.2 MCG/KG/HR 5.7 mls/hr IV .[id number] [facility] Rx#:[id number] Heparin Sod,Pork in 0.45% 250 89.438 NaCl 25,000 unit In 0.45 % NaCl 1 250ml.bag @ 18 UNITS/KG/HR 18.37 mls/hr IV .[id number] [facility] Rx#: [id number] Tube Feeding 144 119 10 Other 120 150 60 Output: Urine 710 1110 125 Other: Voiding Method Indwelling Catheter Indwelling Catheter ABP, PAP, CO, CI - Last Documented Arterial Blood Pressure 95/57 - Exam Intubated sedated and receiving hemodialysis On the ventilator FiO2 50% PEEP of 6 Lungs coarse breath sounds no wheezing no rhonchi Cardiovascular regular rhythm and rate Abdomen bowel sounds present soft nontender nondistended Extremities pitting edema warm well perfused no cyanosis Pupils are round and reactive to light symmetrical eyes in the midline - Labs CBC & Chem 7: 05/24/21 05:00 05/24/21 05:00 Labs: Abnormal Lab Results - Last 24 Hours (Table) 05/24/21 05/24/21 05/24/21 Range/Units 05:00 05:00 05:00 WBC 12.4 H (3.8-10.6) k/uL RBC 3.59 L (4.30-5.90) m/uL Hgb 10.6 L (13.0-17.5) gm/dL Hct 32.4 L (39.0-53.0) % Neutrophils # 9.6 H (1.3-7.7) k/uL APTT 34.8 H (22.0-30.0) sec D-Dimer 2.82 H (<0.60) mg/L FEU ABG pCO2 (35-45) mmHg ABG pO2 (83-108) mmHg Carbon Dioxide 19 L (22-30) mmol/L BUN 92 H (9-20) mg/dL Creatinine 4.58 H (0.66-1.25) mg/dL Glucose 117 H (74-99) mg/dL Alkaline Phosphatase 201 H (38-126) U/L Lactate Dehydrogenase 1784 H (313-618) U/L C-Reactive Protein 21.1 H (<1.0) mg/dL Total Protein 6.2 L (6.3-8.2) g/dL Albumin 2.9 L (3.5-5.0) g/dL 05/24/21 Range/Units 05:14 WBC (3.8-10.6) k/uL RBC (4.30-5.90) m/uL Hgb (13.0-17.5) gm/dL Hct (39.0-53.0) % Neutrophils # (1.3-7.7) k/uL APTT (22.0-30.0) sec D-Dimer (<0.60) mg/L FEU ABG pCO2 33 L (35-45) mmHg ABG pO2 70 L (83-108) mmHg Carbon Dioxide (22-30) mmol/L BUN (9-20) mg/dL Creatinine (0.66-1.25) mg/dL Glucose (74-99) mg/dL Alkaline Phosphatase (38-126) U/L Lactate Dehydrogenase (313-618) U/L C-Reactive Protein (<1.0) mg/dL Total Protein (6.3-8.2) g/dL Albumin (3.5-5.0) g/dL Assessment and Plan Plan: #COVID-19 pneumonitis with acute hypoxic respiratory failure requiring mechanical ventilation Onset of symptoms: About 10 days prior to admission Date of diagnosis 05/07/21 monoclonal antibodies 05/09/21 Date of admission 05/12/21 Imaging consistent with significant bilateral pneumonia CRP 33.5 on 05/22/21 Pulmonary service following Treatment: dexamethasone, bronchodilators, antibiotics Remdesevir was not used as it was felt the patient was out of window for treatment Baricitinb started but was eventually discontinued due to bacterial pneumonia Remains on ventilatory settings FiO2 50% PEEP 6 with permissive hypercarbia #Bilateral pulmonary embolism Remains on heparin drip D-dimer trending down #MSSA pneumonia Started on Zosyn #Acute kidney injury Due to ATN Nonoliguric Remains on hemodialysis and Lasix Nephrology following #Pneumomediastinum Due to extensive COVID-19 pneumonitis and mechanical exhalation Follow this serial imaging, improved #[place] to be due to combination of sepsis and possibly pulmonary embolism Improved, off of pressors Tolerating hemodialysis #
[2021-05-24] MEDS ORDERED: ACETAMINOPHEN TAB 500 MG TAB PO PRN (12:32)
[2021-05-24 12:38] LABS: Glucose,Whole Blood 141 mg/dL (75-99)
[2021-05-24] MEDS: NOREPINEPHRINE 8 MG in SODIUM CHLORIDE 0.9% 250 ML IV SCH (13:31)
--- NOTE | 2021-05-24 13:43 | P.PN ---
Subjective Progress Note Date: 05/24/21 Principal diagnosis: Acute hypoxic respiratory failure secondary to COVID-19 pneumonia 51-year-old male who presents to the emergency department on May 12, with complaints of shortness of breath. The patient has been sick for at least 10-11 days. It started off with cough and shortness of breath, and loss of taste. He's also had fever. He has not been vaccinated. He was tested for coronavirus on May 07, and tested positive. The patient does not have a primary care physician. He has no past medical history. He takes no medications at home. The patient did receive monoclonal antibodies on May 09. Currently, the patient's on 5 L nasal cannula. He's got saline running at 75 mL an hour. He looks relatively stable. His chest x-ray does show diffuse bilateral infiltrates. The home medications that he is on include an albuterol inhaler, Tessalon Perles, and Decadron, given to him by the hospital. White count 5.1, hemoglobin 14.3, hematocrit 42.6, and platelet count 377,000. Sodium, potassium, chloride, CO2, anion gap, BUN, and creatinine are all normal. AST was 154, ALT 123, alkaline phosphatase 164. LDH was 2657. C-reactive protein is 14.9. Pro-calcitonin level is 0.14. Chest x-ray shows low lung volumes, with right greater than left bilateral opacities. The patient is seen today 05/13/2021 in follow-up on the regular medical floor. He is currently resting in bed. He is somewhat more dyspneic andtachypneic. His oxygen requirements have gone up to knees on 15 L high flow nasal cannula plus a nonrebreather mask. white count 6.8. Hemoglobin 13.5. Leukocytes 0.85. D-dimer up to 15.8. Sodium 143. Potassium 5.4. Creatinine 1.0. Glucose 123. AST 120. ALT 146. LDH 971. C-reactive protein 3.4. CT angiogram was requested after seeing the patient. There is evidence of bilateral lower lobe large multiple pulmonary emboli. No sign of right heart strain. Lovenox will be discontinued and he'll be initiated on a heparin drip On 05/14/2021 patient was emergently transferred to the intensive care unit for a concern of worsening hypoxia and dyspnea. Earlier in the shift he was on 15 L per high flow nasal cannula and 100% nonrebreather mask however his work of breathing had significantly increased his respiratory rate was ranging between 40-50 breaths per minute. His pulse ox was 87% and subsequently dropped down to 73%%. He was placed on BiPAP support with no improvement in his work of breathing or hypoxia, was intubated per CINDY, currently on assist-control mode of ventilation with a rate of 36 tidal volume is 350, FiO2 100% and PEEP of 24. he was given Nimbex IV pushes and propofol for sedation during intubation, he will be placed on Diprivan drip and Nimbex. Currently his pulse ox is 81% on the above-mentioned vent settings. His blood pressure 121/71, he is in sinus mechanism tachycardic with a rate of 110-120 BPM. Patient was found to have bilateral pulmonary emboli on yesterday's CT angiogram of the chest, he was started on heparin infusion on which she remains per weight-based protocol, his maintenance IV fluids are 0.9 normal saline at a rate of 75 ML per hour, CT angiogram lung windows showed extensive bilateral pneumonia. Chest x-ray post intubation and left subclavian central line placement is pending. This morning's labs have been reviewed, white blood cell count is 11.9, hemoglobin is 14.5, today's d-dimer is 18.26 slightly increased from yesterday's value, sodium is 141, potassium is 5.2, chloride is 111, CO2 is 23, BUN was 20 creatinine 0.96, his LDH today has significantly increased and is up to 3109, from 971 on yesterday's labs, and CRP is stable at 3.4. His pro calcitonin level on 05/12/2021 was at 0.14. Patient was started on Baricitinib yesterday on , in addition to Decadron 6 mg daily. Patient is on vitamin C, zinc, and vitamin D will be added. On 05/21/2021 patient seen in follow-up in intensive care unit, he remains intubated, and sedated, currently on pressure control mode of ventilation, with a pressure of 15, inspiratory time of 0.9, FiO2 of 50% and PEEP of 6. Respiratory rate is 22. His peak airway pressure is 24, this morning's blood gas shows pO2 of 64, pCO2 of 39, and pH is 7.43. He is on 0.9 normal saline at a rate of 20 ML per hour, heparin infusion at weight-based protocol, and improving and is at 75 mics per kilo per minute. He is on tube feedings with Vital AF 16 with standard water flushes, hemodynamically stable, not requiring any vasopressor support, today's chest x-ray has been reviewed, showing continu ed improving subcutaneous emphysema, persistent pneumomediastinum, no pneumothorax, multifocal and confluent right greater than left opacities redemonstrated, there is some overall improvement from one day earlier noted. Patient remains on Decadron 6 mg daily, he was started on Lasix 60 mg every 12 hours, she remains on heparin infusion per weight-based protocol, he remains on empiric antibiotics in the form of Zosyn. His sputum culture showed evidence of MSSA. Today's labs have been reviewed, white blood cell count is relatively stable at 15.7, hemoglobin is 9.3, Patient was reevaluated today on 05/22/2021, remains intubated and mechanically ventilated, patient is on a pressure control mode of mechanical ventilation. He is on FiO2 of 35%, pressure control of 15, rate 22, PEEP is 6. Remains on propofol and I went ahead and recommended that we change propofol to Precedex. I would like to assess the patient for potential weaning trials. X-ray continues to show bilateral infiltrates, right more so than left. Otherwise no major changes noted. WBC count is 12.9 hemoglobin is 9.4 d-dimer is 2.12, ABG is excellent with a pO2 of 156 pCO2 42 pH of 7.37. BUN is 73 creatinine 4.26, patient is on hemodialysis. Patient was being hemodialyzed during my evaluation LDH is 1961 C-reactive protein is 33.5, both are improving Evaluated today on 05/23/2021, and remains in the ICU, intubated and mechanically ventilated. Patient is actually only on Precedex at this point, off sedation, off narcotics, he is awake but does not seem to follow any instructions and he doesn't comprehend. He is on pressure control mode of mechanical ventilation, rate is set at 22, pressure control at 15, PEEP at 6. He is on 40% FiO2. Seems to be arousable, but again does not follow any instructions. Chest x-ray continues show bilateral infiltrates, pneumomediastinum and subcutaneous emphysema. ABG today showed a pO2 of 63 pCO2 of 32 pH of 7.45. PTT is 49 WBC count 12.9 hemoglobin 11. Asymmetric metabolic profile is normal renal profile showed a BUN of 67 creatinine 3.85, patient is on hemodialysis. LDH continues to remain high at 1910 C-reactiveProtein remains high at 31.5 Reevaluated today on 05/24/2021, patient remains in the ICU, intubated and mechanically ventilated. However clinically I believe the patient is demonstrating some improvement. He is now on pressure control mode of mechanical ventilation, with a pressure control of 15, FiO2 40%, rate is 22, PEEP of 6. ABG showed a pO2 of 70 pCO2 of 33 pH of 7.43. Patient is awake, he is now only on Precedex at 0.9 mcg/kg/h. Patient is also receiving heparin for his DVT, and I suggested we go ahead and change the patient to a pressure support mode of mechanical ventilation, and CPAP. Will start with a pressure support of 10, and determine whether the patient could be extubated later today or possibly in the next 24 hours. Patient is generally weak, however he is able to follow all instructions, and follows commands. Chest x-ray continues show bilateral infiltrates, right more so than left. Renal profile remains abnormal patient is on hemodialysis, may not receive hemodialysis today. Objective - Vital Signs Vital signs: Vital Signs Temp 100.0 F H 05/24/21 12:00 Pulse 68 05/24/21 13:00 Resp 21 05/24/21 13:00 BP 114/68 05/22/21 14:35 Pulse Ox 98 05/24/21 13:00 Intake & Output 05/23/21 05/24/21 05/24/21 18:59 06:59 18:59 Intake Total 896 794.438 663.097 Output Total 710 1110 955 Balance 186 -315.562 -291.903 Weight 110.5 kg Intake: IV 282 236 196 Normal Saline Pressure 72 66 36 Bag Piperacillin-Tazobactam 3 100 100 100 .375 gm In Sodium Chloride 0.9% 100 ml @ 25 mls/hr IVPB Q12HR [facility] Rx #:[id number] Sodium Chloride 0.45% 1, 110 70 60 000 ml @ 10 mls/hr IV . Q24H [facility] Rx#:[id number] Intake, IV Titration 350 289.438 287.097 Amount Dexmedetomidine/0.9% NaCl 100 200.00 100 (Pmx) 400 mcg In Empty Bag 1 bag @ 0.2 MCG/KG/HR 5.7 mls/hr IV .[id number] [facility] Rx#:[id number] Heparin Sod,Pork in 0.45% 250 89.438 187.097 NaCl 25,000 unit In 0.45 % NaCl 1 250ml.bag @ 18 UNITS/KG/HR 18.37 mls/hr IV .[id number] [facility] Rx#: [id number] Tube Feeding 144 119 60 Other 120 150 120 Output: Urine 710 1110 955 Other: Voiding Method Indwelling Catheter Indwelling Catheter Indwelling Catheter ABP, PAP, CO, CI - Last Documented Arterial Blood Pressure 106/65 - Exam GENERAL EXAM: Revealed 51-year-old white male, intubated, mechanically ventilated, awake, follows instructions, but generally weak. NECK: No masses, no JVD, no thyroid enlargement, no adenopathy. CHEST: No chest wall deformity. Symmetrical expansion. Lfine crackles at the bases. CVS: Regular rate and rhythm, normal S1 and S2, no gallops, no murmurs, no rubs ABDOMEN: Soft, nontender. No hepatosplenomegaly, normal bowel sounds, no gu arding or rigidity. EXTREMITIES: No clubbing, no edema, no cyanosis, 2+ pulses and upper and lower e xtremities. SKIN: No rashes CENTRAL NERVOUS SYSTEM: Awake, generally weak, follows all simple instructions. - Labs CBC & Chem 7: 05/24/21 05:00 05/24/21 05:00 Labs: Abnormal Lab Results - Last 24 Hours (Table) 05/24/21 05/24/21 05/24/21 Range/Units 05:00 05:00 05:00 WBC 12.4 H (3.8-10.6) k/uL RBC 3.59 L (4.30-5.90) m/uL Hgb 10.6 L (13.0-17.5) gm/dL Hct 32.4 L (39.0-53.0) % Neutrophils # 9.6 H (1.3-7.7) k/uL APTT 34.8 H (22.0-30.0) sec D-Dimer 2.82 H (<0.60) mg/L FEU ABG pCO2 (35-45) mmHg ABG pO2 (83-108) mmHg Carbon Dioxide 19 L (22-30) mmol/L BUN 92 H (9-20) mg/dL Creatinine 4.58 H (0.66-1.25) mg/dL Glucose 117 H (74-99) mg/dL POC Glucose (mg/dL) (75-99) mg/dL Alkaline Phosphatase 201 H (38-126) U/L Lactate Dehydrogenase 1784 H (313-618) U/L C-Reactive Protein 21.1 H (<1.0) mg/dL Total Protein 6.2 L (6.3-8.2) g/dL Albumin 2.9 L (3.5-5.0) g/dL 05/24/21 05/24/21 05/24/21 Range/Units 05:14 12:30 12:36 WBC (3.8-10.6) k/uL RBC (4.30-5.90) m/uL Hgb (13.0-17.5) gm/dL Hct (39.0-53.0) % Neutrophils # (1.3-7.7) k/uL APTT 70.1 H (22.0-30.0) sec D-Dimer (<0.60) mg/L FEU ABG pCO2 33 L (35-45) mmHg ABG pO2 70 L (83-108) mmHg Carbon Dioxide (22-30) mmol/L BUN (9-20) mg/dL Creatinine (0.66-1.25) mg/dL Glucose (74-99) mg/dL POC Glucose (mg/dL) 141 H (75-99) mg/dL Alkaline Phosphatase (38-126) U/L Lactate Dehydrogenase (313-618) U/L C-Reactive Protein (<1.0) mg/dL Total Protein (6.3-8.2) g/dL Albumin (3.5-5.0) g/dL Assessment and Plan Assessment: Impression: Acute hypoxic respiratory failure secondary to COVID-19 pneumonia admitted on 05/12, had symptoms about 10 days prior, patient is not vaccinated, he was outside the window for rem , started on baricitinib on 05/13. Had to be transferred to the ICU on 05/14, remains intubated. And sedated. Clinically this seems to be some improvement in his oxygenation, hence I will try to give the patient sedation holidays, and possibly daily assessment for potential bleeding. Underlying MSSA pneumonia covered with antibiotics and his baricitinib is discontinued, patient is on Zosyn. Acute kidney injury requiring hemodialysis. Right popliteal deep vein thrombosis, on heparin Elevated liver enzymes. Pneumomediastinum with subcutaneous emphysema as a complication of COVID-19 infection/pneumonia Recommendation: Continue ventilatory support. Transition patient to pressure support and CPAP mode of mechanical ventilation. And assess over the next 24 hours whether the patient could be weaned and/or extubated. Precedex for now. No sedatives no narcotics. Continue hemodialysis. Continue antibiotics for MSSA infection in the sputum Continue diuretics. Remains critically ill but definite improvement noted over the last 24 hours. Critical care time is over 30 minutes. We will continue to follow Time with Patient: Greater than 30
[2021-05-24] MEDS ORDERED: MIDODRINE 5 MG TAB PO ONE (14:35)
[2021-05-24] MEDS: SODIUM CHLORIDE 0.45% 1,000 ML IV SCH (14:58)
[2021-05-24 17:33] LABS: Glucose,Whole Blood 113 mg/dL (75-99)
[2021-05-24 20:07] LABS: Glucose,Whole Blood 105 mg/dL (75-99)
[2021-05-24] MEDS: CLEVIDIPINE BUTYRATE 25 MG in EMPTY BAG 1 BAG IV SCH (21:02)
[2021-05-25] MEDS: HEPARIN SOD,PORK IN 0.45% NACL 25,000 UNIT in 0.45% NACL 1 250ML.BAG IV SCH ×3 (00:38→23:11)
[2021-05-25 00:45] LABS: Glucose,Whole Blood 103 mg/dL (75-99)
[2021-05-25] MEDS: INSULIN ASPART (NovoLOG) 100 UNIT/ML VIAL SQ SCH ×4 (00:50→18:51)
[2021-05-25] MEDS: DEXMEDETOMIDINE/0.9% NACL(PMX) 400 MCG in EMPTY BAG 1 BAG IV SCH ×2 (03:56→10:31)
[2021-05-25 04:31] LABS: Basophils # (A) 0.1 k/uL (0-0.2); Basophils % (A) 1 %; Eosinophils # (A) 0.4 k/uL (0-0.7); Eosinophils % (A) 3 %; HCT 31.9 % (39.0-53.0); HGB 10.3 gm/dL (13.0-17.5); Lymphocytes # (A) 1.6 k/uL (1.0-4.8); Lymphocytes % (A) 13 %; MCH 29.4 pg (25.0-35.0); MCHC 32.1 g/dL (31.0-37.0); MCV 91.3 fL (80.0-100.0); Mean Platelet Volume 9.4; Monocytes # (A) 0.9 k/uL (0-1.0); Monocytes % (A) 8 %; Neutrophils # (A) 8.9 k/uL (1.3-7.7); Neutrophils % (A) 74 %; Platelet Count 312 k/uL (150-450); RDW 14.5 % (11.5-15.5)
[2021-05-25 05:04] LABS: Albumin 2.8 g/dL (3.5-5.0); C Reactive Protein 8.4 mg/dL (<1.0); Calcium 8.2 mg/dL (8.4-10.2); Potassium 3.7 mmol/L (3.5-5.1)
[2021-05-25 05:05] LABS: Partial Thromboplastin Time 50.7 sec (22.0-30.0)
[2021-05-25 06:02] LABS: ABG HCO3 25 mmol/L (21-25); ABG Oxygen Saturation 96.9 % (94-97); ABG PCO2 35 mmHg (35-45); ABG PH 7.46 (7.35-7.45); ABG PO2 84 mmHg (83-108); ABG TCO2 26 mmol/L (19-24); Allen Test Performed? Yes
--- NOTE | 2021-05-25 07:53 | XR ---
EXAMINATION TYPE: XR chest 1V portable DATE OF EXAM: 05/25/2021 COMPARISON: 05/24/2021 HISTORY: SOB, Follow Up FINDINGS: Indwelling tubes and catheters are unchanged. Patchy perihilar and basilar infiltrates. Stable appearance of the cardio-mediastinal structures at this time. Pleural effusion unchanged. IMPRESSION: 1. Stable portable chest. Clinical correlation and follow up until resolution is recommended.
[2021-05-25] MEDS: ALBUTEROL HFA INHALER INHALATION SCH ×4 (08:03→21:09)
[2021-05-25] MEDS: PIPERACILLIN-TAZOBACTAM 3.375 GM in SODIUM CHLORIDE 0.9% 100 ML IVPB SCH ×2 (08:52→20:29)
[2021-05-25] MEDS: CHLORHEXIDINE GLUCONATE 15 ML CUP MUCOUS MEM SCH (08:52)
[2021-05-25] MEDS: ZINC SULFATE 220 MG CAP PO SCH (08:53)
[2021-05-25] MEDS: SODIUM BICARBONATE TAB 650 MG TAB PO SCH ×2 (08:53→22:39)
[2021-05-25] MEDS: SEVELAMER 800 MG TAB PO SCH ×3 (08:53→15:32)
[2021-05-25] MEDS: CHOLECALCIFEROL 25 MCG (1000 IU) TABLET PO SCH (08:53)
[2021-05-25] MEDS: ASCORBIC ACID 500 MG TAB PO SCH (08:53)
[2021-05-25] MEDS: DEXAMETHASONE SOD PHOSPHATE 10 MG/ML 1 ML VIAL IVP SCH (08:54)
[2021-05-25] MEDS: PANTOPRAZOLE 40 MG/10 ML VIAL IVP SCH (08:54)
[2021-05-25] MEDS: FUROSEMIDE 10 MG/ML 10 ML VIAL IV SCH ×2 (08:54→20:29)
[2021-05-25] MEDS ORDERED: Potassium Replacement Protocol 1 EACH MISC MISCELLANE PRN (09:08)
--- NOTE | 2021-05-25 09:23 | P.PN ---
Subjective Patient is seen in follow-up for acute kidney injury. Currently hemodialysis dependent. Underwent dialysis yesterday with 1 L ultrafiltration. Maintained on IV Lasix. Nonoliguric. Intubated. Receiving tube feeds. Vital signs are stable. HEENT: Intubated. EXTREMITITES: 1+ edema. Exam discussed with the nurse. Objective - Vital Signs Vital signs: Vital Signs Temp 99.1 F 05/25/21 04:00 Pulse 58 L 05/25/21 07:00 Resp 22 05/25/21 07:00 BP 98/62 05/24/21 17:54 Pulse Ox 99 05/25/21 07:00 Intake & Output 05/24/21 05/25/21 05/25/21 18:59 06:59 18:59 Intake Total 953.097 829.078 26 Output Total 2205 985 50 Balance -1251.903 -155.922 -24 Weight 113 kg Intake: IV 276 192 16 Normal Saline Pressure 66 72 6 Bag Piperacillin-Tazobactam 3 100 .375 gm In Sodium Chloride 0.9% 100 ml @ 25 mls/hr IVPB Q12HR [facility] Rx #:[id number] Sodium Chloride 0.45% 1, 110 120 10 000 ml @ 10 mls/hr IV . Q24H [facility] Rx#:[id number] Intake, IV Titration 387.097 517.078 Amount Dexmedetomidine/0.9% NaCl 200 200 (Pmx) 400 mcg In Empty Bag 1 bag @ 0.2 MCG/KG/HR 5.7 mls/hr IV .[id number] [facility] Rx#:[id number] Heparin Sod,Pork in 0.45% 187.097 217.078 NaCl 25,000 unit In 0.45 % NaCl 1 250ml.bag @ 18 UNITS/KG/HR 18.37 mls/hr IV .[id number] [facility] Rx#: [id number] Piperacillin-Tazobactam 3 100 .375 gm In Sodium Chloride 0.9% 100 ml @ 25 mls/hr IVPB Q12HR [facility] Rx #:[id number] Tube Feeding 110 120 10 Other 180 Output: Urine 1205 985 50 Hemodialysis 1000 Other: Voiding Method Indwelling Catheter Indwelling Catheter # Bowel Movements 1 ABP, PAP, CO, CI - Last Documented Arterial Blood Pressure 98/57 - Labs CBC & Chem 7: 12/10/21 04:10 05/25/21 04:10 Labs: Abnormal Lab Results - Last 24 Hours (Table) 05/24/21 05/24/21 05/24/21 Range/Units 12:30 12:36 17:31 WBC (3.8-10.6) k/uL RBC (4.30-5.90) m/uL Hgb (13.0-17.5) gm/dL Hct (39.0-53.0) % Neutrophils # (1.3-7.7) k/uL APTT 70.1 H (22.0-30.0) sec D-Dimer (<0.60) mg/L FEU ABG pH (7.35-7.45) ABG Total CO2 (19-24) mmol/L Carbon Dioxide (22-30) mmol/L BUN (9-20) mg/dL Creatinine (0.66-1.25) mg/dL Glucose (74-99) mg/dL POC Glucose (mg/dL) 141 H 113 H (75-99) mg/dL Calcium (8.4-10.2) mg/dL ALT (4-49) U/L Alkaline Phosphatase (38-126) U/L Lactate Dehydrogenase (313-618) U/L C-Reactive Protein (<1.0) mg/dL Total Protein (6.3-8.2) g/dL Albumin (3.5-5.0) g/dL 05/24/21 05/24/21 05/25/21 Range/Units 20:06 20:20 00:44 WBC (3.8-10.6) k/uL RBC (4.30-5.90) m/uL Hgb (13.0-17.5) gm/dL Hct (39.0-53.0) % Neutrophils # (1.3-7.7) k/uL APTT 113.8 H* (22.0-30.0) sec D-Dimer (<0.60) mg/L FEU ABG pH (7.35-7.45) ABG Total CO2 (19-24) mmol/L Carbon Dioxide (22-30) mmol/L BUN (9-20) mg/dL Creatinine (0.66-1.25) mg/dL Glucose (74-99) mg/dL POC Glucose (mg/dL) 105 H 103 H (75-99) mg/dL Calcium (8.4-10.2) mg/dL ALT (4-49) U/L Alkaline Phosphatase (38-126) U/L Lactate Dehydrogenase (313-618) U/L C-Reactive Protein (<1.0) mg/dL Total Protein (6.3-8.2) g/dL Albumin (3.5-5.0) g/dL 05/25/21 05/25/21 05/25/21 Range/Units 04:10 04:10 04:10 WBC 12.0 H (3.8-10.6) k/uL RBC 3.50 L (4.30-5.90) m/uL Hgb 10.3 L (13.0-17.5) gm/dL Hct 31.9 L (39.0-53.0) % Neutrophils # 8.9 H (1.3-7.7) k/uL APTT 50.7 H (22.0-30.0) sec D-Dimer 3.01 H (<0.60) mg/L FEU ABG pH (7.35-7.45) ABG Total CO2 (19-24) mmol/L Carbon Dioxide 21 L (22-30) mmol/L BUN 93 H (9-20) mg/dL Creatinine 4.78 H (0.66-1.25) mg/dL Glucose 115 H (74-99) mg/dL POC Glucose (mg/dL) (75-99) mg/dL Calcium 8.2 L (8.4-10.2) mg/dL ALT 59 H (4-49) U/L Alkaline Phosphatase 173 H (38-126) U/L Lactate Dehydrogenase 1643 H (313-618) U/L C-Reactive Protein 8.4 H (<1.0) mg/dL Total Protein 6.0 L (6.3-8.2) g/dL Albumin 2.8 L (3.5-5.0) g/dL 05/25/21 Range/Units 06:00 WBC (3.8-10.6) k/uL RBC (4.30-5.90) m/uL Hgb (13.0-17.5) gm/dL Hct (39.0-53.0) % Neutrophils # (1.3-7.7) k/uL APTT (22.0-30.0) sec D-Dimer (<0.60) mg/L FEU ABG pH 7.46 H (7.35-7.45) ABG Total CO2 26 H (19-24) mmol/L Carbon Dioxide (22-30) mmol/L BUN (9-20) mg/dL Creatinine (0.66-1.25) mg/dL Glucose (74-99) mg/dL POC Glucose (mg/dL) (75-99) mg/dL Calcium (8.4-10.2) mg/dL ALT (4-49) U/L Alkaline Phosphatase (38-126) U/L Lactate Dehydrogenase (313-618) U/L C-Reactive Protein (<1.0) mg/dL Total Protein (6.3-8.2) g/dL Albumin (3.5-5.0) g/dL Assessment and Plan Plan: Assessment: 1. Acute kidney injury secondary to ATN secondary to sepsis/COVID-19 pneumonia. Currently hemodialysis dependent. Nonoliguric. 2. Volume overload. Improving with diuresis and ultrafiltration. 3. Hyperkalemia secondary to acute kidney injury and metabolic acidosis. 4. Bilateral PE maintained on heparin drip. 5. COVID-19 pneumonia. 6. Acute hypoxic respiratory failure. 7. Sputum culture positive for staph aureus. On antibiotics. 8. Hyperphosphatemia secondary to acute kidney injury. On Renvela. Plan: Hemodialysis tomorrow. Maintain IV Lasix. Wean FiO2. Maintain tube feeds. Potassium being replaced. Continue to assess daily for need for renal replacement therapy.
[2021-05-25] MEDS ORDERED: POTASSIUM BICARBONATE/CIT AC 20 MEQ TABLET.EFF NG-TUBE SCH (10:00)
[2021-05-25 11:42] LABS: Glucose,Whole Blood 111 mg/dL (75-99)
--- NOTE | 2021-05-25 13:01 | P.PN ---
Subjective Principal diagnosis: COVID-19 pneumonitis, respiratory failure and later dependent, renal failure and hemodialysis Chart was reviewed patient was seen and examined. Patient is currently intubated sedated and receiving hemodialysis. Patient is 51-year-old male no significant past medical history who was admitted with COVID-19 pneumonitis on 05/12/21. Prior to this patient had symptoms for about 10 days. Tested positive for COVID-19 on 05/07/21. Patient did receive monoclonal antibodies on 05/09/21 prior to this admission however his respiratory status continued to worsen and he came to emergency department. Initially he was very hypoxic and was on 4 L nasal cannula. Chest x-ray showed diffuse bilateral pulmonary infiltrates. He was treated with steroids, bronchodilators. He was found to be out of the window for Remdesevir. On 05/13/21 he respiratory status was somewhat worsened his d-dimer was significantly elevated and he underwent CT angiogram of the chest showed bilateral pulmonary emboli and extensive bilateral pneumonia. Doppler lower extremities: Right lower extremity popliteal DVT. He was started on heparin drip. Diagnosed with normal mediastinotomy on 05/15/21. Transferred to intensive care unit. Subsequently intubated on 05/18/21. Started on hemodialysis 05/15/21 due to acute kidney failure, oliguria and hyperkalemia. Objective - Vital Signs Vital signs: Vital Signs Temp 99.9 F H 05/25/21 08:00 Pulse 61 05/25/21 11:00 Resp 19 05/25/21 11:00 BP 98/62 05/24/21 17:54 Pulse Ox 98 05/25/21 11:00 Intake & Output 05/24/21 05/25/21 05/25/21 18:59 06:59 18:59 Intake Total 953.097 829.078 528.228 Output Total 2205 985 300 Balance -1251.903 -155.922 228.228 Weight 113 kg 113 kg Intake: IV 276 192 70 Normal Saline Pressure 66 72 30 Bag Piperacillin-Tazobactam 3 100 .375 gm In Sodium Chloride 0.9% 100 ml @ 25 mls/hr IVPB Q12HR [facility] Rx #:[id number] Sodium Chloride 0.45% 1, 110 120 40 000 ml @ 10 mls/hr IV . Q24H [facility] Rx#:[id number] Intake, IV Titration 387.097 517.078 378.228 Amount Dexmedetomidine/0.9% NaCl 200 200 129.26 (Pmx) 400 mcg In Empty Bag 1 bag @ 0.2 MCG/KG/HR 5.7 mls/hr IV .[id number] [facility] Rx#:[id number] Heparin Sod,Pork in 0.45% 187.097 217.078 248.968 NaCl 25,000 unit In 0.45 % NaCl 1 250ml.bag @ 18 UNITS/KG/HR 18.37 mls/hr IV .[id number] [facility] Rx#: [id number] Piperacillin-Tazobactam 3 100 .375 gm In Sodium Chloride 0.9% 100 ml @ 25 mls/hr IVPB Q12HR [facility] Rx #:[id number] Tube Feeding 110 120 50 Other 180 30 Output: Urine 1205 985 300 Hemodialysis 1000 Other: Voiding Method Indwelling Catheter Indwelling Catheter Indwelling Catheter # Bowel Movements 1 ABP, PAP, CO, CI - Last Documented Arterial Blood Pressure 96/63 - Exam Intubated sedated and receiving hemodialysis On the ventilator FiO2 50% PEEP of 6 Lungs coarse breath sounds no wheezing no rhonchi Cardiovascular regular rhythm and rate Abdomen bowel sounds present soft nontender nondistended Extremities pitting edema warm well perfused no cyanosis Pupils are round and reactive to light symmetrical eyes in the midline - Labs CBC & Chem 7: 05/25/21 04:10 05/25/21 04:10 Labs: Abnormal Lab Results - Last 24 Hours (Table) 05/24/21 05/24/21 05/24/21 Range/Units 12:30 17:31 20:06 WBC (3.8-10.6) k/uL RBC (4.30-5.90) m/uL Hgb (13.0-17.5) gm/dL Hct (39.0-53.0) % Neutrophils # (1.3-7.7) k/uL APTT 70.1 H (22.0-30.0) sec D-Dimer (<0.60) mg/L FEU ABG pH (7.35-7.45) ABG Total CO2 (19-24) mmol/L Carbon Dioxide (22-30) mmol/L BUN (9-20) mg/dL Creatinine (0.66-1.25) mg/dL Glucose (74-99) mg/dL POC Glucose (mg/dL) 113 H 105 H (75-99) mg/dL Calcium (8.4-10.2) mg/dL ALT (4-49) U/L Alkaline Phosphatase (38-126) U/L Lactate Dehydrogenase (313-618) U/L C-Reactive Protein (<1.0) mg/dL Total Protein (6.3-8.2) g/dL Albumin (3.5-5.0) g/dL 05/24/21 05/25/21 05/25/21 Range/Units 20:20 00:44 04:10 WBC 12.0 H (3.8-10.6) k/uL RBC 3.50 L (4.30-5.90) m/uL Hgb 10.3 L (13.0-17.5) gm/dL Hct 31.9 L (39.0-53.0) % Neutrophils # 8.9 H (1.3-7.7) k/uL APTT 113.8 H* (22.0-30.0) sec D-Dimer (<0.60) mg/L FEU ABG pH (7.35-7.45) ABG Total CO2 (19-24) mmol/L Carbon Dioxide (22-30) mmol/L BUN (9-20) mg/dL Creatinine (0.66-1.25) mg/dL Glucose (74-99) mg/dL POC Glucose (mg/dL) 103 H (75-99) mg/dL Calcium (8.4-10.2) mg/dL ALT (4-49) U/L Alkaline Phosphatase (38-126) U/L Lactate Dehydrogenase (313-618) U/L C-Reactive Protein (<1.0) mg/dL Total Protein (6.3-8.2) g/dL Albumin (3.5-5.0) g/dL 05/25/21 05/25/21 05/25/21 Range/Units 04:10 04:10 06:00 WBC (3.8-10.6) k/uL RBC (4.30-5.90) m/uL Hgb (13.0-17.5) gm/dL Hct (39.0-53.0) % Neutrophils # (1.3-7.7) k/uL APTT 50.7 H (22.0-30.0) sec D-Dimer 3.01 H (<0.60) mg/L FEU ABG pH 7.46 H (7.35-7.45) ABG Total CO2 26 H (19-24) mmol/L Carbon Dioxide 21 L (22-30) mmol/L BUN 93 H (9-20) mg/dL Creatinine 4.78 H (0.66-1.25) mg/dL Glucose 115 H (74-99) mg/dL POC Glucose (mg/dL) (75-99) mg/dL Calcium 8.2 L (8.4-10.2) mg/dL ALT 59 H (4-49) U/L Alkaline Phosphatase 173 H (38-126) U/L Lactate Dehydrogenase 1643 H (313-618) U/L C-Reactive Protein 8.4 H (<1.0) mg/dL Total Protein 6.0 L (6.3-8.2) g/dL Albumin 2.8 L (3.5-5.0) g/dL 05/25/21 Range/Units 11:40 WBC (3.8-10.6) k/uL RBC (4.30-5.90) m/uL Hgb (13.0-17.5) gm/dL Hct (39.0-53.0) % Neutrophils # (1.3-7.7) k/uL APTT (22.0-30.0) sec D-Dimer (<0.60) mg/L FEU ABG pH (7.35-7.45) ABG Total CO2 (19-24) mmol/L Carbon Dioxide (22-30) mmol/L BUN (9-20) mg/dL Creatinine (0.66-1.25) mg/dL Glucose (74-99) mg/dL POC Glucose (mg/dL) 111 H (75-99) mg/dL Calcium (8.4-10.2) mg/dL ALT (4-49) U/L Alkaline Phosphatase (38-126) U/L Lactate Dehydrogenase (313-618) U/L C-Reactive Protein (<1.0) mg/dL Total Protein (6.3-8.2) g/dL Albumin (3.5-5.0) g/dL Assessment and Plan Plan: #COVID-19 pneumonitis with acute hypoxic respiratory failure requiring mechanical ventilation Onset of symptoms: About 10 days prior to admission Date of diagnosis 05/07/21 monoclonal antibodies 05/09/21 Date of admission 05/12/21 Imaging consistent with significant bilateral pneumonia CRP 33.5 on 05/22/21 Pulmonary service following Treatment: dexamethasone, bronchodilators, antibiotics Remdesevir was not used as it was felt the patient was out of window for treatment Baricitinb started but was eventually discontinued due to bacterial pneumonia Remains on ventilatory settings FiO2 50% PEEP 6 with permissive hypercarbia #Bilateral pulmonary embolism Remains on heparin drip D-dimer trending down #MSSA pneumonia Started on Zosyn #Acute kidney injury Due to ATN Nonoliguric Remains on hemodialysis and Lasix Nephrology following #Pneumomediastinum Due to extensive COVID-19 pneumonitis and mechanical exhalation Follow this serial imaging, improved #Shock [place] to be due to combination of sepsis and possibly pulmonary embolism Improved, off of pressors Tolerating hemodialysis #
--- NOTE | 2021-05-25 14:13 | P.PN ---
Subjective Progress Note Date: 05/25/21 Principal diagnosis: Acute hypoxic respiratory failure secondary to COVID-19 pneumonia 51-year-old male who presents to the emergency department on May 12, with complaints of shortness of breath. The patient has been sick for at least 10-11 days. It started off with cough and shortness of breath, and loss of taste. He's also had fever. He has not been vaccinated. He was tested for coronavirus on May 07, and tested positive. The patient does not have a primary care physician. He has no past medical history. He takes no medications at home. The patient did receive monoclonal antibodies on May 09. Currently, the patient's on 5 L nasal cannula. He's got saline running at 75 mL an hour. He looks relatively stable. His chest x-ray does show diffuse bilateral infiltrates. The home medications that he is on include an albuterol inhaler, Tessalon Perles, and Decadron, given to him by the hospital. White count 5.1, hemoglobin 14.3, hematocrit 42.6, and platelet count 377,000. Sodium, potassium, chloride, CO2, anion gap, BUN, and creatinine are all normal. AST was 154, ALT 123, alkaline phosphatase 164. LDH was 2657. C-reactive protein is 14.9. Pro-calcitonin level is 0.14. Chest x-ray shows low lung volumes, with right greater than left bilateral opacities. The patient is seen today 05/13/2021 in follow-up on the regular medical floor. He is currently resting in bed. He is somewhat more dyspneic andtachypneic. His oxygen requirements have gone up to knees on 15 L high flow nasal cannula plus a nonrebreather mask. white count 6.8. Hemoglobin 13.5. Leukocytes 0.85. D-dimer up to 15.8. Sodium 143. Potassium 5.4. Creatinine 1.0. Glucose 123. AST 120. ALT 146. LDH 971. C-reactive protein 3.4. CT angiogram was requested after seeing the patient. There is evidence of bilateral lower lobe large multiple pulmonary emboli. No sign of right heart strain. Lovenox will be discontinued and he'll be initiated on a heparin drip On 05/14/2021 patient was emergently transferred to the intensive care unit for a concern of worsening hypoxia and dyspnea. Earlier in the shift he was on 15 L per high flow nasal cannula and 100% nonrebreather mask however his work of breathing had significantly increased his respiratory rate was ranging between 40-50 breaths per minute. His pulse ox was 87% and subsequently dropped down to 73%%. He was placed on BiPAP support with no improvement in his work of breathing or hypoxia, was intubated per CINDY, currently on assist-control mode of ventilation with a rate of 36 tidal volume is 350, FiO2 100% and PEEP of 24. he was given Nimbex IV pushes and propofol for sedation during intubation, he will be placed on Diprivan drip and Nimbex. Currently his pulse ox is 81% on the above-mentioned vent settings. His blood pressure 121/71, he is in sinus mechanism tachycardic with a rate of 110-120 BPM. Patient was found to have bilateral pulmonary emboli on yesterday's CT angiogram of the chest, he was started on heparin infusion on which she remains per weight-based protocol, his maintenance IV fluids are 0.9 normal saline at a rate of 75 ML per hour, CT angiogram lung windows showed extensive bilateral pneumonia. Chest x-ray post intubation and left subclavian central line placement is pending. This morning's labs have been reviewed, white blood cell count is 11.9, hemoglobin is 14.5, today's d-dimer is 18.26 slightly increased from yesterday's value, sodium is 141, potassium is 5.2, chloride is 111, CO2 is 23, BUN was 20 creatinine 0.96, his LDH today has significantly increased and is up to 3109, from 971 on yesterday's labs, and CRP is stable at 3.4. His pro calcitonin level on 05/12/2021 was at 0.14. Patient was started on Baricitinib yesterday on , in addition to Decadron 6 mg daily. Patient is on vitamin C, zinc, and vitamin D will be added. On 05/21/2021 patient seen in follow-up in intensive care unit, he remains intubated, and sedated, currently on pressure control mode of ventilation, with a pressure of 15, inspiratory time of 0.9, FiO2 of 50% and PEEP of 6. Respiratory rate is 22. His peak airway pressure is 24, this morning's blood gas shows pO2 of 64, pCO2 of 39, and pH is 7.43. He is on 0.9 normal saline at a rate of 20 ML per hour, heparin infusion at weight-based protocol, and improving and is at 75 mics per kilo per minute. He is on tube feedings with Vital AF 16 with standard water flushes, hemodynamically stable, not requiring any vasopressor support, today's chest x-ray has been reviewed, showing continu ed improving subcutaneous emphysema, persistent pneumomediastinum, no pneumothorax, multifocal and confluent right greater than left opacities redemonstrated, there is some overall improvement from one day earlier noted. Patient remains on Decadron 6 mg daily, he was started on Lasix 60 mg every 12 hours, she remains on heparin infusion per weight-based protocol, he remains on empiric antibiotics in the form of Zosyn. His sputum culture showed evidence of MSSA. Today's labs have been reviewed, white blood cell count is relatively stable at 15.7, hemoglobin is 9.3, Patient was reevaluated today on 05/22/2021, remains intubated and mechanically ventilated, patient is on a pressure control mode of mechanical ventilation. He is on FiO2 of 35%, pressure control of 15, rate 22, PEEP is 6. Remains on propofol and I went ahead and recommended that we change propofol to Precedex. I would like to assess the patient for potential weaning trials. X-ray continues to show bilateral infiltrates, right more so than left. Otherwise no major changes noted. WBC count is 12.9 hemoglobin is 9.4 d-dimer is 2.12, ABG is excellent with a pO2 of 156 pCO2 42 pH of 7.37. BUN is 73 creatinine 4.26, patient is on hemodialysis. Patient was being hemodialyzed during my evaluation LDH is 1961 C-reactive protein is 33.5, both are improving Evaluated today on 05/23/2021, and remains in the ICU, intubated and mechanically ventilated. Patient is actually only on Precedex at this point, off sedation, off narcotics, he is awake but does not seem to follow any instructions and he doesn't comprehend. He is on pressure control mode of mechanical ventilation, rate is set at 22, pressure control at 15, PEEP at 6. He is on 40% FiO2. Seems to be arousable, but again does not follow any instructions. Chest x-ray continues show bilateral infiltrates, pneumomediastinum and subcutaneous emphysema. ABG today showed a pO2 of 63 pCO2 of 32 pH of 7.45. PTT is 49 WBC count 12.9 hemoglobin 11. Asymmetric metabolic profile is normal renal profile showed a BUN of 67 creatinine 3.85, patient is on hemodialysis. LDH continues to remain high at 1910 C-reactiveProtein remains high at 31.5 Reevaluated today on 05/24/2021, patient remains in the ICU, intubated and mechanically ventilated. However clinically I believe the patient is demonstrating some improvement. He is now on pressure control mode of mechanical ventilation, with a pressure control of 15, FiO2 40%, rate is 22, PEEP of 6. ABG showed a pO2 of 70 pCO2 of 33 pH of 7.43. Patient is awake, he is now only on Precedex at 0.9 mcg/kg/h. Patient is also receiving heparin for his DVT, and I suggested we go ahead and change the patient to a pressure support mode of mechanical ventilation, and CPAP. Will start with a pressure support of 10, and determine whether the patient could be extubated later today or possibly in the next 24 hours. Patient is generally weak, however he is able to follow all instructions, and follows commands. Chest x-ray continues show bilateral infiltrates, right more so than left. Renal profile remains abnormal patient is on hemodialysis, may not receive hemodialysis today. Reevaluated today on 05/25/2021, patient remains in the ICU, intubated and mechanically ventilated. Patient remains on pressure control mode of mechanical ventilation, yesterday he was on pressure support and CPAP for almost 4 hours, apparently he was getting restless and agitated, and tachypneic, patient was placed back on a his previous mode of mechanical ventilation which is pressure control with pressure control of 15 FiO2 40% rate 22 and PEEP of 6. ABG showed a pO2 of 84 pCO2 of 35 pH7.46. D-dimer is still elevated and the patient is on heparin with a PTT of 50. His renal profile remains abnormal with a 93 creatinine 4.78, patient is on hemodialysis. Chest x-ray bilateral infiltrates are basically about the same. Patient remains on the COVID-19 cocktail, he is on Decadron 6 mg IV push daily, he is also on Lasix 60 mg IV push every 12 hours, propofol which I have discontinued completely, he is also on Zosyn and Protonix, heparin, vitamin C, zinc, and he is on oral bicarb Objective - Vital Signs Vital signs: Vital Signs Temp 99.7 F H 05/25/21 12:00 Pulse 68 05/25/21 13:00 Resp 24 05/25/21 13:00 BP 98/62 05/24/21 17:54 Pulse Ox 98 05/25/21 13:00 Intake & Output 05/24/21 05/25/21 05/25/21 18:59 06:59 18:59 Intake Total 953.097 829.078 540.228 Output Total 2205 985 420 Balance -1251.903 -155.922 120.228 Weight 113 kg 113 kg Intake: IV 276 192 82 Normal Saline Pressure 66 72 42 Bag Piperacillin-Tazobactam 3 100 .375 gm In Sodium Chloride 0.9% 100 ml @ 25 mls/hr IVPB Q12HR [facility] Rx #:[id number] Sodium Chloride 0.45% 1, 110 120 40 000 ml @ 10 mls/hr IV . Q24H [facility] Rx#:[id number] Intake, IV Titration 387.097 517.078 378.228 Amount Dexmedetomidine/0.9% NaCl 200 200 129.26 (Pmx) 400 mcg In Empty Bag 1 bag @ 0.2 MCG/KG/HR 5.7 mls/hr IV .[id number] [facility] Rx#:[id number] Heparin Sod,Pork in 0.45% 187.097 217.078 248.968 NaCl 25,000 unit In 0.45 % NaCl 1 250ml.bag @ 18 UNITS/KG/HR 18.37 mls/hr IV .[id number] [facility] Rx#: [id number] Piperacillin-Tazobactam 3 100 .375 gm In Sodium Chloride 0.9% 100 ml @ 25 mls/hr IVPB Q12HR [facility] Rx #:[id number] Tube Feeding 110 120 50 Other 180 30 Output: Urine 1205 985 420 Hemodialysis 1000 Other: Voiding Method Indwelling Catheter Indwelling Catheter Indwelling Catheter # Bowel Movements 1 ABP, PAP, CO, CI - Last Documented Arterial Blood Pressure 101/64 - Exam GENERAL EXAM: Revealed 51-year-old white male, intubated, mechanically ventilated, awake, follows instructions, but generally weak. NECK: No masses, no JVD, no thyroid enlargement, no adenopathy. CHEST: No chest wall deformity. Symmetrical expansion. Lfine crackles at the bases. CVS: Regular rate and rhythm, normal S1 and S2, no gallops, no murmurs, no rubs ABDOMEN: Soft, nontender. No hepatosplenomegaly, normal bowel sounds, no guarding or rigidity. EXTREMITIES: No clubbing, 1+ bipedal edema, no cyanosis, 2+ pulses and upper and lower extremities. SKIN: No rashes CENTRAL NERVOUS SYSTEM: Awake, generally weak, follows all simple instructions. - Labs CBC & Chem 7: 05/25/21 04:10 05/25/21 04:10 Labs: Abnormal Lab Results - Last 24 Hours (Table) 05/24/21 05/24/21 05/24/21 Range/Units 17:31 20:06 20:20 WBC (3.8-10.6) k/uL RBC (4.30-5.90) m/uL Hgb (13.0-17.5) gm/dL Hct (39.0-53.0) % Neutrophils # (1.3-7.7) k/uL APTT 113.8 H* (22.0-30.0) sec D-Dimer (<0.60) mg/L FEU ABG pH (7.35-7.45) ABG Total CO2 (19-24) mmol/L Carbon Dioxide (22-30) mmol/L BUN (9-20) mg/dL Creatinine (0.66-1.25) mg/dL Glucose (74-99) mg/dL POC Glucose (mg/dL) 113 H 105 H (75-99) mg/dL Calcium (8.4-10.2) mg/dL ALT (4-49) U/L Alkaline Phosphatase (38-126) U/L Lactate Dehydrogenase (313-618) U/L C-Reactive Protein (<1.0) mg/dL Total Protein (6.3-8.2) g/dL Albumin (3.5-5.0) g/dL 05/25/21 05/25/21 05/25/21 Range/Units 00:44 04:10 04:10 WBC 12.0 H (3.8-10.6) k/uL RBC 3.50 L (4.30-5.90) m/uL Hgb 10.3 L (13.0-17.5) gm/dL Hct 31.9 L (39.0-53.0) % Neutrophils # 8.9 H (1.3-7.7) k/uL APTT (22.0-30.0) sec D-Dimer (<0.60) mg/L FEU ABG pH (7.35-7.45) ABG Total CO2 (19-24) mmol/L Carbon Dioxide 21 L (22-30) mmol/L BUN 93 H (9-20) mg/dL Creatinine 4.78 H (0.66-1.25) mg/dL Glucose 115 H (74-99) mg/dL POC Glucose (mg/dL) 103 H (75-99) mg/dL Calcium 8.2 L (8.4-10.2) mg/dL ALT 59 H (4-49) U/L Alkaline Phosphatase 173 H (38-126) U/L Lactate Dehydrogenase 1643 H (313-618) U/L C-Reactive Protein 8.4 H (<1.0) mg/dL Total Protein 6.0 L (6.3-8.2) g/dL Albumin 2.8 L (3.5-5.0) g/dL 05/25/21 05/25/21 05/25/21 Range/Units 04:10 06:00 11:40 WBC (3.8-10.6) k/uL RBC (4.30-5.90) m/uL Hgb (13.0-17.5) gm/dL Hct (39.0-53.0) % Neutrophils # (1.3-7.7) k/uL APTT 50.7 H (22.0-30.0) sec D-Dimer 3.01 H (<0.60) mg/L FEU ABG pH 7.46 H (7.35-7.45) ABG Total CO2 26 H (19-24) mmol/L Carbon Dioxide (22-30) mmol/L BUN (9-20) mg/dL Creatinine (0.66-1.25) mg/dL Glucose (74-99) mg/dL POC Glucose (mg/dL) 111 H (75-99) mg/dL Calcium (8.4-10.2) mg/dL ALT (4-49) U/L Alkaline Phosphatase (38-126) U/L Lactate Dehydrogenase (313-618) U/L C-Reactive Protein (<1.0) mg/dL Total Protein (6.3-8.2) g/dL Albumin (3.5-5.0) g/dL Assessment and Plan Assessment: Impression: Acute hypoxic respiratory failure secondary to COVID-19 pneumonia admitted on 05/12, had symptoms about 10 days prior, patient is not vaccinated, he was outside the window for rem , started on baricitinib on 05/13. Had to be transferred to the ICU on 05/14, remains intubated. We will reassess today for potential weaning Underlying MSSA pneumonia covered with antibiotics and his baricitinib is discontinued, patient is on Zosyn. Acute kidney injury requiring hemodialysis. Right popliteal deep vein thrombosis, on heparin Elevated liver enzymes. Pneumomediastinum with subcutaneous emphysema as a complication of COVID-19 infection/pneumonia Recommendation: Continue ventilatory support. Will place the patient again on pressure support and CPAP, and decide whether we could extubate later on today. Precedex for now. No sedatives no narcotics. Continue hemodialysis. Continue antibiotics for MSSA infection in the sputum Continue diuretics. Remains critically ill and prognosis is guarded Critical care time is over 30 minutes. We will continue to follow Time with Patient: Greater than 30
[2021-05-25] MEDS: NOREPINEPHRINE 8 MG in SODIUM CHLORIDE 0.9% 250 ML IV SCH (15:30)
[2021-05-25 17:49] LABS: ABG Base Excess -0.8 mmol/L; ABG HCO3 24 mmol/L (21-25); ABG Oxygen Saturation 97.1 % (94-97); ABG PCO2 35 mmHg (35-45); ABG PH 7.44 (7.35-7.45); ABG PO2 91 mmHg (83-108); ABG TCO2 25 mmol/L (19-24)
[2021-05-25 17:51] LABS: Allen Test Performed? no
[2021-05-25] MEDS: SODIUM CHLORIDE 0.45% 1,000 ML IV SCH (17:55)
[2021-05-25 18:04] LABS: Glucose,Whole Blood 106 mg/dL (75-99)
[2021-05-25] MEDS: CLEVIDIPINE BUTYRATE 25 MG in EMPTY BAG 1 BAG IV SCH (20:29)
[2021-05-26 00:17] LABS: Glucose,Whole Blood 116 mg/dL (75-99)
[2021-05-26] MEDS: INSULIN ASPART (NovoLOG) 100 UNIT/ML VIAL SQ SCH ×4 (00:48→17:24)
[2021-05-26 04:05] LABS: Basophils % (A) 0 %; Eosinophils # (A) 0.3 k/uL (0-0.7); Eosinophils % (A) 2 %; HCT 31.5 % (39.0-53.0); Lymphocytes # (A) 1.3 k/uL (1.0-4.8); Lymphocytes % (A) 9 %; MCH 28.2 pg (25.0-35.0); MCHC 31.6 g/dL (31.0-37.0); MCV 89.3 fL (80.0-100.0); Mean Platelet Volume 10.5; Monocytes # (A) 1.2 k/uL (0-1.0); Monocytes % (A) 8 %; Neutrophils # (A) 11.1 k/uL (1.3-7.7); Neutrophils % (A) 78 %; Platelet Count 343 k/uL (150-450); RBC 3.53 m/uL (4.30-5.90); RDW 13.9 % (11.5-15.5); WBC 14.2 k/uL (3.8-10.6)
[2021-05-26 04:20] LABS: Partial Thromboplastin Time 70.5 sec (22.0-30.0)
[2021-05-26 04:54] LABS: Albumin 3.1 g/dL (3.5-5.0); C Reactive Protein 6.9 mg/dL (<1.0); Calcium 8.9 mg/dL (8.4-10.2); Total Bilirubin 1.2 mg/dL (0.2-1.3); Total Protein 6.6 g/dL (6.3-8.2)
[2021-05-26] MEDS: SEVELAMER 800 MG TAB PO SCH ×3 (05:36→17:24)
--- NOTE | 2021-05-26 07:30 | XR ---
EXAMINATION TYPE: XR chest 1V portable DATE OF EXAM: 05/26/2021 COMPARISON: Chest x-ray 05/25/2021 HISTORY: Covid pneumonia TECHNIQUE: Single frontal view of the chest is obtained. FINDINGS: Bilateral airspace disease is present. Endotracheal tube and NG tube have been removed. Le ft subclavian central venous catheter remains in place. No evident pneumothorax or pleural effusion. Cardiac mediastinal silhouette is stable. There are overlying artifacts. IMPRESSION: Correlate for pneumonia.
[2021-05-26] MEDS: ALBUTEROL HFA INHALER INHALATION SCH ×4 (07:32→21:52)
[2021-05-26] MEDS: HEPARIN SOD,PORK IN 0.45% NACL 25,000 UNIT in 0.45% NACL 1 250ML.BAG IV SCH ×2 (08:38→19:59)
[2021-05-26] MEDS: PANTOPRAZOLE 40 MG/10 ML VIAL IVP SCH (08:39)
[2021-05-26] MEDS: DEXAMETHASONE SOD PHOSPHATE 10 MG/ML 1 ML VIAL IVP SCH (08:40)
[2021-05-26] MEDS: ASCORBIC ACID 500 MG TAB PO SCH ×2 (08:40→08:56)
[2021-05-26] MEDS: FUROSEMIDE 10 MG/ML 10 ML VIAL IV SCH ×2 (08:40→19:58)
[2021-05-26] MEDS: CHOLECALCIFEROL 25 MCG (1000 IU) TABLET PO SCH ×2 (08:41→08:56)
[2021-05-26] MEDS: SODIUM BICARBONATE TAB 650 MG TAB PO SCH ×3 (08:41→19:54)
[2021-05-26] MEDS: ZINC SULFATE 220 MG CAP PO SCH ×2 (08:41→08:57)
--- NOTE | 2021-05-26 11:30 | P.PN ---
Subjective Progress Note Date: 05/26/21 Principal diagnosis: This is a 51-year-old male with Acute kidney injury secondary to ATN secondary to sepsis/COVID-19 pneumonia. Currently hemodialysis dependent seen on HD, Vol ume overload. Improving with diuresis and ultrafiltration. Hyperkalemia secondary to acute kidney injury and metabolic acidosis. Bilateral PE maintained on heparin drip. OVID-19 pneumonia. Acute hypoxic respiratory failure.. Nonoliguric. He is being seen on dialysis, patient was seen from outside the door. He is on this is an Lanoxin. Comfortable normal sinus rhythm on the monitor. Chest x- ray shows maybe slight improvement. He is making fair amount of urine although the documentation is not very accurate there was about 600 mL of urine in the bag@1120 Objective - Vital Signs Vital signs: Vital Signs Temp 98.9 F 05/26/21 08:00 Pulse 92 05/26/21 10:00 Resp 31 H 05/26/21 10:00 BP 98/62 05/24/21 17:54 Pulse Ox 97 05/26/21 10:00 Intake & Output 05/25/21 05/26/21 05/26/21 18:59 06:59 18:59 Intake Total 681.408 840.270 135.625 Output Total 650 1625 550 Balance 31.408 -784.730 -414.375 Weight 113 kg 106 kg Intake: IV 162 487 60 Normal Saline Pressure 72 72 30 Bag Piperacillin-Tazobactam 3 100 .375 gm In Sodium Chloride 0.9% 100 ml @ 25 mls/hr IVPB Q12HR [facility] Rx #:[id number] Sodium Chloride 0.45% 1, 90 315 30 000 ml @ 10 mls/hr IV . Q24H [facility] Rx#:[id number] Intake, IV Titration 439.408 353.270 75.625 Amount Dexmedetomidine/0.9% NaCl 190.44 (Pmx) 400 mcg In Empty Bag 1 bag @ 0.2 MCG/KG/HR 5.7 mls/hr IV .[id number] [facility] Rx#:[id number] Heparin Sod,Pork in 0.45% 248.968 353.270 75.625 NaCl 25,000 unit In 0.45 % NaCl 1 250ml.bag @ 18 UNITS/KG/HR 18.37 mls/hr IV .[id number] [facility] Rx#: [id number] Oral 0 Tube Feeding 50 Other 30 Output: Urine 650 1625 550 Other: Voiding Method Indwelling Catheter Indwelling Catheter Indwelling Catheter # Bowel Movements 1 ABP, PAP, CO, CI - Last Documented Arterial Blood Pressure 138/68 pandemic he was seen from the from the door. He is awake and alert comfortable on nasal cannula oxygen, Rodriguez catheter in with dark urine about 600 mL in the back - Labs CBC & Chem 7: 05/26/21 03:50 05/26/21 03:50 Labs: Abnormal Lab Results - Last 24 Hours (Table) 05/25/21 05/25/21 05/25/21 Range/Units 11:40 17:47 18:02 WBC (3.8-10.6) k/uL RBC (4.30-5.90) m/uL Hgb (13.0-17.5) gm/dL Hct (39.0-53.0) % Neutrophils # (1.3-7.7) k/uL Monocytes # (0-1.0) k/uL APTT (22.0-30.0) sec D-Dimer (<0.60) mg/L FEU ABG Total CO2 25 H (19-24) mmol/L ABG O2 Saturation 97.1 H (94-97) % Chloride (98-107) mmol/L Carbon Dioxide (22-30) mmol/L BUN (9-20) mg/dL Creatinine (0.66-1.25) mg/dL Glucose (74-99) mg/dL POC Glucose (mg/dL) 111 H 106 H (75-99) mg/dL ALT (4-49) U/L Alkaline Phosphatase (38-126) U/L Lactate Dehydrogenase (313-618) U/L C-Reactive Protein (<1.0) mg/dL Albumin (3.5-5.0) g/dL 05/26/21 05/26/21 05/26/21 Range/Units 00:16 03:50 03:50 WBC 14.2 H (3.8-10.6) k/uL RBC 3.53 L (4.30-5.90) m/uL Hgb 10.0 L (13.0-17.5) gm/dL Hct 31.5 L (39.0-53.0) % Neutrophils # 11.1 H (1.3-7.7) k/uL Monocytes # 1.2 H (0-1.0) k/uL APTT 70.5 H (22.0-30.0) sec D-Dimer 2.86 H (<0.60) mg/L FEU ABG Total CO2 (19-24) mmol/L ABG O2 Saturation (94-97) % Chloride (98-107) mmol/L Carbon Dioxide (22-30) mmol/L BUN (9-20) mg/dL Creatinine (0.66-1.25) mg/dL Glucose (74-99) mg/dL POC Glucose (mg/dL) 116 H (75-99) mg/dL ALT (4-49) U/L Alkaline Phosphatase (38-126) U/L Lactate Dehydrogenase (313-618) U/L C-Reactive Protein (<1.0) mg/dL Albumin (3.5-5.0) g/dL 05/26/21 Range/Units 03:50 WBC (3.8-10.6) k/uL RBC (4.30-5.90) m/uL Hgb (13.0-17.5) gm/dL Hct (39.0-53.0) % Neutrophils # (1.3-7.7) k/uL Monocytes # (0-1.0) k/uL APTT (22.0-30.0) sec D-Dimer (<0.60) mg/L FEU ABG Total CO2 (19-24) mmol/L ABG O2 Saturation (94-97) % Chloride 108 H (98-107) mmol/L Carbon Dioxide 20 L (22-30) mmol/L BUN 111 H* (9-20) mg/dL Creatinine 6.75 H (0.66-1.25) mg/dL Glucose 117 H (74-99) mg/dL POC Glucose (mg/dL) (75-99) mg/dL ALT 56 H (4-49) U/L Alkaline Phosphatase 187 H (38-126) U/L Lactate Dehydrogenase 1260 H (313-618) U/L C-Reactive Protein 6.9 H (<1.0) mg/dL Albumin 3.1 L (3.5-5.0) g/dL Assessment and Plan Assessment: Assessment: 1. Acute kidney injury secondary to ATN secondary to sepsis/COVID-19 pneumonia. Currently hemodialysis dependent. Nonoliguric. 2. Volume overload. Improving with diuresis and ultrafiltration. 3. Hyperkalemia secondary to acute kidney injury and metabolic acidosis. resolved hyperkalemia with potassium of 4 and bicarb improved to 20 4. Bilateral PE maintained on heparin drip. 5. COVID-19 pneumonia. 6. Acute hypoxic respiratory failure. on nasal cannula oxygen 7. Sputum culture positive for staph aureus. On antibiotics. 8. Hyperphosphatemia secondary to acute kidney injury. On Renvela. Plan: Hemodialysis on Friday if needed Maintain IV Lasix. Wean FiO2. Maintain tube feeds. Continue to assess daily for need for renal replacement therapy.
[2021-05-26 11:39] LABS: Glucose,Whole Blood 115 mg/dL (75-99)
--- NOTE | 2021-05-26 13:24 | P.PN ---
Subjective Progress Note Date: 05/26/21 Principal diagnosis: Acute hypoxic respiratory failure secondary to COVID-19 pneumonia 51-year-old male who presents to the emergency department on May 12, with complaints of shortness of breath. The patient has been sick for at least 10-11 days. It started off with cough and shortness of breath, and loss of taste. He's also had fever. He has not been vaccinated. He was tested for coronavirus on May 07, and tested positive. The patient does not have a primary care physician. He has no past medical history. He takes no medications at home. The patient did receive monoclonal antibodies on May 09. Currently, the patient's on 5 L nasal cannula. He's got saline running at 75 mL an hour. He looks relatively stable. His chest x-ray does show diffuse bilateral infiltrates. The home medications that he is on include an albuterol inhaler, Tessalon Perles, and Decadron, given to him by the hospital. White count 5.1, hemoglobin 14.3, hematocrit 42.6, and platelet count 377,000. Sodium, potassium, chloride, CO2, anion gap, BUN, and creatinine are all normal. AST was 154, ALT 123, alkaline phosphatase 164. LDH was 2657. C-reactive protein is 14.9. Pro-calcitonin level is 0.14. Chest x-ray shows low lung volumes, with right greater than left bilateral opacities. The patient is seen today 05/13/2021 in follow-up on the regular medical floor. He is currently resting in bed. He is somewhat more dyspneic andtachypneic. His oxygen requirements have gone up to knees on 15 L high flow nasal cannula plus a nonrebreather mask. white count 6.8. Hemoglobin 13.5. Leukocytes 0.85. D-dimer up to 15.8. Sodium 143. Potassium 5.4. Creatinine 1.0. Glucose 123. AST 120. ALT 146. LDH 971. C-reactive protein 3.4. CT angiogram was requested after seeing the patient. There is evidence of bilateral lower lobe large multiple pulmonary emboli. No sign of right heart strain. Lovenox will be discontinued and he'll be initiated on a heparin drip On 05/14/2021 patient was emergently transferred to the intensive care unit for a concern of worsening hypoxia and dyspnea. Earlier in the shift he was on 15 L per high flow nasal cannula and 100% nonrebreather mask however his work of breathing had significantly increased his respiratory rate was ranging between 40-50 breaths per minute. His pulse ox was 87% and subsequently dropped down to 73%%. He was placed on BiPAP support with no improvement in his work of breathing or hypoxia, was intubated per CINDY, currently on assist-control mode of ventilation with a rate of 36 tidal volume is 350, FiO2 100% and PEEP of 24. he was given Nimbex IV pushes and propofol for sedation during intubation, he will be placed on Diprivan drip and Nimbex. Currently his pulse ox is 81% on the above-mentioned vent settings. His blood pressure 121/71, he is in sinus mechanism tachycardic with a rate of 110-120 BPM. Patient was found to have bilateral pulmonary emboli on yesterday's CT angiogram of the chest, he was started on heparin infusion on which she remains per weight-based protocol, his maintenance IV fluids are 0.9 normal saline at a rate of 75 ML per hour, CT angiogram lung windows showed extensive bilateral pneumonia. Chest x-ray post intubation and left subclavian central line placement is pending. This morning's labs have been reviewed, white blood cell count is 11.9, hemoglobin is 14.5, today's d-dimer is 18.26 slightly increased from yesterday's value, sodium is 141, potassium is 5.2, chloride is 111, CO2 is 23, BUN was 20 creatinine 0.96, his LDH today has significantly increased and is up to 3109, from 971 on yesterday's labs, and CRP is stable at 3.4. His pro calcitonin level on 05/12/2021 was at 0.14. Patient was started on Baricitinib yesterday on , in addition to Decadron 6 mg daily. Patient is on vitamin C, zinc, and vitamin D will be added. On 05/21/2021 patient seen in follow-up in intensive care unit, he remains intubated, and sedated, currently on pressure control mode of ventilation, with a pressure of 15, inspiratory time of 0.9, FiO2 of 50% and PEEP of 6. Respiratory rate is 22. His peak airway pressure is 24, this morning's blood gas shows pO2 of 64, pCO2 of 39, and pH is 7.43. He is on 0.9 normal saline at a rate of 20 ML per hour, heparin infusion at weight-based protocol, and improving and is at 75 mics per kilo per minute. He is on tube feedings with Vital AF 16 with standard water flushes, hemodynamically stable, not requiring any vasopressor support, today's chest x-ray has been reviewed, showing continu ed improving subcutaneous emphysema, persistent pneumomediastinum, no pneumothorax, multifocal and confluent right greater than left opacities redemonstrated, there is some overall improvement from one day earlier noted. Patient remains on Decadron 6 mg daily, he was started on Lasix 60 mg every 12 hours, she remains on heparin infusion per weight-based protocol, he remains on empiric antibiotics in the form of Zosyn. His sputum culture showed evidence of MSSA. Today's labs have been reviewed, white blood cell count is relatively stable at 15.7, hemoglobin is 9.3, Patient was reevaluated today on 05/22/2021, remains intubated and mechanically ventilated, patient is on a pressure control mode of mechanical ventilation. He is on FiO2 of 35%, pressure control of 15, rate 22, PEEP is 6. Remains on propofol and I went ahead and recommended that we change propofol to Precedex. I would like to assess the patient for potential weaning trials. X-ray continues to show bilateral infiltrates, right more so than left. Otherwise no major changes noted. WBC count is 12.9 hemoglobin is 9.4 d-dimer is 2.12, ABG is excellent with a pO2 of 156 pCO2 42 pH of 7.37. BUN is 73 creatinine 4.26, patient is on hemodialysis. Patient was being hemodialyzed during my evaluation LDH is 1961 C-reactive protein is 33.5, both are improving Evaluated today on 05/23/2021, and remains in the ICU, intubated and mechanically ventilated. Patient is actually only on Precedex at this point, off sedation, off narcotics, he is awake but does not seem to follow any instructions and he doesn't comprehend. He is on pressure control mode of mechanical ventilation, rate is set at 22, pressure control at 15, PEEP at 6. He is on 40% FiO2. Seems to be arousable, but again does not follow any instructions. Chest x-ray continues show bilateral infiltrates, pneumomediastinum and subcutaneous emphysema. ABG today showed a pO2 of 63 pCO2 of 32 pH of 7.45. PTT is 49 WBC count 12.9 hemoglobin 11. Asymmetric metabolic profile is normal renal profile showed a BUN of 67 creatinine 3.85, patient is on hemodialysis. LDH continues to remain high at 1910 C-reactiveProtein remains high at 31.5 Reevaluated today on 05/24/2021, patient remains in the ICU, intubated and mechanically ventilated. However clinically I believe the patient is demonstrating some improvement. He is now on pressure control mode of mechanical ventilation, with a pressure control of 15, FiO2 40%, rate is 22, PEEP of 6. ABG showed a pO2 of 70 pCO2 of 33 pH of 7.43. Patient is awake, he is now only on Precedex at 0.9 mcg/kg/h. Patient is also receiving heparin for his DVT, and I suggested we go ahead and change the patient to a pressure support mode of mechanical ventilation, and CPAP. Will start with a pressure support of 10, and determine whether the patient could be extubated later today or possibly in the next 24 hours. Patient is generally weak, however he is able to follow all instructions, and follows commands. Chest x-ray continues show bilateral infiltrates, right more so than left. Renal profile remains abnormal patient is on hemodialysis, may not receive hemodialysis today. Reevaluated today on 05/25/2021, patient remains in the ICU, intubated and mechanically ventilated. Patient remains on pressure control mode of mechanical ventilation, yesterday he was on pressure support and CPAP for almost 4 hours, apparently he was getting restless and agitated, and tachypneic, patient was placed back on a his previous mode of mechanical ventilation which is pressure control with pressure control of 15 FiO2 40% rate 22 and PEEP of 6. ABG showed a pO2 of 84 pCO2 of 35 pH7.46. D-dimer is still elevated and the patient is on heparin with a PTT of 50. His renal profile remains abnormal with a 93 creatinine 4.78, patient is on hemodialysis. Chest x-ray bilateral infiltrates are basically about the same. Patient remains on the COVID-19 cocktail, he is on Decadron 6 mg IV push daily, he is also on Lasix 60 mg IV push every 12 hours, propofol which I have discontinued completely, he is also on Zosyn and Protonix, heparin, vitamin C, zinc, and he is on oral bicarb Reevaluated today on 05/26/2021, patient was extubated yesterday on 05/25, patient is doing great, he is on 5 L nasal cannula. Presently he is receiving hemodialysis, patient is in a bedside recliner, does not seem to be in any distress. Remains on heparin remains on Zosyn and he is doing fairly well with incentive spirometry, and recommending physical therapy to evaluate, and over the next 24 hours may even transfer the patient out of the ICU if he continues to do well. WBC count is 14.2 hemoglobin is 10.0. PTT is 59 therapeutic his d- dimer is 2.86. Electrolytes are normal BUN is 111 creatinine 6.75. Chest x-ray continues show bilateral airspace disease consistent with COVID-19 pneumonia. Objective - Vital Signs Vital signs: Vital Signs Temp 98.6 F 05/26/21 12:00 Pulse 87 05/26/21 12:00 Resp 25 H 05/26/21 12:00 BP 98/62 05/24/21 17:54 Pulse Ox 93 L 05/26/21 12:00 Intake & Output 05/25/21 05/26/21 05/26/21 18:59 06:59 18:59 Intake Total 681.408 840.270 244.463 Output Total 650 1625 800 Balance 31.408 -784.730 -555.537 Weight 113 kg 106 kg Intake: IV 162 487 100 Normal Saline Pressure 72 72 50 Bag Piperacillin-Tazobactam 3 100 .375 gm In Sodium Chloride 0.9% 100 ml @ 25 mls/hr IVPB Q12HR [facility] Rx #:[id number] Sodium Chloride 0.45% 1, 90 315 50 000 ml @ 10 mls/hr IV . Q24H [facility] Rx#:[id number] Intake, IV Titration 439.408 353.270 144.463 Amount Dexmedetomidine/0.9% NaCl 190.44 (Pmx) 400 mcg In Empty Bag 1 bag @ 0.2 MCG/KG/HR 5.7 mls/hr IV .[id number] [facility] Rx#:[id number] Heparin Sod,Pork in 0.45% 248.968 353.270 144.463 NaCl 25,000 unit In 0.45 % NaCl 1 250ml.bag @ 18 UNITS/KG/HR 18.37 mls/hr IV .[id number] [facility] Rx#: [id number] Oral 0 Tube Feeding 50 Other 30 Output: Urine 650 1625 800 Other: Voiding Method Indwelling Catheter Indwelling Catheter Indwelling Catheter # Bowel Movements 1 ABP, PAP, CO, CI - Last Documented Arterial Blood Pressure 123/69 - Exam GENERAL EXAM: Revealed 51-year-old white male, off mechanical ventilation, on 5 L nasal cannula. NECK: No masses, no JVD, no thyroid enlargement, no adenopathy. CHEST: No chest wall deformity. Symmetrical expansion. Lfine crackles at the bases. CVS: Regular rate and rhythm, normal S1 and S2, no gallops, no murmurs, no rubs ABDOMEN: Soft, nontender. No hepatosplenomegaly, normal bowel sounds, no g uarding or rigidity. EXTREMITIES: No clubbing, 1+ bipedal edema, no cyanosis, 2+ pulses and upper and lower extremities. SKIN: No rashes CENTRAL NERVOUS SYSTEM: Awake, generally weak, follows all simple instructions. - Labs CBC & Chem 7: 05/26/21 03:50 05/26/21 03:50 Labs: Abnormal Lab Results - Last 24 Hours (Table) 05/25/21 05/25/21 05/26/21 Range/Units 17:47 18:02 00:16 WBC (3.8-10.6) k/uL RBC (4.30-5.90) m/uL Hgb (13.0-17.5) gm/dL Hct (39.0-53.0) % Neutrophils # (1.3-7.7) k/uL Monocytes # (0-1.0) k/uL APTT (22.0-30.0) sec D-Dimer (<0.60) mg/L FEU ABG Total CO2 25 H (19-24) mmol/L ABG O2 Saturation 97.1 H (94-97) % Chloride (98-107) mmol/L Carbon Dioxide (22-30) mmol/L BUN (9-20) mg/dL Creatinine (0.66-1.25) mg/dL Glucose (74-99) mg/dL POC Glucose (mg/dL) 106 H 116 H (75-99) mg/dL ALT (4-49) U/L Alkaline Phosphatase (38-126) U/L Lactate Dehydrogenase (313-618) U/L C-Reactive Protein (<1.0) mg/dL Albumin (3.5-5.0) g/dL 05/26/21 05/26/21 05/26/21 Range/Units 03:50 03:50 03:50 WBC 14.2 H (3.8-10.6) k/uL RBC 3.53 L (4.30-5.90) m/uL Hgb 10.0 L (13.0-17.5) gm/dL Hct 31.5 L (39.0-53.0) % Neutrophils # 11.1 H (1.3-7.7) k/uL Monocytes # 1.2 H (0-1.0) k/uL APTT 70.5 H (22.0-30.0) sec D-Dimer 2.86 H (<0.60) mg/L FEU ABG Total CO2 (19-24) mmol/L ABG O2 Saturation (94-97) % Chloride 108 H (98-107) mmol/L Carbon Dioxide 20 L (22-30) mmol/L BUN 111 H* (9-20) mg/dL Creatinine 6.75 H (0.66-1.25) mg/dL Glucose 117 H (74-99) mg/dL POC Glucose (mg/dL) (75-99) mg/dL ALT 56 H (4-49) U/L Alkaline Phosphatase 187 H (38-126) U/L Lactate Dehydrogenase 1260 H (313-618) U/L C-Reactive Protein 6.9 H (<1.0) mg/dL Albumin 3.1 L (3.5-5.0) g/dL 05/26/21 05/26/21 Range/Units 11:15 11:37 WBC (3.8-10.6) k/uL RBC (4.30-5.90) m/uL Hgb (13.0-17.5) gm/dL Hct (39.0-53.0) % Neutrophils # (1.3-7.7) k/uL Monocytes # (0-1.0) k/uL APTT 59.2 H (22.0-30.0) sec D-Dimer (<0.60) mg/L FEU ABG Total CO2 (19-24) mmol/L ABG O2 Saturation (94-97) % Chloride (98-107) mmol/L Carbon Dioxide (22-30) mmol/L BUN (9-20) mg/dL Creatinine (0.66-1.25) mg/dL Glucose (74-99) mg/dL POC Glucose (mg/dL) 115 H (75-99) mg/dL ALT (4-49) U/L Alkaline Phosphatase (38-126) U/L Lactate Dehydrogenase (313-618) U/L C-Reactive Protein (<1.0) mg/dL Albumin (3.5-5.0) g/dL Assessment and Plan Assessment: Impression: Acute hypoxic respiratory failure secondary to COVID-19 pneumonia admitted on 05/12, had symptoms about 10 days prior, patient is not vaccinated, he was outside the window for rem , started on baricitinib on 05/13. Extubated on 05/25/2021. Underlying MSSA pneumonia , remains on Zosyn. Acute kidney injury requiring hemodialysis. Right popliteal deep vein thrombosis, on heparin Elevated liver enzymes. Pneumomediastinum with subcutaneous emphysema as a complication of COVID-19 infection/pneumonia Recommendation: Continue oxygen and titrate accordingly Continue incentive spirometry Physical therapy to evaluate Continue hemodialysis Continue antibiotics to Zosyn Continue diuretics Consider placement early next week. We will likely transfer out of the ICU in the next 24 hours. We will continue to follow Time with Patient: Less than 30
--- NOTE | 2021-05-26 13:27 | P.PN ---
Subjective Principal diagnosis: COVID-19 pneumonitis, respiratory failure and later dependent, renal failure and hemodialysis Patient is 51-year-old male no significant past medical history who was admitted with COVID-19 pneumonitis on 05/12/21. Prior to this patient had symptoms for about 10 days. Tested positive for COVID-19 on 05/07/21. Patient did receive monoclonal antibodies on 05/09/21 prior to this admission however his respirat ory status continued to worsen and he came to emergency department. Initially he was very hypoxic and was on 4 L nasal cannula. Chest x-ray showed diffuse bilateral pulmonary infiltrates. He was treated with steroids, bronchodilators. He was found to be out of the window for Remdesevir. On 05/13/21 he respiratory status was somewhat worsened his d-dimer was significantly elevated and he underwent CT angiogram of the chest showed bilateral pulmonary emboli and extensive bilateral pneumonia. Doppler lower extremities: Right lower extremity popliteal DVT. He was started on heparin drip. Diagnosed with normal mediastinotomy on 05/15/21. Transferred to intensive care unit. Subsequently intubated on 05/18/21. Started on hemodialysis 05/15/21 due to acute kidney failure, oliguria and hyperkalemia. Patient was extubated on 05/25/21. Today he is seems awake but does not participate in conversation does not follow command and seems quite weak. He is not on any respiratory distress and he is on room air. Rodriguez catheter draining significant amount of pinkish urine. Objective - Vital Signs Vital signs: Vital Signs Temp 98.6 F 05/26/21 12:00 Pulse 85 05/26/21 13:00 Resp 25 H 05/26/21 13:00 BP 98/62 05/24/21 17:54 Pulse Ox 96 05/26/21 13:00 Intake & Output 05/25/21 05/26/21 05/26/21 18:59 06:59 18:59 Intake Total 681.408 840.270 264.463 Output Total 650 1625 1000 Balance 31.408 -784.730 -735.537 Weight 113 kg 106 kg Intake: IV 162 487 120 Normal Saline Pressure 72 72 60 Bag Piperacillin-Tazobactam 3 100 .375 gm In Sodium Chloride 0.9% 100 ml @ 25 mls/hr IVPB Q12HR [facility] Rx #:[id number] Sodium Chloride 0.45% 1, 90 315 60 000 ml @ 10 mls/hr IV . Q24H [facility] Rx#:[id number] Intake, IV Titration 439.408 353.270 144.463 Amount Dexmedetomidine/0.9% NaCl 190.44 (Pmx) 400 mcg In Empty Bag 1 bag @ 0.2 MCG/KG/HR 5.7 mls/hr IV .[id number] [facility] Rx#:[id number] Heparin Sod,Pork in 0.45% 248.968 353.270 144.463 NaCl 25,000 unit In 0.45 % NaCl 1 250ml.bag @ 18 UNITS/KG/HR 18.37 mls/hr IV .[id number] [facility] Rx#: [id number] Oral 0 Tube Feeding 50 Other 30 Output: Urine 650 1625 1000 Other: Voiding Method Indwelling Catheter Indwelling Catheter Indwelling Catheter # Bowel Movements 1 ABP, PAP, CO, CI - Last Documented Arterial Blood Pressure 110/68 - Exam Patient is the bed extubated on room air, he is not following any commands On the ventilator FiO2 50% PEEP of 6 Neck: No stridor Lungs clear to auscultation no wheezing Cardiovascular regular rhythm and rate Abdomen bowel sounds present soft nontender nondistended Extremities pitting edema warm well perfused no cyanosis Pupils are round and reactive to light symmetrical eyes in the midline He seems quite diffusely profusely weak, he does not have any ankle falls DTRs: Patellar and brachial radial: Diminished - Labs CBC & Chem 7: 05/26/21 03:50 05/26/21 03:50 Labs: Abnormal Lab Results - Last 24 Hours (Table) 05/25/21 05/25/21 05/26/21 Range/Units 17:47 18:02 00:16 WBC (3.8-10.6) k/uL RBC (4.30-5.90) m/uL Hgb (13.0-17.5) gm/dL Hct (39.0-53.0) % Neutrophils # (1.3-7.7) k/uL Monocytes # (0-1.0) k/uL APTT (22.0-30.0) sec D-Dimer (<0.60) mg/L FEU ABG Total CO2 25 H (19-24) mmol/L ABG O2 Saturation 97.1 H (94-97) % Chloride (98-107) mmol/L Carbon Dioxide (22-30) mmol/L BUN (9-20) mg/dL Creatinine (0.66-1.25) mg/dL Glucose (74-99) mg/dL POC Glucose (mg/dL) 106 H 116 H (75-99) mg/dL ALT (4-49) U/L Alkaline Phosphatase (38-126) U/L Lactate Dehydrogenase (313-618) U/L C-Reactive Protein (<1.0) mg/dL Albumin (3.5-5.0) g/dL 05/26/21 05/26/21 05/26/21 Range/Units 03:50 03:50 03:50 WBC 14.2 H (3.8-10.6) k/uL RBC 3.53 L (4.30-5.90) m/uL Hgb 10.0 L (13.0-17.5) gm/dL Hct 31.5 L (39.0-53.0) % Neutrophils # 11.1 H (1.3-7.7) k/uL Monocytes # 1.2 H (0-1.0) k/uL APTT 70.5 H (22.0-30.0) sec D-Dimer 2.86 H (<0.60) mg/L FEU ABG Total CO2 (19-24) mmol/L ABG O2 Saturation (94-97) % Chloride 108 H (98-107) mmol/L Carbon Dioxide 20 L (22-30) mmol/L BUN 111 H* (9-20) mg/dL Creatinine 6.75 H (0.66-1.25) mg/dL Glucose 117 H (74-99) mg/dL POC Glucose (mg/dL) (75-99) mg/dL ALT 56 H (4-49) U/L Alkaline Phosphatase 187 H (38-126) U/L Lactate Dehydrogenase 1260 H (313-618) U/L C-Reactive Protein 6.9 H (<1.0) mg/dL Albumin 3.1 L (3.5-5.0) g/dL 05/26/21 05/26/21 Range/Units 11:15 11:37 WBC (3.8-10.6) k/uL RBC (4.30-5.90) m/uL Hgb (13.0-17.5) gm/dL Hct (39.0-53.0) % Neutrophils # (1.3-7.7) k/uL Monocytes # (0-1.0) k/uL APTT 59.2 H (22.0-30.0) sec D-Dimer (<0.60) mg/L FEU ABG Total CO2 (19-24) mmol/L ABG O2 Saturation (94-97) % Chloride (98-107) mmol/L Carbon Dioxide (22-30) mmol/L BUN (9-20) mg/dL Creatinine (0.66-1.25) mg/dL Glucose (74-99) mg/dL POC Glucose (mg/dL) 115 H (75-99) mg/dL ALT (4-49) U/L Alkaline Phosphatase (38-126) U/L Lactate Dehydrogenase (313-618) U/L C-Reactive Protein (<1.0) mg/dL Albumin (3.5-5.0) g/dL Assessment and Plan Plan: #COVID-19 pneumonitis with acute hypoxic respiratory failure requiring mec hanical ventilation Onset of symptoms: About 10 days prior to admission Date of diagnosis 05/07/21 monoclonal antibodies 05/09/21 Date of admission 05/12/21 Imaging consistent with significant bilateral pneumonia CRP 33.5 on 05/22/21 Pulmonary service following Treatment: dexamethasone, bronchodilators, antibiotics Remdesevir was not used as it was felt the patient was out of window for treatment Baricitinb started but was eventually discontinued due to bacterial pneumonia Extubated: Extubated 05/25/21 #Bilateral pulmonary embolism Remains on heparin drip D-dimer trending down #MSSA pneumonia Started on Zosyn #Acute kidney injury Due to ATN Nonoliguric Remains on hemodialysis and Lasix Nephrology following #Pneumomediastinum Due to extensive COVID-19 pneumonitis and mechanical exhalation Follow this serial imaging, improved #[facility] [place] to be due to combination of sepsis and possibly pulmonary embolism Improved, off of pressors Tolerating hemodialysis #Severe debility No ankle clonus DTRs are diminished Follow study Rule out critical care neuropathy
[2021-05-26] MEDS: NOREPINEPHRINE 8 MG in SODIUM CHLORIDE 0.9% 250 ML IV SCH (13:32)
[2021-05-26 17:21] LABS: Glucose,Whole Blood 103 mg/dL (75-99)
[2021-05-26] MEDS: SODIUM CHLORIDE 0.45% 1,000 ML IV SCH (19:51)
[2021-05-26] MEDS: CLEVIDIPINE BUTYRATE 25 MG in EMPTY BAG 1 BAG IV SCH (19:51)
[2021-05-26] MEDS: PIPERACILLIN-TAZOBACTAM 3.375 GM in SODIUM CHLORIDE 0.9% 100 ML IVPB SCH (19:59)
[2021-05-26 23:52] LABS: Glucose,Whole Blood 101 mg/dL (75-99)
[2021-05-27] MEDS: INSULIN ASPART (NovoLOG) 100 UNIT/ML VIAL SQ SCH ×5 (00:03→23:13)
[2021-05-27 03:24] LABS: HCT 30.7 % (39.0-53.0); HGB 10.2 gm/dL (13.0-17.5); MCH 29.9 pg (25.0-35.0); MCHC 33.1 g/dL (31.0-37.0); MCV 90.3 fL (80.0-100.0); Mean Platelet Volume 9.5; Platelet Count 341 k/uL (150-450); RDW 14.5 % (11.5-15.5); WBC 13.1 k/uL (3.8-10.6)
[2021-05-27 03:35] LABS: Albumin 3.2 g/dL (3.5-5.0); Calcium 8.9 mg/dL (8.4-10.2); Potassium 3.5 mmol/L (3.5-5.1); Total Bilirubin 1.2 mg/dL (0.2-1.3); Total Protein 7.1 g/dL (6.3-8.2)
[2021-05-27] MEDS: SEVELAMER 800 MG TAB PO SCH ×3 (05:32→17:19)
[2021-05-27] MEDS: ALBUTEROL HFA INHALER INHALATION SCH ×4 (07:45→19:40)
[2021-05-27] MEDS ORDERED: ACETAMINOPHEN TAB 325 MG TAB PO PRN (08:37)
--- NOTE | 2021-05-27 08:46 | P.PN ---
Subjective Principal diagnosis: COVID-19 pneumonitis, respiratory failure and later dependent, renal failure and hemodialysis Patient is 51-year-old male no significant past medical history who was admitted with COVID-19 pneumonitis on 05/12/21. Prior to this patient had symptoms for about 10 days. Tested positive for COVID-19 on 05/07/21. Patient did receive monoclonal antibodies on 05/09/21 prior to this admission however his respirat ory status continued to worsen and he came to emergency department. Initially he was very hypoxic and was on 4 L nasal cannula. Chest x-ray showed diffuse bilateral pulmonary infiltrates. He was treated with steroids, bronchodilators. He was found to be out of the window for Remdesevir. On 05/13/21 he respiratory status was somewhat worsened his d-dimer was significantly elevated and he underwent CT angiogram of the chest showed bilateral pulmonary emboli and extensive bilateral pneumonia. Doppler lower extremities: Right lower extremity popliteal DVT. He was started on heparin drip. Diagnosed with normal mediastinotomy on 05/15/21. Transferred to intensive care unit. Subsequently intubated on 05/18/21. Started on hemodialysis 05/15/21 due to acute kidney failure, oliguria and hyperkalemia. Patient was extubated on 05/25/21. Urine output has been increasing. Patient continues to improve. He is currently awake and alert following commands. He remains very weak generally but there are some signs of improvement. He is able to move his fingers and toes when asked. His voice is still weak in general and there is no respiratory issues complains he complains of no pain. Objective - Vital Signs Vital signs: Vital Signs Temp 98.6 F 05/27/21 04:00 Pulse 82 05/27/21 07:00 Resp 24 05/27/21 07:00 BP 149/71 05/26/21 14:10 Pulse Ox 97 05/27/21 07:00 Intake & Output 05/26/21 05/27/21 05/27/21 18:59 06:59 18:59 Intake Total 664.463 503.994 16 Output Total 3700 1085 60 Balance -3035.537 -581.006 -44 Weight 103 kg Intake: IV 220 196 16 Normal Saline Pressure 110 76 6 Bag Sodium Chloride 0.45% 1, 110 120 10 000 ml @ 10 mls/hr IV . Q24H [facility] Rx#:[id number] Intake, IV Titration 144.463 307.994 Amount Heparin Sod,Pork in 0.45% 144.463 307.994 NaCl 25,000 unit In 0.45 % NaCl 1 250ml.bag @ 18 UNITS/KG/HR 18.37 mls/hr IV .[id number] [facility] Rx#: [id number] Oral 0 0 Hemodialysis 300 Output: Urine 1800 1085 60 Stool 100 Hemodialysis 1800 Other: Voiding Method Indwelling Catheter Indwelling Catheter # Voids 1 # Bowel Movements 1 ABP, PAP, CO, CI - Last Documented Arterial Blood Pressure 111/58 - Exam Patient is the bed extubated on room air Neck: No stridor Lungs clear to auscultation no wheezing Cardiovascular regular rhythm and rate Abdomen bowel sounds present soft nontender nondistended Extremities pitting edema warm well perfused no cyanosis Pupils are round and reactive to light symmetrical eyes in the midline He seems quite diffusely profusely weak, he does not have any ankle clonus He moves hands and feet when asked following commands appropriately DTRs: Patellar and brachial radial: Diminished - Labs CBC & Chem 7: 05/27/21 03:10 05/27/21 03:10 Labs: Abnormal Lab Results - Last 24 Hours (Table) 05/26/21 05/26/21 05/26/21 Range/Units 11:15 11:37 17:19 WBC (3.8-10.6) k/uL RBC (4.30-5.90) m/uL Hgb (13.0-17.5) gm/dL Hct (39.0-53.0) % APTT 59.2 H (22.0-30.0) sec BUN (9-20) mg/dL Creatinine (0.66-1.25) mg/dL Glucose (74-99) mg/dL POC Glucose (mg/dL) 115 H 103 H (75-99) mg/dL Alkaline Phosphatase (38-126) U/L Albumin (3.5-5.0) g/dL 05/26/21 05/27/21 05/27/21 Range/Units 23:50 03:10 03:10 WBC 13.1 H (3.8-10.6) k/uL RBC 3.40 L (4.30-5.90) m/uL Hgb 10.2 L (13.0-17.5) gm/dL Hct 30.7 L (39.0-53.0) % APTT (22.0-30.0) sec BUN 82 H (9-20) mg/dL Creatinine 5.60 H (0.66-1.25) mg/dL Glucose 114 H (74-99) mg/dL POC Glucose (mg/dL) 101 H (75-99) mg/dL Alkaline Phosphatase 191 H (38-126) U/L Albumin 3.2 L (3.5-5.0) g/dL 05/27/21 Range/Units 03:10 WBC (3.8-10.6) k/uL RBC (4.30-5.90) m/uL Hgb (13.0-17.5) gm/dL Hct (39.0-53.0) % APTT 71.6 H (22.0-30.0) sec BUN (9-20) mg/dL Creatinine (0.66-1.25) mg/dL Glucose (74-99) mg/dL POC Glucose (mg/dL) (75-99) mg/dL Alkaline Phosphatase (38-126) U/L Albumin (3.5-5.0) g/dL Assessment and Plan Plan: #COVID-19 pneumonitis with acute hypoxic respiratory failure requiring mechanical ventilation Onset of symptoms: About 10 days prior to admission Date of diagnosis 05/07/21 monoclonal antibodies 05/09/21 Date of admission 05/12/21 Imaging consistent with significant bilateral pneumonia CRP 33.5 on 05/22/21 trending down Treatment: dexamethasone, bronchodilators, antibiotics Remdesevir was not used as it was felt the patient was out of window for treatment Baricitinb started but was eventually discontinued due to concerns of bacterial pneumonia Extubated: Extubated 05/25/21 #Generalized weakness and deconditioning Severe debility DTRs are diminished brachial radialis and patellar No ankle clonus Likely critical care neuropathy/myopathy CPK pending Modest improvement today Patient will need physical clinic patient of therapy, likely will need inpatient rehab #Bilateral pulmonary embolism Remains on heparin drip D-dimer trending down #MSSA pneumonia on Zosyn Check pro calcitonin #Acute kidney injury Due to ATN Fluid overload Urine output steadily improving On Lasix Hemodialysis need assessment date to day per nephrology #Pneumomediastinum Due to extensive COVID-19 pneumonitis and mechanical exhalation Follow this serial imaging, improved #[place] to be due to combination of sepsis and possibly pulmonary embolism Improved, off of pressors Blood pressure improved, map above 65
[2021-05-27] MEDS: SODIUM BICARBONATE TAB 650 MG TAB PO SCH ×2 (09:21→20:36)
[2021-05-27] MEDS: CHOLECALCIFEROL 25 MCG (1000 IU) TABLET PO SCH (09:21)
[2021-05-27] MEDS: ZINC SULFATE 220 MG CAP PO SCH (09:21)
[2021-05-27] MEDS: ASCORBIC ACID 500 MG TAB PO SCH (09:21)
[2021-05-27] MEDS: FUROSEMIDE 10 MG/ML 10 ML VIAL IV SCH ×2 (09:25→20:39)
[2021-05-27] MEDS: PIPERACILLIN-TAZOBACTAM 3.375 GM in SODIUM CHLORIDE 0.9% 100 ML IVPB SCH ×2 (09:27→20:39)
[2021-05-27] MEDS: DEXAMETHASONE SOD PHOSPHATE 10 MG/ML 1 ML VIAL IVP SCH (09:28)
[2021-05-27] MEDS: PANTOPRAZOLE 40 MG/10 ML VIAL IVP SCH (09:29)
[2021-05-27] MEDS: HEPARIN SOD,PORK IN 0.45% NACL 25,000 UNIT in 0.45% NACL 1 250ML.BAG IV SCH ×2 (10:28→20:50)
--- NOTE | 2021-05-27 11:27 | P.PN ---
Subjective Progress Note Date: 05/27/21 Principal diagnosis: This is a 51-year-old male with Acute kidney injury secondary to ATN secondary to sepsis/COVID-19 pneumonia. Currently hemodialysis dependent. Last hd was yes terday stable VS Awake alert, on NC O2 Has Hyperkalemia secondary to acute kidney injury and metabolic acidosis,Bilateral PE maintained on heparin drip. OVID-19 pneumonia. Acute hypoxic respiratory failure.. Nonoliguric. normal sinus rhythm on the monitor. Chest x-ray shows maybe slight improveme nt.UO 520 since this am Objective - Vital Signs Vital signs: Vital Signs Temp 98.3 F 05/27/21 08:00 Pulse 71 05/27/21 11:00 Resp 19 05/27/21 11:00 BP 149/71 05/26/21 14:10 Pulse Ox 97 05/27/21 11:00 Intake & Output 05/26/21 05/27/21 05/27/21 18:59 06:59 18:59 Intake Total 664.463 503.994 166.256 Output Total 3700 1085 570 Balance -3035.537 -581.006 -403.744 Weight 103 kg Intake: IV 220 196 48 Normal Saline Pressure 110 76 18 Bag Sodium Chloride 0.45% 1, 110 120 30 000 ml @ 10 mls/hr IV . Q24H [facility] Rx#:[id number] Intake, IV Titration 144.463 307.994 118.256 Amount Heparin Sod,Pork in 0.45% 144.463 307.994 93.256 NaCl 25,000 unit In 0.45 % NaCl 1 250ml.bag @ 18 UNITS/KG/HR 18.37 mls/hr IV .[id number] [facility] Rx#: [id number] Piperacillin-Tazobactam 3 25 .375 gm In Sodium Chloride 0.9% 100 ml @ 25 mls/hr IVPB Q12HR [facility] Rx #:[id number] Oral 0 0 Hemodialysis 300 Output: Urine 1800 1085 520 Stool 100 50 Hemodialysis 1800 Other: Voiding Method Indwelling Catheter Indwelling Catheter # Voids 1 1 # Bowel Movements 1 ABP, PAP, CO, CI - Last Documented Arterial Blood Pressure 115/69 HEENT No JVP Awale alert Lungs clear to auscultation no wheezing Cardiovascular regular rhythm and rate Abdomen bowel sounds present soft nontender nondistended - Labs CBC & Chem 7: 05/27/21 03:10 05/27/21 03:10 Labs: Abnormal Lab Results - Last 24 Hours (Table) 05/26/21 05/26/21 05/26/21 Range/Units 11:15 11:37 17:19 WBC (3.8-10.6) k/uL RBC (4.30-5.90) m/uL Hgb (13.0-17.5) gm/dL Hct (39.0-53.0) % APTT 59.2 H (22.0-30.0) sec BUN (9-20) mg/dL Creatinine (0.66-1.25) mg/dL Glucose (74-99) mg/dL POC Glucose (mg/dL) 115 H 103 H (75-99) mg/dL Alkaline Phosphatase (38-126) U/L Albumin (3.5-5.0) g/dL 05/26/21 05/27/21 05/27/21 Range/Units 23:50 03:10 03:10 WBC 13.1 H (3.8-10.6) k/uL RBC 3.40 L (4.30-5.90) m/uL Hgb 10.2 L (13.0-17.5) gm/dL Hct 30.7 L (39.0-53.0) % APTT (22.0-30.0) sec BUN 82 H (9-20) mg/dL Creatinine 5.60 H (0.66-1.25) mg/dL Glucose 114 H (74-99) mg/dL POC Glucose (mg/dL) 101 H (75-99) mg/dL Alkaline Phosphatase 191 H (38-126) U/L Albumin 3.2 L (3.5-5.0) g/dL 05/27/21 Range/Units 03:10 WBC (3.8-10.6) k/uL RBC (4.30-5.90) m/uL Hgb (13.0-17.5) gm/dL Hct (39.0-53.0) % APTT 71.6 H (22.0-30.0) sec BUN (9-20) mg/dL Creatinine (0.66-1.25) mg/dL Glucose (74-99) mg/dL POC Glucose (mg/dL) (75-99) mg/dL Alkaline Phosphatase (38-126) U/L Albumin (3.5-5.0) g/dL Assessment and Plan Assessment: Assessment: 1. Acute kidney injury secondary to ATN secondary to sepsis/COVID-19 pneumonia. Currently hemodialysis dependent. Nonoliguric. Lat HD yesterday. 2. Volume overload. Improving with diuresis and ultrafiltration. 3. Hyperkalemia secondary to acute kidney injury and metabolic acidosis. resolved 4. Bilateral PE maintained on heparin drip. 5. COVID-19 pneumonia. 6. Acute hypoxic respiratory failure. on nasal cannula oxygen 7. Sputum culture positive for staph aureus. On antibiotics. 8. Hyperphosphatemia secondary to acute kidney injury. On Renvela. Plan: Hemodialysis on Friday if needed Maintain IV Lasix. Wean FiO2. Maintain tube feeds. Continue to assess daily for need for renal replacement therapy.
[2021-05-27 11:45] LABS: Glucose,Whole Blood 128 mg/dL (75-99)
--- NOTE | 2021-05-27 14:03 | P.PN ---
Subjective Progress Note Date: 05/27/21 Principal diagnosis: Acute hypoxic respiratory failure secondary to COVID-19 pneumonia 51-year-old male who presents to the emergency department on May 12, with complaints of shortness of breath. The patient has been sick for at least 10-11 days. It started off with cough and shortness of breath, and loss of taste. He's also had fever. He has not been vaccinated. He was tested for coronavirus on May 07, and tested positive. The patient does not have a primary care physician. He has no past medical history. He takes no medications at home. The patient did receive monoclonal antibodies on May 09. Currently, the patient's on 5 L nasal cannula. He's got saline running at 75 mL an hour. He looks relatively stable. His chest x-ray does show diffuse bilateral infiltrates. The home medications that he is on include an albuterol inhaler, Tessalon Perles, and Decadron, given to him by the hospital. White count 5.1, hemoglobin 14.3, hematocrit 42.6, and platelet count 377,000. Sodium, potassium, chloride, CO2, anion gap, BUN, and creatinine are all normal. AST was 154, ALT 123, alkaline phosphatase 164. LDH was 2657. C-reactive protein is 14.9. Pro-calcitonin level is 0.14. Chest x-ray shows low lung volumes, with right greater than left bilateral opacities. The patient is seen today 05/13/2021 in follow-up on the regular medical floor. He is currently resting in bed. He is somewhat more dyspneic andtachypneic. His oxygen requirements have gone up to knees on 15 L high flow nasal cannula plus a nonrebreather mask. white count 6.8. Hemoglobin 13.5. Leukocytes 0.85. D-dimer up to 15.8. Sodium 143. Potassium 5.4. Creatinine 1.0. Glucose 123. AST 120. ALT 146. LDH 971. C-reactive protein 3.4. CT angiogram was requested after seeing the patient. There is evidence of bilateral lower lobe large multiple pulmonary emboli. No sign of right heart strain. Lovenox will be discontinued and he'll be initiated on a heparin drip On 05/14/2021 patient was emergently transferred to the intensive care unit for a concern of worsening hypoxia and dyspnea. Earlier in the shift he was on 15 L per high flow nasal cannula and 100% nonrebreather mask however his work of breathing had significantly increased his respiratory rate was ranging between 40-50 breaths per minute. His pulse ox was 87% and subsequently dropped down to 73%%. He was placed on BiPAP support with no improvement in his work of breathing or hypoxia, was intubated per CINDY, currently on assist-control mode of ventilation with a rate of 36 tidal volume is 350, FiO2 100% and PEEP of 24. he was given Nimbex IV pushes and propofol for sedation during intubation, he will be placed on Diprivan drip and Nimbex. Currently his pulse ox is 81% on the above-mentioned vent settings. His blood pressure 121/71, he is in sinus mechanism tachycardic with a rate of 110-120 BPM. Patient was found to have bilateral pulmonary emboli on yesterday's CT angiogram of the chest, he was started on heparin infusion on which she remains per weight-based protocol, his maintenance IV fluids are 0.9 normal saline at a rate of 75 ML per hour, CT angiogram lung windows showed extensive bilateral pneumonia. Chest x-ray post intubation and left subclavian central line placement is pending. This morning's labs have been reviewed, white blood cell count is 11.9, hemoglobin is 14.5, today's d-dimer is 18.26 slightly increased from yesterday's value, sodium is 141, potassium is 5.2, chloride is 111, CO2 is 23, BUN was 20 creatinine 0.96, his LDH today has significantly increased and is up to 3109, from 971 on yesterday's labs, and CRP is stable at 3.4. His pro calcitonin level on 05/12/2021 was at 0.14. Patient was started on Baricitinib yesterday on , in addition to Decadron 6 mg daily. Patient is on vitamin C, zinc, and vitamin D will be added. On 05/21/2021 patient seen in follow-up in intensive care unit, he remains intubated, and sedated, currently on pressure control mode of ventilation, with a pressure of 15, inspiratory time of 0.9, FiO2 of 50% and PEEP of 6. Respiratory rate is 22. His peak airway pressure is 24, this morning's blood gas shows pO2 of 64, pCO2 of 39, and pH is 7.43. He is on 0.9 normal saline at a rate of 20 ML per hour, heparin infusion at weight-based protocol, and improving and is at 75 mics per kilo per minute. He is on tube feedings with Vital AF 16 with standard water flushes, hemodynamically stable, not requiring any vasopressor support, today's chest x-ray has been reviewed, showing continu ed improving subcutaneous emphysema, persistent pneumomediastinum, no pneumothorax, multifocal and confluent right greater than left opacities redemonstrated, there is some overall improvement from one day earlier noted. Patient remains on Decadron 6 mg daily, he was started on Lasix 60 mg every 12 hours, she remains on heparin infusion per weight-based protocol, he remains on empiric antibiotics in the form of Zosyn. His sputum culture showed evidence of MSSA. Today's labs have been reviewed, white blood cell count is relatively stable at 15.7, hemoglobin is 9.3, Patient was reevaluated today on 05/22/2021, remains intubated and mechanically ventilated, patient is on a pressure control mode of mechanical ventilation. He is on FiO2 of 35%, pressure control of 15, rate 22, PEEP is 6. Remains on propofol and I went ahead and recommended that we change propofol to Precedex. I would like to assess the patient for potential weaning trials. X-ray continues to show bilateral infiltrates, right more so than left. Otherwise no major changes noted. WBC count is 12.9 hemoglobin is 9.4 d-dimer is 2.12, ABG is excellent with a pO2 of 156 pCO2 42 pH of 7.37. BUN is 73 creatinine 4.26, patient is on hemodialysis. Patient was being hemodialyzed during my evaluation LDH is 1961 C-reactive protein is 33.5, both are improving Evaluated today on 05/23/2021, and remains in the ICU, intubated and mechanically ventilated. Patient is actually only on Precedex at this point, off sedation, off narcotics, he is awake but does not seem to follow any instructions and he doesn't comprehend. He is on pressure control mode of mechanical ventilation, rate is set at 22, pressure control at 15, PEEP at 6. He is on 40% FiO2. Seems to be arousable, but again does not follow any instructions. Chest x-ray continues show bilateral infiltrates, pneumomediastinum and subcutaneous emphysema. ABG today showed a pO2 of 63 pCO2 of 32 pH of 7.45. PTT is 49 WBC count 12.9 hemoglobin 11. Asymmetric metabolic profile is normal renal profile showed a BUN of 67 creatinine 3.85, patient is on hemodialysis. LDH continues to remain high at 1910 C-reactiveProtein remains high at 31.5 Reevaluated today on 05/24/2021, patient remains in the ICU, intubated and mechanically ventilated. However clinically I believe the patient is demonstrating some improvement. He is now on pressure control mode of mechanical ventilation, with a pressure control of 15, FiO2 40%, rate is 22, PEEP of 6. ABG showed a pO2 of 70 pCO2 of 33 pH of 7.43. Patient is awake, he is now only on Precedex at 0.9 mcg/kg/h. Patient is also receiving heparin for his DVT, and I suggested we go ahead and change the patient to a pressure support mode of mechanical ventilation, and CPAP. Will start with a pressure support of 10, and determine whether the patient could be extubated later today or possibly in the next 24 hours. Patient is generally weak, however he is able to follow all instructions, and follows commands. Chest x-ray continues show bilateral infiltrates, right more so than left. Renal profile remains abnormal patient is on hemodialysis, may not receive hemodialysis today. Reevaluated today on 05/25/2021, patient remains in the ICU, intubated and mechanically ventilated. Patient remains on pressure control mode of mechanical ventilation, yesterday he was on pressure support and CPAP for almost 4 hours, apparently he was getting restless and agitated, and tachypneic, patient was placed back on a his previous mode of mechanical ventilation which is pressure control with pressure control of 15 FiO2 40% rate 22 and PEEP of 6. ABG showed a pO2 of 84 pCO2 of 35 pH7.46. D-dimer is still elevated and the patient is on heparin with a PTT of 50. His renal profile remains abnormal with a 93 creatinine 4.78, patient is on hemodialysis. Chest x-ray bilateral infiltrates are basically about the same. Patient remains on the COVID-19 cocktail, he is on Decadron 6 mg IV push daily, he is also on Lasix 60 mg IV push every 12 hours, propofol which I have discontinued completely, he is also on Zosyn and Protonix, heparin, vitamin C, zinc, and he is on oral bicarb Reevaluated today on 05/26/2021, patient was extubated yesterday on 05/25, patient is doing great, he is on 5 L nasal cannula. Presently he is receiving hemodialysis, patient is in a bedside recliner, does not seem to be in any distress. Remains on heparin remains on Zosyn and he is doing fairly well with incentive spirometry, and recommending physical therapy to evaluate, and over the next 24 hours may even transfer the patient out of the ICU if he continues to do well. WBC count is 14.2 hemoglobin is 10.0. PTT is 59 therapeutic his d- dimer is 2.86. Electrolytes are normal BUN is 111 creatinine 6.75. Chest x-ray continues show bilateral airspace disease consistent with COVID-19 pneumonia. Reevaluated today on 05/27/2021, patient was extubated on 05/25, tolerated the extubation well for the last 2 days, he is now on 3 L nasal cannula, and his O2 saturations 97%. Patient is not having dialysis today, he will be dialyzed every other day. Continues to have excellent urine output. WBC count today is 13.1 hemoglobin 10.2 electrolytes are normal potassium is 3.5 BUN is 82 creatinine is 5.6. No chest x-ray was done today. Chest x-ray from yesterday showed bilateral pneumonia, improved since his initial admission, patient was initially admitted with acute COVID-19 pneumonia. Patient continues to have a left subclavian central line which I will recommend discontinuation if at peripheral access is established. I will also recommend transferring the patient out of the ICU to a regular medical floor today. Objective - Vital Signs Vital signs: Vital Signs Temp 98.3 F 05/27/21 08:00 Pulse 71 05/27/21 11:00 Resp 19 05/27/21 11:00 BP 149/71 05/26/21 14:10 Pulse Ox 97 05/27/21 11:00 Intake & Output 05/26/21 05/27/21 05/27/21 18:59 06:59 18:59 Intake Total 664.463 503.994 166.256 Output Total 3700 1085 570 Balance -3035.537 -581.006 -403.744 Weight 103 kg Intake: IV 220 196 48 Normal Saline Pressure 110 76 18 Bag Sodium Chloride 0.45% 1, 110 120 30 000 ml @ 10 mls/hr IV . Q24H [facility] Rx#:[id number] Intake, IV Titration 144.463 307.994 118.256 Amount Heparin Sod,Pork in 0.45% 144.463 307.994 93.256 NaCl 25,000 unit In 0.45 % NaCl 1 250ml.bag @ 18 UNITS/KG/HR 18.37 mls/hr IV .[id number] [facility] Rx#: [id number] Piperacillin-Tazobactam 3 25 .375 gm In Sodium Chloride 0.9% 100 ml @ 25 mls/hr IVPB Q12HR [facility] Rx #:[id number] Oral 0 0 Hemodialysis 300 Output: Urine 1800 1085 520 Stool 100 50 Hemodialysis 1800 Other: Voiding Method Indwelling Catheter Indwelling Catheter # Voids 1 1 # Bowel Movements 1 ABP, PAP, CO, CI - Last Documented Arterial Blood Pressure 115/69 - Exam GENERAL EXAM: Revealed 51-year-old white male, off mechanical ventilation, on 3 L nasal cannula. NECK: No masses, no JVD, no thyroid enlargement, no adenopathy. CHEST: No chest wall deformity. Symmetrical expansion. Lfine crackles at the bases. CVS: Regular rate and rhythm, normal S1 and S2, no gallops, no murmurs, no rubs ABDOMEN: Soft, nontender. No hepatosplenomegaly, normal bowel sounds, no guarding or rigidity. EXTREMITIES: No clubbing, 1+ bipedal edema, no cyanosis, 2+ pulses and upper and lower extremities. SKIN: No rashes CENTRAL NERVOUS SYSTEM: Awake, generally weak, follows simple instructions - Labs CBC & Chem 7: 05/27/21 03:10 05/27/21 03:10 Labs: Abnormal Lab Results - Last 24 Hours (Table) 05/26/21 05/26/21 05/27/21 Range/Units 17:19 23:50 03:10 WBC 13.1 H (3.8-10.6) k/uL RBC 3.40 L (4.30-5.90) m/uL Hgb 10.2 L (13.0-17.5) gm/dL Hct 30.7 L (39.0-53.0) % APTT (22.0-30.0) sec BUN (9-20) mg/dL Creatinine (0.66-1.25) mg/dL Glucose (74-99) mg/dL POC Glucose (mg/dL) 103 H 101 H (75-99) mg/dL Alkaline Phosphatase (38-126) U/L Albumin (3.5-5.0) g/dL 05/27/21 05/27/21 05/27/21 Range/Units 03:10 03:10 10:30 WBC (3.8-10.6) k/uL RBC (4.30-5.90) m/uL Hgb (13.0-17.5) gm/dL Hct (39.0-53.0) % APTT 71.6 H 56.3 H (22.0-30.0) sec BUN 82 H (9-20) mg/dL Creatinine 5.60 H (0.66-1.25) mg/dL Glucose 114 H (74-99) mg/dL POC Glucose (mg/dL) (75-99) mg/dL Alkaline Phosphatase 191 H (38-126) U/L Albumin 3.2 L (3.5-5.0) g/dL 05/27/21 Range/Units 11:43 WBC (3.8-10.6) k/uL RBC (4.30-5.90) m/uL Hgb (13.0-17.5) gm/dL Hct (39.0-53.0) % APTT (22.0-30.0) sec BUN (9-20) mg/dL Creatinine (0.66-1.25) mg/dL Glucose (74-99) mg/dL POC Glucose (mg/dL) 128 H (75-99) mg/dL Alkaline Phosphatase (38-126) U/L Albumin (3.5-5.0) g/dL Assessment and Plan Assessment: Impression: Acute hypoxic respiratory failure secondary to COVID-19 pneumonia admitted on 05/12, had symptoms about 10 days prior, patient is not vaccinated, he was outside the window for rem , started on baricitinib on 05/13. Extubated on 05/25/2021. Underlying MSSA pneumonia , remains on Zosyn. Acute kidney injury requiring hemodialysis. Right popliteal deep vein thrombosis, on heparin may have to be transitioned to Eliquis in the next 24 hours. Elevated liver enzymes. Pneumomediastinum with subcutaneous emphysema as a complication of COVID-19 infection/pneumonia, resolved. Recommendation: Transfer patient out of the ICU to a regular medical floor today. Continue oxygen at 3 L/m. Establish peripheral IV access and discontinued left subclavian central line. Continue to titrate oxygen accordingly. Continue incentive spirometer. Continue antibiotics Continue heparin and transitioned to Eliquis Continue dialysis as per nephrology. We will continue to follow. Continue diuretics. Time with Patient: Less than 30
[2021-05-27 17:25] LABS: Glucose,Whole Blood 106 mg/dL (75-99)
[2021-05-27] MEDS: SODIUM CHLORIDE 0.45% 1,000 ML IV SCH (20:36)
[2021-05-27 23:13] LABS: Glucose,Whole Blood 107 mg/dL (75-99)
[2021-05-28] MEDS: CLEVIDIPINE BUTYRATE 25 MG in EMPTY BAG 1 BAG IV SCH (00:27)
[2021-05-28] MEDS: NOREPINEPHRINE 8 MG in SODIUM CHLORIDE 0.9% 250 ML IV SCH (00:27)
[2021-05-28 05:57] LABS: Glucose,Whole Blood 104 mg/dL (75-99)
[2021-05-28] MEDS: INSULIN ASPART (NovoLOG) 100 UNIT/ML VIAL SQ SCH ×3 (06:29→17:23)
[2021-05-28 07:16] LABS: HCT 32.9 % (39.0-53.0); HGB 10.6 gm/dL (13.0-17.5); Hypochromasia Slight; MCH 29.4 pg (25.0-35.0); MCHC 32.3 g/dL (31.0-37.0); MCV 91.2 fL (80.0-100.0); Mean Platelet Volume 8.9; Platelet Count 345 k/uL (150-450); RBC 3.61 m/uL (4.30-5.90); RDW 14.5 % (11.5-15.5)
[2021-05-28 07:57] LABS: Calcium 8.8 mg/dL (8.4-10.2); Potassium 3.9 mmol/L (3.5-5.1)
[2021-05-28] MEDS: SODIUM BICARBONATE TAB 650 MG TAB PO SCH ×2 (09:33→21:06)
[2021-05-28] MEDS: SEVELAMER 800 MG TAB PO SCH ×3 (09:33→17:26)
[2021-05-28] MEDS: ASCORBIC ACID 500 MG TAB PO SCH (09:33)
[2021-05-28] MEDS: CHOLECALCIFEROL 25 MCG (1000 IU) TABLET PO SCH (09:33)
[2021-05-28] MEDS: ZINC SULFATE 220 MG CAP PO SCH (09:33)
[2021-05-28] MEDS: ALBUTEROL HFA INHALER INHALATION SCH ×4 (09:47→21:29)
[2021-05-28] MEDS: HEPARIN SOD,PORK IN 0.45% NACL 25,000 UNIT in 0.45% NACL 1 250ML.BAG IV SCH (10:59)
[2021-05-28] MEDS: PIPERACILLIN-TAZOBACTAM 3.375 GM in SODIUM CHLORIDE 0.9% 100 ML IVPB SCH (11:05)
[2021-05-28 11:48] LABS: Glucose,Whole Blood 122 mg/dL (75-99)
--- NOTE | 2021-05-28 13:17 | PN ---
PROGRESS NOTE Patient is seen for followup for acute kidney injury. He has been started on dialysis. Patient currently has a temporary femoral catheter. His last dialysis was on 05/26. Patient is maintained on a Friday, Friday, Friday schedule. He is awake. He is not in any acute distress. He is not communicating much, but does nod and answer questions with short answers. On examination today, blood pressure 123/80, heart rate 81 per minute. He is afebrile. Examination of lower extremities shows no significant edema. Abdomen is soft, nontender. Lungs and heart are not examined. Labs show sodium 145, potassium 3.9, chloride 108. CO2 is 18. BUN , serum creatinine 7.28. ASSESSMENT: 1. Acute kidney injury, acute tubular necrosis, currently dialysis-dependent. Patient is nonoliguric; however, his creatinine and BUN remain significantly elevated. Therefore we will continue to maintain him on dialysis. We will plan for a treatment today and consult Vascular for PermCath placement. 2. COVID pneumonia, currently improved, status post extubation. 3. Acute hypoxic respiratory failure, currently on nasal cannula. 4. Staphylococcus aureus pneumonia. 5. Hyperkalemia associated with acute kidney injury, metabolic acidosis, now resolved. 6. Volume overload, currently improving. PLAN: Hemodialysis today. Consult Vascular for permanent catheter placement. Arrange for outpatient chair time. SERGIO / CLEOPATRA: [id number] /
--- NOTE | 2021-05-28 14:17 | P.PN ---
Subjective Progress Note Date: 05/28/21 This 51-year-old male who initially came in with complaints of shortness of breath and tested positive for COVID-19. He was admitted into the ICU with acute hypoxic respiratory failure secondary to his COVID-19 pneumonia and was intubated. He subsequently went into acute kidney failure and a temporary d ialysis catheter was placed via the right femoral vein on 05/15/2021. Vascular surgery was called back to place a tunneled dialysis catheter per recommendations from nephrology. Objective - Vital Signs Vital signs: Vital Signs Temp 98.5 F 05/28/21 08:00 Pulse 81 05/28/21 08:00 Resp 18 05/28/21 08:00 BP 123/80 05/28/21 08:00 Pulse Ox 92 L 05/28/21 09:49 Intake & Output 05/27/21 05/28/21 05/28/21 18:59 06:59 18:59 Intake Total 315.256 339.862 245.503 Output Total 960 1525 Balance -644.744 -1185.138 245.503 Weight 104 kg Intake: IV 122 60 Normal Saline Pressure 42 Bag Sodium Chloride 0.45% 1, 80 60 000 ml @ 10 mls/hr IV . Q24H [facility] Rx#:[id number] Intake, IV Titration 193.256 279.862 245.503 Amount Heparin Sod,Pork in 0.45% 93.256 179.862 245.503 NaCl 25,000 unit In 0.45 % NaCl 1 250ml.bag @ 18 UNITS/KG/HR 18.37 mls/hr IV .[id number] [facility] Rx#: [id number] Piperacillin-Tazobactam 3 100 100 .375 gm In Sodium Chloride 0.9% 100 ml @ 25 mls/hr IVPB Q12HR [facility] Rx #:[id number] Oral 0 Output: Urine 910 1525 Stool 50 Other: Voiding Method Indwelling Catheter Urinal Diaper # Voids 1 ABP, PAP, CO, CI - Last Documented Arterial Blood Pressure 146/76 - Exam General appearance: Alert and orientated. HET: Head is normocephalic and atraumatic. Neck: Supple without lymphadenopathy. Trachea midline. Extremities: Normal skin color and turgor. Hemodialysis catheter intact in right groin. Neurological: Alert and oriented. - Labs CBC & Chem 7: 05/28/21 06:38 05/28/21 06:38 Labs: Abnormal Lab Results - Last 24 Hours (Table) 05/27/21 05/27/21 05/28/21 Range/Units 17:23 23:12 05:56 WBC (3.8-10.6) k/uL RBC (4.30-5.90) m/uL Hgb (13.0-17.5) gm/dL Hct (39.0-53.0) % APTT (22.0-30.0) sec Chloride (98-107) mmol/L Carbon Dioxide (22-30) mmol/L BUN (9-20) mg/dL Creatinine (0.66-1.25) mg/dL Glucose (74-99) mg/dL POC Glucose (mg/dL) 106 H 107 H 104 H (75-99) mg/dL 05/28/21 05/28/21 05/28/21 Range/Units 06:38 06:38 06:38 WBC 15.0 H (3.8-10.6) k/uL RBC 3.61 L (4.30-5.90) m/uL Hgb 10.6 L (13.0-17.5) gm/dL Hct 32.9 L (39.0-53.0) % APTT 48.9 H (22.0-30.0) sec Chloride 108 H (98-107) mmol/L Carbon Dioxide 18 L (22-30) mmol/L BUN 114 H* (9-20) mg/dL Creatinine 7.28 H* (0.66-1.25) mg/dL Glucose 119 H (74-99) mg/dL POC Glucose (mg/dL) (75-99) mg/dL 05/28/21 Range/Units 11:46 WBC (3.8-10.6) k/uL RBC (4.30-5.90) m/uL Hgb (13.0-17.5) gm/dL Hct (39.0-53.0) % APTT (22.0-30.0) sec Chloride (98-107) mmol/L Carbon Dioxide (22-30) mmol/L BUN (9-20) mg/dL Creatinine (0.66-1.25) mg/dL Glucose (74-99) mg/dL POC Glucose (mg/dL) 122 H (75-99) mg/dL Assessment and Plan Assessment: 1. Acute kidney injury dialysis dependent requiring permanent catheter plac ement 2. Bilateral pulmonary emboli 3. Right lower extremity popliteal DVT 4. Acute hypoxic respiratory failure related to COVID-19 pneumonia 5. Hyperkalemia 6. Hypotension Plan: 1. NPO after midnight 2. HOLD heparin 6 hours prior to procedure 3. Patient scheduled for tunneled dialysis placement 4. Continue dialysis as ordered per nephrology The impression and plan of care has been dictated as directed. Dr. Ryan I performed a history and examination of this patient, discussed the same with the dictator. I agree with the dictator's note ,documented as a scribe. Any additional findings or plans will be noted.
[2021-05-28] MEDS: FUROSEMIDE 10 MG/ML 10 ML VIAL IV SCH ×2 (16:21→20:59)
[2021-05-28] MEDS: DEXAMETHASONE SOD PHOSPHATE 10 MG/ML 1 ML VIAL IVP SCH (16:21)
[2021-05-28] MEDS: PANTOPRAZOLE 40 MG/10 ML VIAL IVP SCH (16:21)
--- NOTE | 2021-05-28 16:25 | P.PN ---
Subjective Progress Note Date: 05/28/21 Principal diagnosis: Coronavirus associated pneumonia. Evaluated today on 05/23/2021, and remains in the ICU, intubated and mechanically ventilated. Patient is actually only on Precedex at this point, off sedation, off narcotics, he is awake but does not seem to follow any instructions and he doesn't comprehend. He is on pressure control mode of mechanical ventilation, rate is set at 22, pressure control at 15, PEEP at 6. He is on 40% FiO2. Seems to be arousable, but again does not follow any instructions. Chest x-ray continues show bilateral infiltrates, pneumomediastinum and subcutaneous emphysema. ABG today showed a pO2 of 63 pCO2 of 32 pH of 7.45. PTT is 49 WBC count 12.9 hemoglobin 11. Asymmetric metabolic profile is normal renal profile showed a BUN of 67 creatinine 3.85, patient is on hemodialysis. LDH continues to remain high at 1910 C-reactiveProtein remains high at 31.5 Reevaluated today on 05/24/2021, patient remains in the ICU, intubated and mec hanically ventilated. However clinically I believe the patient is demonstrating some improvement. He is now on pressure control mode of mechanical ventilation, with a pressure control of 15, FiO2 40%, rate is 22, PEEP of 6. ABG showed a pO2 of 70 pCO2 of 33 pH of 7.43. Patient is awake, he is now only on Precedex at 0.9 mcg/kg/h. Patient is also receiving heparin for his DVT, and I suggested we go ahead and change the patient to a pressure support mode of mechanical ventilation, and CPAP. Will start with a pressure support of 10, and determine whether the patient could be extubated later today or possibly in the next 24 hours. Patient is generally weak, however he is able to follow all instructions, and follows commands. Chest x-ray continues show bilateral infiltrates, right more so than left. Renal profile remains abnormal patient is on hemodialysis, may not receive hemodialysis today. Reevaluated today on 05/25/2021, patient remains in the ICU, intubated and mechanically ventilated. Patient remains on pressure control mode of mechanical ventilation, yesterday he was on pressure support and CPAP for almost 4 hours, apparently he was getting restless and agitated, and tachypneic, patient was placed back on a his previous mode of mechanical ventilation which is pressure control with pressure control of 15 FiO2 40% rate 22 and PEEP of 6. ABG showed a pO2 of 84 pCO2 of 35 pH7.46. D-dimer is still elevated and the patient is on heparin with a PTT of 50. His renal profile remains abnormal with a 93 creatinine 4.78, patient is on hemodialysis. Chest x-ray bilateral infiltrates are basically about the same. Patient remains on the COVID-19 cocktail, he is on Decadron 6 mg IV push daily, he is also on Lasix 60 mg IV push every 12 hours, propofol which I have discontinued completely, he is also on Zosyn and Protonix, heparin, vitamin C, zinc, and he is on oral bicarb Reevaluated today on 05/26/2021, patient was extubated yesterday on 05/25, patient is doing great, he is on 5 L nasal cannula. Presently he is receiving hemodialysis, patient is in a bedside recliner, does not seem to be in any distress. Remains on heparin remains on Zosyn and he is doing fairly well with incentive spirometry, and recommending physical therapy to evaluate, and over the next 24 hours may even transfer the patient out of the ICU if he continues to do well. WBC count is 14.2 hemoglobin is 10.0. PTT is 59 therapeutic his d- dimer is 2.86. Electrolytes are normal BUN is 111 creatinine 6.75. Chest x-ray continues show bilateral airspace disease consistent with COVID-19 pneumonia. Reevaluated today on 05/27/2021, patient was extubated on 05/25, tolerated the extubation well for the last 2 days, he is now on 3 L nasal cannula, and his O2 saturations 97%. Patient is not having dialysis today, he will be dialyzed every other day. Continues to have excellent urine output. WBC count today is 13.1 hemoglobin 10.2 electrolytes are normal potassium is 3.5 BUN is 82 creatinine is 5.6. No chest x-ray was done today. Chest x-ray from yesterday showed bilateral pneumonia, improved since his initial admission, patient was initially admitted with acute COVID-19 pneumonia. Patient continues to have a left subclavian central line which I will recommend discontinuation if at peripheral access is established. I will also recommend transferring the patient out of the ICU to a regular medical floor today. Progress note dated 05/28/2021. 51-year-old male, seen in room 378. The patient was extubated on May 25, and is been doing well since that time. He's currently on 3 L nasal cannula. He is on IV heparin. He is not receiving any IV fluids. He did pass his swallow evaluation. Remains on Zosyn. Currently, white count 15, hemoglobin 10.6, hematocrit 32.9, and platelet count was normal at 345,000. PTT is 48.9. Sodium 145, potassium 3.9, chlorides 108, CO2 18, anion gap 19, BUN 114, and creatinine 7.28. The patient did have hemodialysis today. The patient was initially admitted with a diagnosis of acute coronavirus associated pneumonia. His last chest x-ray was on May 26, and it was reviewed. The patient was transferred from the ICU, to a general medical floor, yesterday. Objective - Vital Signs Vital signs: Vital Signs Temp 98.8 F 05/28/21 14:43 Pulse 99 05/28/21 14:43 Resp 22 05/28/21 14:43 BP 148/89 05/28/21 14:43 Pulse Ox 95 05/28/21 12:00 Intake & Output 05/27/21 05/28/21 05/28/21 18:59 06:59 18:59 Intake Total 315.256 339.862 545.503 Output Total 960 1525 1000 Balance -644.744 -1185.138 -454.497 Weight 104 kg 104 kg Intake: IV 122 60 Normal Saline Pressure 42 Bag Sodium Chloride 0.45% 1, 80 60 000 ml @ 10 mls/hr IV . Q24H [facility] Rx#:[id number] Intake, IV Titration 193.256 279.862 245.503 Amount Heparin Sod,Pork in 0.45% 93.256 179.862 245.503 NaCl 25,000 unit In 0.45 % NaCl 1 250ml.bag @ 18 UNITS/KG/HR 18.37 mls/hr IV .[id number] [facility] Rx#: [id number] Piperacillin-Tazobactam 3 100 100 .375 gm In Sodium Chloride 0.9% 100 ml @ 25 mls/hr IVPB Q12HR [facility] Rx #:[id number] Oral 0 Hemodialysis 300 Output: Urine 910 1525 Stool 50 Hemodialysis 1000 Other: Voiding Method Indwelling Catheter Urinal Diaper # Voids 1 ABP, PAP, CO, CI - Last Documented Arterial Blood Pressure 146/76 - Exam No acute distress, oriented 3. The patient is a bit somnolent but does arouse. Currently on 3 L nasal cannula. Saturations are in the mid 90s. HEENT examination is grossly unremarkable. Neck supple. Full range of motion. No adenopathy thyromegaly or neck vein distention. Cardiovascular examination reveals regular rhythm rate. S1-S2 normal. No S3 or S4. No discernible murmur noted. Heart rate 82 bpm. Lungs reveal scattered crackles throughout. No wheezes or rhonchi. Breath so unds equal bilaterally. Abdomen soft bowel sounds are heard. No masses or tenderness. Extremities are intact. No cyanosis clubbing or edema. Skin is without rash or lesion. Neurologic examination is brief but nonfocal. The patient does have generalized extremity weakness. - Labs CBC & Chem 7: 05/28/21 06:38 05/28/21 06:38 Labs: Abnormal Lab Results - Last 24 Hours (Table) 05/27/21 05/27/21 05/28/21 Range/Units 17:23 23:12 05:56 WBC (3.8-10.6) k/uL RBC (4.30-5.90) m/uL Hgb (13.0-17.5) gm/dL Hct (39.0-53.0) % APTT (22.0-30.0) sec Chloride (98-107) mmol/L Carbon Dioxide (22-30) mmol/L BUN (9-20) mg/dL Creatinine (0.66-1.25) mg/dL Glucose (74-99) mg/dL POC Glucose (mg/dL) 106 H 107 H 104 H (75-99) mg/dL 05/28/21 05/28/21 05/28/21 Range/Units 06:38 06:38 06:38 WBC 15.0 H (3.8-10.6) k/uL RBC 3.61 L (4.30-5.90) m/uL Hgb 10.6 L (13.0-17.5) gm/dL Hct 32.9 L (39.0-53.0) % APTT 48.9 H (22.0-30.0) sec Chloride 108 H (98-107) mmol/L Carbon Dioxide 18 L (22-30) mmol/L BUN 114 H* (9-20) mg/dL Creatinine 7.28 H* (0.66-1.25) mg/dL Glucose 119 H (74-99) mg/dL POC Glucose (mg/dL) (75-99) mg/dL 05/28/21 Range/Units 11:46 WBC (3.8-10.6) k/uL RBC (4.30-5.90) m/uL Hgb (13.0-17.5) gm/dL Hct (39.0-53.0) % APTT (22.0-30.0) sec Chloride (98-107) mmol/L Carbon Dioxide (22-30) mmol/L BUN (9-20) mg/dL Creatinine (0.66-1.25) mg/dL Glucose (74-99) mg/dL POC Glucose (mg/dL) 122 H (75-99) mg/dL Assessment and Plan Assessment: Acute hypoxemic respiratory failure secondary to coronavirus associated pneumonia, status post intubation and mechanical ventilation, with successful extubation on May 25. Methicillin sensitive staph aureus pneumonia, currently on Zosyn. Acute kidney injury, requiring hemodialysis. Right popliteal DVT, currently on IV heparin. Pneumomediastinum, with subcutaneous emphysema, resolved, as a complication of coronavirus associated pneumonia. Elevated inflammatory marker secondary to coronavirus infection. Mild liver function test abnormalities, secondary to coronavirus infection. Plan: Plan dated 05/12/2021. Currently, the patient is resting comfortably in room 44. He's on 5 L nasal cannula. He appears not to be in any respiratory distress. Chest x-ray does show diffuse bilateral right greater than left pulmonary infiltrates. The patient tested positive on May 07, and received monoclonal antibody on May 09. The patient has not been vaccinated. The patient is a candidate only for Lovenox, Decadron, and vitamins. He is not a candidate for REM. He is not sick enough to receive LINH. We will continue to follow and make recommendations where appropriate. Prognosis is guarded. Plan dated 05/28/2021. The patient continues on Zosyn. The patient also continues on IV heparin. The patient did have hemodialysis today. Labs, x-rays, and medications are reviewed. The patient was extubated on May 25. The patient remains on 3 L nasal cannula. Prognosis is guarded. I will continue to follow make recommendations where appropriate. I last saw the patient on May 12, which was the last time I was on-call. The patient remains on Decadron. It can be discontinued. Time with Patient: Less than 30
--- NOTE | 2021-05-28 17:07 | P.PN ---
Subjective Progress Note Date: 05/28/21 (Delayed charting seen at 0945) Principal diagnosis: shortness of breath Patient is a 51-year-old male with no known past medical history, not vaccinated who presented with shortness of breath. He had been diagnosed with COVID 10 days prior to admission, he received monoclonal antibodies 3 days prior to admission. He was started on steroids and admitted for further management. He was seen by pulmonary. He underwent a CTA of the chest which showed bilateral lower lobe multiple pulmonary emboli without evidence of right heart strain. He was started on bare segment. On 05/14 who was transferred to the ICU for worsening hypoxia and dyspnea. He was subsequently intubated adn required propofol and nimbex. He had worsening renal function and nephrology was co nsulted. He ultimately had a temporary dialysis catheter placed on 05/15 and he was started on emergent HD. He improved slowly and was extubated on 05/25. He was transferred to the general medical floor. He has been significantly weak. Prolonged hospital stay my first evaluation Imaging: Venous Doppler: DVT right popliteal vein Echo: Ejection fraction 55-60%, dyssynergy septal motion consistent with right ventricular volume overload CTA chest: Bilateral lower lobe multiple pulmonary emboli, extensive bilateral pneumonia Patient seen and examined at bedside. He denies any shortness of breath, no nausea or vomiting, no diarrhea. Has not been able to eat. We had a lengthy discussion regarding his hospital course as well as prognosis. We discussed that he'll likely need extensive rehab. 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 He is not . He has no kids. General: non toxic, no distress, appears at stated age Derm: warm, dry Head: atraumatic, normocephalic, symmetric Eyes: EOMI, no lid lag, anicteric sclera Mouth: no lip lesion, mucus membranes moist Cardiovascular: S1S2 reg, no murmur, positive posterior tibial pulse bilateral, Lungs: Course breath sounds bilateral, no rhonchi, no rales , no accessory muscle use Abdominal: soft, nontender to palpation, no guarding, no appreciable organomegaly Ext: no gross muscle atrophy, no edema, no contractures Neuro: CN II-XI grossly intact, muscle strength to out of 5 in bilateral upper extremities, 0 out of 5 in bilateral thighs, 3 out of 5 for plantar and dorsi flexion of the feet, light touch intact all 4 extremities Psych: Alert, oriented, appropriate affect COVID-19 pneumonia MSSA pneumonia ARDS Critical illness myopathy (nimbex X 4 days) Acute bilateral pulmonary embolism with right heart strain and acute right popliteal vein DVT Acute hypoxic respiratory failure Pneumomediastinum - Continue with heparin drip until permanent dialysis catheter placed -Patient has completed steroids -Continue with vitamin C, vitamin D, and zinc -Pulmonary recommendations -Pulmonary hygiene -Patient has completed 12 days of Zosyn therapy will discontinue Zosyn PT/OT evaluation, consider inpatient rehab DENIA with hyperkalemia secondary to ATN Ur phosphatemia Volume overload secondary to a cat -Patient will need to be discharged on dialysis -Nephrology recommendations appreciated -Continue with Lasix -Plan for permanent dialysis catheter, vascular surgery re-consulted -Plan to transition from heparin drip to Eliquis after catheter placed -Continue with Renvela and sodium bicarbonate Tranaminitis, improving Shock resolved secondary to sepsis and pulmonary embolism DVT prophylaxis: Heparin gtt Discussed with: Patient, nursing Anticipated discharge: in 2-[address]: home A total of 45 minutes was spent on the care of this complex patient more than 50% of the time was spent in counseling and care coordination. Objective - Vital Signs Vital signs: Vital Signs Temp 98.8 F 05/28/21 14:43 Pulse 99 05/28/21 14:43 Resp 22 05/28/21 14:43 BP 148/89 05/28/21 14:43 Pulse Ox 95 05/28/21 12:00 Intake & Output 05/27/21 05/28/21 05/28/21 18:59 06:59 18:59 Intake Total 315.256 339.862 545.503 Output Total 960 1525 1000 Balance -644.744 -1185.138 -454.497 Weight 104 kg 104 kg Intake: IV 122 60 Normal Saline Pressure 42 Bag Sodium Chloride 0.45% 1, 80 60 000 ml @ 10 mls/hr IV . Q24H [facility] Rx#:[id number] Intake, IV Titration 193.256 279.862 245.503 Amount Heparin Sod,Pork in 0.45% 93.256 179.862 245.503 NaCl 25,000 unit In 0.45 % NaCl 1 250ml.bag @ 18 UNITS/KG/HR 18.37 mls/hr IV .[id number] [facility] Rx#: [id number] Piperacillin-Tazobactam 3 100 100 .375 gm In Sodium Chloride 0.9% 100 ml @ 25 mls/hr IVPB Q12HR [facility] Rx #:[id number] Oral 0 Hemodialysis 300 Output: Urine 910 1525 Stool 50 Hemodialysis 1000 Other: Voiding Method Indwelling Catheter Urinal Diaper # Voids 1 ABP, PAP, CO, CI - Last Documented Arterial Blood Pressure 146/76 - Labs CBC & Chem 7: 05/28/21 06:38 05/28/21 06:38 Labs: Abnormal Lab Results - Last 24 Hours (Table) 05/27/21 05/27/21 05/28/21 Range/Units 17:23 23:12 05:56 WBC (3.8-10.6) k/uL RBC (4.30-5.90) m/uL Hgb (13.0-17.5) gm/dL Hct (39.0-53.0) % APTT (22.0-30.0) sec Chloride (98-107) mmol/L Carbon Dioxide (22-30) mmol/L BUN (9-20) mg/dL Creatinine (0.66-1.25) mg/dL Glucose (74-99) mg/dL POC Glucose (mg/dL) 106 H 107 H 104 H (75-99) mg/dL 05/28/21 05/28/21 05/28/21 Range/Units 06:38 06:38 06:38 WBC 15.0 H (3.8-10.6) k/uL RBC 3.61 L (4.30-5.90) m/uL Hgb 10.6 L (13.0-17.5) gm/dL Hct 32.9 L (39.0-53.0) % APTT 48.9 H (22.0-30.0) sec Chloride 108 H (98-107) mmol/L Carbon Dioxide 18 L (22-30) mmol/L BUN 114 H* (9-20) mg/dL Creatinine 7.28 H* (0.66-1.25) mg/dL Glucose 119 H (74-99) mg/dL POC Glucose (mg/dL) (75-99) mg/dL 12/13/21 Range/Units 11:46 WBC (3.8-10.6) k/uL RBC (4.30-5.90) m/uL Hgb (13.0-17.5) gm/dL Hct (39.0-53.0) % APTT (22.0-30.0) sec Chloride (98-107) mmol/L Carbon Dioxide (22-30) mmol/L BUN (9-20) mg/dL Creatinine (0.66-1.25) mg/dL Glucose (74-99) mg/dL POC Glucose (mg/dL) 122 H (75-99) mg/dL
[2021-05-28 17:16] LABS: Glucose,Whole Blood 112 mg/dL (75-99)
[2021-05-28] MEDS: SODIUM CHLORIDE 0.45% 1,000 ML IV SCH (17:30)
[2021-05-28 20:05] LABS: Glucose,Whole Blood 128 mg/dL (75-99)
[2021-05-29] MEDS: INSULIN ASPART (NovoLOG) 100 UNIT/ML VIAL SQ SCH (05:01)
[2021-05-29 06:11] LABS: Glucose,Whole Blood 112 mg/dL (75-99)
--- NOTE | 2021-05-29 06:17 | P.CONS ---
History of Present Illness - Chief Complaint Medical debility - History of Present Illness I had the opportunity to see patient for inpatient rehab consultation with regard to medical debility. Patient admitted to [facility] May 12 with worsening shortness of breath of 10 days' duration, unsuccessful immunoglobulin therapy. Admitted with Covid positive hypoxic respiratory failure, Dr. Shah. Seen pulmonary by Dr. Chaves. Chest x-rays followed for pneumonia. Venous Doppler negative for left leg DVT. Cardiac echo demonstrated moderate concentric LVH, 55-60% ejection fraction and paradoxical septal motion. OT reports total assistance for upper dressing and unable to assist with any other ADL. PT and speech prescribed. Previous functional history unobtainable from patient. Review of Systems Review of systems: ENT: Denies sneezes or discharge. Eyes: Denies discharge or photophobia. Cardiac: Denies chest pain or palpitation. Pulmonary: Mild shortness of breath and occasional cough. Gastrointestinal: Denies nausea, emesis, constipation, diarrhea. Genitourinary: Denies discharge or frequency. Musculoskeletal: Denies muscle or bone aches. Neurologic: Severe generalized weakness and confusion. Endocrine: Denies shakes or sweats. Oncology: Denies cancers. Dermatologic: Denies rash, itching, pruritus. ALLERGY/immunology: Denies sneezes, rashes. Past Medical History Past Medical History: No Reported History History of Any Multi-Drug Resistant Organisms: None Reported Past Surgical History: No Surgical Hx Reported Past Anesthesia/Blood Transfusion Reactions: No Reported Reaction Past Psychological History: No Psychological Hx Reported Smoking Status: Never smoker Past Alcohol Use History: None Reported Past Drug Use History: None Reported Medications and Allergies Home Medications Medication Instructions Recorded Confirmed Type Albuterol Inhaler [Ventolin Hfa 1 puff INHALATION RT-Q4H PRN 05/12/21 05/12/21 History Inhaler] Benzonatate [Tessalon Perles] 100 mg PO Q8H PRN 05/12/21 05/12/21 History dexAMETHasone 6 mg PO DAILY 05/12/21 05/12/21 History Allergies Allergy/AdvReac Type Severity Reaction Status Date / Time No Known Allergies Allergy Verified 05/12/21 13:17 Physical Exam Vitals: Vital Signs Temp Pulse Resp BP Pulse Ox 05/29/21 04:00 97.9 F 88 19 118/79 98 05/29/21 02:00 96 17 05/29/21 00:00 98.5 F 96 20 124/77 99 05/28/21 20:00 99.4 F 90 24 111/76 95 05/28/21 16:00 99.4 F 89 18 125/78 93 L 05/28/21 14:43 98.8 F 99 22 148/89 05/28/21 12:00 98.5 F 86 18 129/81 95 05/28/21 09:49 92 L 05/28/21 08:00 98.5 F 81 18 123/80 94 L Intake and Output 05/28/21 05/28/21 05/29/21 14:59 22:59 06:59 Intake Total 585.503 225 Output Total 1000 Balance -414.497 225 Intake: IV 40 Sodium Chloride 0.45% 1, 40 000 ml @ 10 mls/hr IV . Q24H DAMIR Rx#:[id number] Intake, IV Titration 245.503 100 Amount Heparin Sod,Pork in 0.45% 245.503 NaCl 25,000 unit In 0.45 % NaCl 1 250ml.bag @ 18 UNITS/KG/HR 18.37 mls/hr IV .[id number] DAMIR Rx#: [id number] Piperacillin-Tazobactam 3 100 .375 gm In Sodium Chloride 0.9% 100 ml @ 25 mls/hr IVPB Q12HR DAMIR Rx #:[id number] Oral 125 Hemodialysis 300 Output: Hemodialysis 1000 Other: Voiding Method Urinal Urinal Diaper Diaper # Voids 1 Weight 104 kg 102.5 kg Skin: Good color, texture, turgor. General: Medium build and comfortable appearance. Head: Normocephalic, atraumatic. Eyes: Symmetric. Pupils equal round. Ears: Symmetric. Hearing within normal limits. Mouth: Clear. Neck: Supple. Carotid without bruit. Cardiac: Regular rate and rhythm. Lungs: Clear anteriorly and posteriorly. Occasional cough. Abdomen: Soft active nontender. Extremities: Normal tone. Neurological: Mental status: Confused. Cranial nerves: Symmetric facial tone and trapezius. Motor: Poor movement arms and legs 4 minus. Sensation: Intact throughout. DTRs: Symmetric and equal throughout. Mobility: Requires physical assist for any mobility and bed. Results CBC & Chem 7: 05/28/21 06:38 05/28/21 06:38 Labs: Abnormal Lab Results - Last 24 Hours (Table) 12/13/21 12/13/21 12/13/21 Range/Units 06:38 06:38 06:38 WBC 15.0 H (3.8-10.6) k/uL RBC 3.61 L (4.30-5.90) m/uL Hgb 10.6 L (13.0-17.5) gm/dL Hct 32.9 L (39.0-53.0) % APTT 48.9 H (22.0-30.0) sec Chloride 108 H (98-107) mmol/L Carbon Dioxide 18 L (22-30) mmol/L BUN 114 H* (9-20) mg/dL Creatinine 7.28 H* (0.66-1.25) mg/dL Glucose 119 H (74-99) mg/dL POC Glucose (mg/dL) (75-99) mg/dL 05/28/21 05/28/21 05/28/21 Range/Units 11:46 16:55 20:04 WBC (3.8-10.6) k/uL RBC (4.30-5.90) m/uL Hgb (13.0-17.5) gm/dL Hct (39.0-53.0) % APTT (22.0-30.0) sec Chloride (98-107) mmol/L Carbon Dioxide (22-30) mmol/L BUN (9-20) mg/dL Creatinine (0.66-1.25) mg/dL Glucose (74-99) mg/dL POC Glucose (mg/dL) 122 H 112 H 128 H (75-99) mg/dL 05/29/21 Range/Units 06:08 WBC (3.8-10.6) k/uL RBC (4.30-5.90) m/uL Hgb (13.0-17.5) gm/dL Hct (39.0-53.0) % APTT (22.0-30.0) sec Chloride (98-107) mmol/L Carbon Dioxide (22-30) mmol/L BUN (9-20) mg/dL Creatinine (0.66-1.25) mg/dL Glucose (74-99) mg/dL POC Glucose (mg/dL) 112 H (75-99) mg/dL Assessment and Plan (1) Acute respiratory failure with hypoxia Current Visit: Yes Status: Acute Code(s): J96.01 - ACUTE RESPIRATORY FAILURE WITH HYPOXIA SNOMED Code(s): 38623750 (2) COVID-19 Current Visit: Yes Status: Acute Code(s): U07.1 - COVID-19 SNOMED Code(s): 474925505 Plan: Impression: 1. Medical debility. 2.: Positive pneumonia with acute hypoxic respiratory failure. 3. Critical illness myopathy. 4. Encephalopathy. Comments and plan: At this time PT, OT, LENS EDGER prescribed. If it observed at least and OT note. Patient however severely weak and unable to participate with full inpatient rehab program. Also at this time do not believe that the Covid waivers still available for inpatient rehab admission. Currently patient require 24/7 care multiple persons and should begin to consider alternative discharge planning.
[2021-05-29 06:27] LABS: HCT 31.1 % (39.0-53.0); Hypochromasia Slight; MCH 29.6 pg (25.0-35.0); MCHC 32.3 g/dL (31.0-37.0); MCV 91.6 fL (80.0-100.0); Platelet Count 304 k/uL (150-450); RDW 14.2 % (11.5-15.5); WBC 16.5 k/uL (3.8-10.6)
[2021-05-29] MEDS: SEVELAMER 800 MG TAB PO SCH ×3 (07:00→18:41)
[2021-05-29 07:30] LABS: Calcium 8.9 mg/dL (8.4-10.2); Magnesium 2.7 mg/dL (1.6-2.3); Potassium 4.3 mmol/L (3.5-5.1)
[2021-05-29] MEDS ORDERED: INSULIN ASPART (NovoLOG) 100 UNIT/ML VIAL SQ SCH (07:30)
[2021-05-29] MEDS: ALBUTEROL HFA INHALER INHALATION SCH ×4 (09:41→19:51)
[2021-05-29] MEDS ORDERED: LIDOCAINE 1% INJ 10MG/ML (20 ML MDV) ONE (11:50)
[2021-05-29] MEDS ORDERED: LIDOCAINE 1% INJ 10MG/ML (20 ML MDV) SQ ONE ×3 (12:10→12:11)
[2021-05-29] MEDS ORDERED: MIDAZOLAM 2 MG/2 ML VIAL IV ONE ×2 (12:11)
[2021-05-29] MEDS ORDERED: fentaNYL (PF) 50 MCG/ML 5 ML AMP IV ONE ×2 (12:14)
[2021-05-29] MEDS ORDERED: HEPARIN SODIUM 1,000 UN/ML (10ML VL) ONE (12:19)
[2021-05-29] MEDS ORDERED: SODIUM CHLORIDE 0.9% 1,000 ML IV ONE (12:25)
--- NOTE | 2021-05-29 12:38 | P.OP ---
Date of Procedure: 05/29/21 Description of Procedure: Date: 05/29/2021 Preoperative diagnosis: End-stage renal failure Postoperative diagnosis: Same Procedure: Placement of 23 cm tunneled hemodialysis catheter via right internal jugular vein ultrasound-guided access Surgeon: Jacques Alves D.O. Anesthesia: Local with sedation Estimated blood loss: Minimal Complications: None Condition: Stable Findings: Left internal jugular vein was unable to be visualized under ultrasound therefore right-sided catheter was placed. Indication for procedure: 51-year-old gentleman presented to the hospital secondary to pneumonia and sepsis ultimately had acute renal failure and was in need of hemodialysis. A temporary catheter was placed at that time and since then he is improved but continuing to have renal failure and is in need of tunneled hemodialysis catheter. Operative narrative: After written and informed consent was obtained and all risks, benefits and competitions were described the patient was brought to the Product Marketing Programs Manager and laid in a supine position. The area of the chest and neck was prepped and draped in the usual sterile fashion. Timeout was performed in normal fashion and antibiotics were administered prior to access. Utilizing ultrasound the right internal jugular vein was visualized and shown to be patent without any thrombus. Under ultrasound guidance the vein was then cannulated with dark nonpulsatile blood flow visualized. Guidewire was placed under direct visualization of fluoroscopy into the superior vena cava. Attention was then placed to the chest wall. A small incision was created on the lateral aspect of the chest wall as well as the access site at the neck. A 23 cm centimeter palindrome hemodialysis catheter was then tunneled from the chest wall to the neck. Serial dilation was then performed and breakaway sheath was placed into the internal jugular vein under direct visualization of fluoroscopy. The catheter was then placed within the break away sheath the sheath was removed. The ports were assessed for patency and preeti and flushed easily and then were hep-locked. The catheter was then sutured in place, cleansed and dressings were placed. The patient tolerated procedure well.
[2021-05-29] MEDS: ASCORBIC ACID 500 MG TAB PO SCH (13:39)
[2021-05-29] MEDS: CHOLECALCIFEROL 25 MCG (1000 IU) TABLET PO SCH (13:39)
[2021-05-29] MEDS: ZINC SULFATE 220 MG CAP PO SCH (13:40)
[2021-05-29] MEDS: SODIUM BICARBONATE TAB 650 MG TAB PO SCH ×2 (13:40→21:45)
--- NOTE | 2021-05-29 13:47 | XR ---
EXAMINATION TYPE: XR chest 1V portable DATE OF EXAM: 05/29/2021 COMPARISON: 05/26/2021 HISTORY: Line placement TECHNIQUE: Single frontal view of the chest is obtained. FINDINGS: Right-sided dialysis catheter the tip overlying the right atrium. Diffuse interstitial inf iltrate stable. No obvious pneumothorax. Heart size normal. No sizable pleural effusion. IMPRESSION: 1. Right-sided dialysis catheter tip overlying the right atrium. 2. Bilateral interstitial infiltrates.
--- NOTE | 2021-05-29 13:55 | P.PN ---
Subjective Progress Note Date: 05/29/21 Principal diagnosis: COVID-19 ARDS 51-year-old male who presents to the emergency department on May 12, with complaints of shortness of breath. The patient has been sick for at least 10-11 days. It started off with cough and shortness of breath, and loss of taste. He's also had fever. He has not been vaccinated. He was tested for coronavirus on May 07, and tested positive. The patient does not have a primary care physician. He has no past medical history. He takes no medications at home. The patient did receive monoclonal antibodies on May 09. Currently, the patient's on 5 L nasal cannula. He's got saline running at 75 mL an hour. He looks relatively stable. His chest x-ray does show diffuse bilateral infiltrates. The home medications that he is on include an albuterol inhaler, Tessalon Perles, and Decadron, given to him by the hospital. White count 5.1, hemoglobin 14.3, hematocrit 42.6, and platelet count 377,000. Sodium, potassium, chloride, CO2, anion gap, BUN, and creatinine are all normal. AST was 154, ALT 123, alkaline phosphatase 164. LDH was 2657. C-reactive protein is 14.9. Pro-calcitonin level is 0.14. Chest x-ray shows low lung volumes, with right greater than left bilateral opacities. The patient is seen today 05/13/2021 in follow-up on the regular medical floor. He is currently resting in bed. He is somewhat more dyspneic andtachypneic. His oxygen requirements have gone up to knees on 15 L high flow nasal cannula plus a nonrebreather mask. white count 6.8. Hemoglobin 13.5. Leukocytes 0.85. D-dimer up to 15.8. Sodium 143. Potassium 5.4. Creatinine 1.0. Glucose 123. AST 120. ALT 146. LDH 971. C-reactive protein 3.4. CT angiogram was requested after seeing the patient. There is evidence of bilateral lower lobe large multiple pulmonary emboli. No sign of right heart strain. Lovenox will be discontinued and he'll be initiated on a heparin drip On 05/14/2021 patient was emergently transferred to the intensive care unit for a concern of worsening hypoxia and dyspnea. Earlier in the shift he was on 15 L per high flow nasal cannula and 100% nonrebreather mask however his work of reginaldo thing had significantly increased his respiratory rate was ranging between 40-50 breaths per minute. His pulse ox was 87% and subsequently dropped down to 73%%. He was placed on BiPAP support with no improvement in his work of breathing or hypoxia, was intubated per CINDY, currently on assist-control mode of ventilation with a rate of 36 tidal volume is 350, FiO2 100% and PEEP of 24. he was given Nimbex IV pushes and propofol for sedation during intubation, he will be placed on Diprivan drip and Nimbex. Currently his pulse ox is 81% on the above- mentioned vent settings. His blood pressure 121/71, he is in sinus mechanism tachycardic with a rate of 110-120 BPM. Patient was found to have bilateral pulmonary emboli on yesterday's CT angiogram of the chest, he was started on heparin infusion on which she remains per weight-based protocol, his maintenance IV fluids are 0.9 normal saline at a rate of 75 ML per hour, CT angiogram lung windows showed extensive bilateral pneumonia. Chest x-ray post intubation and left subclavian central line placement is pending. This morning's labs have been reviewed, white blood cell count is 11.9, hemoglobin is 14.5, today's d- dimer is 18.26 slightly increased from yesterday's value, sodium is 141, potassium is 5.2, chloride is 111, CO2 is 23, BUN was 20 creatinine 0.96, his LDH today has significantly increased and is up to 3109, from 971 on yesterday's labs, and CRP is stable at 3.4. His pro calcitonin level on 05/12/2021 was at 0.14. Patient was started on Baricitinib yesterday on 05/13/2021, in addition to Decadron 6 mg daily. Patient is on vitamin C, zinc, and vitamin D will be added. On 05/21/2021 patient seen in follow-up in intensive care unit, he remains intubated, and sedated, currently on pressure control mode of ventilation, with a pressure of 15, inspiratory time of 0.9, FiO2 of 50% and PEEP of 6. Respiratory rate is 22. His peak airway pressure is 24, this morning's blood gas shows pO2 of 64, pCO2 of 39, and pH is 7.43. He is on 0.9 normal saline at a rate of 20 ML per hour, heparin infusion at weight-based protocol, and improving and is at 75 mics per kilo per minute. He is on tube feedings with Vital AF 16 with standard water flushes, hemodynamically stable, not requiring any vasopressor support, today's chest x-ray has been reviewed, showing continued improving subcutaneous emphysema, persistent pneumomediastinum, no pneumothorax, multifocal and confluent right greater than left opacities redemonstrated, there is some overall improvement from one day earlier noted. Patient remains on Decadron 6 mg daily, he was started on Lasix 60 mg every 12 hours, she remains on heparin infusion per weight-based protocol, he remains on empiric antibiotics in the form of Zosyn. His sputum culture showed evidence of MSSA. Today's labs have been reviewed, white blood cell count is relatively stable at 15.7, hemoglobin is 9.3, his d-dimer today is 1.93, increased from 1.73 on yesterday's labs, blood gas was as mentioned above, electrolytes are unremarkable, BUN was 88, creatinine is 4.08, his liver enzymes are improving, his LDH is improved and is down to 7, CRP is 40.1. On 05/29/2021 patient seen in follow-up on selective care unit, he is awake and alert, he is mildly short of breath with conversation, but appears to be in no acute distress, he is currently on 2 L of oxygen his pulse ox is 94-96%. Lung sounds are diminished, with the a few scattered rales, he remains on IV Lasix at 60 mg every 12 hours, he is on heparin infusion for an acute right popliteal DVT. He is supposed to have a permacath placed today, and have his temporary right groin hemodialysis catheter removed. Patient has completed a course of antibiotics for MSSA pneumonia. He's had some low-grade fevers the last 24 hours, with a T-max of 99.2F. He is breathing comfortably. He is generally weak, he was recently weaned and extubated from mechanical ventilator on 05/25/2021. His chest x-ray today following permacath placement in the right subclavian area showed bilateral interstitial infiltrates. No pleural effusion. His labs have been reviewed, his white blood cell, 16.5, hemoglobin is 10, sodium is 145, potassium is 4.3, chloride is 111, CO2 is 21, BUN is 114, creatinine is 6.39, slightly improved. He had hemodialysis yesterday with removal of 1 L of fluid. Objective - Vital Signs Vital signs: Vital Signs Temp 99.2 F 05/29/21 13:16 Pulse 91 05/29/21 08:00 Resp 18 05/29/21 13:16 BP 118/72 05/29/21 13:16 Pulse Ox 97 05/29/21 13:16 Intake & Output 05/28/21 05/29/21 05/29/21 18:59 06:59 18:59 Intake Total 710.503 100 50 Output Total 1000 Balance -289.497 100 50 Weight 104 kg 102.5 kg Intake: IV 40 50 Sodium Chloride 0.45% 1, 40 000 ml @ 10 mls/hr IV . Q24H [facility]IR Rx#:[id number] Intake, IV Titration 245.503 100 Amount Heparin Sod,Pork in 0.45% 245.503 NaCl 25,000 unit In 0.45 % NaCl 1 250ml.bag @ 18 UNITS/KG/HR 18.37 mls/hr IV .[id number] [facility]IR Rx#: [id number] Piperacillin-Tazobactam 3 100 .375 gm In Sodium Chloride 0.9% 100 ml @ 25 mls/hr IVPB Q12HR [facility]IR Rx #:[id number] Oral 125 Hemodialysis 300 Output: Hemodialysis 1000 Other: Voiding Method Urinal Urinal Urinal Diaper Diaper Diaper # Voids 1 1 # Bowel Movements 0 ABP, PAP, CO, CI - Last Documented Arterial Blood Pressure 146/76 - Exam GENERAL EXAM: Today, 51-year-old white male, on 2 L of oxygen, resting on the gurney, going down for permacath placement, awake and alert, mildly short of breath with conversation but appears to be in no acute distress HEAD: Normocephalic/atraumatic. EYES: Normal reaction of pupils, equal size. Conjunctiva pink, sclera white. NOSE: Clear with pink turbinates. THROAT: No erythema or exudates. NECK: No masses, no JVD, no thyroid enlargement, no adenopathy. CHEST: No chest wall deformity. Symmetrical expansion. Left subclavian central line in place covered with a sterile dressing LUNGS: Equal air entry with no crackles, wheeze, rhonchi or dullness. CVS: Regular rate and rhythm, normal S1 and S2, no gallops, no murmurs, no rubs ABDOMEN: Soft, nontender. No hepatosplenomegaly, normal bowel sounds, no guarding or rigidity. EXTREMITIES: No clubbing, no edema, no cyanosis, 2+ pulses and upper and lower extremities. Right groin temporary hemodialysis catheter in place MUSCULOSKELETAL: Muscle strength and tone normal. SPINE: No scoliosis or deformity SKIN: No rashes CENTRAL NERVOUS SYSTEM: Awake and alert, oriented 3, generally weak No focal deficits, tone is normal in all 4 extremities. - Labs CBC & Chem 7: 05/29/21 05:53 05/29/21 05:53 Labs: Abnormal Lab Results - Last 24 Hours (Table) 05/28/21 05/28/21 05/29/21 Range/Units 16:55 20:04 05:53 WBC 16.5 H (3.8-10.6) k/uL RBC 3.40 L (4.30-5.90) m/uL Hgb 10.0 L (13.0-17.5) gm/dL Hct 31.1 L (39.0-53.0) % Chloride (98-107) mmol/L Carbon Dioxide (22-30) mmol/L BUN (9-20) mg/dL Creatinine (0.66-1.25) mg/dL Glucose (74-99) mg/dL POC Glucose (mg/dL) 112 H 128 H (75-99) mg/dL Magnesium (1.6-2.3) mg/dL 05/29/21 05/29/21 Range/Units 05:53 06:08 WBC (3.8-10.6) k/uL RBC (4.30-5.90) m/uL Hgb (13.0-17.5) gm/dL Hct (39.0-53.0) % Chloride 111 H (98-107) mmol/L Carbon Dioxide 21 L (22-30) mmol/L BUN 114 H* (9-20) mg/dL Creatinine 6.39 H (0.66-1.25) mg/dL Glucose 115 H (74-99) mg/dL POC Glucose (mg/dL) 112 H (75-99) mg/dL Magnesium 2.7 H (1.6-2.3) mg/dL Assessment and Plan Plan: Assessment: #1. Severe hypoxic respiratory failure related to COVID-19 pneumonia, admitted to the hospital on 05/12/2021 with 10-11 day history of COVID-19 symptoms. Patient is a non-vaccinated individual, he was outside the window for Remdesivir, was started on Baricitinib on 05/13/2021. Transfer to the intensive care unit on 05/14/2021 and intubated currently on FiO2 of 100% and PEEP of 24, sedated and paralyzed on mechanical ventilator. On 05/21/2021 patient remains intubated, patient is off the paralytics, currently on pressure-control mode of ventilation with a pressure of 15, inspiratory time of 0.9, FiO2 of 50% and PEEP of 6. Patient has improved in terms of oxygenation, and we were able to significantly cut back on FiO2 and PEEP requirement. Patient was successfully weaned and extubated from mechanical ventilator on 05/25/2021 #2. MSSA pneumonia, patient is currently covered with Zosyn, Baricitinib discontinued #3. Acute kidney injury, is on hemodialysis, patient is producing urine, and continues on IV Lasix as well #4. Acute bilateral pulmonary emboli likely related to COVID-19 pneumonia, seen on a CT angiogram of the chest on 05/13/2021, started on heparin infusion. No CT evidence of heart strain #5. Right popliteal DVT, remains on heparin infusion #6. Elevated LFTs related to viral pneumonia #7. Permissive hypercapnia with secondary respiratory acidosis, improved #8. Pneumomediastinum and bilateral subcutaneous emphysema, complication of COVID-19 related pneumonia and mechanical ventilation, expected outcome, stable #9. Hypotension, secondary to the above, recovered, a component of sepsis was also considered, patient is covered with Zosyn, sputum cultures showed MSSA, hemodynamically patient has recovered and is off norepinephrine infusion Plan: Patient is generally weak but clinically improving Vital signs are stable Chest x-ray shows bilateral interstitial infiltrates, he has completed antibiotics for MSSA pneumonia Hemodialysis per nephrology Patient will have permacath put in today His temporary dialysis cath will be removed Maintaining safety precautions, aspiration precaution Physical therapy consultation Discharge planning is in progress for subacute rehab placement possibly at the [facility] when the arrangements are completed, possibly in the next 24 hours I performed a history & physical examination of the patient and discussed their management with my nurse practitioner, January Drew. I reviewed the nurse practitioner's note and agree with the documented findings and plan of care. Lung sounds are positive for diminished breaths bilaterally throughout the lung [place]. The findings and the impression was discussed with the patient. I attest to the documentation by the nurse practitioner. Time with Patient: Less than 30
[2021-05-29] MEDS: FUROSEMIDE 10 MG/ML 10 ML VIAL IV SCH ×2 (15:01→21:45)
[2021-05-29] MEDS: HEPARIN SOD,PORK IN 0.45% NACL 25,000 UNIT in 0.45% NACL 1 250ML.BAG IV SCH (15:16)
--- NOTE | 2021-05-29 16:29 | IR ---
EXAMINATION TYPE: IR cvc insert central tunneled DATE OF EXAM: 05/29/2021 COMPARISON: NONE HISTORY: Fluoroscopy time. Fluoroscopy was provided to the referring clinician.
--- NOTE | 2021-05-29 17:37 | PN ---
PROGRESS NOTE Patient is seen for followup for acute kidney injury. Patient remains hemodialysis- dependent. He was dialyzed yesterday. He will be having his new IJ PermCath placed today and we are planning to dialyze him again today. Serum creatinine remains elevated at 6.39. BUN was 114 today. On examination today, blood pressure was 121/76, heart rate of 91 per minute. Patient is afebrile. EXAMINATION OF THE HEART: S1 and S2. EXAMINATION OF LUNGS: Bilateral breath sounds are heard. Abdomen is soft, non-tender. Examination of lower extremities shows 1+ edema bilaterally. DOT NET DEVELOPER EXAM: Grossly intact. Labs show sodium 145, potassium 4.3, chloride 111, CO2 is 21, BUN 114, serum creatinine 6.39. ASSESSMENT: 1. Acute kidney injury, acute tubular necrosis, currently nonoliguric. New IJ cath today. Will plan for dialysis today and reassess tomorrow based on labs. Patient is encouraged to increase oral intake. Plan for outpatient chair time placement. 2. Acute hypoxic respiratory failure, s/p extubation, doing well. 3. COVID pneumonia with superimposed bacterial pneumonia. PLAN HD today. MMODL / IJN: [id number] / MTDD
--- NOTE | 2021-05-29 17:38 | P.PN ---
Subjective Progress Note Date: 05/29/21 (delayed charting seen at 1035) Principal diagnosis: shortness of breath Patient is a 51-year-old male with no known past medical history, not vaccinated who presented with shortness of breath. He had been diagnosed with COVID 10 days prior to admission, he received monoclonal antibodies 3 days prior to admission. He was started on steroids and admitted for further management. He was seen by pulmonary. He underwent a CTA of the chest which showed bilateral lower lobe multiple pulmonary emboli without evidence of right heart strain. He was started on bare segment. On 05/14 who was transferred to the ICU for worsening hypoxia and dyspnea. He was subsequently intubated adn required propofol and nimbex. He had worsening renal function and nephrology was co nsulted. He ultimately had a temporary dialysis catheter placed on 05/15 and he was started on emergent HD. He improved slowly and was extubated on 05/25. He was transferred to the general medical floor. He has been significantly weak. Imaging: Venous Doppler: DVT right popliteal vein Echo: Ejection fraction 55-60%, dyssynergy septal motion consistent with right ventricular volume overload CTA chest: Bilateral lower lobe multiple pulmonary emboli, extensive bilateral pneumonia Patient seen and examined at bedside. He denies any shortness of breath, no nausea or vomiting, no diarrhea. He is unable to feed himself. He is aware that he will need rehab. General: non toxic, no distress, appears at stated age Derm: warm, dry Head: atraumatic, normocephalic, symmetric Eyes: EOMI, no lid lag, anicteric sclera Mouth: no lip lesion, mucus membranes moist Cardiovascular: S1S2 reg, no murmur, positive posterior tibial pulse bilateral, Lungs: Course breath sounds bilateral, no rhonchi, no rales , no accessory muscle use Abdominal: soft, nontender to palpation, no guarding, no appreciable organomegaly Ext: no gross muscle atrophy, no edema, no contractures Neuro: CN II-XI grossly intact, muscle strength to out of 5 in bilateral upper extremities, 2 out of 5 in bilateral thighs, 3 out of 5 for plantar and dorsi flexion of the feet, light touch intact all 4 extremities Psych: Alert, oriented, appropriate affect COVID-19 pneumonia MSSA pneumonia ARDS Critical illness myopathy (nimbex X 4 days) Acute bilateral pulmonary embolism with right heart strain and acute right popliteal vein DVT Acute hypoxic respiratory failure Pneumomediastinum - Continue with heparin drip until permanent dialysis catheter placed later today -Patient has completed steroids -Continue with vitamin C, vitamin D, and zinc -Pulmonary recommendations -Pulmonary hygiene -Patient completed 12 days of Zosyn PT/OT evaluation, SNF DENIA with hyperkalemia secondary to ATN Hyperphosphatemia Volume overload secondary to DENIA -Patient will need to be discharged on dialysis -Nephrology recommendations appreciated -Continue with Lasix -Plan to transition from heparin drip to Eliquis after catheter placed -Continue with Renvela and sodium bicarbonate Tranaminitis, improving Shock resolved secondary to sepsis and pulmonary embolism DVT prophylaxis: Heparin gtt Discussed with: Patient, nursing Anticipated discharge: in am Anticipated discharge place: SNF A total of 35 minutes was spent on the care of this complex patient more than 50% of the time was spent in counseling and care coordination. Objective - Vital Signs Vital signs: Vital Signs Temp 99.2 F 05/29/21 13:16 Pulse 91 05/29/21 08:00 Resp 18 05/29/21 14:00 BP 118/72 05/29/21 13:16 Pulse Ox 97 05/29/21 13:16 Intake & Output 05/28/21 05/29/21 05/29/21 18:59 06:59 18:59 Intake Total 710.503 350 50 Output Total 1000 Balance -289.497 350 50 Weight 104 kg 102.5 kg Intake: IV 40 50 Sodium Chloride 0.45% 1, 40 000 ml @ 10 mls/hr IV . Q24H [facility] Rx#:[id number] Intake, IV Titration 245.503 350 Amount Heparin Sod,Pork in 0.45% 245.503 250 NaCl 25,000 unit In 0.45 % NaCl 1 250ml.bag @ 18 UNITS/KG/HR 18.37 mls/hr IV .[id number] [facility] Rx#: [id number] Piperacillin-Tazobactam 3 100 .375 gm In Sodium Chloride 0.9% 100 ml @ 25 mls/hr IVPB Q12HR [facility] Rx #:[id number] Oral 125 Hemodialysis 300 Output: Hemodialysis 1000 Other: Voiding Method Urinal Urinal Urinal Diaper Diaper Diaper # Voids 1 1 # Bowel Movements 0 ABP, PAP, CO, CI - Last Documented Arterial Blood Pressure 146/76 - Labs CBC & Chem 7: 05/29/21 05:53 05/29/21 05:53 Labs: Abnormal Lab Results - Last 24 Hours (Table) 05/28/21 05/29/21 05/29/21 Range/Units 20:04 05:53 05:53 WBC 16.5 H (3.8-10.6) k/uL RBC 3.40 L (4.30-5.90) m/uL Hgb 10.0 L (13.0-17.5) gm/dL Hct 31.1 L (39.0-53.0) % Chloride 111 H (98-107) mmol/L Carbon Dioxide 21 L (22-30) mmol/L BUN 114 H* (9-20) mg/dL Creatinine 6.39 H (0.66-1.25) mg/dL Glucose 115 H (74-99) mg/dL POC Glucose (mg/dL) 128 H (75-99) mg/dL Magnesium 2.7 H (1.6-2.3) mg/dL 05/29/21 Range/Units 06:08 WBC (3.8-10.6) k/uL RBC (4.30-5.90) m/uL Hgb (13.0-17.5) gm/dL Hct (39.0-53.0) % Chloride (98-107) mmol/L Carbon Dioxide (22-30) mmol/L BUN (9-20) mg/dL Creatinine (0.66-1.25) mg/dL Glucose (74-99) mg/dL POC Glucose (mg/dL) 112 H (75-99) mg/dL Magnesium (1.6-2.3) mg/dL
[2021-05-29] MEDS: PANTOPRAZOLE 40 MG/10 ML VIAL IVP SCH (18:39)
[2021-05-29] MEDS: SODIUM CHLORIDE 0.45% 1,000 ML IV SCH (18:40)
[2021-05-30] MEDS: HEPARIN SOD,PORK IN 0.45% NACL 25,000 UNIT in 0.45% NACL 1 250ML.BAG IV SCH (04:35)
[2021-05-30 09:00] LABS: HCT 34.2 % (39.0-53.0); HGB 10.9 gm/dL (13.0-17.5); Hypochromasia Slight; MCH 29.4 pg (25.0-35.0); MCHC 31.9 g/dL (31.0-37.0); MCV 91.9 fL (80.0-100.0); Mean Platelet Volume 9.5; Platelet Count 321 k/uL (150-450); RBC 3.72 m/uL (4.30-5.90); RDW 14.2 % (11.5-15.5); WBC 17.6 k/uL (3.8-10.6)
[2021-05-30] MEDS: FUROSEMIDE 10 MG/ML 10 ML VIAL IV SCH ×2 (09:19→20:34)
[2021-05-30] MEDS: SODIUM BICARBONATE TAB 650 MG TAB PO SCH ×2 (09:19→20:33)
[2021-05-30] MEDS: ZINC SULFATE 220 MG CAP PO SCH (09:19)
[2021-05-30] MEDS: CHOLECALCIFEROL 25 MCG (1000 IU) TABLET PO SCH (09:19)
[2021-05-30] MEDS: ASCORBIC ACID 500 MG TAB PO SCH (09:19)
[2021-05-30] MEDS: SEVELAMER 800 MG TAB PO SCH ×3 (09:19→17:30)
[2021-05-30] MEDS: PANTOPRAZOLE 40 MG/10 ML VIAL IVP SCH (09:20)
[2021-05-30] MEDS: APIXABAN 5 MG TAB PO SCH ×2 (09:22→20:34)
[2021-05-30 09:28] LABS: Calcium 9.4 mg/dL (8.4-10.2); Potassium 4.5 mmol/L (3.5-5.1)
[2021-05-30] MEDS: ALBUTEROL HFA INHALER INHALATION SCH ×4 (10:52→20:47)
--- NOTE | 2021-05-30 14:24 | P.PN ---
Subjective Progress Note Date: 05/30/21 Patient was seen and examined sitting up in bed. He had a right IJ tunneled catheter placed yesterday. He denies any pain. There is no bleeding ecchymosis or hematoma around site. His right groin temporary catheter was removed. He is scheduled for hemodialysis today. Objective - Vital Signs Vital signs: Vital Signs Temp 97.0 F L 05/30/21 04:00 Pulse 98 05/30/21 04:00 Resp 18 05/30/21 04:00 BP 110/70 05/30/21 04:00 Pulse Ox 95 05/30/21 04:00 Intake & Output 05/29/21 05/30/21 05/30/21 18:59 06:59 18:59 Intake Total 550 250.000 Output Total 2500 Balance -1950 250.000 Weight 105 kg Intake: IV 50 Intake, IV Titration 250.000 Amount Heparin Sod,Pork in 0.45% 250.000 NaCl 25,000 unit In 0.45 % NaCl 1 250ml.bag @ 18 UNITS/KG/HR 18.37 mls/hr IV .[id number] [facility] Rx#: [id number] Hemodialysis 500 Output: Hemodialysis 2500 Other: Voiding Method Urinal Urinal Diaper Diaper # Voids 2 1 # Bowel Movements 0 ABP, PAP, CO, CI - Last Documented Arterial Blood Pressure 146/76 - Exam General appearance: Alert and orientated. HET: Head is normocephalic and atraumatic. Neck: Supple without lymphadenopathy. Trachea midline. Extremities: Normal skin color and turgor. Hemodialysis catheter intact in right groin. Neurological: Alert and oriented. - Labs CBC & Chem 7: 05/30/21 08:44 05/30/21 08:44 Labs: Abnormal Lab Results - Last 24 Hours (Table) 05/29/21 05/30/21 Range/Units 23:46 08:44 WBC 17.6 H (3.8-10.6) k/uL RBC 3.72 L (4.30-5.90) m/uL Hgb 10.9 L (13.0-17.5) gm/dL Hct 34.2 L (39.0-53.0) % APTT 38.9 H (22.0-30.0) sec Assessment and Plan Assessment: 1. Acute kidney injury, dialysis dependent requiring permanent catheter placement 2. Bilateral pulmonary emboli 3. Right lower extremity popliteal DVT 4. Acute hypoxic respiratory failure related to COVID-19 pneumonia 5. Hyperkalemia 6. Hypotension Plan: 1. NPO after midnight 2. HOLD heparin 6 hours prior to procedure 3. Patient scheduled for tunneled dialysis placement 4. Continue dialysis as ordered per nephrology thank you for this consultation, we will sign off at this time. The impression and plan of care has been dictated as directed. Dr. Rodriguez I performed a history and examination of this patient, discussed the same with the dictator. I agree with the dictator's note ,documented as a scribe. Any additional findings or plans will be noted.
--- NOTE | 2021-05-30 14:34 | P.PN ---
Subjective Progress Note Date: 05/30/21 (delayed charting seen at 0930) Principal diagnosis: shortness of breath Patient is a 51-year-old male with no known past medical history, not vaccinated who presented with shortness of breath. He had been diagnosed with COVID 10 days prior to admission, he received monoclonal antibodies 3 days prior to admission. He was started on steroids and admitted for further management. He was seen by pulmonary. He underwent a CTA of the chest which showed bilateral lower lobe multiple pulmonary emboli without evidence of right heart strain. He was started on bare segment. On 05/14 who was transferred to the ICU for worsening hypoxia and dyspnea. He was subsequently intubated adn required propofol and nimbex. He had worsening renal function and nephrology was co nsulted. He ultimately had a temporary dialysis catheter placed on 05/15 and he was started on emergent HD. He improved slowly and was extubated on 05/25. He was transferred to the general medical floor. Permacath placed on 05/30 and he was transitioned from Heparin gtt to eliquis. He has been significantly weak. Currently awaiting safe discharge plan to rehab. Imaging: Venous Doppler: DVT right popliteal vein Echo: Ejection fraction 55-60%, dyssynergy septal motion consistent with right ventricular volume overload CTA chest: Bilateral lower lobe multiple pulmonary emboli, extensive bilateral pneumonia Patient seen and examined at bedside. Feeling tired stay. He has been eating some breakfast. Denies any nausea, vomiting, diarrhea. No chest pain. No shortness of breath. General: non toxic, no distress, appears at stated age Derm: warm, dry Head: atraumatic, normocephalic, symmetric Eyes: EOMI, no lid lag, anicteric sclera Mouth: no lip lesion, mucus membranes moist Cardiovascular: S1S2 reg, no murmur, positive posterior tibial pulse bilateral, Lungs: Course breath sounds bilateral, no rhonchi, no rales , no accessory muscle use Abdominal: soft, nontender to palpation, no guarding, no appreciable organomegaly Ext: no gross muscle atrophy, no edema, no contractures Neuro: CN II-XI grossly intact, muscle strength3 out of 5 in bilateral upper extremities, 2 out of 5 in bilateral thighs, 4 out of 5 for plantar and dorsi flexion of the feet, he is able to lift his bilateral ankles off of the bed, light touch intact all 4 extremities Psych: Alert, oriented, appropriate affect COVID-19 pneumonia MSSA pneumonia ARDS Critical illness myopathy (nimbex X 4 days) Acute bilateral pulmonary embolism with right heart strain and acute right popliteal vein DVT Acute hypoxic respiratory failure Pneumomediastinum Encephalopathy, improving -Patient has completed steroids -Continue with vitamin C, vitamin D, and zinc -Pulmonary recommendations -Pulmonary hygiene -Patient completed 12 days of Zosyn - PT/OT evaluation, SNF - eliquis start at 5 BID as has been on heparin gtt over 7 days DENIA with hyperkalemia secondary to ATN, requiring HD Hyperphosphatemia Volume overload secondary to DENIA - s/p permanent HD cath on 05/29 -Patient will need to be discharged on dialysis -Nephrology recommendations appreciated -Continue with Lasix -Continue with Renvela and sodium bicarbonate Tranaminitis, improving Shock resolved secondary to sepsis and pulmonary embolism Skilled facility not able to accommodate patient today DVT prophylaxis: eliquis Discussed with: Patient, nursing Anticipated discharge: in am Anticipated discharge place: SNF A total of 35 minutes was spent on the care of this complex patient more than 50% of the time was spent in counseling and care coordination. Objective - Vital Signs Vital signs: Vital Signs Temp 98.2 F 05/30/21 12:00 Pulse 95 05/30/21 12:00 Resp 17 05/30/21 12:00 BP 116/59 05/30/21 12:00 Pulse Ox 94 L 05/30/21 12:00 Intake & Output 05/29/21 05/30/21 05/30/21 18:59 06:59 18:59 Intake Total 550 250.000 117.029 Output Total 2500 2 Balance -1950 250.000 115.029 Weight 105 kg Intake: IV 50 Intake, IV Titration 250.000 117.029 Amount Heparin Sod,Pork in 0.45% 250.000 117.029 NaCl 25,000 unit In 0.45 % NaCl 1 250ml.bag @ 18 UNITS/KG/HR 18.37 mls/hr IV .[id number] [facility] Rx#: [id number] Hemodialysis 500 Output: Urine 2 Hemodialysis 2500 Other: Voiding Method Urinal Urinal Urinal Diaper Diaper Diaper # Voids 2 1 # Bowel Movements 0 1 ABP, PAP, CO, CI - Last Documented Arterial Blood Pressure 146/76 - Labs CBC & Chem 7: 05/30/21 08:44 05/30/21 08:44 Labs: Abnormal Lab Results - Last 24 Hours (Table) 05/29/21 05/30/21 05/30/21 Range/Units 23:46 08:44 08:44 WBC 17.6 H (3.8-10.6) k/uL RBC 3.72 L (4.30-5.90) m/uL Hgb 10.9 L (13.0-17.5) gm/dL Hct 34.2 L (39.0-53.0) % APTT 38.9 H (22.0-30.0) sec Chloride 108 H (98-107) mmol/L BUN 90 H (9-20) mg/dL Creatinine 5.73 H (0.66-1.25) mg/dL Glucose 119 H (74-99) mg/dL 05/30/21 Range/Units 08:44 WBC (3.8-10.6) k/uL RBC (4.30-5.90) m/uL Hgb (13.0-17.5) gm/dL Hct (39.0-53.0) % APTT 63.2 H (22.0-30.0) sec Chloride (98-107) mmol/L BUN (9-20) mg/dL Creatinine (0.66-1.25) mg/dL Glucose (74-99) mg/dL
--- NOTE | 2021-05-30 15:41 | PN ---
PROGRESS NOTE Patient is seen for followup for acute kidney injury. He remains dialysis dependent. Today's creatinine is 5.7, potassium is 4.5. Patient will be maintained on a Friday, Friday, Friday schedule as outpatient. Therefore, we will proceed with dialysis today. PHYSICAL EXAMINATION: Patient is comfortable. Blood pressure 116/59, heart rate 95 per minute. He appears fairly euvolemic. No edema noted in his lower extremities. FACING GRINDER exam grossly intact. LAB: Show sodium 145, potassium 4.5, chloride 108 BUN 90, creatinine 5.73. ASSESSMENT: 1. Acute kidney injury ATN currently hemodialysis dependent. We will continue to maintain patient on dialysis on a Friday, Friday, Friday schedule. He will be going to [place]. The patient has an IJ catheter which was placed yesterday. 2. Acute hypoxic respiratory failure, currently resolved. 3. COVID pneumonia, improved. 4. Staph aureus pneumonia. 5. Hyperkalemia associated with severe metabolic acidosis, now resolved. 6. Volume overload, currently improving. PLAN: Hemodialysis today and then next treatment will be Friday. Hopefully this will be as outpatient. MMODL / IJN: [id number] /
--- NOTE | 2021-05-30 15:55 | P.PN ---
Subjective Progress Note Date: 05/30/21 Principal diagnosis: Coronavirus associated pneumonia. Evaluated today on 05/23/2021, and remains in the ICU, intubated and mechanically ventilated. Patient is actually only on Precedex at this point, off sedation, off narcotics, he is awake but does not seem to follow any instructions and he doesn't comprehend. He is on pressure control mode of mechanical ventilation, rate is set at 22, pressure control at 15, PEEP at 6. He is on 40% FiO2. Seems to be arousable, but again does not follow any instructions. Chest x-ray continues show bilateral infiltrates, pneumomediastinum and subcutaneous emphysema. ABG today showed a pO2 of 63 pCO2 of 32 pH of 7.45. PTT is 49 WBC count 12.9 hemoglobin 11. Asymmetric metabolic profile is normal renal profile showed a BUN of 67 creatinine 3.85, patient is on hemodialysis. LDH continues to remain high at 1910 C-reactiveProtein remains high at 31.5 Reevaluated today on 05/24/2021, patient remains in the ICU, intubated and mec hanically ventilated. However clinically I believe the patient is demonstrating some improvement. He is now on pressure control mode of mechanical ventilation, with a pressure control of 15, FiO2 40%, rate is 22, PEEP of 6. ABG showed a pO2 of 70 pCO2 of 33 pH of 7.43. Patient is awake, he is now only on Precedex at 0.9 mcg/kg/h. Patient is also receiving heparin for his DVT, and I suggested we go ahead and change the patient to a pressure support mode of mechanical ventilation, and CPAP. Will start with a pressure support of 10, and determine whether the patient could be extubated later today or possibly in the next 24 hours. Patient is generally weak, however he is able to follow all instructions, and follows commands. Chest x-ray continues show bilateral infiltrates, right more so than left. Renal profile remains abnormal patient is on hemodialysis, may not receive hemodialysis today. Reevaluated today on 05/25/2021, patient remains in the ICU, intubated and mechanically ventilated. Patient remains on pressure control mode of mechanical ventilation, yesterday he was on pressure support and CPAP for almost 4 hours, apparently he was getting restless and agitated, and tachypneic, patient was placed back on a his previous mode of mechanical ventilation which is pressure control with pressure control of 15 FiO2 40% rate 22 and PEEP of 6. ABG showed a pO2 of 84 pCO2 of 35 pH7.46. D-dimer is still elevated and the patient is on heparin with a PTT of 50. His renal profile remains abnormal with a 93 creatinine 4.78, patient is on hemodialysis. Chest x-ray bilateral infiltrates are basically about the same. Patient remains on the COVID-19 cocktail, he is on Decadron 6 mg IV push daily, he is also on Lasix 60 mg IV push every 12 hours, propofol which I have discontinued completely, he is also on Zosyn and Protonix, heparin, vitamin C, zinc, and he is on oral bicarb Reevaluated today on 05/26/2021, patient was extubated yesterday on 05/25, patient is doing great, he is on 5 L nasal cannula. Presently he is receiving hemodialysis, patient is in a bedside recliner, does not seem to be in any distress. Remains on heparin remains on Zosyn and he is doing fairly well with incentive spirometry, and recommending physical therapy to evaluate, and over the next 24 hours may even transfer the patient out of the ICU if he continues to do well. WBC count is 14.2 hemoglobin is 10.0. PTT is 59 therapeutic his d- dimer is 2.86. Electrolytes are normal BUN is 111 creatinine 6.75. Chest x-ray continues show bilateral airspace disease consistent with COVID-19 pneumonia. Reevaluated today on 05/27/2021, patient was extubated on 05/25, tolerated the extubation well for the last 2 days, he is now on 3 L nasal cannula, and his O2 saturations 97%. Patient is not having dialysis today, he will be dialyzed every other day. Continues to have excellent urine output. WBC count today is 13.1 hemoglobin 10.2 electrolytes are normal potassium is 3.5 BUN is 82 creatinine is 5.6. No chest x-ray was done today. Chest x-ray from yesterday showed bilateral pneumonia, improved since his initial admission, patient was initially admitted with acute COVID-19 pneumonia. Patient continues to have a left subclavian central line which I will recommend discontinuation if at peripheral access is established. I will also recommend transferring the patient out of the ICU to a regular medical floor today. Progress note dated 05/28/2021. 51-year-old male, seen in room 378. The patient was extubated on May 25, and is been doing well since that time. He's currently on 3 L nasal cannula. He is on IV heparin. He is not receiving any IV fluids. He did pass his swallow evaluation. Remains on Zosyn. Currently, white count 15, hemoglobin 10.6, hematocrit 32.9, and platelet count was normal at 345,000. PTT is 48.9. Sodium 145, potassium 3.9, chlorides 108, CO2 18, anion gap 19, BUN 114, and creatinine 7.28. The patient did have hemodialysis today. The patient was initially admitted with a diagnosis of acute coronavirus associated pneumonia. His last chest x-ray was on May 26, and it was reviewed. The patient was transferred from the ICU, to a general medical floor, yesterday. Progress note dated 05/30/2021. 51-year-old male, again seen in room 378. Currently, he's is undergoing hemodialysis. The plan is to remove 2 L of fluid. His hemodialysis days of be Friday, Friday, and Friday. Currently, he's only on 3 L nasal cannula. He is getting saline at 10 mL an hour. He looks relatively comfortable. White count 17.6, hemoglobin 10.9, hematocrit 34.2, platelet count is normal. Sodium 145, potassium 4.5, chlorides 108, CO2 22, anion gap 15, BUN 90, creatinine 5.73. Chest x-ray shows bilateral infiltrates, consistent with a diagnosis of coronavirus associated pneumonia, as well as a right-sided dialysis catheter tip overlying the right atrium. Objective - Vital Signs Vital signs: Vital Signs Temp 98.2 F 05/30/21 12:00 Pulse 95 05/30/21 12:00 Resp 17 05/30/21 12:00 BP 116/59 05/30/21 12:00 Pulse Ox 94 L 05/30/21 12:00 Intake & Output 05/29/21 05/30/21 05/30/21 18:59 06:59 18:59 Intake Total 550 250.000 357.029 Output Total 2500 2 Balance -1950 250.000 355.029 Weight 105 kg Intake: IV 50 Intake, IV Titration 250.000 117.029 Amount Heparin Sod,Pork in 0.45% 250.000 117.029 NaCl 25,000 unit In 0.45 % NaCl 1 250ml.bag @ 18 UNITS/KG/HR 18.37 mls/hr IV .[id number] DAMIR Rx#: [id number] Oral 240 Hemodialysis 500 Output: Urine 2 Hemodialysis 2500 Other: Voiding Method Urinal Urinal Urinal Diaper Diaper Diaper # Voids 2 1 2 # Bowel Movements 0 1 ABP, PAP, CO, CI - Last Documented Arterial Blood Pressure 146/76 - Exam No acute distress, oriented 3. Currently on 3 L nasal cannula. Saturations are in the mid 90s. He is awake and alert. He is undergoing hemodialysis currently. HEENT examination is grossly unremarkable. Neck supple. Full range of motion. No adenopathy thyromegaly or neck vein distention. Cardiovascular examination reveals regular rhythm rate. S1-S2 normal. No S3 or S4. No discernible murmur noted. Heart rate 95 bpm. Lungs reveal scattered crackles throughout. No wheezes or rhonchi. Breath sounds equal bilaterally. Abdomen soft bowel sounds are heard. No masses or tenderness. Extremities are intact. No cyanosis clubbing or edema. Skin is without rash or lesion. Neurologic examination is brief but nonfocal. The patient does have generalized extremity weakness. - Labs CBC & Chem 7: 05/30/21 08:44 05/30/21 08:44 Labs: Abnormal Lab Results - Last 24 Hours (Table) 05/29/21 05/30/21 05/30/21 Range/Units 23:46 08:44 08:44 WBC 17.6 H (3.8-10.6) k/uL RBC 3.72 L (4.30-5.90) m/uL Hgb 10.9 L (13.0-17.5) gm/dL Hct 34.2 L (39.0-53.0) % APTT 38.9 H (22.0-30.0) sec Chloride 108 H (98-107) mmol/L BUN 90 H (9-20) mg/dL Creatinine 5.73 H (0.66-1.25) mg/dL Glucose 119 H (74-99) mg/dL 05/30/21 Range/Units 08:44 WBC (3.8-10.6) k/uL RBC (4.30-5.90) m/uL Hgb (13.0-17.5) gm/dL Hct (39.0-53.0) % APTT 63.2 H (22.0-30.0) sec Chloride (98-107) mmol/L BUN (9-20) mg/dL Creatinine (0.66-1.25) mg/dL Glucose (74-99) mg/dL Assessment and Plan Assessment: Acute hypoxemic respiratory failure secondary to coronavirus associated pneumonia, status post intubation and mechanical ventilation, with successful extubation on May 25. Methicillin sensitive staph aureus pneumonia, currently on Zosyn. Acute kidney injury, requiring hemodialysis. Right popliteal DVT, currently on IV heparin. Pneumomediastinum, with subcutaneous emphysema, resolved, as a complication of coronavirus associated pneumonia. Elevated inflammatory marker secondary to coronavirus infection. Mild liver function test abnormalities, secondary to coronavirus infection. Plan: Plan dated 05/12/2021. Currently, the patient is resting comfortably in room 44. He's on 5 L nasal cannula. He appears not to be in any respiratory distress. Chest x-ray does show diffuse bilateral right greater than left pulmonary infiltrates. The patient tested positive on May 07, and received monoclonal antibody on May 09. The patient has not been vaccinated. The patient is a candidate only for Lovenox, Decadron, and vitamins. He is not a candidate for REM. He is not sick enough to receive LINH. We will continue to follow and make recommendations where appropriate. Prognosis is guarded. Plan dated 05/28/2021. The patient continues on Zosyn. The patient also continues on IV heparin. The patient did have hemodialysis today. Labs, x-rays, and medications are reviewed. The patient was extubated on May 25. The patient remains on 3 L nasal cannula. Prognosis is guarded. I will continue to follow make recommendations where appropriate. I last saw the patient on May 12, which was the last time I was on-call. The patient remains on Decadron. It can be discontinued. Plan dated 05/30/2021. The patient is receiving hemodialysis today. His hemodialysis days of be Friday/Friday/Friday. The patient is currently on 3 L nasal cannula. Saturations are in the mid 90s. Labs are reviewed. X-ray is reviewed. Her comfortable today. He is awake and alert. Additional recommendations and suggestions are forthcoming. Zosyn has been discontinued. Time with Patient: Less than 30
[2021-05-30] MEDS: SODIUM CHLORIDE 0.45% 1,000 ML IV SCH (16:34)
[2021-05-31] MEDS: SEVELAMER 800 MG TAB PO SCH ×3 (06:22→17:11)
[2021-05-31] MEDS: ALBUTEROL HFA INHALER INHALATION SCH ×4 (08:25→19:25)
[2021-05-31 08:29] LABS: HCT 34.9 % (39.0-53.0); HGB 10.7 gm/dL (13.0-17.5); Hypochromasia Slight; MCH 28.2 pg (25.0-35.0); MCHC 30.7 g/dL (31.0-37.0); MCV 91.9 fL (80.0-100.0); Mean Platelet Volume 9.4; Platelet Count 298 k/uL (150-450); RBC 3.79 m/uL (4.30-5.90); RDW 14.2 % (11.5-15.5); WBC 15.4 k/uL (3.8-10.6)
[2021-05-31] MEDS: APIXABAN 5 MG TAB PO SCH ×2 (08:31→20:05)
[2021-05-31] MEDS: ZINC SULFATE 220 MG CAP PO SCH (08:31)
[2021-05-31] MEDS: ASCORBIC ACID 500 MG TAB PO SCH (08:31)
[2021-05-31] MEDS: PANTOPRAZOLE 40 MG/10 ML VIAL IVP SCH (08:31)
[2021-05-31] MEDS: CHOLECALCIFEROL 25 MCG (1000 IU) TABLET PO SCH (08:31)
[2021-05-31] MEDS: FUROSEMIDE 10 MG/ML 10 ML VIAL IV SCH ×2 (08:31→20:05)
[2021-05-31] MEDS: SODIUM BICARBONATE TAB 650 MG TAB PO SCH ×2 (08:31→20:05)
[2021-05-31 08:38] LABS: Calcium 8.9 mg/dL (8.4-10.2); Potassium 4.4 mmol/L (3.5-5.1)
[2021-05-31 14:20] VITALS: BMI 33.8
--- NOTE | 2021-05-31 15:20 | P.PN ---
Subjective Progress Note Date: 05/31/21 Principal diagnosis: Coronavirus associated pneumonia. Evaluated today on 05/23/2021, and remains in the ICU, intubated and mechanically ventilated. Patient is actually only on Precedex at this point, off sedation, off narcotics, he is awake but does not seem to follow any instructions and he doesn't comprehend. He is on pressure control mode of mechanical ventilation, rate is set at 22, pressure control at 15, PEEP at 6. He is on 40% FiO2. Seems to be arousable, but again does not follow any instructions. Chest x-ray continues show bilateral infiltrates, pneumomediastinum and subcutaneous emphysema. ABG today showed a pO2 of 63 pCO2 of 32 pH of 7.45. PTT is 49 WBC count 12.9 hemoglobin 11. Asymmetric metabolic profile is normal renal profile showed a BUN of 67 creatinine 3.85, patient is on hemodialysis. LDH continues to remain high at 1910 C-reactiveProtein remains high at 31.5 Reevaluated today on 05/24/2021, patient remains in the ICU, intubated and mec hanically ventilated. However clinically I believe the patient is demonstrating some improvement. He is now on pressure control mode of mechanical ventilation, with a pressure control of 15, FiO2 40%, rate is 22, PEEP of 6. ABG showed a pO2 of 70 pCO2 of 33 pH of 7.43. Patient is awake, he is now only on Precedex at 0.9 mcg/kg/h. Patient is also receiving heparin for his DVT, and I suggested we go ahead and change the patient to a pressure support mode of mechanical ventilation, and CPAP. Will start with a pressure support of 10, and determine whether the patient could be extubated later today or possibly in the next 24 hours. Patient is generally weak, however he is able to follow all instructions, and follows commands. Chest x-ray continues show bilateral infiltrates, right more so than left. Renal profile remains abnormal patient is on hemodialysis, may not receive hemodialysis today. Reevaluated today on 05/25/2021, patient remains in the ICU, intubated and mechanically ventilated. Patient remains on pressure control mode of mechanical ventilation, yesterday he was on pressure support and CPAP for almost 4 hours, apparently he was getting restless and agitated, and tachypneic, patient was placed back on a his previous mode of mechanical ventilation which is pressure control with pressure control of 15 FiO2 40% rate 22 and PEEP of 6. ABG showed a pO2 of 84 pCO2 of 35 pH7.46. D-dimer is still elevated and the patient is on heparin with a PTT of 50. His renal profile remains abnormal with a 93 creatinine 4.78, patient is on hemodialysis. Chest x-ray bilateral infiltrates are basically about the same. Patient remains on the COVID-19 cocktail, he is on Decadron 6 mg IV push daily, he is also on Lasix 60 mg IV push every 12 hours, propofol which I have discontinued completely, he is also on Zosyn and Protonix, heparin, vitamin C, zinc, and he is on oral bicarb Reevaluated today on 05/26/2021, patient was extubated yesterday on 05/25, patient is doing great, he is on 5 L nasal cannula. Presently he is receiving hemodialysis, patient is in a bedside recliner, does not seem to be in any distress. Remains on heparin remains on Zosyn and he is doing fairly well with incentive spirometry, and recommending physical therapy to evaluate, and over the next 24 hours may even transfer the patient out of the ICU if he continues to do well. WBC count is 14.2 hemoglobin is 10.0. PTT is 59 therapeutic his d- dimer is 2.86. Electrolytes are normal BUN is 111 creatinine 6.75. Chest x-ray continues show bilateral airspace disease consistent with COVID-19 pneumonia. Reevaluated today on 05/27/2021, patient was extubated on 05/25, tolerated the extubation well for the last 2 days, he is now on 3 L nasal cannula, and his O2 saturations 97%. Patient is not having dialysis today, he will be dialyzed every other day. Continues to have excellent urine output. WBC count today is 13.1 hemoglobin 10.2 electrolytes are normal potassium is 3.5 BUN is 82 creatinine is 5.6. No chest x-ray was done today. Chest x-ray from yesterday showed bilateral pneumonia, improved since his initial admission, patient was initially admitted with acute COVID-19 pneumonia. Patient continues to have a left subclavian central line which I will recommend discontinuation if at peripheral access is established. I will also recommend transferring the patient out of the ICU to a regular medical floor today. Progress note dated 05/28/2021. 51-year-old male, seen in room 378. The patient was extubated on May 25, and is been doing well since that time. He's currently on 3 L nasal cannula. He is on IV heparin. He is not receiving any IV fluids. He did pass his swallow evaluation. Remains on Zosyn. Currently, white count 15, hemoglobin 10.6, hematocrit 32.9, and platelet count was normal at 345,000. PTT is 48.9. Sodium 145, potassium 3.9, chlorides 108, CO2 18, anion gap 19, BUN 114, and creatinine 7.28. The patient did have hemodialysis today. The patient was initially admitted with a diagnosis of acute coronavirus associated pneumonia. His last chest x-ray was on May 26, and it was reviewed. The patient was transferred from the ICU, to a general medical floor, yesterday. Progress note dated 05/30/2021. 51-year-old male, again seen in room 378. Currently, he's is undergoing hemodialysis. The plan is to remove 2 L of fluid. His hemodialysis days of be Friday, Friday, and Friday. Currently, he's only on 3 L nasal cannula. He is getting saline at 10 mL an hour. He looks relatively comfortable. White count 17.6, hemoglobin 10.9, hematocrit 34.2, platelet count is normal. Sodium 145, potassium 4.5, chlorides 108, CO2 22, anion gap 15, BUN 90, creatinine 5.73. Chest x-ray shows bilateral infiltrates, consistent with a diagnosis of coronavirus associated pneumonia, as well as a right-sided dialysis catheter tip overlying the right atrium. Progress note dated 05/31/2021. 51-year-old male again seen in room 378. Currently, the patient's doing well. He is resting comfortably. He's on 2 L nasal cannula. He had hemodialysis yesterday. He will have hemodialysis tomorrow. He's not receiving any IV fluid s. He's not receiving any IV heparin. His white count is 15.4, hemoglobin 10.7, hematocrit 34.9, and platelet count 290,000. Sodium is 140, potassium 4.4, chlorides 101, CO2 24, BUN 71, with a creatinine of 5.27 Objective - Vital Signs Vital signs: Vital Signs Temp 98.7 F 05/31/21 12:21 Pulse 95 05/31/21 12:21 Resp 18 05/31/21 14:59 BP 111/77 05/31/21 12:21 Pulse Ox 95 05/31/21 12:21 Intake & Output 05/30/21 05/31/21 05/31/21 18:59 06:59 18:59 Intake Total 982.029 Output Total 1502 50 Balance -519.971 -50 Weight 107 kg 107 kg Intake: Intake, IV Titration 117.029 Amount Heparin Sod,Pork in 0.45% 117.029 NaCl 25,000 unit In 0.45 % NaCl 1 250ml.bag @ 18 UNITS/KG/HR 18.37 mls/hr IV .[id number] [facility] Rx#: [id number] Oral 865 Output: Urine 2 Stool 50 Hemodialysis 1500 Other: Voiding Method Urinal Urinal Urinal Diaper Diaper Diaper # Voids 2 1 1 # Bowel Movements 1 1 ABP, PAP, CO, CI - Last Documented Arterial Blood Pressure 146/76 - Exam No acute distress, oriented 3. Currently on 2 L nasal cannula. Saturations are in the mid 90s. He is awake and alert. HEENT examination is grossly unremarkable. Neck supple. Full range of motion. No adenopathy thyromegaly or neck vein distention. Cardiovascular examination reveals regular rhythm rate. S1-S2 normal. No S3 or S4. No discernible murmur noted. Heart rate 95 bpm. Lungs reveal scattered crackles throughout. No wheezes or rhonchi. Breath sounds equal bilaterally. Abdomen soft bowel sounds are heard. No masses or tenderness. Extremities are intact. No cyanosis clubbing or edema. Skin is without rash or lesion. Neurologic examination is brief but nonfocal. The patient does have generalized extremity weakness. - Labs CBC & Chem 7: 05/31/21 07:58 05/31/21 07:58 Labs: Abnormal Lab Results - Last 24 Hours (Table) 05/31/21 05/31/21 Range/Units 07:58 07:58 WBC 15.4 H (3.8-10.6) k/uL RBC 3.79 L (4.30-5.90) m/uL Hgb 10.7 L (13.0-17.5) gm/dL Hct 34.9 L (39.0-53.0) % MCHC 30.7 L (31.0-37.0) g/dL BUN 71 H (9-20) mg/dL Creatinine 5.27 H (0.66-1.25) mg/dL Glucose 115 H (74-99) mg/dL Assessment and Plan Assessment: Acute hypoxemic respiratory failure secondary to coronavirus associated pneumonia, status post intubation and mechanical ventilation, with successful extubation on May 25. Methicillin sensitive staph aureus pneumonia, currently on Zosyn. Acute kidney injury, requiring hemodialysis, Friday/Friday/Friday. Right popliteal DVT, currently on IV heparin. Pneumomediastinum, with subcutaneous emphysema, resolved, as a complication of c oronavirus associated pneumonia. Elevated inflammatory marker secondary to coronavirus infection. Mild liver function test abnormalities, secondary to coronavirus infection. Plan: Plan dated 05/12/2021. Currently, the patient is resting comfortably in room 44. He's on 5 L nasal can nula. He appears not to be in any respiratory distress. Chest x-ray does show diffuse bilateral right greater than left pulmonary infiltrates. The patient tested positive on May 07, and received monoclonal antibody on May 09. The patient has not been vaccinated. The patient is a candidate only for Lovenox, Decadron, and vitamins. He is not a candidate for REM. He is not sick enough to receive LINH. We will continue to follow and make recommendations where appropriate. Prognosis is guarded. Plan dated 05/28/2021. The patient continues on Zosyn. The patient also continues on IV heparin. The patient did have hemodialysis today. Labs, x-rays, and medications are reviewed. The patient was extubated on May 25. The patient remains on 3 L nasal cannula. Prognosis is guarded. I will continue to follow make recommendations where appropriate. I last saw the patient on May 12, which was the last time I was on-call. The patient remains on Decadron. It can be discontinued. Plan dated 05/30/2021. The patient is receiving hemodialysis today. His hemodialysis days of be Friday/Friday/Friday. The patient is currently on 3 L nasal cannula. Saturations are in the mid 90s. Labs are reviewed. X-ray is reviewed. Her comfortable today. He is awake and alert. Additional recommendations and suggestions are forthcoming. Zosyn has been discontinued. Plan dated 05/31/2021. The patient will be getting hemodialysis on Friday, Friday, and Friday. He did not have hemodialysis today. The patient's labs are reviewed. He's on 2 L nasal cannula. He is not receiving IV fluids. He is receiving vitamin C, vitamin D3, and zinc. Antibiotics have been discontinued. He was started on Eliquis, at 5 mg twice a day. The patient and make recommendations where appropriate. Prognosis is guarded. Time with Patient: Less than 30
--- NOTE | 2021-05-31 16:34 | P.DS ---
Providers Date of admission: 05/12/21 13:39 Expected date of discharge: 05/31/21 Attending physician: Dunia Botello MD Consults: 05/12/21 14:00 Consult Physician Routine Consulting Provider: Zia Chaves Consult Reason/Comments: COVID Do you want consulting provider notified?: Yes 05/15/21 08:22 Consult Physician Routine Consulting Provider: Mike Schneider Consult Reason/Comments: DENIA with hyperkalemia; K 7.5 Do you want consulting provider notified?: Yes 05/28/21 16:58 Consult Physician Routine Consulting Provider: Govind Collier Consult Reason/Comments: weakness, critical illness myopathy Do you want consulting provider notified?: Yes Primary care physician: Stated None Hospital Course: Discharge Diagnosis: COVID-19 pneumonia MSSA pneumonia ARDS Critical illness myopathy (nimbex X 4 days) Acute bilateral pulmonary embolism with right heart strain Acute right popliteal vein DVT Acute hypoxic respiratory failure Pneumomediastinum Encephalopathy, improving DENIA with hyperkalemia secondary to ATN, requiring HD Hyperphosphatemia Volume overload secondary to DENIA Tranaminitis, improving Shock resolved secondary to sepsis and pulmonary embolism Hospital Course: Patient is a 51-year-old male with no known past medical history, not vaccinated who presented with shortness of breath. He had been diagnosed with COVID ten days prior to admission, he received monoclonal antibodies 3 days prior to admission. He was started on steroids and admitted for further management. He was seen by pulmonary. He underwent a CTA of the chest which showed bilateral lower lobe multiple pulmonary emboli without evidence of right heart strain. He was started on anticoagulation with Heparin. On 05/14 he was transferred to the ICU for worsening hypoxia and dyspnea. He was subsequently intubated and required propofol and nimbex. He had worsening renal function and nephrology was consulted. He ultimately had a temporary dialysis catheter placed on 05/15 and he was started on emergent HD. He improved slowly and was extubated on 05/25. He was transferred to the general medical floor. Temporary dialysis catheter was removed and Permacath placed on 05/30 and he was transitioned from Heparin gtt to eliquis. Patient was also started on Renvela and sodium bicarb. He remains on 2 L O2 via nasal cannula and has completed his course of steroids along with 12 day course of IV antibiotics with Zosyn. After 19 days of hospitalization, patient continues to be significantly weak. Patient to be transferred to [facility] as he requires continued therapy including PT/OT, and hemodialysis. Follow-up appointments to be made with p ulmonology as well as nephrology in 1 week. Imaging: Venous Doppler: DVT right popliteal vein Echo: Ejection fraction 55-60%, dyssynergy septal motion consistent with right ventricular volume overload CTA chest: Bilateral lower lobe multiple pulmonary emboli, extensive bilateral pneumonia Physical examination: Patient seen and examined at bedside. He reports feeling tired and weak this morning and otherwise denies having any other complaints including headache, lightheadedness, dizziness, chest pain, palpitations, shortness of breath, nausea, or experiencing any numbness/tingling/weakness in his extremities. Patient updated on plan for pending discharge today. Case Management working on arrangements for transfer to [facility] for continued rehab. General: non toxic, no distress, appears at stated age Derm: warm, dry Head: atraumatic, normocephalic, symmetric Eyes: EOMI, no lid lag, anicteric sclera Mouth: no lip lesion, mucus membranes moist Cardiovascular: S1S2 reg, no murmur, positive posterior tibial pulse bilateral, Lungs: Course breath sounds bilateral, no rhonchi, no rales , no accessory muscle use Abdominal: soft, nontender to palpation, no guarding, no appreciable organomegaly Ext: no gross muscle atrophy, no edema, no contractures Neuro: CN II-XI grossly intact, muscle strength3 out of 5 in bilateral upper extremities, 2 out of 5 in bilateral thighs, 4 out of 5 for plantar and dorsi flexion of the feet, he is able to lift his bilateral ankles off of the bed, light touch intact all 4 extremities Psych: Alert, oriented, appropriate affect A total of 45 minutes of time were spent preparing this complex discharge summary. Patient Condition at Discharge: Stable Plan - Discharge Summary Discharge Rx Participant: Yes New Discharge Prescriptions: New Zinc Sulfate [Orazinc] 220 mg PO DAILY cap Apixaban [Eliquis] 5 mg PO BID tab Sevelamer [Renvela] 800 mg PO TID-W/MEALS tab Sodium Bicarbonate Tab 650 mg PO BID tab Ascorbic Acid [Vitamin C] 1,000 mg PO DAILY tab Cholecalciferol [Vitamin D3 (25 Mcg = 1000 Iu)] 25 mcg PO DAILY tablet Continue Albuterol Inhaler [Ventolin Hfa Inhaler] 1 puff INHALATION RT-Q4H PRN PRN Reason: Shortness Of Breath Benzonatate [Tessalon Perles] 100 mg PO Q8H PRN PRN Reason: Cough Discontinued dexAMETHasone 6 mg PO DAILY Discharge Medication List Albuterol Inhaler [Ventolin Hfa Inhaler] 1 puff INHALATION RT-Q4H PRN 05/12/21 [History] Benzonatate [Tessalon Perles] 100 mg PO Q8H PRN 05/12/21 [History] Apixaban [Eliquis] 5 mg PO BID tab 05/31/21 [Rx] Ascorbic Acid [Vitamin C] 1,000 mg PO DAILY tab 05/31/21 [Rx] Cholecalciferol [Vitamin D3 (25 Mcg = 1000 Iu)] 25 mcg PO DAILY tablet 05/31/21 [Rx] Sevelamer [Renvela] 800 mg PO TID-W/MEALS tab 05/31/21 [Rx] Sodium Bicarbonate Tab 650 mg PO BID tab 05/31/21 [Rx] Zinc Sulfate [Orazinc] 220 mg PO DAILY cap 05/31/21 [Rx] Follow up Appointment(s)/Referral(s): Katherine Estevez MD [STAFF PHYSICIAN] - 1 Week Zia Chaves DO [Doctor of Osteopathic Medicine] - 1 Week Activity/Diet/Wound Care/Special Instructions: Continue dialysis Mondays, Wednesdays, and Fridays Follow-up with nephrology and cardiology in 1 week. Discharge Disposition: TRANSFER TO SNF/ECF
--- NOTE | 2021-05-31 17:09 | PN ---
PROGRESS NOTE Dr. Estevez dictating a progress note on Celestino Rios. Patient is seen for followup for acute kidney injury, currently hemodialysis dependent. Patient will be maintained on a Friday, Friday, Friday schedule. He is currently sleeping but arousable, not in any acute distress. PHYSICAL EXAMINATION: Blood pressure 111/77, heart rate 95 per minute. He is afebrile. Examination of the heart S1, S2. Examination of the lungs, bilateral breath sounds are heard. Abdomen is soft, nontender. Examination of lower extremities shows edema 1+ bilaterally. LAB: Show sodium 140, potassium 4.4, chloride 101, BUN 71, creatinine 5.27, hemoglobin 10.7. ASSESSMENT: 1. Acute kidney injury, acute tubular necrosis, currently dialysis dependent. Will continue to dialyze patient on a Friday, Friday, Friday schedule. The patient will be going to [facility] for outpatient dialysis. 2. Status post acute hypoxic respiratory failure, now extubated. 3. COVID pneumonia, improved. 4. Superimposed Staphylococcus aureus pneumonia. 5. Hyperkalemia with severe metabolic acidosis, now improved with dialysis. PLAN: Continue hemodialysis on a Friday, Friday, Friday schedule. Patient will be dialyzed tomorrow. MMODL / IJN: [id number] /
[2021-05-31] MEDS: SODIUM CHLORIDE 0.45% 1,000 ML IV SCH (18:13)
[2021-06-01] MEDS: SEVELAMER 800 MG TAB PO SCH ×3 (06:39→17:30)
[2021-06-01] MEDS: ALBUTEROL HFA INHALER INHALATION SCH ×3 (07:39→17:10)
[2021-06-01 08:37] VITALS: RESP 18
[2021-06-01] MEDS: PANTOPRAZOLE 40 MG/10 ML VIAL IVP SCH (08:38)
[2021-06-01] MEDS: FUROSEMIDE 10 MG/ML 10 ML VIAL IV SCH (08:38)
[2021-06-01] MEDS: ASCORBIC ACID 500 MG TAB PO SCH (08:38)
[2021-06-01] MEDS: APIXABAN 5 MG TAB PO SCH (08:38)
[2021-06-01] MEDS: SODIUM BICARBONATE TAB 650 MG TAB PO SCH (08:38)
[2021-06-01] MEDS: CHOLECALCIFEROL 25 MCG (1000 IU) TABLET PO SCH (08:38)
[2021-06-01] MEDS: ZINC SULFATE 220 MG CAP PO SCH (08:38)
--- NOTE | 2021-06-01 11:01 | P.DS ---
Providers Date of admission: 05/12/21 13:39 Expected date of discharge: 06/01/21 Attending physician: Dunia Botello MD Consults: 05/12/21 14:00 Consult Physician Routine Consulting Provider: Zia Chaves Consult Reason/Comments: COVID Do you want consulting provider notified?: Yes 05/15/21 08:22 Consult Physician Routine Consulting Provider: Mike Schneider Consult Reason/Comments: DENIA with hyperkalemia; K 7.5 Do you want consulting provider notified?: Yes 05/28/21 16:58 Consult Physician Routine Consulting Provider: Govind Collier Consult Reason/Comments: weakness, critical illness myopathy Do you want consulting provider notified?: Yes Primary care physician: Stated None Hospital Course: Discharge Diagnosis: COVID-19 pneumonia MSSA pneumonia ARDS Critical illness myopathy (nimbex X 4 days) Acute bilateral pulmonary embolism with right heart strain Acute right popliteal vein DVT Acute hypoxic respiratory failure Pneumomediastinum Encephalopathy, improving DENIA with hyperkalemia secondary to ATN, requiring HD Hyperphosphatemia Volume overload secondary to DENIA Tranaminitis, improving Shock resolved secondary to sepsis and pulmonary embolism Hospital Course: Patient is a 51-year-old male with no known past medical history, not vaccinated who presented with shortness of breath. He had been diagnosed with COVID ten days prior to admission, he received monoclonal antibodies 3 days prior to admission. He was started on steroids and admitted for further management. He was seen by pulmonary. He underwent a CTA of the chest which showed bilateral lower lobe multiple pulmonary emboli without evidence of right heart strain. He was started on anticoagulation with Heparin. On 05/14 he was transferred to the ICU for worsening hypoxia and dyspnea. He was subsequently intubated and required propofol and nimbex. He had worsening renal function and nephrology was consulted. He ultimately had a temporary dialysis catheter placed on 05/15 and he was started on emergent HD. He improved slowly and was extubated on 05/25. He was transferred to the general medical floor. Temporary dialysis catheter was removed and Permacath placed on 05/30 and he was transitioned from Heparin gtt to eliquis. Patient was also started on Renvela and sodium bicarb. He remains on 2 L O2 via nasal cannula and has completed his course of steroids along with 12 day course of IV antibiotics with Zosyn. After 19 days of hospitalization, patient continues to be significantly weak. Patient to be transferred to [facility] as he requires continued therapy including PT/OT, and hemodialysis. Follow-up appointments to be made with p ulmonology as well as nephrology in 1 week. Imaging: Venous Doppler: DVT right popliteal vein Echo: Ejection fraction 55-60%, dyssynergy septal motion consistent with right ventricular volume overload CTA chest: Bilateral lower lobe multiple pulmonary emboli, extensive bilateral pneumonia Physical examination: Patient seen and examined at bedside. He appeared to be feeling better today. Patient was sitting up in bed with breakfast tray at bedside eating oatmeal and drinking protein shake. He reports continued weakness but also denies having any other complaints including headache, lightheadedness, dizziness, chest pain, palpitations, shortness of breath, nausea or experiencing any numbness/tingli ng/weakness in his extremities. Plan is for patient to be transferred to [facility] for rehab after dialysis today. General: non toxic, no distress, appears at stated age Derm: warm, dry Head: atraumatic, normocephalic, symmetric Eyes: EOMI, no lid lag, anicteric sclera Mouth: no lip lesion, mucus membranes moist Cardiovascular: S1S2 reg, no murmur, positive posterior tibial pulse bilateral, Lungs: Course breath sounds bilateral, no rhonchi, no rales , no accessory muscle use Abdominal: soft, nontender to palpation, no guarding, no appreciable organomegaly Ext: no gross muscle atrophy, no edema, no contractures Neuro: CN II-XI grossly intact, muscle strength3 out of 5 in bilateral upper extremities, 2 out of 5 in bilateral thighs, 4 out of 5 for plantar and dorsi flexion of the feet, he is able to lift his bilateral ankles off of the bed, light touch intact all 4 extremities Psych: Alert, oriented, appropriate affect A total of 40 minutes of time were spent preparing this complex discharge summary. Patient Condition at Discharge: Stable Plan - Discharge Summary Discharge Rx Participant: Yes New Discharge Prescriptions: New Zinc Sulfate [Orazinc] 220 mg PO DAILY cap Apixaban [Eliquis] 5 mg PO BID tab Sevelamer [Renvela] 800 mg PO TID-W/MEALS tab Sodium Bicarbonate Tab 650 mg PO BID tab Ascorbic Acid [Vitamin C] 1,000 mg PO DAILY tab Cholecalciferol [Vitamin D3 (25 Mcg = 1000 Iu)] 25 mcg PO DAILY tablet Continue Albuterol Inhaler [Ventolin Hfa Inhaler] 1 puff INHALATION RT-Q4H PRN PRN Reason: Shortness Of Breath Benzonatate [Tessalon Perles] 100 mg PO Q8H PRN PRN Reason: Cough Discontinued dexAMETHasone 6 mg PO DAILY Discharge Medication List Albuterol Inhaler [Ventolin Hfa Inhaler] 1 puff INHALATION RT-Q4H PRN 05/12/21 [History] Benzonatate [Tessalon Perles] 100 mg PO Q8H PRN 05/12/21 [History] Apixaban [Eliquis] 5 mg PO BID tab 05/31/21 [Rx] Ascorbic Acid [Vitamin C] 1,000 mg PO DAILY tab 05/31/21 [Rx] Cholecalciferol [Vitamin D3 (25 Mcg = 1000 Iu)] 25 mcg PO DAILY tablet 05/31/21 [Rx] Sevelamer [Renvela] 800 mg PO TID-W/MEALS tab 05/31/21 [Rx] Sodium Bicarbonate Tab 650 mg PO BID tab 05/31/21 [Rx] Zinc Sulfate [Orazinc] 220 mg PO DAILY cap 05/31/21 [Rx] Follow up Appointment(s)/Referral(s): Katherine Estevez MD [STAFF PHYSICIAN] - 1 Week Zia Chaves DO [Doctor of Osteopathic Medicine] - 1 Week Activity/Diet/Wound Care/Special Instructions: Continue dialysis Mondays, Wednesdays, and Fridays Follow-up with nephrology and cardiology in 1 week. Discharge Disposition: TRANSFER TO SNF/ECF
[2021-06-01 12:20] VITALS: BP 90/51; PULSE 77; TEMP 97.8
--- NOTE | 2021-06-01 13:49 | P.PN ---
Subjective Progress Note Date: 06/01/21 Principal diagnosis: COVID-19 pneumonia The patient is seen today 06/01/2021 in follow-up on the selective care unit. He is awake, alert, slow to respond. He is doing well and on room air with O2 saturations in the 90s. He's been afebrile. He is receiving hemodialysis today. No new labs. He is still quite weak and the plan is for possible ECF today. Objective - Vital Signs Vital signs: Vital Signs Temp 97.8 F 06/01/21 12:19 Pulse 77 06/01/21 12:19 Resp 18 06/01/21 12:19 BP 90/51 06/01/21 12:19 Pulse Ox 91 L 06/01/21 12:19 Intake & Output 05/31/21 06/01/21 06/01/21 18:59 06:59 18:59 Intake Total 290 240 Output Total 60 Balance 230 240 Weight 107 kg 105.5 kg Intake: Oral 290 240 Output: Urine 10 Stool 50 Other: Voiding Method Urinal Urinal Urinal Diaper Diaper Diaper # Voids 2 1 ABP, PAP, CO, CI - Last Documented Arterial Blood Pressure 146/76 - Exam GENERAL EXAM: Alert, 51-year-old gentleman, quite weak and debilitated, slow to respond, on room air HEAD: Normocephalic. EYES: Normal reaction of pupils, equal size. NOSE: Clear with pink turbinates. THROAT: No erythema or exudates. NECK: No masses, no JVD. CHEST: No chest wall deformity. LUNGS: Equal air entry with faint crackles in the bilateral bases. CVS: S1 and S2 normal with no audible murmur, regular rhythm. ABDOMEN: No hepatosplenomegaly, normal bowel sounds, no guarding or rigidity. SPINE: No scoliosis or deformity SKIN: No rashes CENTRAL NERVOUS SYSTEM: Quite weak and debilitated, slow to respond, tone is normal in all 4 extremities. EXTREMITIES: There is 1+ peripheral edema. No clubbing, no cyanosis. Peripheral pulses are intact. - Labs CBC & Chem 7: 05/31/21 07:58 05/31/21 07:58 Assessment and Plan Assessment: 1 Acute hypoxemic respiratory failure secondary to COVID-19 pneumonia subsequently requiring intubation mechanical ventilation and successfully extubated on 05/25/2021, recovered and on room air, 20 days length of stay. 2 Acute bilateral pulmonary emboli secondary to COVID-19 infection 3 Elevated inflammatory markers secondary to above 4 Elevated LFTs secondary to above Plan: The patient was seen and evaluated He is improved and on room air Still quite debilitated Plan is for subacute rehab at [facility] possibly today I, the cosigning physician, performed a history & physical examination of the patient. Lungs sounds with faint crackles in the bilateral bases. Maintaining good O2 saturations in the 90s on room air. I discussed the assessment and plan of care with my nurse practitioner, Alice Raya. I attest to the above note as dictated by her.
[2021-06-01] MEDS ORDERED: MIDODRINE 5 MG TAB PO PRN (14:11)
[2021-06-01] MEDS: SODIUM CHLORIDE 0.45% 1,000 ML IV SCH (16:09)
--- NOTE | 2021-06-01 17:10 | PN ---
PROGRESS NOTE Patient is seen for acute kidney injury, currently maintained on hemodialysis. Patient is maintained on a Friday, Friday, Friday schedule. PHYSICAL EXAMINATION: On examination today, blood pressure was 102/74, heart rate 89 per minute. Patient is afebrile. Examination shows no evidence of edema lower extremities. Abdomen is soft, nontender. LAB: Show sodium 140, potassium 4.4, chloride 101, BUN 71, creatinine 5.27, hemoglobin 10.7. ASSESSMENT: 1. Acute kidney injury, acute tubular necrosis, currently dialysis dependent, maintained on Friday, Friday, Friday schedule. 2. Status post COVID pneumonia. 3. Acute hypoxic respiratory failure status post extubation, doing fairly well. 4. Superimposed Staphylococcus aureus pneumonia. 5. Hyperkalemia, now resolved. PLAN: Maintain dialysis on Friday, Friday, Friday schedule. MMODL / ALEXANDERN: [id number] /
== END 2021-06-01 19:54 | DRG 870 ==
LOC: EC 12:21 → 4SSUR 13:39 → 2SICU 05-14 07:40 → 3SCARD 05-28 03:38
PROVIDERS: ADMIT Internal Medicine; ATTEND Internal Medicine
PROC: 0BH17EZ Insertion of Endotracheal Airway into Trachea, Via Natural or Artificial Opening (ICD-10-PCS; 2021-05-13)
PROC: 5A1955Z Respiratory Ventilation, Greater than 96 Consecutive Hours (ICD-10-PCS; principal; 2021-05-14)
PROC: 5A09357 Assistance with Respiratory Ventilation, Less than 24 Consecutive Hours, Continuous Positive Airway Pressure (ICD-10-PCS; 2021-05-14)
PROC: 3E0G76Z Introduction of Nutritional Substance into Upper GI, Via Natural or Artificial Opening (ICD-10-PCS; 2021-05-14)
PROC: 0DH67UZ Insertion of Feeding Device into Stomach, Via Natural or Artificial Opening (ICD-10-PCS; 2021-05-14)
PROC: 06HM33Z Insertion of Infusion Device into Right Femoral Vein, Percutaneous Approach (ICD-10-PCS; 2021-05-14)
PROC: 5A1D70Z Performance of Urinary Filtration, Intermittent, Less than 6 Hours Per Day (ICD-10-PCS; 2021-05-14)
PROC: 03HY32Z Insertion of Monitoring Device into Upper Artery, Percutaneous Approach (ICD-10-PCS; 2021-05-14)
PROC: 4A133J1 Monitoring of Arterial Pulse, Peripheral, Percutaneous Approach (ICD-10-PCS; 2021-05-14)
PROC: 4A133B1 Monitoring of Arterial Pressure, Peripheral, Percutaneous Approach (ICD-10-PCS; 2021-05-14)
PROC: 3E043XZ Introduction of Vasopressor into Central Vein, Percutaneous Approach (ICD-10-PCS; 2021-05-14)
PROC: 5A0945A Assistance with Respiratory Ventilation, 24-96 Consecutive Hours, High Flow/Velocity Cannula (ICD-10-PCS; 2021-05-14)
PROC: 02HV33Z Insertion of Infusion Device into Superior Vena Cava, Percutaneous Approach (ICD-10-PCS; 2021-05-29)
PROC: 0JH63XZ Insertion of Tunneled Vascular Access Device into Chest Subcutaneous Tissue and Fascia, Percutaneous Approach (ICD-10-PCS; 2021-05-29)
DX: A41.89 Other specified sepsis (principal); U07.1 COVID-19; I26.99 Other pulmonary embolism without acute cor pulmonale; J12.82 Pneumonia due to coronavirus disease 2019; J15.211 Pneumonia due to Methicillin susceptible Staphylococcus aureus; J80 Acute respiratory distress syndrome; N17.0 Acute kidney failure with tubular necrosis; E87.2 Acidosis; G72.81 Critical illness myopathy; G93.40 Encephalopathy, unspecified; I82.431 Acute embolism and thrombosis of right popliteal vein; R57.9 Shock, unspecified; R31.9 Hematuria, unspecified; R74.01 Elevation of levels of liver transaminase levels; R79.89 Other specified abnormal findings of blood chemistry; J98.2 Interstitial emphysema; D72.810 Lymphocytopenia; E83.39 Other disorders of phosphorus metabolism; E87.5 Hyperkalemia; E87.70 Fluid overload, unspecified; I27.20 Pulmonary hypertension, unspecified; Z79.899 Other long term (current) drug therapy; Z71.3 Dietary counseling and surveillance
CPT/HCPCS: 36415; 36558; 71045; 71275; 76937; 77001; 80048; 80053; 80076; 82272; 82550; 82728; 82805; 83615; 83735; 84100; 84132; 84145; 85025; 85027; 85379; 85610; 85730; 86140; 86706; 87070; 87077; 87186; 87205; 87340; 90935; 93005; 93306; 93970; 94002; 94003; 94640; 94660; 94760; 96374; 99285